=== PATIENT | female | born 1935 | race Caucasian/White ===

== ENCOUNTER 2016-12-23 00:12 | Inpatient (IN) | payer MEDICARE, OTHER ==
[2016-12-23] MEDS ORDERED: SODIUM CHLORIDE 0.9% 1,000 ML IV STA (00:33)
[2016-12-23] MEDS ORDERED: IPRATROPIUM-ALBUTEROL 3 ML NEB INHALATION STA ×2 (00:33→01:59)
[2016-12-23] MEDS ORDERED: methylPREDNISolone SOD SUCCI 125 MG/2 ML VIAL IV STA (00:33)
[2016-12-23] MEDS ORDERED: MAGNESIUM SULFATE-D5W PMX 1 GM in DEXTROSE/WATER 1 100ML.BAG IVPB STA (00:33)
--- NOTE | 2016-12-23 00:37 | ED ---
SOB HPI - General Chief Complaint: Shortness of Breath Stated Complaint: PARRISH Time Seen by Provider: 12/23/16 00:28 Source: patient, family, RN notes reviewed Mode of arrival: ambulatory Limitations: no limitations - History of Present Illness Initial Comments: This is a 81-year-old female history of COPD states she had the onset of shortness of breath tonight with some chest tightness. She states she's not been feeling well for about 2 days and slightly elevated temperature and coughing clear phlegm sometimes in phlegm. No overt chills or sweats however. She is on home oxygen. MD Complaint: shortness of breath - Related Data Home Medications Medication Instructions Recorded Confirmed Diltiazem Cd [Cardizem CD] 120 mg PO DAILY 02/20/15 12/23/16 Furosemide [Lasix] 40 mg PO BID 02/20/15 12/23/16 Lisinopril [Zestril] 2.5 mg PO DAILY 02/20/15 12/23/16 Montelukast [Singulair] 10 mg PO HS 02/20/15 12/23/16 Omeprazole [PriLOSEC] 20 mg PO DAILY 02/20/15 12/23/16 Albuterol Sulfate [Proair Hfa] 2 puff INHALATION RT-QID PRN 10/29/15 12/23/16 Ergocalciferol [Vitamin D2 50,000 unit PO Q14D 10/30/15 12/23/16 (DRISDOL)] Ranitidine HCl [Zantac] 150 mg PO BID 05/02/16 12/23/16 Simvastatin [Zocor] 80 mg PO HS 05/02/16 12/23/16 Albuterol Nebulized [Ventolin 2.5 mg INHALATION RT-Q6H PRN 08/19/16 12/23/16 Nebulized] Cetirizine HCl 10 mg PO DAILY 08/19/16 12/23/16 Fluticasone Nasal Sims [Flonase 1 - 2 spray EA NOSTRIL DAILY PRN 08/19/1612/23 Nasal Sims] Ipratropium Nebulized [Atrovent 0.5 mg INHALATION RT-Q4H PRN 08/19/16 12/23/16 Nebulized] Aspirin EC [Ecotrin Low Dose] 81 mg PO DAILY 10/05/16 12/23/16 Budesonide/Formoterol Fumarate 2 puff INHALATION RT-BID 10/05/16 12/23/16 [Symbicort 160-4.5 Mcg Inhaler] Allergies Allergy/AdvReac Type Severity Reaction Status Date / Time No Known Allergies Allergy Verified 12/23/16 00:25 Review of Systems ROS Statement: Those systems with pertinent positive or pertinent negative responses have been documented in the HPI. ROS Other: All systems not noted in ROS Statement are negative. Past Medical History Past Medical History: Asthma, Heart Failure, COPD, GERD/Reflux, Hypertension, Pneumonia Additional Past Medical History / Comment(s): PT USES O2 2 LITERS N/C AT HS AND NEEDED., DJD History of Any Multi-Drug Resistant Organisms: Acinetobacter (MDRO) Date of last positivie culture/infection: 10/06/16 MDRO Source:: SPUTUM Past Surgical History: Hysterectomy, Orthopedic Surgery, Tubal Ligation Additional Past Surgical History / Comment(s): LEFT HIP REPLACEMENT, LEFT FOOT Past Anesthesia/Blood Transfusion Reactions: No Reported Reaction Past Psychological History: No Psychological Hx Reported Smoking Status: Former smoker Past Alcohol Use History: None Reported Additional Past Alcohol Use History / Comment(s): QUIT 2009 HAD SMOKED 40-45 YEARS Past Drug Use History: None Reported - Past Family History Father History Unknown: Yes Brother(s) Family Medical History: No Reported History Mother Family Medical History: Rheumatoid Arthritis (RA) General Exam - General Exam Comments Initial Comments: This is a well-developed well-nourished awake alert oriented 3 female Limitations: no limitations General appearance: alert, anxious Head exam: Present: atraumatic, normocephalic, normal inspection Eye exam: Present: normal appearance, PERRL, EOMI. Absent: scleral icterus, conjunctival injection, periorbital swelling ENT exam: Present: mucous membranes dry Neck exam: Present: normal inspection. Absent: tenderness, meningismus, lymphadenopathy Respiratory exam: Present: wheezes, accessory muscle use, decreased breath sounds. Absent: respiratory distress, rales, rhonchi, stridor Cardiovascular Exam: Present: regular rate, normal rhythm, normal heart sounds. Absent: systolic murmur, diastolic murmur, rubs, gallop, clicks GI/Abdominal exam: Present: soft, normal bowel sounds. Absent: distended, tenderness, guarding, rebound, rigid Extremities exam: Present: normal inspection, full ROM, normal capillary refill. Absent: tenderness, pedal edema, joint swelling, calf tenderness Back exam: Present: normal inspection Neurological exam: Present: alert, oriented X3, CN II-XII intact Psychiatric exam: Present: normal affect, normal mood Skin exam: Present: warm, dry, intact, normal color. Absent: rash Course Vital Signs 12/23/16 12/23/16 12/23/16 00:21 00:53 01:01 Temperature 97.7 F Pulse Rate 83 87 89 Respiratory 22 Rate Blood Pressure 132/70 O2 Sat by Pulse 92 L Oximetry 12/23/16 12/23/16 02:12 02:18 Temperature Pulse Rate 78 84 Respiratory Rate Blood Pressure O2 Sat by Pulse Oximetry - Reevaluation(s) Reevaluation #1: 12/23/16 03:37 I did discuss findings with the patient and family thus far she is getting minimal relief from the treatment rendered thus far. Medical Decision Making - Medical Decision Making Patient still was not feeling much better after the initial treatment that was rendered. She will be admitted I did discuss this with her and her son. I also discussed this with the admitting physician. - Lab Data Result diagrams: 12/23/16 01:05 12/23/16 01:05 Lab Results 12/23/16 12/23/16 12/23/16 Range/Units 01:05 01:05 01:05 WBC 8.4 (3.8-10.6) k/uL RBC 3.97 (3.80-5.40) m/uL Hgb 11.2 L (11.4-16.0) gm/dL Hct 35.0 (34.0-46.0) % MCV 88.2 (80.0-100.0) fL MCH 28.3 (25.0-35.0) pg MCHC 32.1 (31.0-37.0) g/dL RDW 14.9 (11.5-15.5) % Plt Count 322 (150-450) k/uL Neutrophils % 70 % Lymphocytes % 18 % Monocytes % 6 % Eosinophils % 2 % Basophils % 1 % Neutrophils # 5.9 (1.3-7.7) k/uL Lymphocytes # 1.5 (1.0-4.8) k/uL Monocytes # 0.5 (0-1.0) k/uL Eosinophils # 0.2 (0-0.7) k/uL Basophils # 0.1 (0-0.2) k/uL PT (9.0-12.0) sec INR (<1.1) APTT (22.0-30.0) sec Sodium 140 (137-145) mmol/L Potassium 4.3 (3.5-5.1) mmol/L Chloride 106 (98-107) mmol/L Carbon Dioxide 26 (22-30) mmol/L Anion Gap 8 mmol/L BUN 14 (7-17) mg/dL Creatinine 0.90 (0.52-1.04) mg/dL Est GFR (MDRD) Af Amer >60 (>60 ml/min/1.73 sqM) Est GFR (MDRD) Non-Af >60 (>60 ml/min/1.73 sqM) Glucose 108 H (74-99) mg/dL Calcium 9.6 (8.4-10.2) mg/dL Magnesium 1.8 (1.6-2.3) mg/dL Total Bilirubin 0.3 (0.2-1.3) mg/dL AST 15 (14-36) U/L ALT 28 (9-52) U/L Alkaline Phosphatase 108 (38-126) U/L Total Creatine Kinase 48 (30-135) U/L CK-MB (CK-2) 0.7 (0.0-2.4) ng/mL CK-MB (CK-2) Rel Index 1.5 Troponin I <0.012 (0.000-0.034) ng/mL NT-Pro-B Natriuret Pep pg/mL Total Protein 6.2 L (6.3-8.2) g/dL Albumin 3.8 (3.5-5.0) g/dL 12/23/16 12/23/16 Range/Units 01:05 01:05 WBC (3.8-10.6) k/uL RBC (3.80-5.40) m/uL Hgb (11.4-16.0) gm/dL Hct (34.0-46.0) % MCV (80.0-100.0) fL MCH (25.0-35.0) pg MCHC (31.0-37.0) g/dL RDW (11.5-15.5) % Plt Count (150-450) k/uL Neutrophils % % Lymphocytes % % Monocytes % % Eosinophils % % Basophils % % Neutrophils # (1.3-7.7) k/uL Lymphocytes # (1.0-4.8) k/uL Monocytes # (0-1.0) k/uL Eosinophils # (0-0.7) k/uL Basophils # (0-0.2) k/uL PT 9.6 (9.0-12.0) sec INR 0.9 (<1.1) APTT 22.3 (22.0-30.0) sec Sodium (137-145) mmol/L Potassium (3.5-5.1) mmol/L Chloride (98-107) mmol/L Carbon Dioxide (22-30) mmol/L Anion Gap mmol/L BUN (7-17) mg/dL Creatinine (0.52-1.04) mg/dL Est GFR (MDRD) Af Amer (>60 ml/min/1.73 sqM) Est GFR (MDRD) Non-Af (>60 ml/min/1.73 sqM) Glucose (74-99) mg/dL Calcium (8.4-10.2) mg/dL Magnesium (1.6-2.3) mg/dL Total Bilirubin (0.2-1.3) mg/dL AST (14-36) U/L ALT (9-52) U/L Alkaline Phosphatase (38-126) U/L Total Creatine Kinase (30-135) U/L CK-MB (CK-2) (0.0-2.4) ng/mL CK-MB (CK-2) Rel Index Troponin I (0.000-0.034) ng/mL NT-Pro-B Natriuret Pep 202 pg/mL Total Protein (6.3-8.2) g/dL Albumin (3.5-5.0) g/dL - EKG Data -: EKG Interpreted by Al EKG shows normal: sinus rhythm (Sinus rhythm a rate of 80 MD interval 164 QRS duration 140 QT/QTC of 416/479 or bundle-branch block left anterior fascicular block no acute ST-T wave changes.) - Radiology Data Radiology results: report reviewed, image reviewed Critical Care Time Critical Care Time: Yes Critical Care Time: 31 minutes of critical care time which includes initial presentation with history physical lab and x-rays evaluation of the same. Reevaluation patient several occasions for responsive therapy. Discussion with the admitting physician discussed with the patient and family inpatient orders and documentation of the above. Disposition Clinical Impression: Acute exacerbation of chronic obstructive airways disease, Adult respiratory distress syndrome Disposition: ADMITTED IP TO THIS [facility] Condition: Stable
[2016-12-23 01:20] LABS: Basophils # (A) 0.1 k/uL (0-0.2); Basophils % (A) 1 %; Eosinophils # (A) 0.2 k/uL (0-0.7); Eosinophils % (A) 2 %; HDW 2.35; HGB 11.2 gm/dL (11.4-16.0); Luc # (Auto) 0.28; Luc % (Auto) 3; Lymphocytes # (A) 1.5 k/uL (1.0-4.8); Lymphocytes % (A) 18 %; MCH 28.3 pg (25.0-35.0); MCHC 32.1 g/dL (31.0-37.0); MCV 88.2 fL (80.0-100.0); Monocytes # (A) 0.5 k/uL (0-1.0); Monocytes % (A) 6 %; Neutrophils # (A) 5.9 k/uL (1.3-7.7); Neutrophils % (A) 70 %; RBC 3.97 m/uL (3.80-5.40); RDW 14.9 % (11.5-15.5); WBC 8.4 k/uL (3.8-10.6); WBC (Perox) 8.88
--- NOTE | 2016-12-23 01:26 | XR ---
EXAM: XR CXR 2 VIEWS INDICATION: 81-year-old female with difficulty breathing. COMPARISON: 10/05/2016. FINDINGS: PA and lateral views of chest show lungs and pleural margins are clear without pleural effusion, pneumothorax, or focal consolidation. Cardiac and mediastinal silhouette is stable. Aorta is tortuous and partially calcified. Osseous structures appear intact as visualized. Upper abdomen is unremarkable. IMPRESSION: No acute chest process.
[2016-12-23 01:29] LABS: ALT 28 U/L (9-52); AST 15 U/L (14-36); Alkaline Phosphatase 108 U/L (38-126); Anion Gap 8 mmol/L; Blood Urea Nitrogen 14 mg/dL (7-17); Calcium 9.6 mg/dL (8.4-10.2); Carbon Dioxide 26 mmol/L (22-30); Chloride 106 mmol/L (98-107); Glucose 108 mg/dL (74-99); Magnesium 1.8 mg/dL (1.6-2.3); Non-African American GFR(MDRD) >60 (>60 ml/min/1.73 sqM); Potassium 4.3 mmol/L (3.5-5.1); Sodium 140 mmol/L (137-145); Total Bilirubin 0.3 mg/dL (0.2-1.3); Total Protein 6.2 g/dL (6.3-8.2)
[2016-12-23 01:46] LABS: INR 0.9 (<1.1); Partial Thromboplastin Time 22.3 sec (22.0-30.0); Prothrombin Time 9.6 sec (9.0-12.0)
[2016-12-23 01:53] LABS: Creatine Kinase MB 0.7 ng/mL (0.0-2.4); Troponin I <0.012 ng/mL (0.000-0.034)
[2016-12-23 01:57] LABS: Creatine Kinase 48 U/L (30-135)
[2016-12-23] MEDS ORDERED: IPRATROPIUM-ALBUTEROL 3 ML NEB INHALATION PRN (04:47)
[2016-12-23] MEDS: methylPREDNISolone SOD SUCCI 125 MG/2 ML VIAL IV SCH ×4 (05:57→23:27)
[2016-12-23] MEDS: SODIUM CHLORIDE 0.9% 1,000 ML IV SCH ×2 (05:59→13:10)
[2016-12-23] MEDS ORDERED: IPRATROPIUM-ALBUTEROL 3 ML NEB INHALATION SCH (08:00)
[2016-12-23] MEDS: DILTIAZEM CD 120 MG CAP.ER.24H PO SCH (08:03)
[2016-12-23] MEDS: FAMOTIDINE 20 MG TAB PO SCH ×2 (08:03→20:29)
[2016-12-23] MEDS: ASPIRIN 81 MG CHEW PO SCH (08:03)
[2016-12-23] MEDS: PANTOPRAZOLE 40 MG TABLET PO SCH (08:03)
[2016-12-23] MEDS: LISINOPRIL 2.5 MG TAB PO SCH (08:03)
[2016-12-23] MEDS: IPRATROPIUM-ALBUTEROL 3 ML NEB INHALATION SCH ×4 (08:24→20:20)
[2016-12-23] MEDS ORDERED: FUROSEMIDE 40 MG TAB PO SCH (09:00)
[2016-12-23 12:13] LABS: Glucose,Whole Blood 153 mg/dL (75-99)
[2016-12-23 17:05] LABS: Glucose,Whole Blood 135 mg/dL (75-99)
[2016-12-23] MEDS: FUROSEMIDE 40 MG TAB PO SCH (17:26)
[2016-12-23] MEDS ORDERED: ACETAMINOPHEN TAB 325 MG TAB PO PRN (18:16)
--- NOTE | 2016-12-23 19:25 | HP ---
DATE OF ADMISSION: Sandrine Abreu is a 81-year-old female with a history of asthma, who came in to the ED with increasing shortness of breath of about 2 days. She had a slightly elevated temperature and was bringing up clear phlegm. She subsequently was seen in the ED and admitted for further evaluation. Her past medical history is positive for asthma, COPD, chronic respiratory failure, hypertension, anxiety disorder, seasonal allergies, history of heart failure, history of previous Acinetobacter infection in the sputum, history of left hip replacement, left foot surgery, tubal ligation, hysterectomy. Family history is positive for rheumatoid arthritis in her mother. SOCIAL HISTORY: Patient is an ex-smoker. She quit smoking 40 to 45 years ago. She does not drink alcohol excessively. She used to work for [employer]. Her medications prior to admission were: 1. Zocor. 2. Prilosec. 3. Singulair. 4. Zestril. 5. Atrovent. 6. Lasix. 7. Drisdol. 8. Cardizem CD. 9. Cetirizine. 10. Symbicort. 11. Ecotrin. 12. ProAir. 13. Ventolin. Review of systems is noncontributory other than for what is described in history of present illness and past medical history. On physical examination, blood pressure 141/82, respiratory rate of 22, pulse rate of 84, temperature 96.6 degrees Fahrenheit, O2 sat on 2 L by nasal cannula is 97%. HEENT reveals pupils that are equal. No jugular venous distention. Chest reveals expiratory wheeze. Cardiovascular system reveals an S1 and S2. Abdomen is soft. There is no pedal edema. Sodium is 140, potassium 4.3, chloride 106, bicarb 26, BUN 14, creatinine of 0.9. White count is 8.4, hemoglobin of 11.2, eosinophil count is 0.2000. Chest x-ray shows no acute process. IMPRESSION: 1. Asthma with acute exacerbation. 2. Chronic obstructive pulmonary disease. 3. Mild anemia. 4. Elevated blood sugars, in part due to steroids. At this point in time, we will keep the patient on bronchodilators, aerosolized steroids, leukotriene receptor antagonist, watch her sugars, put her on an insulin sliding scale if need be. Continue her on her other current medications, which were reviewed. Keep her on GI and DVT prophylaxis.
[2016-12-23] MEDS: BUDESONIDE 0.5 MG/2 ML NEBU INHALATION SCH (20:20)
[2016-12-23] MEDS: HEPARIN SODIUM,PORCINE 5,000 UNIT/ML 1 ML VIAL SQ SCH (20:29)
[2016-12-23] MEDS: MONTELUKAST 10 MG TAB PO SCH (20:29)
[2016-12-23] MEDS: ATORVASTATIN 40 MG TAB PO SCH (20:29)
[2016-12-23 22:00] LABS: Glucose,Whole Blood 156 mg/dL (75-99)
[2016-12-24] MEDS: SODIUM CHLORIDE 0.9% 1,000 ML IV SCH ×3 (00:51→20:20)
[2016-12-24] MEDS: methylPREDNISolone SOD SUCCI 125 MG/2 ML VIAL IV SCH (05:09)
[2016-12-24 07:36] LABS: Glucose,Whole Blood 136 mg/dL (75-99)
[2016-12-24] MEDS: IPRATROPIUM-ALBUTEROL 3 ML NEB INHALATION SCH ×4 (08:20→20:53)
[2016-12-24] MEDS: BUDESONIDE 0.5 MG/2 ML NEBU INHALATION SCH (08:20)
[2016-12-24] MEDS: ASPIRIN 81 MG CHEW PO SCH (09:09)
[2016-12-24] MEDS: FAMOTIDINE 20 MG TAB PO SCH ×2 (09:10→20:17)
[2016-12-24] MEDS: DILTIAZEM CD 120 MG CAP.ER.24H PO SCH (09:10)
[2016-12-24] MEDS: FUROSEMIDE 40 MG TAB PO SCH ×2 (09:11→16:27)
[2016-12-24] MEDS: PANTOPRAZOLE 40 MG TABLET PO SCH (09:11)
[2016-12-24] MEDS: HEPARIN SODIUM,PORCINE 5,000 UNIT/ML 1 ML VIAL SQ SCH ×2 (09:11→20:17)
[2016-12-24] MEDS: LISINOPRIL 2.5 MG TAB PO SCH (09:11)
[2016-12-24] MEDS ORDERED: IPRATROPIUM 0.5 MG/2.5 ML NEBU INHALATION PRN (10:46)
[2016-12-24] MEDS ORDERED: ALBUTEROL NEBULIZED 2.5 MG/3 ML INHALATION PRN (10:46)
[2016-12-24] MEDS ORDERED: ALBUTEROL INHALER 60 PUFF/8 GM INHALER INHALATION PRN (10:46)
--- NOTE | 2016-12-24 10:46 | P.PN ---
Subjective 81-year-old female being seen on rounds. Patient states that she came into the emergency room the day before because she felt short of breath with any exertion needed to stop activity. Patient stated that he been ongoing for the past several days. Patient stated she felt like she had a temp and was coughing up clear secretions. Patient states that she does wear oxygen at home and did give herself an updraft treatment did not improve came into the emergency room to be evaluated. In the emergency room the temp is 97.7. Patient states that she has been doing relatively well her last admission was at that time the patient was treated for COPD Patients being treated for asthma exacerbation in a patient with known COPD chest x-ray obtained on admission showed no acute process. Objective - Vital Signs Vital signs: Vital Signs Temp 97.0 F L 12/24/16 07:00 Pulse 96 12/24/16 08:36 Resp 20 12/24/16 07:00 BP 132/68 12/24/16 07:00 Pulse Ox 97 12/24/16 07:00 Intake & Output 12/23/16 12/24/16 12/24/16 18:59 06:59 18:59 Intake Total 600 Output Total 1 Balance 600 -1 Intake: Oral 600 Output: Urine 1 Other: # Voids 3 4 # Bowel Movements 1 1 - Exam Physical exam 81-year-old female sitting up on the edge of the bed continues to report having shortness of breath with any exertion a dry nonproductive cough noted Lungs posterior bilateral prolonged expiratory wheezing noted slightly short of breath with conversation a dry nonproductive cough noted Heart S1-S2 audible regular Abdomen soft nontender reports no nausea vomiting no difficulty in urinating no frequent stooling Extremities no edema noted - Labs CBC & Chem 7: 12/23/16 01:05 12/23/16 01:05 Labs: Abnormal Lab Results - Last 24 Hours (Table) 12/23/16 12/23/16 12/23/16 Range/Units 12:05 16:56 21:31 POC Glucose (mg/dL) 153 H 135 H 156 H (75-99) mg/dL 12/24/16 Range/Units 07:33 POC Glucose (mg/dL) 136 H (75-99) mg/dL Assessment and Plan Plan: Impression Present on admission shortness of breath likely due to an acute exacerbation of asthma Chronic severe COPD Hypoglycemic episodes suspect steroid-induced Chronic persistent asthma A remote history of tobacco abuse quit 40 years ago Hypertension with hypertensive cardiovascular disease Anxiety disorder nonspecified Chronic hypoxic respiratory failure on supplement home O2 3 L [id number] Chronic debility due to severe COPD Plan Decrease Solu-Medrol to 40 every 8 Resume home meds as appropriate Respiratory treatments as ordered Pulmonary's recommendations DVT and GI prophylaxis Monitor blood sugars while on IV Solu-Medrol address as indicated Further recommendations pending The above dictated assessment and findings were discussed with dr condon. Impression and the plan of care have been dictated as directed. Gabriela Avina nurse practitioner acting as a scribe for dr condon
--- NOTE | 2016-12-24 11:03 | P.CNPUL ---
History of Present Illness Consult date: 12/24/16 Requesting physician: Og Green Reason for consult: COPD Chief complaint: Shortness of breath History of present illness: This is a 81-year-old female being examined and evaluated today on the fourth floor. This patient is well known to our office. Patient came into the ER yesterday due to shortness of breath and dyspnea with activity. Patient states it has been going on for a few days prior to coming in. She reports some subjective fevers before arrival, however was 97.7 in the emergency room. This patient does have a history of chronic severe COPD, and chronic severe persistent asthma. Upon examination the patient is resting up in bed, she does complain of a significant cough and some clear white sputum production. Review of Systems 14 point review of system was completed and is negative other than what is noted in HPI Past Medical History Past Medical History: Asthma, Heart Failure, COPD, GERD/Reflux, Hypertension, Pneumonia Additional Past Medical History / Comment(s): PT USES O2 2 LITERS N/C AT HS AND NEEDED., DJD History of Any Multi-Drug Resistant Organisms: Acinetobacter (MDRO) Date of last positivie culture/infection: 10/06/16 MDRO Source:: SPUTUM Past Surgical History: Hysterectomy, Orthopedic Surgery, Tubal Ligation Additional Past Surgical History / Comment(s): LEFT HIP REPLACEMENT, LEFT FOOT surgery Past Anesthesia/Blood Transfusion Reactions: No Reported Reaction Past Psychological History: No Psychological Hx Reported Smoking Status: Former smoker Past Alcohol Use History: None Reported Additional Past Alcohol Use History / Comment(s): QUIT 2009 HAD SMOKED 40-45 YEARS Past Drug Use History: None Reported - Past Family History Father History Unknown: Yes Brother(s) Family Medical History: No Reported History Mother Family Medical History: Rheumatoid Arthritis (RA) Medications and Allergies Home Medications Medication Instructions Recorded Confirmed Type Diltiazem Cd [Cardizem CD] 120 mg PO DAILY 02/20/15 12/23/16 History Furosemide [Lasix] 40 mg PO BID 02/20/15 12/23/16 History Lisinopril [Zestril] 2.5 mg PO DAILY 02/20/15 12/23/16 History Montelukast [Singulair] 10 mg PO HS 02/20/15 12/23/16 History Omeprazole [PriLOSEC] 20 mg PO DAILY 02/20/15 12/23/16 History Albuterol Sulfate [Proair Hfa] 2 puff INHALATION RT-QID PRN 10/29/15 12/23/16 History Ergocalciferol [Vitamin D2 50,000 unit PO Q14D 10/30/15 12/23/16 History (DRISDOL)] Simvastatin [Zocor] 80 mg PO HS 05/02/16 12/23/16 History Albuterol Nebulized [Ventolin 2.5 mg INHALATION RT-QID PRN 08/19/16 12/23/16 History Nebulized] Cetirizine HCl 10 mg PO DAILY 08/19/16 12/23/16 History Ipratropium Nebulized [Atrovent 0.5 mg INHALATION RT-QID PRN 08/19/16 12/23/16 History Nebulized] Aspirin EC [Ecotrin Low Dose] 81 mg PO DAILY 10/05/16 12/23/16 History Budesonide/Formoterol Fumarate 2 puff INHALATION RT-BID 10/05/16 12/23/16 History [Symbicort 160-4.5 Mcg Inhaler] Allergies Allergy/AdvReac Type Severity Reaction Status Date / Time No Known Allergies Allergy Verified 12/23/16 00:25 Physical Exam Vitals: Vital Signs Temp Pulse Pulse Resp BP Pulse Ox 12/24/16 08:36 96 12/24/16 08:22 92 12/24/16 07:00 97.0 F L 86 20 132/68 97 12/24/16 02:52 100 12/24/16 02:42 100 12/23/16 23:00 98.3 F 105 H 20 136/68 94 L 12/23/16 20:39 84 12/23/16 20:20 82 12/23/16 17:18 84 12/23/16 17:04 82 12/23/16 15:09 16 12/23/16 15:00 96.6 F L 84 22 141/82 97 12/23/16 11:38 84 12/23/16 11:28 80 Intake and Output 12/23/16 12/24/16 12/24/16 22:59 06:59 14:59 Intake Total 600 Output Total 1 Balance 600 -1 Intake: Oral 600 Output: Urine 1 Other: # Voids 4 # Bowel Movements 1 GENERAL EXAM: Alert, active, comfortable in no apparent distress. HEAD: Normocephalic. EYES: Normal reaction of pupils, equal size. NOSE: Clear with pink turbinates. THROAT: No erythema or exudates. NECK: No masses, no JVD. CHEST: No chest wall deformity. LUNGS: Bilaterally increased expiratory wheezing. CVS: S1 and S2 normal with no audible mumurs, regular rhythm. ABDOMEN: No hepatosplenomegaly, normal bowel sounds, no guarding or rigidity. EXTREMITIES: No edema noted, pedal pulses palpable. SKIN: No rashes CENTRAL NERVOUS SYSTEM: No focal deficits, tone is normal in all 4 extremities. Results - Laboratory Findings CBC and BMP: 12/23/16 01:05 12/23/16 01:05 PT/INR, D-dimer PT 9.6 sec (9.0-12.0) 12/23/16 01:05 INR 0.9 (<1.1) 12/23/16 01:05 Abnormal lab findings: Abnormal Labs 12/23/16 12/23/16 12/23/16 12:05 16:56 21:31 POC Glucose (mg/dL) 153 H 135 H 156 H 12/24/16 07:33 POC Glucose (mg/dL) 136 H - Diagnostic Findings Chest x-ray: report reviewed, image reviewed Assessment and Plan Plan: Assessment Acute exacerbation of severe persistent asthma Chronic severe COPD Chronic severe persistent asthma Hypertension with hypertensive cardiovascular disease Chronic hypoxic respiratory failure, patient is oxygen dependent at home Medical debility due to COPD Anxiety Plan Continue the patient on IV steroids, nebulizers and medications as ordered. Continue supportive care. We will continue to monitor labs and adjust treatment as necessary.
[2016-12-24 12:18] LABS: Glucose,Whole Blood 159 mg/dL (75-99)
[2016-12-24] MEDS: methylPREDNISolone SOD SUCCI 40 MG/ML 1 ML VIAL IV SCH ×2 (16:26→23:14)
[2016-12-24 16:52] LABS: Glucose,Whole Blood 141 mg/dL (75-99)
--- NOTE | 2016-12-24 17:54 | HP ---
DATE OF ADMISSION: 12/23/2016 CHIEF COMPLAINT: Difficulty breathing. HISTORY OF PRESENT ILLNESS: This is another admission for this 81-year-old white female with severe COPD who stopped smoking several years ago. She thinks she got a slight URI and then went into respiratory distress. She came to the emergency room, where she could not be reversed, and she was admitted. REVIEW OF SYSTEMS: She denies any hemoptysis, chest pain, syncope, etc. Past medical history, family history, and personal and social histories are all otherwise unremarkable and unchanged from her recent admitting and discharge summaries. Patient is NOT ALLERGIC TO ANY MEDICATION. She takes: 1. Advair. 2. Omeprazole. 3. Aspirin. 4. Lasix. 5. Cardizem. 6. Symbicort. 7. Albuterol. 8. Ipratropium. 9. Zocor. 10. Lisinopril. 11. Vitamin B. 12. Simvastatin. 13. Prilosec. 14. Oxygen. The remainder of her history is unremarkable PHYSICAL EXAMINATION: Blood pressure is 120/70 with a pulse of 102, respirations of 46, temperature 97.8. In general she appeared to be in quite a bit respiratory distress. She was pale. Skin was dry. Head, ears, eyes, nose, mouth and throat were normal. She was using pursed-lip breathing. Chest demonstrated increased AP diameter with poor breath sounds. There is wheezing on inspiration and expiration. She has scattered rales throughout. Cardiac exam demonstrated tachycardia. Abdomen is soft, nontender. Extremities are normal. IMPRESSION: Exacerbation of chronic obstructive pulmonary disease. PLAN: 1. Bed rest. 2. IV and inhaled steroids. 3. Updrafts. 4. Antibiotics.
--- NOTE | 2016-12-24 17:56 | PN ---
DATE OF SERVICE: 12/24/2016 CHIEF COMPLAINT: Exacerbation of COPD. HISTORY OF PRESENT ILLNESS: This lady is doing a little better but she is still dyspneic. Chest had definitely improved. PHYSICAL EXAMINATION: Breath sounds are better. There are rales and rhonchi heard throughout. Cardiac exam is normal. IMPRESSION: 1. Exacerbation of chronic obstructive pulmonary disease. 2. Bronchopneumonia. PLAN: Continue on current program. Probably home tomorrow.
[2016-12-24] MEDS: MONTELUKAST 10 MG TAB PO SCH (20:17)
[2016-12-24] MEDS: ATORVASTATIN 40 MG TAB PO SCH (20:17)
[2016-12-24 20:36] LABS: Glucose,Whole Blood 189 mg/dL (75-99)
[2016-12-24] MEDS: SYMBICORT 160-4.5 MCG INHALER INHALATION SCH (20:53)
[2016-12-25] MEDS: SODIUM CHLORIDE 0.9% 1,000 ML IV SCH (05:14)
[2016-12-25 06:52] LABS: Glucose,Whole Blood 129 mg/dL (75-99)
[2016-12-25 07:43] VITALS: BP 147/84; RESP 16; TEMP 97.7
[2016-12-25] MEDS: SYMBICORT 160-4.5 MCG INHALER INHALATION SCH (07:47)
[2016-12-25] MEDS: IPRATROPIUM-ALBUTEROL 3 ML NEB INHALATION SCH ×2 (07:47→11:17)
[2016-12-25] MEDS: FAMOTIDINE 20 MG TAB PO SCH (08:47)
[2016-12-25] MEDS: methylPREDNISolone SOD SUCCI 40 MG/ML 1 ML VIAL IV SCH (08:47)
[2016-12-25] MEDS: FUROSEMIDE 40 MG TAB PO SCH (08:48)
[2016-12-25] MEDS: DILTIAZEM CD 120 MG CAP.ER.24H PO SCH (08:48)
[2016-12-25] MEDS: PANTOPRAZOLE 40 MG TABLET PO SCH (08:48)
[2016-12-25] MEDS: ASPIRIN 81 MG CHEW PO SCH (08:48)
[2016-12-25] MEDS: HEPARIN SODIUM,PORCINE 5,000 UNIT/ML 1 ML VIAL SQ SCH (08:48)
[2016-12-25] MEDS: LISINOPRIL 2.5 MG TAB PO SCH (08:49)
[2016-12-25] MEDS ORDERED: LORATADINE 10 MG TAB PO SCH (09:00)
--- NOTE | 2016-12-25 10:36 | P.PN ---
Subjective This is a 81-year-old female being examined needed and evaluated today on the fourth floor. The patient is well known to our office. The patient came into the ER due to shortness of breath and dyspnea with activity, it has been going on for a few days prior to coming in. She reports to have some subjective fevers before arrival however she was 97.7 in the emergency room and has been afebrile liver stents. The patient does have a history of chronic severe COPD and chronic severe persistent asthma. Upon examination the patient's resting up in bed she states that her cough is significantly improved and she has some small amounts of clear to white sputum production, which has decreased since admission. Objective - Vital Signs Vital signs: Vital Signs Temp 97.7 F 12/25/16 07:00 Pulse 96 12/25/16 08:03 Resp 16 12/25/16 07:00 BP 147/84 12/25/16 07:00 Pulse Ox 95 12/25/16 07:00 Intake & Output 12/24/16 12/25/16 12/25/16 18:59 06:59 18:59 Intake Total 240 Output Total 1 Balance -1 240 Weight 86.5 kg Intake: Oral 240 Output: Urine 1 Other: # Voids 2 2 # Bowel Movements 1 1 - Exam GENERAL EXAM: Alert, active, comfortable in no apparent distress. HEAD: Normocephalic. EYES: Normal reaction of pupils, equal size. NOSE: Clear with pink turbinates. THROAT: No erythema or exudates. NECK: No masses, no JVD. CHEST: No chest wall deformity. LUNGS: Equal air entry with some expiratory wheezes noted CVS: S1 and S2 normal with no audible mumurs, regular rhythm. ABDOMEN: No hepatosplenomegaly, normal bowel sounds, no guarding or rigidity. EXTREMITIES: No edema noted, pedal pulses palpable. SKIN: No rashes CENTRAL NERVOUS SYSTEM: No focal deficits, tone is normal in all 4 extremities. - Labs CBC & Chem 7: 12/23/16 01:05 12/23/16 01:05 Labs: Abnormal Lab Results - Last 24 Hours (Table) 12/24/16 12/24/16 12/24/16 Range/Units 12:16 16:50 20:35 POC Glucose (mg/dL) 159 H 141 H 189 H (75-99) mg/dL 12/25/16 Range/Units 06:46 POC Glucose (mg/dL) 129 H (75-99) mg/dL Assessment and Plan Plan: Assessment Acute exacerbation of severe persistent asthma Chronic severe COPD Chronic severe persistent asthma Hypertension with hypertensive cardiovascular disease Chronic hypoxic respiratory failure, patient is oxygen dependent at home Medical debility due to COPD Anxiety Plan Patient is cleared for discharge from pulmonary standpoint. Continue the patient on nebulizers and medications as ordered. Continue supportive care. We will continue to monitor labs and adjust treatment as necessary. We will follow -up with patient in the office within 1 week of discharge.
[2016-12-25 11:30] VITALS: PULSE 92
--- NOTE | 2016-12-25 11:32 | P.DS ---
Providers Date of admission: 12/23/16 03:42 Expected date of discharge: 12/25/16 Attending physician: Og Condon Consults: 12/24/16 08:21 Consult Physician Urgent Consulting Provider: Preston Diaz Consult Reason/Comments: copd Do you want consulting provider notified?: Yes Primary care physician: Og Condon [facility] Course: 11-year-old female has a history of COPD presented on the day of admission to the emergency room with a chief complaint of developing shortness of breath with chest tightness. Patient states she had not been feeling well for the past several days. Subjectively felt like she had a temp at home but did not actually take her temperature. The temp is 97.7 in the emergency room with a heart rate in the 80s. Given the above clinical presentation patient was admitted to the services of the attending with a pulmonology consultation requested patient was started on IV Solu-Medrol and updrafts. In the course of the hospitalization the symptoms improved patient was felt to be stable and appropriate to proceed with a discharge to home patients being treated for an asthma exacerbation in a patient with known COPD the chest x-ray obtained on admission showed no acute pulmonary process. Patient's last admission was 10/08 at that time the patient was treated for an exacerbation of COPD. Patient states she's been doing relatively well in regards to her pulmonary's status Impression discharge diagnosis Present on admission shortness of breath likely due to an acute exacerbation of asthma Chronic severe COPD Hypoglycemic episodes suspect steroid-induced Chronic persistent asthma A remote history of tobacco abuse quit 40 years ago Hypertension with hypertensive cardiovascular disease Anxiety disorder nonspecified Chronic hypoxic respiratory failure on supplement home O2 3 L [id number] Chronic debility due to severe COPD The above dictated assessment and findings were discussed with dr condon . Impression and the plan of care have been dictated as directed. Gabriela Avina nurse practitioner acting as a scribe for dr condon Patient Condition at Discharge: Stable Plan - Discharge Summary New Discharge Prescriptions: Doxycycline Hyclate [Vibramycin] 100 mg PO BID #20 cap methylPREDNISolone Dose Pack [Medrol Dose Pack] 4 mg PO DIRECTED #21 package Discharge Medication List Diltiazem Cd [Cardizem CD] 120 mg PO DAILY 02/20/15 [History] Furosemide [Lasix] 40 mg PO BID 02/20/15 [History] Lisinopril [Zestril] 2.5 mg PO DAILY 02/20/15 [History] Montelukast [Singulair] 10 mg PO HS 02/20/15 [History] Omeprazole [PriLOSEC] 20 mg PO DAILY 02/20/15 [History] Albuterol Sulfate [Proair Hfa] 2 puff INHALATION RT-QID PRN 10/29/15 [History] Ergocalciferol [Vitamin D2 (DRISDOL)] 50,000 unit PO Q14D 10/30/15 [History] Simvastatin [Zocor] 80 mg PO HS 05/02/16 [History] Albuterol Nebulized [Ventolin Nebulized] 2.5 mg INHALATION RT-QID PRN 08/19/16 [ History] Cetirizine HCl 10 mg PO DAILY 08/19/16 [History] Ipratropium Nebulized [Atrovent Nebulized] 0.5 mg INHALATION RT-QID PRN [History] Aspirin EC [Ecotrin Low Dose] 81 mg PO DAILY 10/05/16 [History] Budesonide/Formoterol Fumarate [Symbicort 160-4.5 Mcg Inhaler] 2 puff INHALATION RT-BID 10/05/16 [History] Doxycycline Hyclate [Vibramycin] 100 mg PO BID #20 cap 12/25/16 [Rx] methylPREDNISolone Dose Pack [Medrol Dose Pack] 4 mg PO DIRECTED #21 package 12/25/16 [Rx] Follow up Appointment(s)/Referral(s): Og Condon MD [Primary Care Provider] - 1-2 days Preston Diaz MD [STAFF PHYSICIAN] - 1 Week Patient Instructions/Handouts: Heart Failure (DC) Discharge Disposition: HOME SELF-CARE
[2016-12-25 12:26] LABS: Glucose,Whole Blood 133 mg/dL (75-99)
--- NOTE | 2016-12-25 21:34 | PN ---
DATE OF SERVICE: 12/25/2016 CHIEF COMPLAINT: Exacerbation of COPD. HISTORY OF PRESENT ILLNESS: This lady is doing well and feels like she can go home today. PHYSICAL EXAM: Breath sounds are poor, but there are no rales or rhonchi and there is no wheezing. Cardiac is normal. IMPRESSION: Exacerbation of chronic obstructive pulmonary disease. PLAN: Probably home today and this will be arranged by the nurse practitioner.
[2017-01-02] MEDS ORDERED: ERGOCALCIFEROL 50,000 UNIT CAP PO SCH (12:00)
== END 2016-12-25 14:22 | disposition home or self-care (01) | DRG 202 ==
LOC: EC 00:12 → 4MS4W 03:42
PROVIDERS: ADMIT Family Medicine; ATTEND Family Medicine
DX: J45.51 Severe persistent asthma with (acute) exacerbation (principal); J44.1 Chronic obstructive pulmonary disease with (acute) exacerbation; J96.11 Chronic respiratory failure with hypoxia; I11.0 Hypertensive heart disease with heart failure; I50.9 Heart failure, unspecified; Z99.81 Dependence on supplemental oxygen; T38.0X5A Adverse effect of glucocorticoids and synthetic analogues, initial encounter; R73.9 Hyperglycemia, unspecified; F41.9 Anxiety disorder, unspecified; D64.9 Anemia, unspecified; I45.4 Nonspecific intraventricular block; I44.4 Left anterior fascicular block; R00.0 Tachycardia, unspecified; K21.9 Gastro-esophageal reflux disease without esophagitis; J30.2 Other seasonal allergic rhinitis; M19.90 Unspecified osteoarthritis, unspecified site; R53.81 Other malaise; Z98.51 Tubal ligation status; Z90.710 Acquired absence of both cervix and uterus; Z87.891 Personal history of nicotine dependence; Z79.899 Other long term (current) drug therapy; Z16.24 Resistance to multiple antibiotics; Z87.01 Personal history of pneumonia (recurrent); Z96.642 Presence of left artificial hip joint; Z86.19 Personal history of other infectious and parasitic diseases; Z79.82 Long term (current) use of aspirin; Z79.51 Long term (current) use of inhaled steroids
CPT/HCPCS: 36415; 71020; 80053; 82550; 82553; 83735; 83880; 84484; 85025; 85610; 85730; 87040; 93005; 94640; 94760; 96361; 96365; 96375; 99291

== ENCOUNTER 2016-12-27 11:32 | Inpatient (IN) | payer MEDICARE, OTHER ==
[2016-12-27] MEDS ORDERED: IPRATROPIUM 0.5 MG/2.5 ML NEBU INHALATION PRN (14:42)
[2016-12-27] MEDS ORDERED: ALBUTEROL NEBULIZED 2.5 MG/3 ML INHALATION PRN ×2 (14:42)
[2016-12-27] MEDS ORDERED: ERGOCALCIFEROL 50,000 UNIT CAP PO SCH (15:00)
[2016-12-27] MEDS: IPRATROPIUM-ALBUTEROL 3 ML NEB INHALATION SCH ×3 (16:40→23:29)
[2016-12-27] MEDS: SYMBICORT 160-4.5 MCG INHALER INHALATION SCH (19:20)
[2016-12-27] MEDS: FUROSEMIDE 40 MG TAB PO SCH (21:15)
[2016-12-27] MEDS: ATORVASTATIN 40 MG TAB PO SCH (21:15)
[2016-12-27] MEDS: MONTELUKAST 10 MG TAB PO SCH (21:15)
[2016-12-27] MEDS: DOXYCYCLINE 50 MG CAP PO SCH (21:15)
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
[2016-12-28] MEDS: IPRATROPIUM-ALBUTEROL 3 ML NEB INHALATION SCH ×6 (03:15→23:40)
[2016-12-28] MEDS: ASPIRIN 81 MG CHEW PO SCH (07:25)
[2016-12-28] MEDS: PANTOPRAZOLE 40 MG TABLET PO SCH (07:25)
[2016-12-28] MEDS: LORATADINE 10 MG TAB PO SCH (07:26)
[2016-12-28] MEDS: FUROSEMIDE 40 MG TAB PO SCH ×2 (07:26→19:52)
[2016-12-28] MEDS: LISINOPRIL 2.5 MG TAB PO SCH (07:26)
[2016-12-28] MEDS: DILTIAZEM CD 120 MG CAP.ER.24H PO SCH (07:26)
[2016-12-28] MEDS: DOXYCYCLINE 50 MG CAP PO SCH ×2 (07:26→19:53)
[2016-12-28] MEDS: SYMBICORT 160-4.5 MCG INHALER INHALATION SCH ×2 (08:11→18:59)
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
--- NOTE | 2016-12-28 13:44 | CDI ---
In responding to this query, please exercise your independent professional judgment. The [facility] Coding Staff and Clinical Documentation Specialists appreciate your assistance in clarifying documentation, maintaining compliance with coding guidelines, accurately documenting patients condition and capturing severity of illness. The fact that a question is asked does not imply that any particular answer is desired or expected. Communication forms are a method of clarifying documentation and are not made part of the Legal Health Record. Thank you in advance for your clarification. Last Revision, December 2015 Linda Irwin [address] [facility] [place] [address] Documentation Clarification Form Date: 12/28/2016 1:20:00 PM From: Chinyere Espinoza Admit Date: 12/27/2016 11:46:00 AM Patient Name: Sandrine Abreu Visit Number: [id number] Dr. Og Green History/Risk Factors: COPD Home O2 use Exsmoker Clinical Indicators: Per H&P 'on oxygen 24 hrs a day' Treatment: O2 nasal cannula In your professional opinion, can you please clarify if these findings signify one of the following conditions? o Chronic Respiratory failure with hypercapnia o Chronic Respiratory failure with hypoxia o Other Diagnosis, please specify o Unable to determine Please document in your progress notes and discharge summary in order to capture severity of illness and risk of mortality. Include clinical findings that support your diagnosis. FYI: Press F11 to launch patient chart. Place X here if this finding has no clinical significance, is not applicable or if you are not able to provide any additional documentation. MIGUE
[2016-12-28] MEDS: ATORVASTATIN 40 MG TAB PO SCH (19:53)
[2016-12-28] MEDS: MONTELUKAST 10 MG TAB PO SCH (19:53)
[2016-12-29] MEDS: IPRATROPIUM-ALBUTEROL 3 ML NEB INHALATION SCH ×6 (04:09→23:08)
[2016-12-29] MEDS: SYMBICORT 160-4.5 MCG INHALER INHALATION SCH ×2 (07:38→19:51)
[2016-12-29] MEDS: ASPIRIN 81 MG CHEW PO SCH (08:22)
[2016-12-29] MEDS: FUROSEMIDE 40 MG TAB PO SCH ×2 (08:22→19:56)
[2016-12-29] MEDS: DOXYCYCLINE 50 MG CAP PO SCH ×2 (08:22→19:56)
[2016-12-29] MEDS: LISINOPRIL 2.5 MG TAB PO SCH (08:22)
[2016-12-29] MEDS: DILTIAZEM CD 120 MG CAP.ER.24H PO SCH (08:22)
[2016-12-29] MEDS: PANTOPRAZOLE 40 MG TABLET PO SCH (08:23)
[2016-12-29] MEDS: LORATADINE 10 MG TAB PO SCH (08:23)
--- NOTE | 2016-12-29 15:15 | PN ---
DATE OF SERVICE: 12/29/2016 HISTORY OF PRESENT ILLNESS: The patient is a 81-year-old female who is seen. She is sitting up in a chair at bedside. Does have air conditioning on in the room. She was admitted with acute exacerbation of COPD. She is oxygen dependent. She had recently been in the hospital and discharged on 12/25/2016 for similar problems with COPD and CHF. She is doing relatively well at this time. She has occasional nonproductive cough. She is diminished throughout. She does have a history of atrial flutter, oxygen dependent and problems with hypertension and GERD. She voices no problems at this time. On physical examination, vital signs show temperature of 98.1, heart rate 92, respiratory rate 18, blood pressure is 139/73, oxygen saturation 98% on 2 L. She has no recent labs. No recent x-rays at this time. GENERAL: She is a 81-year-old female who appears comfortable, in no acute distress. HEENT: Pupils are reactive. Mucous membranes are moist. NECK: Supple. No JVD. LUNGS: Sounds diminished. No significant rhonchi or wheezes heard at this time. CARDIOVASCULAR: S1 and S2 heard. Regular. ABDOMEN: Soft. Bowel sounds are heard. EXTREMITIES: Trace edema. NEUROLOGIC: She is awake, alert. IMPRESSION: 1. Acute exacerbation of chronic obstructive pulmonary disease. 2. Recent hospitalization for pneumonia. 3. Tracheobronchitis. 4. Hypertension. 5. Acute on chronic moderate persistent asthma. 6. Acute on chronic hypoxic respiratory failure. 7. History of atrial fibrillation. PLAN: We will do labs in the morning. Medications have been reviewed and we will continue with nebulizer treatments as ordered. Continue her Symbicort and her montelukast. Continue with GI and DVT prophylaxis. Will continue to follow patient. Continue with supportive care.
--- NOTE | 2016-12-29 18:10 | PN ---
DATE OF SERVICE: 12/29/2016 CHIEF COMPLAINT: Exacerbation of chronic obstructive pulmonary disease. HISTORY OF PRESENT ILLNESS: This lady is not any better and she feels ( ). She is not running a fever. PHYSICAL EXAMINATION: Breath sounds are poor throughout. There are occasional rhonchi and scattered rales. There is expiratory wheeze. Cardiac exam is normal. IMPRESSION: Exacerbation of chronic obstructive pulmonary disease. PLAN: Continue on current program.
[2016-12-29] MEDS: ATORVASTATIN 40 MG TAB PO SCH (19:56)
[2016-12-29] MEDS: MONTELUKAST 10 MG TAB PO SCH (19:56)
[2016-12-30] MEDS: IPRATROPIUM-ALBUTEROL 3 ML NEB INHALATION SCH ×5 (03:47→20:24)
[2016-12-30 07:31] LABS: Basophils % (A) 0 %; CH 28.7; CHCM 32.5; Eosinophils # (A) 0.2 k/uL (0-0.7); Eosinophils % (A) 2 %; HCT 37.5 % (34.0-46.0); HGB 11.9 gm/dL (11.4-16.0); Luc # (Auto) 0.39; Luc % (Auto) 3; Lymphocytes # (A) 1.9 k/uL (1.0-4.8); Lymphocytes % (A) 16 %; MCHC 31.6 g/dL (31.0-37.0); MCV 88.5 fL (80.0-100.0); Mean Platelet Volume 7.2; Monocytes # (A) 0.7 k/uL (0-1.0); Monocytes % (A) 6 %; Neutrophils # (A) 8.6 k/uL (1.3-7.7); Neutrophils % (A) 72 %; RBC 4.24 m/uL (3.80-5.40); RDW 14.7 % (11.5-15.5); WBC 11.9 k/uL (3.8-10.6); WBC (Perox) 12.47
[2016-12-30] MEDS: SYMBICORT 160-4.5 MCG INHALER INHALATION SCH ×2 (07:39→20:25)
[2016-12-30] MEDS: LORATADINE 10 MG TAB PO SCH (07:41)
[2016-12-30] MEDS: DOXYCYCLINE 50 MG CAP PO SCH ×2 (07:41→19:40)
[2016-12-30] MEDS: DILTIAZEM CD 120 MG CAP.ER.24H PO SCH (07:41)
[2016-12-30] MEDS: ASPIRIN 81 MG CHEW PO SCH (07:42)
[2016-12-30] MEDS: LISINOPRIL 2.5 MG TAB PO SCH (07:42)
[2016-12-30] MEDS: PANTOPRAZOLE 40 MG TABLET PO SCH (07:42)
[2016-12-30] MEDS: FUROSEMIDE 40 MG TAB PO SCH ×2 (07:42→19:41)
[2016-12-30 07:49] LABS: Magnesium 1.8 mg/dL (1.6-2.3); Potassium 4.9 mmol/L (3.5-5.1); Total Bilirubin 0.6 mg/dL (0.2-1.3)
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
[2016-12-30] MEDS: ATORVASTATIN 40 MG TAB PO SCH (19:41)
[2016-12-30] MEDS: MONTELUKAST 10 MG TAB PO SCH (19:41)
--- NOTE | 2016-12-30 22:14 | PN ---
CHIEF COMPLAINT: Chronic obstructive pulmonary disease. HISTORY OF PRESENT ILLNESS: This lady is doing a little bit better each day. PHYSICAL EXAMINATION: She still has poor breath sounds with wheezing, rhonchi, rales and rhonchi. CARDIAC: Normal. The abdomen is soft, nontender. IMPRESSION: Exacerbation of chronic obstructive pulmonary disease. PLAN: Continue current program until she is able to go home.
[2016-12-31] MEDS: IPRATROPIUM-ALBUTEROL 3 ML NEB INHALATION SCH ×4 (00:15→10:57)
[2016-12-31] MEDS: SYMBICORT 160-4.5 MCG INHALER INHALATION SCH (07:12)
[2016-12-31 07:54] VITALS: BP 106/56; RESP 18; TEMP 98.2
[2016-12-31] MEDS: DOXYCYCLINE 50 MG CAP PO SCH (08:14)
[2016-12-31] MEDS: ASPIRIN 81 MG CHEW PO SCH (08:14)
[2016-12-31] MEDS: PANTOPRAZOLE 40 MG TABLET PO SCH (08:14)
[2016-12-31] MEDS: LISINOPRIL 2.5 MG TAB PO SCH (08:14)
[2016-12-31] MEDS: DILTIAZEM CD 120 MG CAP.ER.24H PO SCH (08:15)
[2016-12-31] MEDS: LORATADINE 10 MG TAB PO SCH (08:15)
[2016-12-31] MEDS: FUROSEMIDE 40 MG TAB PO SCH (08:15)
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
[2016-12-31 11:07] VITALS: PULSE 90
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
[2017-01-02] MEDS ORDERED: ERGOCALCIFEROL 50,000 UNIT CAP PO SCH (12:00)
== END 2016-12-31 12:45 | disposition home or self-care (01) | DRG 190 ==
LOC: 5MS5E 11:46
PROVIDERS: ADMIT Family Medicine; ATTEND Family Medicine
DX: J44.0 Chronic obstructive pulmonary disease with (acute) lower respiratory infection (principal); J96.21 Acute and chronic respiratory failure with hypoxia; I11.0 Hypertensive heart disease with heart failure; Z99.81 Dependence on supplemental oxygen; J18.0 Bronchopneumonia, unspecified organism; I50.9 Heart failure, unspecified; J44.1 Chronic obstructive pulmonary disease with (acute) exacerbation; I48.91 Unspecified atrial fibrillation; J45.40 Moderate persistent asthma, uncomplicated; R00.0 Tachycardia, unspecified; T38.0X5A Adverse effect of glucocorticoids and synthetic analogues, initial encounter; R73.9 Hyperglycemia, unspecified; E78.5 Hyperlipidemia, unspecified; R53.81 Other malaise; R68.83 Chills (without fever); F41.9 Anxiety disorder, unspecified; M19.90 Unspecified osteoarthritis, unspecified site; K21.9 Gastro-esophageal reflux disease without esophagitis; Z79.899 Other long term (current) drug therapy; Z16.24 Resistance to multiple antibiotics; Z79.82 Long term (current) use of aspirin; Z79.51 Long term (current) use of inhaled steroids; Z87.891 Personal history of nicotine dependence; Z79.52 Long term (current) use of systemic steroids; Z86.79 Personal history of other diseases of the circulatory system; Z87.01 Personal history of pneumonia (recurrent); Z87.81 Personal history of (healed) traumatic fracture; Z86.19 Personal history of other infectious and parasitic diseases; Z87.09 Personal history of other diseases of the respiratory system; Z98.51 Tubal ligation status; Z96.642 Presence of left artificial hip joint; Z90.710 Acquired absence of both cervix and uterus
CPT/HCPCS: 80053; 83735; 85025; 94640; 94760

== ENCOUNTER 2017-03-12 14:18 | Inpatient (IN) | payer MEDICARE, OTHER ==
[2017-03-12] MEDS ORDERED: methylPREDNISolone SOD SUCCI 125 MG/2 ML VIAL IV STA (14:50)
[2017-03-12] MEDS ORDERED: IPRATROPIUM-ALBUTEROL 3 ML NEB INHALATION STA (14:50)
--- NOTE | 2017-03-12 14:52 | ED ---
General Adult HPI - General Chief complaint: Shortness of Breath Stated complaint: Diff Breathing Time Seen by Provider: 03/12/17 14:37 Source: patient, family, RN notes reviewed Mode of arrival: wheelchair Limitations: no limitations - History of Present Illness Initial comments: Patient is a pleasant 81-year-old female presenting to the emergency department complaining of difficulty in breathing. Onset of symptoms was around 2 AM. Symptoms awoke her from sleep. Patient does have cough with clear sputum. No fever. No chest pain. Symptoms are similar to previous COPD. No leg pain or leg swelling. - Related Data Home Medications Medication Instructions Recorded Confirmed Furosemide [Lasix] 40 mg PO BID 02/20/15 03/12/17 Lisinopril [Zestril] 2.5 mg PO DAILY 02/20/15 03/12/17 Montelukast [Singulair] 10 mg PO HS 02/20/15 03/12/17 Omeprazole [PriLOSEC] 20 mg PO DAILY 02/20/15 03/12/17 Albuterol Sulfate [Proair Hfa] 2 puff INHALATION RT-QID PRN 10/29/15 03/12/17 Ergocalciferol [Vitamin D2 50,000 unit PO Q14D 10/30/15 03/12/17 (DRISDOL)] Simvastatin [Zocor] 80 mg PO HS 05/02/16 03/12/17 Albuterol Nebulized [Ventolin 2.5 mg INHALATION RT-QID PRN 08/19/16 03/12/17 Nebulized] Ipratropium Nebulized [Atrovent 0.5 mg INHALATION RT-QID PRN 08/19/16 03/12/17 Nebulized] Aspirin EC [Ecotrin Low Dose] 81 mg PO DAILY 10/05/16 03/12/17 Budesonide/Formoterol Fumarate 2 puff INHALATION RT-BID 10/05/16 03/12/17 [Symbicort 160-4.5 Mcg Inhaler] Allergies Allergy/AdvReac Type Severity Reaction Status Date / Time No Known Allergies Allergy Verified 03/12/17 15:57 Review of Systems ROS Statement: Those systems with pertinent positive or pertinent negative responses have been documented in the HPI. ROS Other: All systems not noted in ROS Statement are negative. Constitutional: Denies: fever Eyes: Denies: eye pain ENT: Denies: ear pain Respiratory: Reports: cough, dyspnea Cardiovascular: Denies: chest pain Endocrine: Denies: fatigue Gastrointestinal: Denies: abdominal pain Genitourinary: Denies: dysuria Musculoskeletal: Denies: back pain Skin: Denies: rash Neurological: Denies: weakness Past Medical History Past Medical History: Atrial Flutter, Asthma, Chest Pain / Angina, Heart Failure , COPD, GERD/Reflux, Hyperlipidemia, Hypertension, Pneumonia, Respiratory Disorder Additional Past Medical History / Comment(s): Chronic respiratory failure with O2 at 2L/NC ATC, chronic persistent asthma, bronchitis, DJD, past L hip fx with surgery, sinus problems, rheumatic fever as a child. History of Any Multi-Drug Resistant Organisms: Acinetobacter (MDRO) Date of last positivie culture/infection: 10/06/16 MDRO Source:: SPUTUM Past Surgical History: Hysterectomy, Joint Replacement, Orthopedic Surgery, Tubal Ligation Additional Past Surgical History / Comment(s): LEFT HIP hemiarthroplasty, LEFT FOOT surgery, colonoscopy, D&C. Past Anesthesia/Blood Transfusion Reactions: No Reported Reaction Past Psychological History: No Psychological Hx Reported Additional Psychological History / Comment(s): Pt resides with her son. She uses no assistive device. She no longer drives, her daughter drives her to appts. Her son cooks and cleans the house. The home is one level without steps. Smoking Status: Former smoker Past Alcohol Use History: None Reported Additional Past Alcohol Use History / Comment(s): QUIT 2009 HAD SMOKED 40-45 YEARS Past Drug Use History: None Reported - Past Family History Father History Unknown: Yes Brother(s) Family Medical History: No Reported History Mother Family Medical History: Rheumatoid Arthritis (RA) General Exam Limitations: no limitations General appearance: alert, in no apparent distress Head exam: Present: atraumatic Eye exam: Present: normal appearance, PERRL ENT exam: Present: normal oropharynx Neck exam: Present: normal inspection Respiratory exam: Present: wheezes, decreased breath sounds Cardiovascular Exam: Present: regular rate, normal rhythm GI/Abdominal exam: Present: soft. Absent: tenderness Extremities exam: Present: normal inspection. Absent: pedal edema, calf tenderness Neurological exam: Present: alert Psychiatric exam: Present: normal affect, normal mood Skin exam: Present: normal color Course Vital Signs 03/12/17 03/12/17 03/12/17 14:31 15:00 15:35 Temperature 98.3 F 97.4 F L Pulse Rate 98 85 Respiratory 24 24 16 Rate Blood Pressure 139/63 169/93 O2 Sat by Pulse 92 L 95 Oximetry 03/12/17 03/12/17 15:36 16:14 Temperature Pulse Rate 76 99 Respiratory Rate Blood Pressure O2 Sat by Pulse Oximetry EKG Findings - EKG Comments: EKG Findings:: Sinus rhythm at 92. IA 156. QRS 136. QT 390. QTC 482. Left axis. Right bundle branch block. Left anterior fascicular block. No acute ST change. Medical Decision Making - Medical Decision Making Patient reevaluated and resting comfortably in bed. Patient and family updated on results. Lung sounds diminished however no wheezing. Patient does not feel comfortable for discharge. Dr. Green has been paged for admission. Patient and daughter were updated regarding lung nodule. Patient states she also sees Dr. Diaz. - Lab Data Result diagrams: 03/12/17 15:10 03/12/17 15:10 Lab Results 03/12/17 03/12/17 Range/Units 15:10 15:10 WBC 7.4 (3.8-10.6) k/uL RBC 3.95 (3.80-5.40) m/uL Hgb 11.4 (11.4-16.0) gm/dL Hct 34.2 (34.0-46.0) % MCV 86.5 (80.0-100.0) fL MCH 28.9 (25.0-35.0) pg MCHC 33.4 (31.0-37.0) g/dL RDW 15.0 (11.5-15.5) % Plt Count 334 (150-450) k/uL Neutrophils % 69 % Lymphocytes % 17 % Monocytes % 8 % Eosinophils % 2 % Basophils % 1 % Neutrophils # 5.1 (1.3-7.7) k/uL Lymphocytes # 1.3 (1.0-4.8) k/uL Monocytes # 0.6 (0-1.0) k/uL Eosinophils # 0.1 (0-0.7) k/uL Basophils # 0.1 (0-0.2) k/uL Sodium 141 (137-145) mmol/L Potassium 4.0 (3.5-5.1) mmol/L Chloride 107 (98-107) mmol/L Carbon Dioxide 24 (22-30) mmol/L Anion Gap 10 mmol/L BUN 9 (7-17) mg/dL Creatinine 0.80 (0.52-1.04) mg/dL Est GFR (MDRD) Af Amer >60 (>60 ml/min/1.73 sqM) Est GFR (MDRD) Non-Af >60 (>60 ml/min/1.73 sqM) Glucose 99 (74-99) mg/dL Calcium 9.6 (8.4-10.2) mg/dL Total Bilirubin 0.5 (0.2-1.3) mg/dL AST 18 (14-36) U/L ALT 22 (9-52) U/L Alkaline Phosphatase 116 (38-126) U/L Total Protein 6.2 L (6.3-8.2) g/dL Albumin 3.8 (3.5-5.0) g/dL - Radiology Data Radiology results: image reviewed (Chest x-ray concerning for left upper lobe nodule) Disposition Clinical Impression: Acute exacerbation of chronic obstructive airways disease Disposition: ADMITTED IP TO THIS [facility] Referrals: Og Green MD [Primary Care Provider] - 1-2 days Decision Time: 16:44
--- NOTE | 2017-03-12 15:38 | XR ---
EXAMINATION TYPE: XR chest 2V DATE OF EXAM: 03/12/2017 3:26 PM COMPARISON: Prior chest x-ray 23 December 2016 HISTORY: Difficulty breathing, shortness of breath TECHNIQUE: Frontal and lateral views of the chest are obtained. FINDINGS: There is a focus of increased density in the left upper lobe which is new compared to prio r exam. There is no pleural effusion, or pneumothorax seen. Patchy density at the lung bases may refl ect scarring, nodular density on the left is thought to be stable. Prominent lung volume compatible w ith COPD. Aorta is dense. The cardiac silhouette size is within normal limits. The osseous structur es are intact. IMPRESSION: New left upper lobe lung nodule, recommend chest CT.
[2017-03-12 16:38] LABS: ALT 22 U/L (9-52); AST 18 U/L (14-36); Alkaline Phosphatase 116 U/L (38-126); Anion Gap 10 mmol/L; Blood Urea Nitrogen 9 mg/dL (7-17); Calcium 9.6 mg/dL (8.4-10.2); Carbon Dioxide 24 mmol/L (22-30); Chloride 107 mmol/L (98-107); Glucose 99 mg/dL (74-99); Non-African American GFR(MDRD) >60 (>60 ml/min/1.73 sqM); Sodium 141 mmol/L (137-145); Total Bilirubin 0.5 mg/dL (0.2-1.3); Total Protein 6.2 g/dL (6.3-8.2)
[2017-03-12 16:40] LABS: Basophils # (A) 0.1 k/uL (0-0.2); Basophils % (A) 1 %; CH 28.4; Eosinophils # (A) 0.1 k/uL (0-0.7); Eosinophils % (A) 2 %; HCT 34.2 % (34.0-46.0); HDW 2.61; HGB 11.4 gm/dL (11.4-16.0); Luc # (Auto) 0.27; Luc % (Auto) 4; Lymphocytes # (A) 1.3 k/uL (1.0-4.8); Lymphocytes % (A) 17 %; MCH 28.9 pg (25.0-35.0); MCHC 33.4 g/dL (31.0-37.0); MCV 86.5 fL (80.0-100.0); Mean Platelet Volume 7.3; Monocytes # (A) 0.6 k/uL (0-1.0); Monocytes % (A) 8 %; Neutrophils # (A) 5.1 k/uL (1.3-7.7); Neutrophils % (A) 69 %; RBC 3.95 m/uL (3.80-5.40); WBC 7.4 k/uL (3.8-10.6); WBC (Perox) 7.66
[2017-03-12] MEDS ORDERED: IPRATROPIUM-ALBUTEROL 3 ML NEB INHALATION PRN (16:44)
[2017-03-12 19:31] VITALS: BMI 29.2
[2017-03-12] MEDS ORDERED: IPRATROPIUM 0.5 MG/2.5 ML NEBU INHALATION PRN (20:04)
[2017-03-12] MEDS ORDERED: ALBUTEROL INHALER 60 PUFF/8 GM INHALER INHALATION PRN (20:04)
[2017-03-12] MEDS ORDERED: ALBUTEROL NEBULIZED 2.5 MG/3 ML INHALATION PRN (20:04)
[2017-03-12] MEDS: IPRATROPIUM-ALBUTEROL 3 ML NEB INHALATION SCH (20:08)
[2017-03-12] MEDS: methylPREDNISolone SOD SUCCI 125 MG/2 ML VIAL IV SCH (20:18)
[2017-03-12] MEDS: MONTELUKAST 10 MG TAB PO SCH (20:39)
[2017-03-13] MEDS: methylPREDNISolone SOD SUCCI 125 MG/2 ML VIAL IV SCH ×4 (00:27→17:09)
[2017-03-13] MEDS: IPRATROPIUM-ALBUTEROL 3 ML NEB INHALATION SCH ×4 (07:24→21:07)
[2017-03-13] MEDS: SYMBICORT 160-4.5 MCG INHALER INHALATION SCH ×2 (07:24→21:06)
[2017-03-13] MEDS: ASPIRIN 81 MG CHEW PO SCH (09:06)
[2017-03-13] MEDS: FUROSEMIDE 40 MG TAB PO SCH ×2 (09:06→12:20)
[2017-03-13] MEDS: LISINOPRIL 2.5 MG TAB PO SCH (09:06)
[2017-03-13] MEDS: PANTOPRAZOLE 40 MG TABLET PO SCH (09:06)
[2017-03-13] MEDS ORDERED: RX INFO: IV CONTRAST WAS GIVEN 1 EACH MISC MISCELLANE PRN (10:28)
--- NOTE | 2017-03-13 10:53 | P.CNPUL ---
History of Present Illness Consult date: 03/13/17 Requesting physician: Og Green Reason for consult: COPD Chief complaint: Shortness of breath History of present illness: This is a 81-year-old female patient being evaluated and examined today on the fifth floor. This patient is well-known to our services. This patient did come into the emergency room with recent onset of shortness of breath. She states she woke up from her sleep and could not breathe she also stated she has a productive cough with clear sputum she denies any fever or chest pain nausea, vomiting diarrhea or constipation. Denies any leg pain or swelling. Patient was worked up in the emergency room and was found to have acute exacerbation of COPD. Patient did have a chest x-ray which revealed a new left upper lobe nodule. This patient does have a history of chronic hypoxic respiratory failure and is on 2 L of home O2. This patient does have a past medical history significant for severe COPD, chronic persistent moderate asthma, atrial flutter, chronic hypoxic respiratory failure with home O2, hx of multiple pneumonias. Upon examination the patient is resting up in bed she is currently using 2-3 L of supplemental oxygen. Patient continues to have a productive cough with clear sputum. Patient states she just cannot catch her breath with any exertion or extensive conversation. Review of Systems 14 point review of systems was completed and is negative other than what's noted in the HPI Past Medical History Past Medical History: Atrial Flutter, Asthma, Chest Pain / Angina, Heart Failure , COPD, GERD/Reflux, Hyperlipidemia, Hypertension, Pneumonia, Respiratory Disorder Additional Past Medical History / Comment(s): Chronic respiratory failure with O2 at 2L/NC ATC, chronic persistent asthma, bronchitis, DJD, past L hip fx with surgery, sinus problems, rheumatic fever as a child. History of Any Multi-Drug Resistant Organisms: Acinetobacter (MDRO) Date of last positivie culture/infection: 10/06/16 MDRO Source:: SPUTUM Past Surgical History: Hysterectomy, Joint Replacement, Orthopedic Surgery, Tubal Ligation Additional Past Surgical History / Comment(s): LEFT HIP hemiarthroplasty, LEFT FOOT surgery, colonoscopy, D&C. Past Anesthesia/Blood Transfusion Reactions: No Reported Reaction Past Psychological History: No Psychological Hx Reported Additional Psychological History / Comment(s): Pt resides with her son. She uses no assistive device. She no longer drives, her daughter drives her to [place]. Her son cooks and cleans the house. The home is one level without steps. Smoking Status: Former smoker Past Alcohol Use History: None Reported Additional Past Alcohol Use History / Comment(s): QUIT 2009 HAD SMOKED 40-45 YEARS Past Drug Use History: None Reported - Past Family History Father History Unknown: Yes Brother(s) Family Medical History: No Reported History Mother Family Medical History: Rheumatoid Arthritis (RA) Medications and Allergies Home Medications Medication Instructions Recorded Confirmed Type Furosemide [Lasix] 40 mg PO BID 02/20/15 03/12/17 History Lisinopril [Zestril] 2.5 mg PO DAILY 02/20/15 03/12/17 History Montelukast [Singulair] 10 mg PO HS 02/20/15 03/12/17 History Omeprazole [PriLOSEC] 20 mg PO DAILY 02/20/15 03/12/17 History Albuterol Sulfate [Proair Hfa] 2 puff INHALATION RT-QID PRN 10/29/15 03/12/17 History Ergocalciferol [Vitamin D2 50,000 unit PO Q14D 10/30/15 03/12/17 History (DRISDOL)] Simvastatin [Zocor] 80 mg PO HS 05/02/16 03/12/17 History Albuterol Nebulized [Ventolin 2.5 mg INHALATION RT-QID PRN 08/19/16 03/12/17 History Nebulized] Ipratropium Nebulized [Atrovent 0.5 mg INHALATION RT-QID PRN 08/19/16 03/12/17 History Nebulized] Aspirin EC [Ecotrin Low Dose] 81 mg PO DAILY 10/05/16 03/12/17 History Budesonide/Formoterol Fumarate 2 puff INHALATION RT-BID 10/05/16 03/12/17 History [Symbicort 160-4.5 Mcg Inhaler] Allergies Allergy/AdvReac Type Severity Reaction Status Date / Time No Known Allergies Allergy Verified 03/12/17 15:57 Physical Exam Vitals: Vital Signs Temp Pulse Pulse Pulse Resp BP BP 03/13/17 07:35 72 03/13/17 07:25 72 03/13/17 07:00 97.4 F L 81 16 126/77 03/13/17 00:00 83 16 03/12/17 21:03 97.5 F L 83 16 136/73 03/12/17 20:25 90 03/12/17 20:09 88 03/12/17 18:43 97.9 F 86 20 160/70 03/12/17 17:56 80 18 162/79 03/12/17 16:14 99 03/12/17 15:36 76 03/12/17 15:35 97.4 F L 85 16 169/93 03/12/17 15:00 24 03/12/17 14:31 98.3 F 98 24 139/63 Pulse Ox 03/13/17 07:35 03/13/17 07:25 03/13/17 07:00 90 L 03/13/17 00:00 03/12/17 21:03 93 L 03/12/17 20:25 03/12/17 20:09 03/12/17 18:43 94 L 03/12/17 17:56 94 L 03/12/17 16:14 03/12/17 15:36 03/12/17 15:35 95 03/12/17 15:00 03/12/17 14:31 92 L Intake and Output 03/12/17 03/13/17 03/13/17 22:59 06:59 14:59 Intake Total 240 Balance 240 Intake: Oral 240 Other: Voiding Method Bedside Commode # Voids 1 Weight 84.822 kg GENERAL EXAM: Alert, active, comfortable in no apparent distress. HEAD: Normocephalic. EYES: Normal reaction of pupils, equal size. NOSE: Clear with pink turbinates. THROAT: No erythema or exudates. NECK: No masses, no JVD. CHEST: No chest wall deformity. LUNGS: Equal air entry with no crackles, wheeze, rhonchi or dullness. Diminished bases CVS: S1 and S2 normal with no audible mumurs, regular rhythm. ABDOMEN: No hepatosplenomegaly, normal bowel sounds, no guarding or rigidity. EXTREMITIES: No edema noted, pedal pulses palpable. SKIN: No rashes CENTRAL NERVOUS SYSTEM: No focal deficits, tone is normal in all 4 extremities. Results - Laboratory Findings CBC and BMP: 03/12/17 15:10 03/12/17 15:10 Abnormal lab findings: Abnormal Labs 03/12/17 15:10 Total Protein 6.2 L - Diagnostic Findings Chest x-ray: report reviewed, image reviewed Assessment and Plan Plan: Assessment Acute exacerbation of chronic obstructive pulmonary disease Tracheobronchitis Acute exacerbation of chronic persistent asthma Acute on chronic respiratory failure, uses home O2 2 L via nasal cannula at all times History of hypertension History of GERD History of Hyperlipidemia Plan Medications have been reviewed and will be continued as ordered. Continue with pulmonary hygiene, coughing and deep breathing exercises, and supportive care. Supplemental oxygen to maintain oxygen saturations of 92% or better. Continue with IV steroids. Continue nebulizer treatments. GI and DVT prophylaxis. We will obtain a CT of the chest with contrast to further investigate the new left upper lobe nodule. Incentive spirometer initiated and encouraged. Patient should have an outpatient sleep study done if not already completed. We will continue to monitor labs/results and adjust treatment as necessary. Further recommendations pending.
--- NOTE | 2017-03-13 11:30 | CT ---
EXAMINATION TYPE: CT chest w con DATE OF EXAM: 03/13/2017 11:18 AM COMPARISON: Previous study dated 11/02/2015. HISTORY: ALTHEA nodule CT DLP: 624 mGycm Automated exposure control for dose reduction was used. CONTRAST: CT scan of the chest is performed with IV Contrast, patient injected with 100 mL of Omnipaque 300. FINDINGS: There is spiculated scarring in the right upper lobe, unchanged from previous. There is dif fuse emphysematous change with diffuse bulla formation. There is a new 1.3 x 1.7 cm pulmonary nodule in the left upper lobe, best seen on image 18. There is a stable granuloma at the left lung base. There are small, calcified perihilar lymph nodes. There is no significant axillary, internal mammary, mediastinal or hilar adenopathy. There is no pleural or pericardial fluid. The heart is not enlarged . There is a small sliding hiatal hernia. There is a new 8.7 x 13.9 mm right adrenal mass. This was not seen clearly on the previous examinatio n. Visualized portions of the upper abdomen are otherwise unremarkable. There is mild hypertrophic spondylosis within the spine. No bony destructive lesion is seen. IMPRESSION: 1. DIFFUSE EMPHYSEMATOUS AND BULLOUS CHANGE. 2. NEW 1.3 X 1.7 CM LEFT UPPER LOBE PULMONARY MASS. 3. NEW 8.7 X 13.9 MM RIGHT ADRENAL MASS. 4. EVIDENCE OF OLD GRANULOMATOUS DISEASE. 5. DEGENERATIVE CHANGES WITHIN THE SPINE. 6. SMALL HIATAL HERNIA.
--- NOTE | 2017-03-13 15:46 | P.HPIM ---
History of Present Illness H&P Date: 03/13/17 81-year-old female presented on the day of admission to the emergency room to be evaluated for chief complaint of developing shortness of breath patient stated the symptoms occurred around 2:00 in the morning woke her up from sleep. Patient stated she had not been having any cough fever or chills. Patient stated that the symptoms continue to persist with any exertion felt short of breath.. In the emergency room patient did undergo CAT scan of the chest. It showed tight diffuse emphysematous bullous changes. There was a new 1 x 3 1 x 7 cm left upper lobe pulmonary mass. A new right adrenal mass. Patient subsequently was admitted to the services of the attending with the pulmonary consultation obtained. Patient stated that she felt like she just could not catch a breath with any exertion. Patient stated she also felt short of breath with conversation. It's noted that on room air the patient's pulse ox sat was in the low 80s at rest. Patient does have a history of chronic hypoxic respiratory failure. Patient states she does use supplemental oxygen at home. Review of Systems Essentially unremarkable except as mentioned in the present illness. Past Medical History Past Medical History: Atrial Flutter, Asthma, Chest Pain / Angina, Heart Failure , COPD, GERD/Reflux, Hyperlipidemia, Hypertension, Pneumonia, Respiratory Disorder Additional Past Medical History / Comment(s): Chronic respiratory failure with O2 at 2L/NC ATC, chronic persistent asthma, bronchitis, DJD, past L hip fx with surgery, sinus problems, rheumatic fever as a child. History of Any Multi-Drug Resistant Organisms: Acinetobacter (MDRO) Date of last positivie culture/infection: 10/06/16 MDRO Source:: SPUTUM Past Surgical History: Hysterectomy, Joint Replacement, Orthopedic Surgery, Tubal Ligation Additional Past Surgical History / Comment(s): LEFT HIP hemiarthroplasty, LEFT FOOT surgery, colonoscopy, D&C. Past Anesthesia/Blood Transfusion Reactions: No Reported Reaction Past Psychological History: No Psychological Hx Reported Additional Psychological History / Comment(s): Pt resides with her son. She uses no assistive device. She no longer drives, her daughter drives her to appts. Her son cooks and cleans the house. The home is one level without steps. Smoking Status: Former smoker Past Alcohol Use History: None Reported Additional Past Alcohol Use History / Comment(s): QUIT 2009 HAD SMOKED 40-45 YEARS Past Drug Use History: None Reported - Past Family History Father History Unknown: Yes Brother(s) Family Medical History: No Reported History Mother Family Medical History: Rheumatoid Arthritis (RA) Medications and Allergies Home Medications Medication Instructions Recorded Confirmed Type Furosemide [Lasix] 40 mg PO BID 02/20/15 03/12/17 History Lisinopril [Zestril] 2.5 mg PO DAILY 02/20/15 03/12/17 History Montelukast [Singulair] 10 mg PO HS 02/20/15 03/12/17 History Omeprazole [PriLOSEC] 20 mg PO DAILY 02/20/15 03/12/17 History Albuterol Sulfate [Proair Hfa] 2 puff INHALATION RT-QID PRN 10/29/15 03/12/17 History Ergocalciferol [Vitamin D2 50,000 unit PO Q14D 10/30/15 03/12/17 History (DRISDOL)] Simvastatin [Zocor] 80 mg PO HS 05/02/16 03/12/17 History Albuterol Nebulized [Ventolin 2.5 mg INHALATION RT-QID PRN 08/19/16 03/12/17 History Nebulized] Ipratropium Nebulized [Atrovent 0.5 mg INHALATION RT-QID PRN 08/19/16 03/12/17 History Nebulized] Aspirin EC [Ecotrin Low Dose] 81 mg PO DAILY 10/05/16 03/12/17 History Budesonide/Formoterol Fumarate 2 puff INHALATION RT-BID 10/05/16 03/12/17 History [Symbicort 160-4.5 Mcg Inhaler] Allergies Allergy/AdvReac Type Severity Reaction Status Date / Time No Known Allergies Allergy Verified 03/12/17 15:57 Physical Exam Vitals: Vital Signs Temp Pulse Pulse Pulse Resp BP BP 03/13/17 15:00 97.2 F L 103 H 16 139/65 03/13/17 11:27 78 03/13/17 11:17 76 03/13/17 10:43 03/13/17 08:00 76 76 16 03/13/17 07:35 72 03/13/17 07:25 72 03/13/17 07:00 97.4 F L 81 16 126/77 03/13/17 00:00 83 16 03/12/17 21:03 97.5 F L 83 16 136/73 03/12/17 20:25 90 03/12/17 20:09 88 03/12/17 18:43 97.9 F 86 20 160/70 03/12/17 17:56 80 18 162/79 03/12/17 16:14 99 Pulse Ox 03/13/17 15:00 90 L 03/13/17 11:27 03/13/17 11:17 03/13/17 10:43 80 L 03/13/17 08:00 03/13/17 07:35 03/13/17 07:25 03/13/17 07:00 90 L 03/13/17 00:00 03/12/17 21:03 93 L 03/12/17 20:25 03/12/17 20:09 03/12/17 18:43 94 L 03/12/17 17:56 94 L 03/12/17 16:14 Intake and Output 03/13/17 03/13/17 03/13/17 06:59 14:59 22:59 Other: Voiding Method Bedside Commode Bedside Commode GENERAL APPEARANCE: 81-year-old female patient is alert, oriented, . Sitting up on the edge the bed reports feeling short of breath with conversation or any exertion VITAL SIGNS: Reviewed HEENT: Head is normocephalic and atraumatic. Pupils are equal and reactive. The nares are patent. Oropharynx is clear without lesions. NECK: Supple without lymphadenopathy. Traches midline. HEART: S1, S2. Regular rate and rhythm. Denying chest pain LUNGS: Posterior diminished at the bases poor air entry use of accessory muscles to breathe on room air sats are 84% on 2 L 90% a dry nonproductive cough noted ABDOMEN: Soft, nontender, nondistended with good bowel sounds. No peritoneal signs. No palpable organomegaly or masses. EXTREMITIES: Normal skin color and turgor. No cyanosis, rash, ulceration, clubbing or edema. Radial pedal pulses are 2/4 bilaterally. NEUROLOGICAL: No focal deficits. Strength and sensation are grossly intact. Results CBC & Chem 7: 03/12/17 15:10 03/12/17 15:10 Labs: Abnormal Lab Results - Last 24 Hours (Table) 03/12/17 Range/Units 15:10 Total Protein 6.2 L (6.3-8.2) g/dL Thrombosis Risk Factor Assmnt - Choose All That Apply Any of the Below Risk Factors Present?: No Each Risk Factor Represents 3 Points: Age 75 years or older Thrombosis Risk Factor Assessment Total Risk Factor Score: 3 Thrombosis Risk Factor Assessment Level: Moderate Risk Assessment and Plan Plan: Impression Present on admission shortness of breath conversational dyspnea due to an acute exacerbation of COPD Present on admission tracheobronchitis Acute exacerbation of chronic persistent asthma Acute on chronic respiratory failure hypoxic uses O2 2 L supplemental home oxygen around the clock Hypertension essential benign Esophageal reflux disease Hyperlipidemia A CAT scan of the chest done on March 13 shows diffuse emphysematous and bullous change CAT scan of the chest shows a new 1 x 3 x 1.7 left upper lobe pulmonary mass A remote history of nicotine dependency smoked greater than 40-45 years ago quit in 2009 Plan Continue recommendations by pulmonology service DVT and GI prophylaxis Solu-Medrol 60 IV every 6 Resume home meds as appropriate Pulmonary to evaluate the CAT scan of the chest showing the new left upper lobe pulmonary mass await recommendations symbicort as ordered Further recommendations pending The above dictated assessment and findings were discussed with dr condon . Impression and the plan of care have been dictated as directed. Gabriela Avina nurse practitioner acting as a scribe for dr condon
[2017-03-13] MEDS: MONTELUKAST 10 MG TAB PO SCH (20:58)
--- NOTE | 2017-03-13 21:42 | HP ---
DATE OF ADMISSION: CHIEF COMPLAINT: Difficulty breathing. HISTORY OF PRESENT ILLNESS: This is another admission for this 81-year-old white female with severe COPD. She started having trouble a few days ago and it grew steadily worse, to the point that she could not breathe. She came into the emergency room. She used to smoke but does not any longer. REVIEW OF SYSTEMS: She has had no syncope, hemoptysis, sputum production, etc. There apparently is a nodule that has been present in her chest before which was reported in the ER as being slightly larger. She had a good appetite. Remainder of the review of systems unremarkable. She has had no headaches, heart disease, abdominal pain, vomiting, diarrhea, melena, anorexia, hematuria, frequency, urgency, arthralgias, etc. Past medical history, family history and personal and social histories are unremarkable and noncontributory otherwise. She is on: 1. Symbicort 160/4.5 two puffs b.i.d. 2. Ipratropium and albuterol updrafts q.i.d. and p.r.n. 3. Omeprazole 20 mg once a day. 4. Aspirin 81 mg. 5. Lasix 40 mg twice a day. 6. Cardizem 120 mg once a day. 7. Zantac 150 twice a day. 8. Zocor 80 mg at bedtime. 9. Lisinopril 2.5 once a day. 10. Vitamin D 50,000 units a month. She does not smoke. PHYSICAL EXAMINATION: Blood pressure 124/74 with a pulse of 84, respirations of 38, and she is afebrile. In general she appeared to be short of breath and otherwise normal. Skin color is normal. Skin is warm and dry. Lymph nodes are not enlarged. Head, ears, eyes, mouth and throat are normal. Chest demonstrates poor breath sounds with occasional rales and expiratory wheezing. Cardiac exam demonstrates sinus tachycardia. The abdomen is soft and nontender. Extremities are normal. Neurologically she is intact. IMPRESSION: 1. Exacerbation of chronic obstructive pulmonary disease. 2. Possible enlarging lung nodule. PLAN: 1. Bed rest. 2. IV fluids. 3. Inhaled and IV steroids. 4. Consult Pulmonology and Oncology.
--- NOTE | 2017-03-13 21:51 | PN ---
DATE OF SERVICE: 03/13/2017 CHIEF COMPLAINT: Exacerbation of COPD. HISTORY OF PRESENT ILLNESS: This lady is still very tight and wheezy. She actually feels a little bit worse. REVIEW OF SYSTEMS: She has had no hemoptysis, chills, fever, etc. PHYSICAL EXAMINATION: Breath sounds are extremely poor. She has tight expiratory wheezing. There are rales scattered throughout. IMPRESSION: Exacerbation of chronic obstructive pulmonary disease, slightly worse. PLAN: No change in program at this time.
[2017-03-14] MEDS: methylPREDNISolone SOD SUCCI 125 MG/2 ML VIAL IV SCH ×5 (05:38→23:43)
[2017-03-14] MEDS: SYMBICORT 160-4.5 MCG INHALER INHALATION SCH ×2 (08:02→20:18)
[2017-03-14] MEDS: IPRATROPIUM-ALBUTEROL 3 ML NEB INHALATION SCH ×4 (08:02→20:18)
[2017-03-14] MEDS: FUROSEMIDE 40 MG TAB PO SCH ×2 (08:45→12:41)
[2017-03-14] MEDS: PANTOPRAZOLE 40 MG TABLET PO SCH (08:45)
[2017-03-14] MEDS: ASPIRIN 81 MG CHEW PO SCH (08:45)
[2017-03-14] MEDS: LISINOPRIL 2.5 MG TAB PO SCH (08:45)
[2017-03-14] MEDS ORDERED: RX INFO: IV CONTRAST WAS GIVEN 1 EACH MISC MISCELLANE PRN (09:32)
[2017-03-14 10:49] LABS: ALT 15 U/L (9-52); AST 17 U/L (14-36); Alkaline Phosphatase 89 U/L (38-126); Anion Gap 14 mmol/L; Blood Urea Nitrogen 24 mg/dL (7-17); Calcium 9.8 mg/dL (8.4-10.2); Carbon Dioxide 23 mmol/L (22-30); Chloride 101 mmol/L (98-107); Glucose 135 mg/dL (74-99); Non-African American GFR(MDRD) 57 (>60 ml/min/1.73 sqM); Potassium 3.9 mmol/L (3.5-5.1); Sodium 138 mmol/L (137-145); Total Bilirubin 0.5 mg/dL (0.2-1.3); Total Protein 6.4 g/dL (6.3-8.2)
--- NOTE | 2017-03-14 12:02 | CT ---
EXAMINATION TYPE: CT brain w con DATE OF EXAM: 03/14/2017 11:54 AM COMPARISON: NONE HISTORY: lung mass, mets CT DLP: 1118 mGycm Automated exposure control for dose reduction was used. CONTRAST: CT scan of the head is performed with IV Contrast, patient injected with 80 mL of Visipaque 320. FINDINGS: There is no abnormal enhancing mass or midline shift identified. The ventricles and sulci are within normal limits in size. The globes are intact and the visualized sinuses are clear. IMPRESSION: Negative contrast enhanced head CT exam.
--- NOTE | 2017-03-14 15:42 | P.PN ---
Subjective 81-year-old female being seen. Patient currently is stating breathing feels slightly improved but continues to feel short of breath with any exertion. The attending did discuss with the patient the CAT scan findings new left upper lobe pulmonary mass. Hematology oncology consultation has been requested. Patient states she is not interested in any chemo or radiation treatment if it' s cancer. Patient did agree to be seen by hematology oncology to discuss options pulmonary participating in the plan of care as well labs were reviewed CAT scan of the brain obtained was negative. Patient's initial presentation to the emergency room shortness of breath conversational dyspnea due to an acute exacerbation of COPD with tracheal bronchitis Objective - Vital Signs Vital signs: Vital Signs Temp 98.4 F 03/14/17 07:00 Pulse 78 03/14/17 15:32 Resp 16 03/14/17 07:00 BP 149/71 03/14/17 07:00 Pulse Ox 93 L 03/14/17 07:00 Intake & Output 03/13/17 03/14/17 03/14/17 18:59 06:59 18:59 Intake Total 480 830 Balance 480 830 Weight 80 kg Intake: Oral 480 830 Other: Voiding Method Bedside Commode Bedside Commode Bedside Commode # Voids 2 2 6 # Bowel Movements 1 - Exam Physical exam 81-year-old female sitting up in bed talkative states breathing feels slightly improved but continues to feel short of breath with any exertion Lungs posterior diminished at the bases poor air entry Heart S1-S2 audible and regular denying chest pain Abdomen soft nontender reports of nausea vomiting Extremities no edema noted - Labs CBC & Chem 7: 03/12/17 15:10 03/14/17 10:17 Labs: Abnormal Lab Results - Last 24 Hours (Table) 03/14/17 Range/Units 10:17 BUN 24 H (7-17) mg/dL Glucose 135 H (74-99) mg/dL Assessment and Plan Plan: Impression Present on admission shortness of breath conversational dyspnea due to an acute exacerbation of COPD Present on admission tracheobronchitis Acute exacerbation of chronic persistent asthma Acute on chronic respiratory failure hypoxic uses O2 2 L supplemental home oxygen around the clock Hypertension essential benign Esophageal reflux disease Hyperlipidemia A CAT scan of the chest done on March 13 shows diffuse emphysematous and bullous change CAT scan of the chest shows a new 1 x 3 x 1.7 left upper lobe pulmonary mass A remote history of nicotine dependency smoked greater than 40-45 years ago quit in 2009 Plan Continue recommendations by pulmonology service DVT and GI prophylaxis Solu-Medrol 60 IV every 6 Resume home meds as appropriate Pulmonary to evaluate the CAT scan of the chest showing the new left upper lobe pulmonary mass await recommendations symbicort as ordered Away hematology oncology eval Dr. Saldivar pending The above dictated assessment and findings were discussed with dr condon . Impression and the plan of care have been dictated as directed. Gabriela Avina nurse practitioner acting as a scribe for dr condon
--- NOTE | 2017-03-14 16:23 | P.PN ---
Subjective This is a 81-year-old female patient being evaluated and examined today on the fifth floor. This patient is well-known to our services. This patient did come into the emergency room with recent onset of shortness of breath. She states she woke up from her sleep and could not breathe she also stated she has a productive cough with clear sputum she denies any fever or chest pain nausea, vomiting diarrhea or constipation. Denies any leg pain or swelling. Patient was worked up in the emergency room and was found to have acute exacerbation of COPD. Patient did have a chest x-ray which revealed a new left upper lobe nodule. This patient does have a history of chronic hypoxic respiratory failure and is on 2 L of home O2. This patient does have a past medical history significant for severe COPD, chronic persistent moderate asthma, atrial flutter, chronic hypoxic respiratory failure with home O2, hx of multiple pneumonias. Upon examination the patient is resting up in bed she is currently using 2-3 L of supplemental oxygen. Patient continues to have a productive cough with clear sputum. Patient states she just cannot catch her breath with any exertion or extensive conversation. Patient did have a CT of the chest yesterday which did reveal a new 1.3 by 1.7 lung mass as well as an adrenal mass that was 8.[address] Saldivar was put on consult. Objective - Vital Signs Vital signs: Vital Signs Temp 98.4 F 03/14/17 07:00 Pulse 82 03/14/17 11:22 Resp 16 03/14/17 07:00 BP 149/71 03/14/17 07:00 Pulse Ox 93 L 03/14/17 07:00 Intake & Output 03/13/17 03/14/17 03/14/17 18:59 06:59 18:59 Intake Total 480 830 Balance 480 830 Weight 80 kg Intake: Oral 480 830 Other: Voiding Method Bedside Commode Bedside Commode Bedside Commode # Voids 2 2 1 # Bowel Movements 1 - Exam GENERAL EXAM: Alert, active, comfortable in no apparent distress. HEAD: Normocephalic. EYES: Normal reaction of pupils, equal size. NOSE: Clear with pink turbinates. THROAT: No erythema or exudates. NECK: No masses, no JVD. CHEST: No chest wall deformity. LUNGS: Equal air entry with no crackles, wheeze, rhonchi or dullness. Diminished bases CVS: S1 and S2 normal with no audible mumurs, regular rhythm. ABDOMEN: No hepatosplenomegaly, normal bowel sounds, no guarding or rigidity. EXTREMITIES: No edema noted, pedal pulses palpable. SKIN: No rashes CENTRAL NERVOUS SYSTEM: No focal deficits, tone is normal in all 4 extremities. - Labs CBC & Chem 7: 03/12/17 15:10 03/14/17 10:17 Labs: Abnormal Lab Results - Last 24 Hours (Table) 03/14/17 Range/Units 10:17 BUN 24 H (7-17) mg/dL Glucose 135 H (74-99) mg/dL Assessment and Plan Plan: Assessment Acute exacerbation of chronic obstructive pulmonary disease Tracheobronchitis Acute exacerbation of chronic persistent asthma Acute on chronic respiratory failure, uses home O2 2 L via nasal cannula at all times History of hypertension History of GERD History of Hyperlipidemia Left Upper lobe pulmonary mass Plan Medications have been reviewed and will be continued as ordered. Continue with pulmonary hygiene, coughing and deep breathing exercises, and supportive care. Supplemental oxygen to maintain oxygen saturations of 92% or better. Continue with IV steroids. Continue nebulizer treatments. GI and DVT prophylaxis. After extensive conversation with patient and physician, the patient decided she would like to follow up in the outpatient setting in regards to her left upper lobe pulmonary mass. We agree with this decision, all questions answered. Incentive spirometer initiated and encouraged. We will continue to monitor labs/results and adjust treatment as necessary. Further recommendations pending.
--- NOTE | 2017-03-14 16:43 | P.CONS ---
History of Present Illness - Reason for Consult Consult date: 03/14/17 lung mass Requesting physician: Og Green - Chief Complaint COPD exacerbation - History of Present Illness Ms. Kaminski is a very pleasant female with O2 dependent COPD, currently having exacerbation. She is SOB, small amts of copious sputum occasionally, no hemoptysis, pleuritic chest pain, mild orthopnea and mild to moderate activity intolerance. She denies personal history of cancer, no sweats , wt. loss, early satiety, difficulty swallowing, no changes in bowel or bladder habits. Review of Systems All systems: negative Constitutional: Reports as per HPI Past Medical History Past Medical History: Atrial Flutter, Asthma, Chest Pain / Angina, Heart Failure , COPD, GERD/Reflux, Hyperlipidemia, Hypertension, Pneumonia, Respiratory Disorder Additional Past Medical History / Comment(s): Chronic respiratory failure with O2 at 2L/NC ATC, chronic persistent asthma, bronchitis, DJD, past L hip fx with surgery, sinus problems, rheumatic fever as a child. History of Any Multi-Drug Resistant Organisms: Acinetobacter (MDRO) Year Discovered:: 10/06/16 MDRO Source:: SPUTUM Past Surgical History: Hysterectomy, Joint Replacement, Orthopedic Surgery, Tubal Ligation Additional Past Surgical History / Comment(s): LEFT HIP hemiarthroplasty, LEFT FOOT surgery, colonoscopy, D&C. Past Anesthesia/Blood Transfusion Reactions: No Reported Reaction Past Psychological History: No Psychological Hx Reported Additional Psychological History / Comment(s): Pt resides with her son. She uses no assistive device. She no longer drives, her daughter drives her to appts. Her son cooks and cleans the house. The home is one level without steps. Smoking Status: Former smoker Past Alcohol Use History: None Reported Additional Past Alcohol Use History / Comment(s): QUIT 2009 HAD SMOKED 40-45 YEARS Past Drug Use History: None Reported - Past Family History Father History Unknown: Yes Brother(s) Family Medical History: No Reported History Mother Family Medical History: Rheumatoid Arthritis (RA) Medications and Allergies Home Medications Medication Instructions Recorded Confirmed Type RX: Furosemide [Lasix] 40 mg PO BID 02/20/15 03/12/17 History RX: Lisinopril [Zestril] 2.5 mg PO DAILY 02/20/15 03/12/17 History RX: Montelukast [Singulair] 10 mg PO HS 02/20/15 03/12/17 History RX: Omeprazole [PriLOSEC] 20 mg PO DAILY 02/20/15 03/12/17 History RX: Albuterol Sulfate [Proair Hfa] 2 puff INHALATION RT-QID PRN 10/29/15 History RX: Ergocalciferol [Vitamin D2 50,000 unit PO Q14D 10/30/15 03/12/17 History (DRISDOL)] RX: Simvastatin [Zocor] 80 mg PO HS 05/02/16 03/12/17 History RX: Albuterol Nebulized [Ventolin 2.5 mg INHALATION RT-QID PRN 08/19/16 History Nebulized] RX: Ipratropium Nebulized 0.5 mg INHALATION RT-QID PRN 08/19/16 03/12/17 History [Atrovent Nebulized] RX: Aspirin EC [Ecotrin Low Dose] 81 mg PO DAILY 10/05/16 03/12/17 History RX: Budesonide/Formoterol Fumarate 2 puff INHALATION RT-BID 10/05/16 03/12/17 History [Symbicort 160-4.5 Mcg Inhaler] Allergies Allergy/AdvReac Type Severity Reaction Status Date / Time No Known Allergies Allergy Verified 03/12/17 15:57 Physical Exam Vitals: Vital Signs Temp Pulse Pulse Resp BP Pulse Ox 03/14/17 15:32 78 03/14/17 15:23 77 03/14/17 15:00 98.2 F 106 H 16 116/57 94 L 03/14/17 11:22 82 03/14/17 11:13 80 03/14/17 08:12 78 03/14/17 08:02 76 03/14/17 07:00 98.4 F 83 16 149/71 93 L 03/14/17 00:00 98 16 03/13/17 23:00 97.1 F L 98 16 116/57 95 03/13/17 21:16 72 03/13/17 21:06 74 Intake and Output 03/14/17 03/14/17 03/14/17 06:59 14:59 22:59 Intake Total 240 Balance 240 Intake: Oral 240 Other: Voiding Method Bedside Commode Bedside Commode # Voids 6 # Bowel Movements 1 Weight 80 kg - Constitutional General appearance: cooperative, mild distress, obese Results CBC & Chem 7: 03/12/17 15:10 03/14/17 10:17 Labs: Abnormal Lab Results - Last 24 Hours (Table) 03/14/17 Range/Units 10:17 BUN 24 H (7-17) mg/dL Glucose 135 H (74-99) mg/dL Assessment and Plan (1) Lung mass Narrative/Plan: Pt states that she would like to wait until she is feeling better before having a biopsy. I did speak with [facility]monary [facility] and she confirmed the plan is the same. Pt is very aware of how severe her COPD is and risks associated with procedures. She also is not sure she would do any treatment anyway. We encouraged her to f/u with Dr. Diaz and she can make further decisions when she is feeling better, she agreed. CT of the head ordered to evaluate for metastatic disease. Status: Acute
--- NOTE | 2017-03-14 19:37 | PN ---
DATE OF SERVICE: 03/14/2017 CHIEF COMPLAINT: Exacerbation of COPD. HISTORY OF PRESENT ILLNESS: This lady is a little bit better but still very tight and wheezy. There are also lung masses that are being evaluated, and she will be seen by Oncology. PHYSICAL EXAMINATION: Breath sounds are poor and she has increased AP diameter. There is wheezing on inspiration and expiration with occasional rhonchi as well. Cardiac exam demonstrated sinus tachycardia. IMPRESSION: 1. Exacerbation of chronic obstructive pulmonary disease. 2. Pulmonary nodules and possible carcinoma of the lung. PLAN: Await referral to Oncology. She also indicates that she would absolutely refuse surgery, radiation or chemotherapies.
[2017-03-14] MEDS: MONTELUKAST 10 MG TAB PO SCH (20:28)
[2017-03-15] MEDS: methylPREDNISolone SOD SUCCI 125 MG/2 ML VIAL IV SCH ×2 (05:51→13:13)
[2017-03-15] MEDS: IPRATROPIUM-ALBUTEROL 3 ML NEB INHALATION SCH ×2 (07:17→11:23)
[2017-03-15] MEDS: SYMBICORT 160-4.5 MCG INHALER INHALATION SCH (07:17)
[2017-03-15 07:58] VITALS: BP 131/77; PULSE 87; RESP 18; TEMP 97.9
[2017-03-15] MEDS: ASPIRIN 81 MG CHEW PO SCH (09:58)
[2017-03-15] MEDS: FUROSEMIDE 40 MG TAB PO SCH ×2 (09:58→13:13)
[2017-03-15] MEDS: LISINOPRIL 2.5 MG TAB PO SCH (09:58)
[2017-03-15] MEDS: PANTOPRAZOLE 40 MG TABLET PO SCH (09:58)
--- NOTE | 2017-03-15 10:00 | P.DS ---
Providers Date of admission: 03/12/17 17:06 Expected date of discharge: 03/15/17 Attending physician: Og Green Consults: 03/12/17 16:44 Consult Physician Routine Consulting Provider: Preston Diaz Consult Reason/Comments: copd Do you want consulting provider notified?: Yes 03/13/17 10:41 Consult Physician Routine Consulting Provider: Devon Saldivar Consult Reason/Comments: Lung mass Do you want consulting provider notified?: Yes Primary care physician: Og Green Hospital Course: 81-year-old female patient admitted on the service on the day of admission with a chief complaint of developing exertional dyspnea. Patient stated if she ambulated short distance could not catch her breath. Patient stated she been coughing up clear secretions. Patient was seen in the emergency room and admitted to the services of the attending with the pulmonary consultation requested. Pulse ox sat at rest on room air 84% titrated the O2 up to 2 L sats were 93%. Patient does have a history of chronic hypoxic respiratory failure wears 2 L at home. Patient does have a history of severe COPD with chronic persistent moderate asthma. Patient had a CAT scan of the chest done it showed a new 1 x 3 x 1 x 7 lung mass as well as an adrenal mass. Patient was seen this admission by Dr. Saldivar oncology service. Patient has agreed to follow-up with hematology oncology as well as Dr. Diaz in regards to the left lung mass. Patient did discuss with the attending that she is hesitant to undergo chemoradiation treatment for cancer involving the left lung. Patient states that she will discuss this with Dr. Diaz in a follow-up visit in the office next week. on the day of discharge patient was felt to be hemodynamically stable and appropriate to proceed with a discharge to home. Impression Present on admission shortness of breath conversational dyspnea due to an acute exacerbation of severe COPD Present on admission tracheobronchitis Acute exacerbation of chronic persistent asthma Acute on chronic respiratory failure hypoxic uses O2 2 L supplemental home oxygen around the clock Hypertension essential benign Esophageal reflux disease Hyperlipidemia A CAT scan of the chest done on March 13 shows diffuse emphysematous and bullous change CAT scan of the chest shows a new 1 x 3 x 1.7 left upper lobe pulmonary mass A remote history of nicotine dependency smoked greater than 40-45 years quit in 2009 The above dictated assessment and findings were discussed with dr green . Impression and the plan of care have been dictated as directed. Gabriela Avina nurse practitioner acting as a scribe for dr green Plan - Discharge Summary New Discharge Prescriptions: Doxycycline Hyclate [Vibramycin] 100 mg PO BID #14 cap predniSONE 20 mg PO DAILY #12 tab Discharge Medication List Furosemide [Lasix] 40 mg PO BID 02/20/15 [History] Lisinopril [Zestril] 2.5 mg PO DAILY 02/20/15 [History] Montelukast [Singulair] 10 mg PO HS 02/20/15 [History] Omeprazole [PriLOSEC] 20 mg PO DAILY 02/20/15 [History] Albuterol Sulfate [Proair Hfa] 2 puff INHALATION RT-QID PRN 10/29/15 [History] Ergocalciferol [Vitamin D2 (DRISDOL)] 50,000 unit PO Q14D 10/30/15 [History] Simvastatin [Zocor] 80 mg PO HS 05/02/16 [History] Albuterol Nebulized [Ventolin Nebulized] 2.5 mg INHALATION RT-QID PRN 08/19/16 [ History] Ipratropium Nebulized [Atrovent Nebulized] 0.5 mg INHALATION RT-QID PRN [History] Aspirin EC [Ecotrin Low Dose] 81 mg PO DAILY 10/05/16 [History] Budesonide/Formoterol Fumarate [Symbicort 160-4.5 Mcg Inhaler] 2 puff INHALATION RT-BID 10/05/16 [History] Doxycycline Hyclate [Vibramycin] 100 mg PO BID #14 cap 03/15/17 [Rx] predniSONE 20 mg PO DAILY #12 tab 03/15/17 [Rx] Follow up Appointment(s)/Referral(s): Og Green MD [Primary Care Provider] - 1-2 days Preston Diaz MD [STAFF PHYSICIAN] - 1 Week
--- NOTE | 2017-03-15 11:41 | P.PN ---
Subjective This is a 81-year-old female patient being evaluated and examined today on the fifth floor. This patient is well-known to our services. This patient did come into the emergency room with recent onset of shortness of breath. She states she woke up from her sleep and could not breathe she also stated she has a productive cough with clear sputum she denies any fever or chest pain nausea, vomiting diarrhea or constipation. Denies any leg pain or swelling. Patient was worked up in the emergency room and was found to have acute exacerbation of COPD. Patient did have a chest x-ray which revealed a new left upper lobe nodule. This patient does have a history of chronic hypoxic respiratory failure and is on 2 L of home O2. This patient does have a past medical history significant for severe COPD, chronic persistent moderate asthma, atrial flutter, chronic hypoxic respiratory failure with home O2, hx of multiple pneumonias. Upon examination the patient is resting up in bed she is currently using 2 L of supplemental oxygen. Patient continues to have a productive cough with clear sputum. Patient states she feels less short of breath today than previously. Patient did have a CT of the chest which did reveal a new 1.3 by 1.7 lung mass as well as an adrenal mass that was 8.[address] Saldivar was put on consult. Patient does not want to go forth with any biopsies at this time she is requesting this be followed up with in the outpatient setting. Patient is feeling much better today. Objective - Vital Signs Vital signs: Vital Signs Temp 97.9 F 03/15/17 07:00 Pulse 86 03/15/17 07:31 Resp 18 03/15/17 07:00 BP 131/77 03/15/17 07:00 Pulse Ox 93 L 03/15/17 07:19 Intake & Output 03/14/17 03/15/17 03/15/17 18:59 06:59 18:59 Intake Total 780 Balance 780 Weight 80.3 kg Intake: Oral 780 Other: Voiding Method Bedside Commode Bedside Commode Bedside Commode # Voids 2 1 1 # Bowel Movements 1 1 1 - Exam GENERAL EXAM: Alert, active, comfortable in no apparent distress. HEAD: Normocephalic. EYES: Normal reaction of pupils, equal size. NOSE: Clear with pink turbinates. THROAT: No erythema or exudates. NECK: No masses, no JVD. CHEST: No chest wall deformity. LUNGS: Equal air entry with no crackles, wheeze, rhonchi or dullness. Diminished bases CVS: S1 and S2 normal with no audible mumurs, regular rhythm. ABDOMEN: No hepatosplenomegaly, normal bowel sounds, no guarding or rigidity. EXTREMITIES: No edema noted, pedal pulses palpable. SKIN: No rashes CENTRAL NERVOUS SYSTEM: No focal deficits, tone is normal in all 4 extremities. - Labs CBC & Chem 7: 03/12/17 15:10 03/14/17 10:17 Assessment and Plan Plan: Assessment Acute exacerbation of chronic obstructive pulmonary disease Tracheobronchitis Acute exacerbation of chronic persistent asthma Acute on chronic respiratory failure, uses home O2 2 L via nasal cannula at all times History of hypertension History of GERD History of Hyperlipidemia Left Upper lobe pulmonary mass Plan Patient can be cleared from a pulmonary standpoint for discharge. Medications have been reviewed and will be continued as ordered. Continue with pulmonary hygiene, coughing and deep breathing exercises, and supportive care. Supplemental oxygen to maintain oxygen saturations of 92% or better. Continue with IV steroids. Continue nebulizer treatments. GI and DVT prophylaxis. After extensive conversation with patient and physician, the patient decided she would like to follow up in the outpatient setting in regards to her left upper lobe pulmonary mass. We agree with this decision, all questions answered. We will continue to monitor labs/results and adjust treatment as necessary. Further recommendations pending. I performed an examination of the patient and discussed their management with the nurse practitioner. I have reviewed the nurse practitioner's note and agree with the documented findings and plan of care.
--- NOTE | 2017-03-15 13:31 | PN ---
CHIEF COMPLAINT: Exacerbation of COPD. HISTORY OF PRESENT ILLNESS: This lady is doing well and feeling much better. PHYSICAL EXAM: Breath sounds are better. She has less wheezing and fewer rales. Cardiac exam is normal. ABDOMEN: Soft, nontender. IMPRESSION: Exacerbation of chronic obstructive pulmonary disease. PLAN: Probably home today and this will be arranged by the nurse practitioner and we will see her in the office in the next few days.
== END 2017-03-15 13:45 | disposition home or self-care (01) | DRG 190 ==
LOC: EC 14:18 → 5MS5E 17:06
PROVIDERS: ADMIT Family Medicine; ATTEND Family Medicine
DX: J44.0 Chronic obstructive pulmonary disease with (acute) lower respiratory infection (principal); J96.21 Acute and chronic respiratory failure with hypoxia; I11.0 Hypertensive heart disease with heart failure; I50.9 Heart failure, unspecified; J45.41 Moderate persistent asthma with (acute) exacerbation; Z99.81 Dependence on supplemental oxygen; K21.9 Gastro-esophageal reflux disease without esophagitis; E27.9 Disorder of adrenal gland, unspecified; J44.1 Chronic obstructive pulmonary disease with (acute) exacerbation; R91.1 Solitary pulmonary nodule; E78.5 Hyperlipidemia, unspecified; Z79.899 Other long term (current) drug therapy; Z87.891 Personal history of nicotine dependence
CPT/HCPCS: 36415; 70460; 71020; 71260; 80053; 84484; 85025; 93005; 94640; 94760; 96374; 99285

== ENCOUNTER 2017-03-21 10:34 | Day surgery (SDC) | payer MEDICARE, OTHER ==
[2017-03-19 14:44] VITALS: BMI 27.3
[~2017-03-21 10:34] MED LIST: DEXAMETHASONE SOD PHOSPHATE 10 MG/ML 1 ML VIAL IV ONE; LACTATED RINGERS 1,000 ML IV SCH; LIDOCAINE 1% 20 ML VIAL (10MG/ML) FOR IV START INTRADERMA PRN; ONDANSETRON 4 MG/2 ML VIAL IVP ONE; Pre Op ABX Message 1 EACH MISC MISCELLANE ONE
--- NOTE | 2017-03-21 12:33 | CT ---
EXAMINATION TYPE: CT Chest brenda Franco Protocol DATE OF EXAM: 03/21/2017 COMPARISON: NONE HISTORY: Navigational procedure CT DLP: 625 mGycm Automated exposure control for dose reduction was used. FINDINGS: CT scan has been performed for bronchoscopic navigation. There is extensive emphysematous and bullous changes throughout the lungs. There is a 12 x 17 mm nodu le in the left upper lobe in the apical posterior segment best seen on image 21. There is a 1.4 cm ar ea spiculation in the right upper lobe. This may represent scarring. Underlying neoplasm is not exclu ded. No other parenchymal mass is seen. There is mild aorta pulmonary window adenopathy. The largest lymph node measures 9.3 mm. There is no pleural or pericardial fluid. The heart is not enlarged. Visualized upper abdominal structures are unremarkable. There is hypertrophic spondylosis within the spine. No bony destructive lesion is seen. IMPRESSION: 1. LEFT UPPER LOBE PULMONARY MASS. 2. EMPHYSEMATOUS CHANGE. 3. PROBABLE SCARRING IN THE RIGHT APEX.
[2017-03-21] MEDS ORDERED: NEOSTIGMINE 1 MG/ML 10 ML VIAL ONE (13:15)
[2017-03-21] MEDS ORDERED: PHENYLEPHRINE-0.9% NACL SYG 1 MG/10 ML SYRINGE ONE (13:15)
[2017-03-21] MEDS ORDERED: GLYCOPYRROLATE 0.2 MG/ML 2 ML VIAL ONE (13:15)
[2017-03-21] MEDS ORDERED: MIDAZOLAM 2 MG/2 ML VIAL ONE (13:15)
[2017-03-21] MEDS ORDERED: fentaNYL (PF) 50 MCG/ML 2 ML AMP ONE (13:15)
[2017-03-21] MEDS ORDERED: ROCURONIUM BROMIDE 10 MG/ML 10 ML VIAL IV ONE (13:15)
[2017-03-21] MEDS ORDERED: SUCCINYLCHOLINE CHLORIDE 100 MG/5 ML SYR IV ONE (13:15)
[2017-03-21] MEDS ORDERED: PROPOFOL 10 MG/ML 20 ML VIAL IV ONE (13:15)
[2017-03-21] MEDS ORDERED: IV FLUID CONTINUATION 500 ML IV ONE (14:30)
--- NOTE | 2017-03-21 15:01 | XR ---
EXAMINATION TYPE: XR chest 1V portable DATE OF EXAM: 03/21/2017 HISTORY: Status post bronchoscopy COMPARISON: 03/12/2017 TECHNIQUE: Single view of the chest is submitted. FINDINGS: There is no evidence for pneumothorax. Demonstrated are scattered senescent parenchymal change. There is no evidence for focal infiltrate. Suspect left basilar atelectasis and small effusion. The heart is stable. Hilar and mediastinal structures are within normal limits. Degenerative changes are seen of the dorsal spine. IMPRESSION: 1. No evidence for pneumothorax.
[2017-03-21 15:03] VITALS: TEMP 96.8
[2017-03-21 15:38] VITALS: BP 142/70; PULSE 78; RESP 16
[2017-03-25 08:01] LABS: Mis test requested (Non-blood) PNEJ-BRONCH
--- NOTE | 2017-03-26 05:21 | PCN ---
DATE OF PROCEDURE: 03/21/2017 PROCEDURE DONE: 1. Bronchoscopy. 2. Bronchioalveolar lavage. 3. Transbronchial lung biopsy under navigation. OPERATIVE DETAIL: Patient was prepared and draped in the usual fashion. Navigational leads were placed as per protocol. Inspiratory, expiratory CT scan of the chest were obtained. Mapping was performed. Assistance was obtained from the insurance follow up representative as well. Procedure done in OR after endotracheal tube insertion. Fiber-optic scope was passed through the bronchoscope. After adequate anesthesia obtained, airways were inspected. Right upper lobe, right middle lobe, right lower lobe along with subsegments were inspected. The tip of the scope was passed on the left side, left upper lobe, left lower lobe and left lower lobe were inspected as well. BAL was performed from the left upper lobe, which patient tolerated very well. After obtaining the washing bronchioalveolar lavage, the guidance biopsy forceps were placed through the scope and the scope was guided as per navigational protocol into the area of interest into the left upper lobe. Of note, that the angle of the right upper lobe subsegmental bronchus in the apical segment was very acute where the tip of the scope and the forceps were going into the posterior segment. After significant amount of adjustment and adjusting by airway able to get into the area of concern or interest in the left upper lobe. On the monitor it did turn green where biopsy was obtained. Given the complexity of the case, only one biopsy was obtained which patient tolerated it very well. No complication was noted. Postprocedure chest x-ray was reviewed. No evidence of pneumothorax was seen. Patient tolerated the procedure well. No complication noted. The patient was successfully extubated and sent to the recovery area.
[2017-04-01 14:41] LABS: Mis test requested (Non-blood) Legionella Culture
== END 2017-03-21 16:08 | disposition home or self-care (01) ==
LOC: ORWHC2ENDO 10:34
PROVIDERS: ATTEND Internal Medicine Sleep Medicine
DX: R91.8 Other nonspecific abnormal finding of lung field (principal); E78.5 Hyperlipidemia, unspecified; I25.10 Atherosclerotic heart disease of native coronary artery without angina pectoris; I11.0 Hypertensive heart disease with heart failure; I50.9 Heart failure, unspecified; I48.92 Unspecified atrial flutter; J44.9 Chronic obstructive pulmonary disease, unspecified; K21.9 Gastro-esophageal reflux disease without esophagitis; Z99.81 Dependence on supplemental oxygen; Z79.2 Long term (current) use of antibiotics; Z79.82 Long term (current) use of aspirin; Z79.51 Long term (current) use of inhaled steroids; Z79.899 Other long term (current) drug therapy; Z87.891 Personal history of nicotine dependence
CPT/HCPCS: 87798 ×4; 87496; 87498; 87529 ×2; 87081; 88108; 88305; 87252; 87502 ×2; 87070; 87205; 87116; 87102; 87077; 87186; 87206; 87299; 71010; 71250; 31628; 31624; 31627; J2250; J1100; J2710; J2405; J3010; J2370; J0330; J2704; 31625

== ENCOUNTER 2017-04-15 11:57 | Inpatient (IN) | payer MEDICARE, OTHER ==
[2017-04-15] MEDS ORDERED: IPRATROPIUM 0.5 MG/2.5 ML NEBU INHALATION STA (12:12)
[2017-04-15] MEDS ORDERED: ALBUTEROL NEBULIZED 2.5 MG/3 ML INHALATION STA (12:12)
[2017-04-15] MEDS ORDERED: methylPREDNISolone SOD SUCCI 125 MG/2 ML VIAL IV STA (12:12)
--- NOTE | 2017-04-15 12:12 | ED ---
General Adult HPI - General Chief complaint: Shortness of Breath Stated complaint: Diff breathing Time Seen by Provider: 04/15/17 12:08 Source: patient, RN notes reviewed, old records reviewed Mode of arrival: wheelchair Limitations: no limitations - History of Present Illness Initial comments: This is a 81-year-old female the ER for evaluation. This patient presents today for evaluation of shortness of breath, significant shortness of breath with weakness. Strong history of lung disease and heart disease. Patient coming in with 2-3 days of worsening breathing, shortness of breath and chest pain. Her back which she states she always gets with her COPD exacerbations. 2 weeks ago patient did have a lung biopsy, from her understanding everything came back negative. No fevers. - Related Data Home Medications Medication Instructions Recorded Confirmed Furosemide [Lasix] 40 mg PO BID 02/20/15 04/15/17 Lisinopril [Zestril] 2.5 mg PO DAILY 02/20/15 04/15/17 Montelukast [Singulair] 10 mg PO HS 02/20/15 04/15/17 Omeprazole [PriLOSEC] 20 mg PO DAILY 02/20/15 04/15/17 Albuterol Sulfate [Proair Hfa] 2 puff INHALATION RT-QID PRN 10/29/15 04/15/17 Ergocalciferol [Vitamin D2 50,000 unit PO Q14D 10/30/15 04/15/17 (DRISDOL)] Albuterol Nebulized [Ventolin 2.5 mg INHALATION RT-QID PRN 08/19/16 04/15/17 Nebulized] Ipratropium Nebulized [Atrovent 0.5 mg INHALATION RT-QID PRN 08/19/16 04/15/17 Nebulized] Aspirin EC [Ecotrin Low Dose] 81 mg PO DAILY 10/05/16 04/15/17 Budesonide/Formoterol Fumarate 2 puff INHALATION RT-BID 10/05/16 04/15/17 [Symbicort 160-4.5 Mcg Inhaler] Atorvastatin Calcium [Lipitor] 80 mg PO HS 04/15/17 04/15/17 Diltiazem Cd [Cardizem Cd] 120 mg PO DAILY 04/15/17 04/15/17 Allergies Allergy/AdvReac Type Severity Reaction Status Date / Time No Known Allergies Allergy Verified 04/15/17 12:53 Review of Systems ROS Statement: Those systems with pertinent positive or pertinent negative responses have been documented in the HPI. ROS Other: All systems not noted in ROS Statement are negative. Past Medical History Past Medical History: Atrial Flutter, Asthma, Chest Pain / Angina, Heart Failure , COPD, GERD/Reflux, Hyperlipidemia, Hypertension, Pneumonia, Respiratory Disorder Additional Past Medical History / Comment(s): Chronic respiratory failure with O2 at 2L/NC ATC, chronic persistent asthma, bronchitis, DJD, past L hip fx with surgery, sinus problems, rheumatic fever as a child. Hospitalized 12-16-16 for SOB @[facility]. History of Any Multi-Drug Resistant Organisms: Acinetobacter (MDRO) Date of last positivie culture/infection: 10/06/16 MDRO Source:: SPUTUM Past Surgical History: Hysterectomy, Joint Replacement, Orthopedic Surgery, Tubal Ligation Additional Past Surgical History / Comment(s): LEFT HIP hemiarthroplasty, LEFT FOOT surgery, colonoscopy, D&C. Past Anesthesia/Blood Transfusion Reactions: No Reported Reaction Past Psychological History: No Psychological Hx Reported Smoking Status: Former smoker Past Alcohol Use History: None Reported Past Drug Use History: None Reported - Past Family History Father History Unknown: Yes Brother(s) Family Medical History: No Reported History Mother Family Medical History: Rheumatoid Arthritis (RA) General Exam Limitations: no limitations General appearance: alert, in no apparent distress Head exam: Present: atraumatic, normocephalic, normal inspection Eye exam: Present: normal appearance, PERRL, EOMI. Absent: scleral icterus, conjunctival injection, periorbital swelling ENT exam: Present: normal exam, mucous membranes moist Neck exam: Present: normal inspection. Absent: tenderness, meningismus, lymphadenopathy Respiratory exam: Present: normal lung sounds bilaterally, wheezes, accessory muscle use, decreased breath sounds, prolonged expiratory. Absent: respiratory distress, rales, rhonchi, stridor Cardiovascular Exam: Present: normal rhythm, tachycardia, normal heart sounds. Absent: systolic murmur, diastolic murmur, rubs, gallop, clicks GI/Abdominal exam: Present: soft, normal bowel sounds. Absent: distended, tenderness, guarding, rebound, rigid Extremities exam: Present: normal inspection, full ROM, normal capillary refill. Absent: tenderness, pedal edema, joint swelling, calf tenderness Back exam: Present: normal inspection Neurological exam: Present: alert, oriented X3, CN II-XII intact Psychiatric exam: Present: normal affect, normal mood Skin exam: Present: warm, dry, intact, normal color. Absent: rash Course Vital Signs 04/15/17 04/15/17 04/15/17 12:04 12:28 12:37 Temperature 99.0 F 97.4 F L Pulse Rate 104 H 102 H 98 Respiratory 30 H 15 Rate Blood Pressure 129/55 117/59 O2 Sat by Pulse 94 L 96 Oximetry 04/15/17 04/15/17 04/15/17 13:09 13:10 13:21 Temperature Pulse Rate 101 H 104 H Respiratory 18 24 Rate Blood Pressure 119/72 O2 Sat by Pulse 98 Oximetry - Reevaluation(s) Reevaluation #1: 04/15/17 13:36 Minimal improvement and breathing treatment Medical Decision Making - Medical Decision Making 41 female here for evaluation of shortness of breath, COPD exacerbation, underlying pneumonia. Patient be admitted for serial breathing treatments, cardiopulmonary evaluation, pulse ox monitoring - Lab Data Result diagrams: 04/15/17 12:20 04/15/17 12:20 Lab Results 04/15/17 04/15/17 04/15/17 Range/Units 12:20 12:20 12:20 WBC 14.8 H (3.8-10.6) k/uL RBC 4.23 (3.80-5.40) m/uL Hgb 12.1 (11.4-16.0) gm/dL Hct 37.2 (34.0-46.0) % MCV 87.9 (80.0-100.0) fL MCH 28.7 (25.0-35.0) pg MCHC 32.6 (31.0-37.0) g/dL RDW 15.1 (11.5-15.5) % Plt Count 433 (150-450) k/uL Neutrophils % 79 % Lymphocytes % 10 % Monocytes % 9 % Eosinophils % 1 % Basophils % 1 % Neutrophils # 11.6 H (1.3-7.7) k/uL Lymphocytes # 1.4 (1.0-4.8) k/uL Monocytes # 1.3 H (0-1.0) k/uL Eosinophils # 0.1 (0-0.7) k/uL Basophils # 0.1 (0-0.2) k/uL PT (9.0-12.0) sec INR (<1.1) APTT (22.0-30.0) sec Sodium 136 L (137-145) mmol/L Potassium 4.3 (3.5-5.1) mmol/L Chloride 102 (98-107) mmol/L Carbon Dioxide 23 (22-30) mmol/L Anion Gap 11 mmol/L BUN 16 (7-17) mg/dL Creatinine 0.80 (0.52-1.04) mg/dL Est GFR (MDRD) Af Amer >60 (>60 ml/min/1.73 sqM) Est GFR (MDRD) Non-Af >60 (>60 ml/min/1.73 sqM) Glucose 93 (74-99) mg/dL Calcium 9.6 (8.4-10.2) mg/dL Magnesium 1.7 (1.6-2.3) mg/dL Total Bilirubin 0.6 (0.2-1.3) mg/dL AST 12 L (14-36) U/L ALT 27 (9-52) U/L Alkaline Phosphatase 101 (38-126) U/L Total Creatine Kinase <20 L (30-135) U/L CK-MB (CK-2) 0.4 (0.0-2.4) ng/mL CK-MB (CK-2) Rel Index 0.0 Troponin I <0.012 (0.000-0.034) ng/mL NT-Pro-B Natriuret Pep pg/mL Total Protein 6.1 L (6.3-8.2) g/dL Albumin 3.8 (3.5-5.0) g/dL 04/15/17 04/15/17 Range/Units 12:20 12:20 WBC (3.8-10.6) k/uL RBC (3.80-5.40) m/uL Hgb (11.4-16.0) gm/dL Hct (34.0-46.0) % MCV (80.0-100.0) fL MCH (25.0-35.0) pg MCHC (31.0-37.0) g/dL RDW (11.5-15.5) % Plt Count (150-450) k/uL Neutrophils % % Lymphocytes % % Monocytes % % Eosinophils % % Basophils % % Neutrophils # (1.3-7.7) k/uL Lymphocytes # (1.0-4.8) k/uL Monocytes # (0-1.0) k/uL Eosinophils # (0-0.7) k/uL Basophils # (0-0.2) k/uL PT 9.5 (9.0-12.0) sec INR 0.9 (<1.1) APTT 22.1 (22.0-30.0) sec Sodium (137-145) mmol/L Potassium (3.5-5.1) mmol/L Chloride (98-107) mmol/L Carbon Dioxide (22-30) mmol/L Anion Gap mmol/L BUN (7-17) mg/dL Creatinine (0.52-1.04) mg/dL Est GFR (MDRD) Af Amer (>60 ml/min/1.73 sqM) Est GFR (MDRD) Non-Af (>60 ml/min/1.73 sqM) Glucose (74-99) mg/dL Calcium (8.4-10.2) mg/dL Magnesium (1.6-2.3) mg/dL Total Bilirubin (0.2-1.3) mg/dL AST (14-36) U/L ALT (9-52) U/L Alkaline Phosphatase (38-126) U/L Total Creatine Kinase (30-135) U/L CK-MB (CK-2) (0.0-2.4) ng/mL CK-MB (CK-2) Rel Index Troponin I (0.000-0.034) ng/mL NT-Pro-B Natriuret Pep 187 pg/mL Total Protein (6.3-8.2) g/dL Albumin (3.5-5.0) g/dL - Radiology Data Radiology results: report reviewed (Chest x-ray shows probable pneumonia), image reviewed Disposition Clinical Impression: Acute exacerbation of chronic obstructive airways disease, COPD with acute exacerbation, Adult respiratory distress syndrome, Lung mass, Nosocomial pneumonia Disposition: ADMITTED IP TO THIS [facility] Condition: Fair Referrals: Og Green MD [Primary Care Provider] - 1-2 days
[2017-04-15 12:42] LABS: Basophils # (A) 0.1 k/uL (0-0.2); Basophils % (A) 1 %; CH 28.5; CHCM 32.6; Eosinophils # (A) 0.1 k/uL (0-0.7); Eosinophils % (A) 1 %; HCT 37.2 % (34.0-46.0); HDW 2.42; HGB 12.1 gm/dL (11.4-16.0); Luc # (Auto) 0.28; Luc % (Auto) 2; Lymphocytes # (A) 1.4 k/uL (1.0-4.8); Lymphocytes % (A) 10 %; MCH 28.7 pg (25.0-35.0); MCHC 32.6 g/dL (31.0-37.0); MCV 87.9 fL (80.0-100.0); Mean Platelet Volume 7.3; Monocytes # (A) 1.3 k/uL (0-1.0); Monocytes % (A) 9 %; Neutrophils # (A) 11.6 k/uL (1.3-7.7); Neutrophils % (A) 79 %; RBC 4.23 m/uL (3.80-5.40); RDW 15.1 % (11.5-15.5); WBC 14.8 k/uL (3.8-10.6); WBC (Perox) 15.05
--- NOTE | 2017-04-15 12:42 | XR ---
EXAMINATION TYPE: XR chest 2V DATE OF EXAM: 04/15/2017 COMPARISON: 03/21/2017 CT and chest x-ray HISTORY: Shortness of breath TECHNIQUE: Frontal and lateral views of the chest are obtained. FINDINGS: Scattered senescent parenchymal changes noted. Hyperinflation compatible with COPD. 1.9 cm left upper lobe pulmonary nodule identified. Patchy area of opacity right suprahilar region. T his may reflect underlying infiltrate. Additional nodule or mass is difficult to exclude. Additional nodule right lung apex. Heart size is stable. Mediastinal structures are stable and grossly unremarkable. No evidence for hilar prominence. Degenerative changes dorsal spine. IMPRESSION: 1. 1.9 cm left upper lobe pulmonary nodule identified. Patchy area of opacity right suprahilar region . This may reflect underlying infiltrate. Additional nodule or mass is difficult to exclude. Addition al nodule right lung apex.
[2017-04-15 12:58] LABS: Creatine Kinase <20 U/L (30-135)
[2017-04-15 12:59] LABS: INR 0.9 (<1.1); Prothrombin Time 9.5 sec (9.0-12.0)
[2017-04-15 13:00] LABS: ALT 27 U/L (9-52); AST 12 U/L (14-36); Alkaline Phosphatase 101 U/L (38-126); Anion Gap 11 mmol/L; Blood Urea Nitrogen 16 mg/dL (7-17); Calcium 9.6 mg/dL (8.4-10.2); Carbon Dioxide 23 mmol/L (22-30); Chloride 102 mmol/L (98-107); Glucose 93 mg/dL (74-99); Magnesium 1.7 mg/dL (1.6-2.3); Non-African American GFR(MDRD) >60 (>60 ml/min/1.73 sqM); Potassium 4.3 mmol/L (3.5-5.1); Sodium 136 mmol/L (137-145); Total Bilirubin 0.6 mg/dL (0.2-1.3); Total Protein 6.1 g/dL (6.3-8.2)
[2017-04-15 13:05] LABS: Partial Thromboplastin Time 22.1 sec (22.0-30.0)
[2017-04-15 13:10] LABS: Creatine Kinase MB 0.4 ng/mL (0.0-2.4); Troponin I <0.012 ng/mL (0.000-0.034)
[2017-04-15] MEDS ORDERED: PNEUMONIA PROTOCOL UTILIZED 1 EACH MISC PO PRN (13:33)
[2017-04-15] MEDS ORDERED: LEVOFLOXACIN 750MG-D5W PMX 750 MG in DEXTROSE/WATER 1 150ML.BAG IVPB STA (13:33)
[2017-04-15] MEDS: PIPERACILLIN-TAZOBACTAM 3.375 GM in DEXTROSE/WATER 1 50ML.BAG IVPB STA ×2 (13:48→15:19)
[2017-04-15] MEDS: SODIUM CHLORIDE 0.9% 1,000 ML IV SCH (13:49)
[2017-04-15] MEDS ORDERED: ALBUTEROL NEBULIZED 2.5 MG/3 ML INHALATION PRN (15:35)
[2017-04-15] MEDS ORDERED: IPRATROPIUM-ALBUTEROL 3 ML NEB INHALATION PRN (15:35)
[2017-04-15] MEDS ORDERED: ALBUTEROL INHALER 60 PUFF/8 GM INHALER INHALATION PRN (15:35)
[2017-04-15] MEDS ORDERED: ERGOCALCIFEROL 50,000 UNIT CAP PO SCH (16:00)
[2017-04-15] MEDS: IPRATROPIUM-ALBUTEROL 3 ML NEB INHALATION SCH ×2 (16:25→20:20)
[2017-04-15] MEDS: FUROSEMIDE 40 MG TAB PO SCH (17:08)
[2017-04-15 18:17] VITALS: BMI 29.0
[2017-04-15] MEDS: ATORVASTATIN 80 MG TAB PO SCH (20:08)
[2017-04-15] MEDS: MONTELUKAST 10 MG TAB PO SCH (20:08)
[2017-04-15] MEDS: SYMBICORT 160-4.5 MCG INHALER INHALATION SCH (20:20)
[2017-04-15] MEDS ORDERED: FUROSEMIDE 40 MG TAB PO SCH (21:00)
[2017-04-16] MEDS: methylPREDNISolone SOD SUCCI 125 MG/2 ML VIAL IV SCH ×4 (00:37→16:36)
[2017-04-16] MEDS: PIPERACILLIN-TAZOBACTAM 3.375 GM in DEXTROSE/WATER 1 50ML.BAG IVPB SCH ×3 (00:37→16:35)
[2017-04-16] MEDS: IPRATROPIUM-ALBUTEROL 3 ML NEB INHALATION SCH ×4 (07:29→19:59)
[2017-04-16] MEDS: SYMBICORT 160-4.5 MCG INHALER INHALATION SCH ×2 (07:29→19:59)
--- NOTE | 2017-04-16 07:32 | XR ---
EXAMINATION TYPE: XR chest 2V DATE OF EXAM: 04/16/2017 COMPARISON: 04/15/2017 HISTORY: 81-year-old female with cough, evaluate for pneumonia. TECHNIQUE: Frontal and lateral views FINDINGS: The heart is normal size. Similar mild elongation of the thoracic aorta. Right perihilar opacity show s improvement from prior exam with some residual density. Relative lucency suggests underlying emphys maame. Large 1.8 cm left upper lobe pulmonary nodule again noted. Persistent strandy scarring or atelec tasis at the lower lungs. IMPRESSION: 1. COPD with improving infiltrate right suprahilar region. Residual airspace disease remains. 2. Known 1.8 cm left upper lobe pulmonary nodule. 3. Strandy bibasilar atelectasis/scarring.
[2017-04-16 07:38] LABS: Glucose,Whole Blood 163 mg/dL (75-99)
[2017-04-16] MEDS: ENOXAPARIN 40 MG/0.4 ML SYRINGE SQ SCH (07:43)
[2017-04-16] MEDS: ASPIRIN 81 MG CHEW PO SCH (07:44)
[2017-04-16] MEDS: INSULIN LISPRO (humaLOG) 300 UNIT/3 ML VIAL SQ SCH ×4 (07:44→21:32)
[2017-04-16] MEDS: LISINOPRIL 2.5 MG TAB PO SCH (07:44)
[2017-04-16] MEDS: DILTIAZEM CD 120 MG CAP.ER.24H PO SCH (07:44)
[2017-04-16] MEDS: PANTOPRAZOLE 40 MG TABLET PO SCH (07:44)
[2017-04-16] MEDS: FUROSEMIDE 40 MG TAB PO SCH ×2 (07:44→15:11)
[2017-04-16 08:36] LABS: ALT 19 U/L (9-52); AST 14 U/L (14-36); Alkaline Phosphatase 87 U/L (38-126); Anion Gap 14 mmol/L; Blood Urea Nitrogen 19 mg/dL (7-17); Calcium 9.8 mg/dL (8.4-10.2); Carbon Dioxide 20 mmol/L (22-30); Chloride 104 mmol/L (98-107); Glucose 140 mg/dL (74-99); Non-African American GFR(MDRD) 56 (>60 ml/min/1.73 sqM); Potassium 4.1 mmol/L (3.5-5.1); Sodium 138 mmol/L (137-145); Total Bilirubin 0.6 mg/dL (0.2-1.3); Total Protein 6.1 g/dL (6.3-8.2)
--- NOTE | 2017-04-16 11:08 | P.CNPUL ---
History of Present Illness Consult date: 04/16/17 Requesting physician: Og Green Reason for consult: COPD Chief complaint: Shortness of breath History of present illness: This is a 81-year-old female patient being seen, examined and evaluated today on the fourth floor. Patient is well-known to our services. This patient came into the emergency room yesterday with shortness of breath with significant wheezes that had progressively got worse over the last 2-3 days. Patient states she was also having some chest pain. After evaluation the patient was ultimately admitted to the hospital with community-acquired pneumonia, acute exacerbation of chronic obstructive pulmonary disease, and respiratory distress. The patient does have a history of a 1.8 cm left upper lobe lung nodule which has been previously biopsied and results came back negative for malignancy at that time. The patient does have a history of chronic hypoxic respiratory failure and is on 2 L of home oxygen. Patient also has a past medical history significant for severe COPD, chronic persistent monitor asthma, atrial flutter, chronic hypoxic respiratory failure as well as multiple recurrent pneumonias. Upon examination patient's resting up in bed on 2 L of supplemental oxygen. Patient states she has a productive cough with clear sputum. Patient does become short of breath with any exertion or extensive conversation. Review of Systems 14 point review of systems was completed and is negative other than what's noted in the HPI. Past Medical History Past Medical History: Atrial Flutter, Asthma, Chest Pain / Angina, Heart Failure , COPD, GERD/Reflux, Hyperlipidemia, Hypertension, Pneumonia, Respiratory Disorder Additional Past Medical History / Comment(s): Chronic respiratory failure with O2 at 2L/NC ATC, chronic persistent asthma, bronchitis, DJD, past L hip fx with surgery, sinus problems, rheumatic fever as a child. History of Any Multi-Drug Resistant Organisms: Acinetobacter (MDRO) Date of last positivie culture/infection: 10/06/16 MDRO Source:: SPUTUM Past Surgical History: Hysterectomy, Joint Replacement, Orthopedic Surgery, Tubal Ligation Additional Past Surgical History / Comment(s): 03/21/17 bronchoscopy with BAL/BX- bening per pt, LEFT HIP hemiarthroplasty, LEFT FOOT surgery, colonoscopy, D&C. Past Anesthesia/Blood Transfusion Reactions: No Reported Reaction Past Psychological History: No Psychological Hx Reported Additional Psychological History / Comment(s): Pt resides with her son. She uses no assistive device. She no longer drives, her daughter/family drives her to [employer]. Her son cooks and cleans the house. The home is one level without steps. She has home O2 and a nebulizer. Smoking Status: Former smoker - Past Family History Father History Unknown: Yes Brother(s) Family Medical History: No Reported History Mother Family Medical History: Rheumatoid Arthritis (RA) Medications and Allergies Home Medications Medication Instructions Recorded Confirmed Type Furosemide [Lasix] 40 mg PO BID 02/20/15 04/15/17 History Lisinopril [Zestril] 2.5 mg PO DAILY 02/20/15 04/15/17 History Montelukast [Singulair] 10 mg PO HS 02/20/15 04/15/17 History Omeprazole [PriLOSEC] 20 mg PO DAILY 02/20/15 04/15/17 History Albuterol Sulfate [Proair Hfa] 2 puff INHALATION RT-QID PRN 10/29/15 04/15/17 History Ergocalciferol [Vitamin D2 50,000 unit PO Q14D 10/30/15 04/15/17 History (DRISDOL)] Albuterol Nebulized [Ventolin 2.5 mg INHALATION RT-QID PRN 08/19/16 04/15/17 History Nebulized] Ipratropium Nebulized [Atrovent 0.5 mg INHALATION RT-QID PRN 08/19/16 04/15/17 History Nebulized] Aspirin EC [Ecotrin Low Dose] 81 mg PO DAILY 10/05/16 04/15/17 History Budesonide/Formoterol Fumarate 2 puff INHALATION RT-BID 10/05/16 04/15/17 History [Symbicort 160-4.5 Mcg Inhaler] Atorvastatin Calcium [Lipitor] 80 mg PO HS 04/15/17 04/15/17 History Diltiazem Cd [Cardizem Cd] 120 mg PO DAILY 04/15/17 04/15/17 History Allergies Allergy/AdvReac Type Severity Reaction Status Date / Time No Known Allergies Allergy Verified 04/15/17 12:53 Physical Exam Vitals: Vital Signs Temp Pulse Pulse Resp BP BP Pulse Ox 04/16/17 07:45 94 04/16/17 07:32 100 04/16/17 07:00 97.5 F L 85 18 121/69 95 04/15/17 23:00 97.4 F L 87 20 109/62 95 04/15/17 20:34 96 04/15/17 20:23 96 04/15/17 16:36 96 04/15/17 16:29 96 96 04/15/17 15:00 97.1 F L 62 16 105/73 91 L 04/15/17 13:54 100 20 137/62 93 L 04/15/17 13:21 104 H 04/15/17 13:10 24 04/15/17 13:09 101 H 18 119/72 98 04/15/17 12:37 98 04/15/17 12:28 97.4 F L 102 H 15 117/59 96 04/15/17 12:04 99.0 F 104 H 30 H 129/55 94 L Intake and Output 04/15/17 04/16/17 04/16/17 22:59 06:59 14:59 Intake Total 840 600 Output Total 200 Balance 640 600 Intake: Intake, IV Titration 200 Amount Levofloxacin 750Mg-D5w 150 Pmx 750 mg In Dextrose/ Water 1 150ml.bag @ 100 mls/hr IVPB ONCE STA Rx#: [id number] Piperacillin-Tazobactam 3 50 .375 gm In Dextrose/Water 1 50ml.bag @ 12.5 mls/hr IVPB ONCE STA Rx#: [id number] Oral 640 600 Output: Urine 200 Other: # Voids 2 2 # Bowel Movements 1 Weight 83.915 kg 84.368 kg GENERAL EXAM: Alert, active, comfortable in no apparent distress. HEAD: Normocephalic. EYES: Normal reaction of pupils, equal size. NOSE: Clear with pink turbinates. THROAT: No erythema or exudates. NECK: No masses, no JVD. CHEST: No chest wall deformity. LUNGS: Poor air entry bilaterally with no crackles, wheeze, rhonchi or dullness. Bases diminished CVS: S1 and S2 normal with no audible mumurs, regular rhythm. ABDOMEN: No hepatosplenomegaly, normal bowel sounds, no guarding or rigidity. EXTREMITIES: No edema noted, pedal pulses palpable. SKIN: No rashes CENTRAL NERVOUS SYSTEM: No focal deficits, tone is normal in all 4 extremities. Results - Laboratory Findings CBC and BMP: 04/15/17 12:20 04/16/17 07:47 PT/INR, D-dimer PT 9.5 sec (9.0-12.0) 04/15/17 12:20 INR 0.9 (<1.1) 04/15/17 12:20 Abnormal lab findings: Abnormal Labs 04/15/17 04/15/17 04/15/17 12:20 12:20 12:20 WBC 14.8 H Neutrophils # 11.6 H Monocytes # 1.3 H Sodium 136 L Carbon Dioxide BUN Glucose POC Glucose (mg/dL) AST 12 L Total Creatine Kinase <20 L Total Protein 6.1 L 04/16/17 04/16/17 07:31 07:47 WBC Neutrophils # Monocytes # Sodium Carbon Dioxide 20 L BUN 19 H Glucose 140 H POC Glucose (mg/dL) 163 H AST Total Creatine Kinase Total Protein 6.1 L - Diagnostic Findings Chest x-ray: report reviewed, image reviewed Assessment and Plan Plan: Assessment Acute exacerbation of chronic obstructive pulmonary disease Acute exacerbation of chronic persistent asthma Acute on chronic respiratory failure, uses home O2, 2 L via nasal cannula hypertension, hypertensive cardiovascular disease GERD Plan Medications have been reviewed and will be continued as ordered. Continue with antibiotics and steroids as ordered. Continue with pulmonary hygiene, coughing and deep breathing exercises, and supportive care. Continue with nebulizer treatments. Supplemental oxygen to maintain oxygen saturations of 92% or better. Continue nebulizer treatments. Initiate and encourage incentive spirometer. GI and DVT prophylaxis. Patient is scheduled for repeat CT of the chest in a few weeks, we will keep that appointment. Obtain sputum culture. Patient denies wanting any further workup or biopsy of her lung nodule. We will continue to monitor labs/results and adjust treatment as necessary. Further recommendations pending. I performed an examination of the patient and discussed their management with the nurse practitioner. I have reviewed the nurse practitioner's note and agree with the documented findings and plan of care.
[2017-04-16 12:01] LABS: Glucose,Whole Blood 134 mg/dL (75-99)
[2017-04-16] MEDS: SODIUM CHLORIDE 0.9% 1,000 ML IV SCH (12:05)
--- NOTE | 2017-04-16 13:43 | P.HPIM ---
History of Present Illness H&P Date: 04/15/17 Chief Complaint: Shortness of breath 81-year-old female presented to the emergency room with a chief complaint of developing shortness of breath with any exertion and feeling decreased endurance increased weakness. Patient stated couple weeks ago did have a lung biopsy and from her understanding everything came back negative. Patient stated that she has been treated in the past for COPD exacerbations and felt that that was what she was experiencing this admission. Patient denied any fever chills when questioned. Review of Systems Essentially unremarkable except as mentioned in the present illness Past Medical History Past Medical History: Atrial Flutter, Asthma, Chest Pain / Angina, Heart Failure , COPD, GERD/Reflux, Hyperlipidemia, Hypertension, Pneumonia, Respiratory Disorder Additional Past Medical History / Comment(s): Chronic respiratory failure with O2 at 2L/NC ATC, chronic persistent asthma, bronchitis, DJD, past L hip fx with surgery, sinus problems, rheumatic fever as a child. History of Any Multi-Drug Resistant Organisms: Acinetobacter (MDRO) Date of last positivie culture/infection: 10/06/16 MDRO Source:: SPUTUM Past Surgical History: Hysterectomy, Joint Replacement, Orthopedic Surgery, Tubal Ligation Additional Past Surgical History / Comment(s): 03/21/17 bronchoscopy with BAL/BX- bening per pt, LEFT HIP hemiarthroplasty, LEFT FOOT surgery, colonoscopy, D&C. Past Anesthesia/Blood Transfusion Reactions: No Reported Reaction Past Psychological History: No Psychological Hx Reported Additional Psychological History / Comment(s): Pt resides with her son. She uses no assistive device. She no longer drives, her daughter/family drives [facility]. Her son cooks and cleans the house. The home is one level without steps. She has home O2 and a nebulizer. Smoking Status: Former smoker - Past Family History Father History Unknown: Yes Brother(s) Family Medical History: No Reported History Mother Family Medical History: Rheumatoid Arthritis (RA) Medications and Allergies Home Medications Medication Instructions Recorded Confirmed Type Furosemide [Lasix] 40 mg PO BID 02/20/15 04/15/17 History Lisinopril [Zestril] 2.5 mg PO DAILY 02/20/15 04/15/17 History Montelukast [Singulair] 10 mg PO HS 02/20/15 04/15/17 History Omeprazole [PriLOSEC] 20 mg PO DAILY 02/20/15 04/15/17 History Albuterol Sulfate [Proair Hfa] 2 puff INHALATION RT-QID PRN 10/29/15 04/15/17 History Ergocalciferol [Vitamin D2 50,000 unit PO Q14D 10/30/15 04/15/17 History (DRISDOL)] Albuterol Nebulized [Ventolin 2.5 mg INHALATION RT-QID PRN 08/19/16 04/15/17 History Nebulized] Ipratropium Nebulized [Atrovent 0.5 mg INHALATION RT-QID PRN 08/19/16 04/15/17 History Nebulized] Aspirin EC [Ecotrin Low Dose] 81 mg PO DAILY 10/05/16 04/15/17 History Budesonide/Formoterol Fumarate 2 puff INHALATION RT-BID 10/05/16 04/15/17 History [Symbicort 160-4.5 Mcg Inhaler] Atorvastatin Calcium [Lipitor] 80 mg PO HS 04/15/17 04/15/17 History Diltiazem Cd [Cardizem Cd] 120 mg PO DAILY 04/15/17 04/15/17 History Allergies Allergy/AdvReac Type Severity Reaction Status Date / Time No Known Allergies Allergy Verified 04/15/17 12:53 Physical Exam Vitals: Vital Signs Temp Pulse Pulse Resp BP BP Pulse Ox 04/16/17 11:53 100 04/16/17 11:37 104 H 04/16/17 07:45 94 04/16/17 07:32 100 04/16/17 07:00 97.5 F L 85 18 121/69 95 04/15/17 23:00 97.4 F L 87 20 109/62 95 04/15/17 20:34 96 04/15/17 20:23 96 04/15/17 16:36 96 04/15/17 16:29 96 96 04/15/17 15:00 97.1 F L 62 16 105/73 91 L 04/15/17 13:54 100 20 137/62 93 L Intake and Output 04/15/17 04/16/17 04/16/17 22:59 06:59 14:59 Intake Total 840 600 Output Total 200 Balance 640 600 Intake: Intake, IV Titration 200 Amount Levofloxacin 750Mg-D5w 150 Pmx 750 mg In Dextrose/ Water 1 150ml.bag @ 100 mls/hr IVPB ONCE STA Rx#: [id number] Piperacillin-Tazobactam 3 50 .375 gm In Dextrose/Water 1 50ml.bag @ 12.5 mls/hr IVPB ONCE STA Rx#: [id number] Oral 640 600 Output: Urine 200 Other: # Voids 2 2 # Bowel Movements 1 Weight 83.915 kg 84.368 kg GENERAL APPEARANCE: 81-year-old female patient is alert, oriented, in no acute distress. Talkative stating with any exertion feels short of breath VITAL SIGNS: Reviewed HEENT: Head is normocephalic and atraumatic. Pupils are equal and reactive. The nares are patent. Oropharynx is clear without lesions. NECK: Supple without lymphadenopathy. Traches midline. HEART: S1, S2. Regular rate and rhythm. Denying chest pain LUNGS: Diminished at the bases bilateral audible wheezing noted ABDOMEN: Soft, nontender, nondistended with good bowel sounds. No peritoneal signs. No palpable organomegaly or masses. EXTREMITIES: Normal skin color and turgor. No cyanosis, rash, ulceration, clubbing or edema. Radial pedal pulses are 2/4 bilaterally. NEUROLOGICAL: No focal deficits. Strength and sensation are grossly intact. Results CBC & Chem 7: 04/15/17 12:20 04/16/17 07:47 Labs: Abnormal Lab Results - Last 24 Hours (Table) 04/16/17 04/16/17 04/16/17 Range/Units 07:31 07:47 11:50 Carbon Dioxide 20 L (22-30) mmol/L BUN 19 H (7-17) mg/dL Glucose 140 H (74-99) mg/dL POC Glucose (mg/dL) 163 H 134 H (75-99) mg/dL Total Protein 6.1 L (6.3-8.2) g/dL Thrombosis Risk Factor Assmnt - Choose All That Apply Any of the Below Risk Factors Present?: Yes Each Factor Represents 1 point: Abnormal pulmonary function (COPD), Obesity ( BMI >25), Serious lung disease incl. pneumonia (< 1month) Other Risk Factors: Yes Each Risk Factor Represents 3 Points: Age 75 years or older Other congenital or acquired thrombophilia - If yes, enter type in comment: No Thrombosis Risk Factor Assessment Total Risk Factor Score: 6 Thrombosis Risk Factor Assessment Level: High Risk Assessment and Plan Plan: Impression Present on admission shortness of breath exertional dyspnea due to an acute exacerbation of COPD Chest x-ray shows probable pneumonia nosocomial Present on admission shortness of breath due to acute respiratory distress syndrome Hypertension benign Esophageal reflux disease Acute exacerbation of chronic persistent asthma Acute on chronic respiratory failure hypoxic uses 2 L supplemental home O2 [id number] Remote history of nicotine dependency smoked greater than 40-50 years quit in 2009 A recent biopsy 2 weeks ago for a left upper lobe pulmonary mass Plan Continue with recommendations by pulmonary defer to Resume home meds as appropriate IV antibiotics as ordered Zosyn and Levaquin Pulmonary indicates the patient is scheduled for a repeat CAT scan of the chest in a few weeks encourage patient to keep the appointment Obtain sputum culture DVT and GI prophylaxis Continue the nebulized treatments as ordered Titrate the O2 keep sats greater than 90 The above impression and plan of care have been discussed and directed by signing physician. Gabriela Avina nurse practitioner acting as scribe for signing physician.
--- NOTE | 2017-04-16 13:44 | P.PN ---
Subjective 81-year-old female being seen and examined sitting up in bed. Patient continues to report having shortness of breath with exertion chief complaint tired out this morning no cough noted Patients being followed by pulmonary service will defer to Objective - Vital Signs Vital signs: Vital Signs Temp 97.5 F L 04/16/17 07:00 Pulse 100 04/16/17 11:53 Resp 18 04/16/17 07:00 BP 121/69 04/16/17 07:00 Pulse Ox 95 04/16/17 07:00 Intake & Output 04/15/17 04/16/17 04/16/17 18:59 06:59 18:59 Intake Total 200 1240 Output Total 200 Balance 0 1240 Weight 83.915 kg 84.368 kg Intake: Intake, IV Titration 200 Amount Levofloxacin 750Mg-D5w 150 Pmx 750 mg In Dextrose/ Water 1 150ml.bag @ 100 mls/hr IVPB ONCE STA Rx#: [id number] Piperacillin-Tazobactam 3 50 .375 gm In Dextrose/Water 1 50ml.bag @ 12.5 mls/hr IVPB ONCE STA Rx#: [id number] Oral 1240 Output: Urine 200 Other: # Voids 2 # Bowel Movements 1 - Exam Physical exam 81-year-old female sitting up in bed talkative pleasant cooperative oriented 3 Lungs coarse rhonchi throughout with bilateral wheezing noted slightly short of breath with conversation use of accessory muscles to breathe Heart S1-S2 audible regular Abdomen soft nontender reports no nausea vomiting Extremities no edema noted - Labs CBC & Chem 7: 04/15/17 12:20 04/16/17 07:47 Labs: Abnormal Lab Results - Last 24 Hours (Table) 04/16/17 04/16/17 04/16/17 Range/Units 07:31 07:47 11:50 Carbon Dioxide 20 L (22-30) mmol/L BUN 19 H (7-17) mg/dL Glucose 140 H (74-99) mg/dL POC Glucose (mg/dL) 163 H 134 H (75-99) mg/dL Total Protein 6.1 L (6.3-8.2) g/dL Assessment and Plan Plan: Impression Present on admission shortness of breath exertional dyspnea due to an acute exacerbation of COPD Chest x-ray shows probable pneumonia nosocomial Present on admission shortness of breath due to acute respiratory distress syndrome Hypertension benign Esophageal reflux disease Acute exacerbation of chronic persistent asthma Acute on chronic respiratory failure hypoxic uses 2 L supplemental home O2 [id number] Remote history of nicotine dependency smoked greater than 40-50 years quit in 2010 A recent biopsy 2 weeks ago for a left upper lobe pulmonary mass Plan Continue with recommendations by pulmonary defer to Resume home meds as appropriate IV antibiotics as ordered Zosyn and Levaquin Pulmonary indicates the patient is scheduled for a repeat CAT scan of the chest in a few weeks encourage patient to keep the appointment Obtain sputum culture DVT and GI prophylaxis Continue the nebulized treatments as ordered Titrate the O2 keep sats greater than 90 The above impression and plan of care have been discussed and directed by signing physician. Gabriela Avina nurse practitioner acting as scribe for signing physician.
[2017-04-16] MEDS ORDERED: LEVOFLOXACIN 750MG-D5W PMX 750 MG in DEXTROSE/WATER 1 150ML.BAG IVPB SCH (14:00)
[2017-04-16 17:21] LABS: Glucose,Whole Blood 161 mg/dL (75-99)
[2017-04-16 20:58] LABS: Glucose,Whole Blood 172 mg/dL (75-99)
[2017-04-16] MEDS: ATORVASTATIN 80 MG TAB PO SCH (21:32)
[2017-04-16] MEDS: MONTELUKAST 10 MG TAB PO SCH (21:32)
[2017-04-17] MEDS: methylPREDNISolone SOD SUCCI 125 MG/2 ML VIAL IV SCH ×3 (00:26→12:09)
[2017-04-17] MEDS: PIPERACILLIN-TAZOBACTAM 3.375 GM in DEXTROSE/WATER 1 50ML.BAG IVPB SCH ×2 (00:26→08:05)
[2017-04-17] MEDS: SYMBICORT 160-4.5 MCG INHALER INHALATION SCH (07:27)
[2017-04-17] MEDS: IPRATROPIUM-ALBUTEROL 3 ML NEB INHALATION SCH ×2 (07:27→11:14)
[2017-04-17 07:30] LABS: Glucose,Whole Blood 142 mg/dL (75-99)
[2017-04-17] MEDS: PANTOPRAZOLE 40 MG TABLET PO SCH (08:05)
[2017-04-17] MEDS: INSULIN LISPRO (humaLOG) 300 UNIT/3 ML VIAL SQ SCH ×2 (08:06→12:02)
[2017-04-17] MEDS: DILTIAZEM CD 120 MG CAP.ER.24H PO SCH (08:52)
[2017-04-17] MEDS: LISINOPRIL 2.5 MG TAB PO SCH (08:52)
[2017-04-17] MEDS: FUROSEMIDE 40 MG TAB PO SCH (08:52)
[2017-04-17] MEDS: ASPIRIN 81 MG CHEW PO SCH (08:52)
[2017-04-17] MEDS: ENOXAPARIN 40 MG/0.4 ML SYRINGE SQ SCH (08:52)
--- NOTE | 2017-04-17 10:11 | P.PN ---
Subjective 04/16/17-This is a 81-year-old female patient being seen, examined and evaluated today on the fourth floor. Patient is well-known to our services. This patient came into the emergency room yesterday with shortness of breath with significant wheezes that had progressively got worse over the last 2-3 days. Patient states she was also having some chest pain. After evaluation the patient was ultimately admitted to the hospital with community-acquired pneumonia, acute exacerbation of chronic obstructive pulmonary disease, and respiratory distress. The patient does have a history of a 1.8 cm left upper lobe lung nodule which has been previously biopsied and results came back negative for malignancy at that time. The patient does have a history of chronic hypoxic respiratory failure and is on 2 L of home oxygen. Patient also has a past medical history significant for severe COPD, chronic persistent monitor asthma, atrial flutter, chronic hypoxic respiratory failure as well as multiple recurrent pneumonias. Upon examination patient's resting up in bed on 2 L of supplemental oxygen. Patient states she has a productive cough with clear sputum. Patient does become short of breath with any exertion or extensive conversation. 04/17/17- upon examination patient's resting up on the side of the bed on 2 L of supplemental oxygen. Patient states she is feeling significantly better today and less short of breath. Has not been able to bring up sputum sample for culture. Continues to have a cough however nonproductive today. Afebrile. No overnight events. Objective - Vital Signs Vital signs: Vital Signs Temp 97.6 F 04/17/17 08:20 Pulse 91 04/17/17 08:20 Resp 20 04/17/17 08:20 BP 127/78 04/17/17 08:20 Pulse Ox 94 L 04/17/17 08:20 Intake & Output 04/16/17 04/17/17 04/17/17 18:59 06:59 18:59 Intake Total 500 Balance 500 Weight 84.368 kg Intake: Oral 500 Other: # Voids 1 1 # Bowel Movements 1 - Exam GENERAL EXAM: Alert, active, comfortable in no apparent distress. HEAD: Normocephalic. EYES: Normal reaction of pupils, equal size. NOSE: Clear with pink turbinates. THROAT: No erythema or exudates. NECK: No masses, no JVD. CHEST: No chest wall deformity. LUNGS: Poor air entry bilaterally with no crackles, wheeze, rhonchi or dullness. CVS: S1 and S2 normal with no audible mumurs, regular rhythm. ABDOMEN: No hepatosplenomegaly, normal bowel sounds, no guarding or rigidity. EXTREMITIES: No edema noted, pedal pulses palpable. SKIN: No rashes CENTRAL NERVOUS SYSTEM: No focal deficits, tone is normal in all 4 extremities. - Labs CBC & Chem 7: 04/15/17 12:20 04/16/17 07:47 Labs: Abnormal Lab Results - Last 24 Hours (Table) 04/16/17 04/16/17 04/16/17 Range/Units 11:50 17:14 20:51 POC Glucose (mg/dL) 134 H 161 H 172 H (75-99) mg/dL 04/17/17 Range/Units 07:26 POC Glucose (mg/dL) 142 H (75-99) mg/dL Assessment and Plan Plan: Assessment Acute exacerbation of chronic obstructive pulmonary disease Acute exacerbation of chronic persistent asthma Acute on chronic respiratory failure, uses home O2, 2 L via nasal cannula Known 1.8 cm left upper lobe pulmonary nodule, patient had biopsy few weeks ago and wants no further workup for this. Probable pneumonia nosocomial suspect mixed bacterial hypertension, hypertensive cardiovascular disease GERD Plan Medications have been reviewed and will be continued as ordered. Continue with antibiotics and steroids as ordered. Continue with pulmonary hygiene, coughing and deep breathing exercises, and supportive care. Continue with nebulizer treatments. Supplemental oxygen to maintain oxygen saturations of 92% or better. Continue nebulizer treatments. Initiate and encourage incentive spirometer. GI and DVT prophylaxis. Patient is scheduled for repeat CT of the chest in a few weeks, we will keep that appointment. Obtain sputum culture. Patient denies wanting any further workup or biopsy of her lung nodule. We will continue to monitor labs/results and adjust treatment as necessary. Further recommendations pending. I performed an examination of the patient and discussed their management with the nurse practitioner. I have reviewed the nurse practitioner's note and agree with the documented findings and plan of care.
[2017-04-17 12:01] LABS: Glucose,Whole Blood 120 mg/dL (75-99)
[2017-04-17] MEDS: SODIUM CHLORIDE 0.9% 1,000 ML IV SCH (12:08)
--- NOTE | 2017-04-17 15:00 | P.DS ---
Providers Date of admission: 04/15/17 13:33 Expected date of discharge: 04/17/17 Attending physician: Og Green Consults: 04/15/17 14:54 Consult Physician Urgent Consulting Provider: Preston Diaz Consult Reason/Comments: copd/pneumonia Do you want consulting provider notified?: Yes Primary care physician: Og Green [facility] Course: 11-year-old female presented to the emergency room with a chief complaint of developing shortness of breath with any exertion and feeling decreased endurance increased weakness. Patient stated couple weeks ago did have a lung biopsy and from her understanding everything came back negative. Patient stated that she has been treated in the past for COPD exacerbations and felt that that was what she was experiencing this admission. Patient denied any fever chills when questioned. Patient does have a past medical history significant for severe COPD, chronic persistent asthma. The patient has a history of a left upper lobe lung nodule which has been previously biopsied and has came back negative for malignancy at this time. Patient was followed by pulmonology service. Patient was adamant about being discharged on the 17 of April. She states that she felt significantly better and did not want to be kept in the hospital any longer" subscap and the patient was discharged home Impression discharge diagnosis Acute exacerbation of chronic obstructive pulmonary disease Acute exacerbation of chronic persistent asthma Acute on chronic respiratory failure, uses home O2, 2 L via nasal cannula Known 1.8 cm left upper lobe pulmonary nodule, patient had biopsy few weeks ago and wants no further workup for this. Probable pneumonia nosocomial suspect mixed bacterial hypertension, hypertensive cardiovascular disease GERD Present on admission shortness of breath exertional dyspnea due to an acute exacerbation of COPD Chest x-ray shows probable pneumonia nosocomial Present on admission shortness of breath due to acute respiratory distress syndrome Hypertension benign Esophageal reflux disease Acute exacerbation of chronic persistent asthma Acute on chronic respiratory failure hypoxic uses 2 L supplemental home O2 [id number] Remote history of nicotine dependency smoked greater than 40-50 years quit in 2009 The above impression and plan of care have been discussed and directed by signing physician. Gabriela Avina nurse practitioner acting as scribe for signing physician. Patient Condition at Discharge: Fair Plan - Discharge Summary New Discharge Prescriptions: New Levofloxacin [Levaquin] 750 mg PO Q48H #7 tab No Action Omeprazole [PriLOSEC] 20 mg PO DAILY Montelukast [Singulair] 10 mg PO HS Lisinopril [Zestril] 2.5 mg PO DAILY Furosemide [Lasix] 40 mg PO BID Albuterol Sulfate [Proair Hfa] 2 puff INHALATION RT-QID PRN PRN Reason: Shortness Of Breath Ergocalciferol [Vitamin D2 (DRISDOL)] 50,000 unit PO Q14D Ipratropium Nebulized [Atrovent Nebulized] 0.5 mg INHALATION RT-QID PRN PRN Reason: Shortness Of Breath Albuterol Nebulized [Ventolin Nebulized] 2.5 mg INHALATION RT-QID PRN PRN Reason: Shortness Of Breath Aspirin EC [Ecotrin Low Dose] 81 mg PO DAILY Budesonide/Formoterol Fumarate [Symbicort 160-4.5 Mcg Inhaler] 2 puff INHALATION RT-BID Atorvastatin Calcium [Lipitor] 80 mg PO HS Diltiazem Cd [Cardizem Cd] 120 mg PO DAILY Discharge Medication List Furosemide [Lasix] 40 mg PO BID 02/20/15 [History] Lisinopril [Zestril] 2.5 mg PO DAILY 02/20/15 [History] Montelukast [Singulair] 10 mg PO HS 02/20/15 [History] Omeprazole [PriLOSEC] 20 mg PO DAILY 02/20/15 [History] Albuterol Sulfate [Proair Hfa] 2 puff INHALATION RT-QID PRN 10/29/15 [History] Ergocalciferol [Vitamin D2 (DRISDOL)] 50,000 unit PO Q14D 10/30/15 [History] Albuterol Nebulized [Ventolin Nebulized] 2.5 mg INHALATION RT-QID PRN 08/19/16 [ History] Ipratropium Nebulized [Atrovent Nebulized] 0.5 mg INHALATION RT-QID PRN [History] Aspirin EC [Ecotrin Low Dose] 81 mg PO DAILY 10/05/16 [History] Budesonide/Formoterol Fumarate [Symbicort 160-4.5 Mcg Inhaler] 2 puff INHALATION RT-BID 10/05/16 [History] Atorvastatin Calcium [Lipitor] 80 mg PO HS 04/15/17 [History] Diltiazem Cd [Cardizem Cd] 120 mg PO DAILY 04/15/17 [History] Levofloxacin [Levaquin] 750 mg PO Q48H #7 tab 04/17/17 [Rx] Follow up Appointment(s)/Referral(s): Og Green MD [Primary Care Provider] - 1-2 days Preston Diaz MD [STAFF PHYSICIAN] - 1 Week Discharge Disposition: HOME SELF-CARE
[2017-04-17 15:17] VITALS: BP 113/79; PULSE 101; RESP 22; TEMP 96.3
--- NOTE | 2017-04-17 16:53 | HP ---
DATE OF ADMISSION: 04/15/2017 CHIEF COMPLAINT: Difficulty breathing. HISTORY OF PRESENT ILLNESS: This is another recent admission for this 81-year- old white female with severe and chronic COPD. She was just in the hospital recently. She started to have trouble breathing in the last 24 to 48 hours, which grew steadily worse. She came to the emergency room in respiratory failure. REVIEW OF SYSTEMS: She has had no fever, chills, syncope, confusion, chest pain , hemoptysis, etc. Past medical history, family history, and personal and social histories are all unchanged from her recent admitting and discharge summaries. She does not smoke. PHYSICAL EXAM: Blood pressure is 116/74 with a pulse of 84, respirations of 50, and she is afebrile. In general she appeared to be in respiratory distress. She was very tachypneic and was using pursed-lip breathing. She was slightly cyanotic. Head, ears, eyes, nose, mouth and throat were otherwise normal. Neck veins were not distended. Chest demonstrated increased A/P diameter with very poor breath sounds. There was tight wheezing in inspiration and expiration with a prolonged expiratory phase. There were rales throughout. Cardiac exam was normal except for sinus tachycardia. The abdomen was soft and non-tender. Extremities are normal. Neurologically she is intact. She is admitted to the hospital with the diagnoses: 1. Acute respiratory failure. 2. Exacerbation of chronic obstructive pulmonary disease. PLAN: 1. Bedrest. 2. IV fluids. 3. IV and inhaled steroids. 4. Pulmonology consult. MIGUE
--- NOTE | 2017-04-17 16:56 | PN ---
DATE OF SERVICE: 04/16/2017 CHIEF COMPLAINT: Difficulty breathing. HISTORY OF PRESENT ILLNESS: This lady is not doing much better. She is still very tight and wheezy. She is not nauseated. She is not running a fever. PHYSICAL EXAM: Breath sounds are poor. There is wheezing on the inspiration and expiration with a prolonged expiratory phase. There are scattered rales. The cardiac exam demonstrates tachycardia. IMPRESSION: 1. Acute respiratory failure. 2. Exacerbation of chronic obstructive pulmonary disease. PLAN: No change in program. MTDD
[2017-04-18] MEDS ORDERED: LEVOFLOXACIN 750 MG TAB PO SCH (15:00)
--- NOTE | 2017-04-20 07:37 | PN ---
CHIEF COMPLAINT: ( ) COPD. HISTORY OF PRESENT ILLNESS: This lady's breathing is a little bit better. She has been approached by Pulmonology that they want to do another biopsy on the nodule on her lung and she is refusing. PHYSICAL EXAM: Breath sounds are poor. Wheezing and rales are slightly improved. Cardiac exam is normal. IMPRESSION: 1. Exacerbation of chronic obstructive pulmonary disease. 2. 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 PLAN: The patient would like to be discharged and she has been cleared by Pulmonology and will see her in several days. This will be arranged by the nurse practitioner. MIGUE
== END 2017-04-17 15:31 | disposition home or self-care (01) | DRG 190 ==
LOC: EC 11:57 → 4MS4W 13:33
PROVIDERS: ADMIT Family Medicine; ATTEND Family Medicine
DX: J44.0 Chronic obstructive pulmonary disease with (acute) lower respiratory infection (principal); J96.21 Acute and chronic respiratory failure with hypoxia; J15.9 Unspecified bacterial pneumonia; I48.92 Unspecified atrial flutter; J45.31 Mild persistent asthma with (acute) exacerbation; I50.9 Heart failure, unspecified; I11.0 Hypertensive heart disease with heart failure; Z99.81 Dependence on supplemental oxygen; J44.1 Chronic obstructive pulmonary disease with (acute) exacerbation; E78.5 Hyperlipidemia, unspecified; K21.9 Gastro-esophageal reflux disease without esophagitis; M19.90 Unspecified osteoarthritis, unspecified site; R91.1 Solitary pulmonary nodule; Z79.82 Long term (current) use of aspirin; Z79.899 Other long term (current) drug therapy; Z87.01 Personal history of pneumonia (recurrent); Z87.891 Personal history of nicotine dependence; Z96.642 Presence of left artificial hip joint; Y95 Nosocomial condition
CPT/HCPCS: 36415; 71020; 80053; 82550; 82553; 83735; 83880; 84484; 85025; 85610; 85730; 93005; 94640; 94644; 96365; 96375; 99285

== ENCOUNTER 2017-04-19 12:28 | Inpatient (IN) | payer MEDICARE, OTHER ==
[2017-04-19] MEDS ORDERED: ALBUTEROL NEBULIZED 2.5 MG/3 ML INHALATION STA (12:43)
[2017-04-19] MEDS ORDERED: IPRATROPIUM 0.5 MG/2.5 ML NEBU INHALATION STA (12:43)
--- NOTE | 2017-04-19 12:48 | ED ---
General Adult HPI - General Chief complaint: Shortness of Breath Stated complaint: Difficulty Breathing Time Seen by Provider: 04/19/17 12:30 Source: patient, RN notes reviewed Mode of arrival: wheelchair Limitations: no limitations - History of Present Illness Initial comments: This is a 81-year-old female presents to the emergency department complaining of difficulty breathing. Patient states she was just discharged from the hospital on Saturday. Patient states she was in the hospital for pneumonia and COPD. Patient states her difficulty breathing since Saturday is gotten worse and she continues to cough up sputum. Patient denies any recent fever or chills. Patient denies any chest pain or palpitations. Patient states she difficulty breathing is worse with exertion. Patient denies any calf pain or leg swelling. Patient denies abdominal pain patient denies nausea vomiting diarrhea. Patient denies headache patient denies numbness weakness. Patient denies any lightheadedness. - Related Data Home Medications Medication Instructions Recorded Confirmed Furosemide [Lasix] 40 mg PO BID 02/20/15 04/19/17 Lisinopril [Zestril] 2.5 mg PO DAILY 02/20/15 04/19/17 Montelukast [Singulair] 10 mg PO HS 02/20/15 04/19/17 Omeprazole [PriLOSEC] 20 mg PO DAILY 02/20/15 04/19/17 Albuterol Sulfate [Proair Hfa] 2 puff INHALATION RT-QID PRN 10/29/15 04/19/17 Ergocalciferol [Vitamin D2 50,000 unit PO Q14D 10/30/15 04/19/17 (DRISDOL)] Albuterol Nebulized [Ventolin 2.5 mg INHALATION RT-QID PRN 08/19/16 04/19/17 Nebulized] Aspirin EC [Ecotrin Low Dose] 81 mg PO DAILY 10/05/16 04/19/17 Budesonide/Formoterol Fumarate 2 puff INHALATION RT-BID 10/05/16 04/19/17 [Symbicort 160-4.5 Mcg Inhaler] Atorvastatin Calcium [Lipitor] 80 mg PO HS 04/15/17 04/19/17 Diltiazem Cd [Cardizem Cd] 120 mg PO DAILY 04/15/17 04/19/17 Ranitidine HCl [Zantac] 150 mg PO BID 04/19/17 04/19/17 Previous Rx's Medication Instructions Recorded Levofloxacin [Levaquin] 750 mg PO Q48H #7 tab 04/17/17 Allergies Allergy/AdvReac Type Severity Reaction Status Date / Time No Known Allergies Allergy Verified 04/19/17 13:53 Review of Systems ROS Statement: Those systems with pertinent positive or pertinent negative responses have been documented in the HPI. ROS Other: All systems not noted in ROS Statement are negative. Past Medical History Past Medical History: Atrial Flutter, Asthma, Chest Pain / Angina, Heart Failure , COPD, GERD/Reflux, Hyperlipidemia, Hypertension, Pneumonia, Respiratory Disorder Additional Past Medical History / Comment(s): Chronic respiratory failure with O2 at 2L/NC ATC, chronic persistent asthma, bronchitis, DJD, past L hip fx with surgery, sinus problems, rheumatic fever as a child. History of Any Multi-Drug Resistant Organisms: Acinetobacter (MDRO) Date of last positivie culture/infection: 10/06/16 MDRO Source:: SPUTUM Past Surgical History: Hysterectomy, Joint Replacement, Orthopedic Surgery, Tubal Ligation Additional Past Surgical History / Comment(s): 03/21/17 bronchoscopy with BAL/BX- bening per pt, LEFT HIP hemiarthroplasty, LEFT FOOT surgery, colonoscopy, D&C. Past Anesthesia/Blood Transfusion Reactions: No Reported Reaction Past Psychological History: No Psychological Hx Reported Smoking Status: Former smoker - Past Family History Father History Unknown: Yes Brother(s) Family Medical History: No Reported History Mother Family Medical History: Rheumatoid Arthritis (RA) General Exam - General Exam Comments Initial Comments: GENERAL: Patient is well-developed and well-nourished. Patient is nontoxic and well- hydrated and is in mild distress. ENT: Neck is soft and supple. No significant lymphadenopathy is noted. Oropharynx is clear. Moist mucous membranes. Neck has full range of motion without eliciting any pain. EYES: The sclera were anicteric and conjunctiva were pink and moist. Extraocular movements were intact and pupils were equal round and reactive to light. Eyelids were unremarkable. PULMONARY: Patient has diminished breath sounds throughout and expiratory wheezing. CARDIOVASCULAR: There is a regular rate and rhythm without any murmurs gallops or rubs. Femoral pulses are equal bilaterally ABDOMEN: Soft and nontender with normal bowel sounds. No palpable organomegaly was noted. There is no palpable pulsatile mass. SKIN: Skin is clear with no lesions or rashes and otherwise unremarkable. NEUROLOGIC: Patient is alert and oriented x3. Cranial nerves II through XII are grossly intact. Motor and sensory are also intact. Normal speech, volume and content. Symmetrical smile. MUSCULOSKELETAL: Normal extremities with adequate strength and full range of motion. No lower extremity swelling or edema. No calf tenderness. LYMPHATICS: No significant lymphadenopathy is noted PSYCHIATRIC: Normal psychiatric evaluation. Normal interpersonal interactions appears functionally intact in deals appropriately with others. No signs of depression. No signs of anxiety. Limitations: no limitations Course Vital Signs 04/19/17 04/19/17 04/19/17 12:31 13:12 13:32 Temperature 99 F Pulse Rate 119 H 112 H 102 H Respiratory 24 Rate Blood Pressure 123/64 O2 Sat by Pulse 90 L Oximetry 04/19/17 13:47 Temperature 99.2 F Pulse Rate 94 Respiratory 22 Rate Blood Pressure 143/68 O2 Sat by Pulse 94 L Oximetry Medical Decision Making - Medical Decision Making EKG shows sinus tachycardia with frequent PVCs at 101 bpm VA interval is 134 QRS is 126 QT interval 366 QTC is 474. Patient's EKG shows no ST segment elevation or depression. Patient has a right bundle branch block. Chest x-ray seems stable there is some scarring in the right upper lobe as well as a mass in the left lobe which was seen on previous x-rays. Patient states she does not feel well enough to go home she still believes she is short of breath. - Lab Data Result diagrams: 04/19/17 12:40 04/19/17 12:40 Lab Results 04/19/17 04/19/17 04/19/17 Range/Units 12:40 12:40 12:40 WBC 14.1 H (3.8-10.6) k/uL RBC 4.10 (3.80-5.40) m/uL Hgb 11.9 (11.4-16.0) gm/dL Hct 34.3 (34.0-46.0) % MCV 83.7 (80.0-100.0) fL MCH 29.0 (25.0-35.0) pg MCHC 34.7 (31.0-37.0) g/dL RDW 14.8 (11.5-15.5) % Plt Count 459 H (150-450) k/uL Neutrophils % 85 % Lymphocytes % 8 % Monocytes % 6 % Eosinophils % 0 % Basophils % 0 % Neutrophils # 11.9 H (1.3-7.7) k/uL Lymphocytes # 1.1 (1.0-4.8) k/uL Monocytes # 0.8 (0-1.0) k/uL Eosinophils # 0.1 (0-0.7) k/uL Basophils # 0.0 (0-0.2) k/uL PT (9.0-12.0) sec INR (<1.1) APTT (22.0-30.0) sec Sodium (137-145) mmol/L Potassium (3.5-5.1) mmol/L Chloride (98-107) mmol/L Carbon Dioxide (22-30) mmol/L Anion Gap mmol/L BUN (7-17) mg/dL Creatinine (0.52-1.04) mg/dL Est GFR (MDRD) Af Amer (>60 ml/min/1.73 sqM) Est GFR (MDRD) Non-Af (>60 ml/min/1.73 sqM) Glucose (74-99) mg/dL Plasma Lactic Acid Sedrick 1.6 (0.7-2.0) mmol/L Calcium (8.4-10.2) mg/dL Magnesium (1.6-2.3) mg/dL Total Bilirubin (0.2-1.3) mg/dL AST (14-36) U/L ALT (9-52) U/L Alkaline Phosphatase (38-126) U/L Total Creatine Kinase 42 (30-135) U/L CK-MB (CK-2) 0.9 (0.0-2.4) ng/mL CK-MB (CK-2) Rel Index 2.1 Troponin I <0.012 (0.000-0.034) ng/mL Total Protein (6.3-8.2) g/dL Albumin (3.5-5.0) g/dL 04/19/17 04/19/17 Range/Units 12:40 12:40 WBC (3.8-10.6) k/uL RBC (3.80-5.40) m/uL Hgb (11.4-16.0) gm/dL Hct (34.0-46.0) % MCV (80.0-100.0) fL MCH (25.0-35.0) pg MCHC (31.0-37.0) g/dL RDW (11.5-15.5) % Plt Count (150-450) k/uL Neutrophils % % Lymphocytes % % Monocytes % % Eosinophils % % Basophils % % Neutrophils # (1.3-7.7) k/uL Lymphocytes # (1.0-4.8) k/uL Monocytes # (0-1.0) k/uL Eosinophils # (0-0.7) k/uL Basophils # (0-0.2) k/uL PT 9.7 (9.0-12.0) sec INR 0.9 (<1.1) APTT 21.5 L (22.0-30.0) sec Sodium 136 L (137-145) mmol/L Potassium 3.8 (3.5-5.1) mmol/L Chloride 103 (98-107) mmol/L Carbon Dioxide 24 (22-30) mmol/L Anion Gap 9 mmol/L BUN 24 H (7-17) mg/dL Creatinine 0.90 (0.52-1.04) mg/dL Est GFR (MDRD) Af Amer >60 (>60 ml/min/1.73 sqM) Est GFR (MDRD) Non-Af >60 (>60 ml/min/1.73 sqM) Glucose 97 (74-99) mg/dL Plasma Lactic Acid Sedrick (0.7-2.0) mmol/L Calcium 9.1 (8.4-10.2) mg/dL Magnesium 1.8 (1.6-2.3) mg/dL Total Bilirubin 0.6 (0.2-1.3) mg/dL AST 19 (14-36) U/L ALT 26 (9-52) U/L Alkaline Phosphatase 91 (38-126) U/L Total Creatine Kinase (30-135) U/L CK-MB (CK-2) (0.0-2.4) ng/mL CK-MB (CK-2) Rel Index Troponin I (0.000-0.034) ng/mL Total Protein 5.9 L (6.3-8.2) g/dL Albumin 3.5 (3.5-5.0) g/dL Disposition Clinical Impression: Dyspnea, Lung mass Disposition: ADMITTED IP TO THIS HOSP Referrals: Og Green MD [Primary Care Provider] - 1-2 days Time of Disposition: 14:40
[2017-04-19 13:13] LABS: Basophils % (A) 0 %; CH 27.8; CHCM 33.4; Eosinophils # (A) 0.1 k/uL (0-0.7); Eosinophils % (A) 0 %; HCT 34.3 % (34.0-46.0); HDW 2.61; HGB 11.9 gm/dL (11.4-16.0); Luc % (Auto) 1; Lymphocytes # (A) 1.1 k/uL (1.0-4.8); Lymphocytes % (A) 8 %; MCHC 34.7 g/dL (31.0-37.0); MCV 83.7 fL (80.0-100.0); Mean Platelet Volume 6.7; Monocytes # (A) 0.8 k/uL (0-1.0); Monocytes % (A) 6 %; Neutrophils # (A) 11.9 k/uL (1.3-7.7); Neutrophils % (A) 85 %; RDW 14.8 % (11.5-15.5); WBC 14.1 k/uL (3.8-10.6)
[2017-04-19 13:17] LABS: INR 0.9 (<1.1); Prothrombin Time 9.7 sec (9.0-12.0)
[2017-04-19 13:22] LABS: ALT 26 U/L (9-52); AST 19 U/L (14-36); Alkaline Phosphatase 91 U/L (38-126); Anion Gap 9 mmol/L; Blood Urea Nitrogen 24 mg/dL (7-17); Calcium 9.1 mg/dL (8.4-10.2); Carbon Dioxide 24 mmol/L (22-30); Chloride 103 mmol/L (98-107); Glucose 97 mg/dL (74-99); Magnesium 1.8 mg/dL (1.6-2.3); Non-African American GFR(MDRD) >60 (>60 ml/min/1.73 sqM); Potassium 3.8 mmol/L (3.5-5.1); Sodium 136 mmol/L (137-145); Total Bilirubin 0.6 mg/dL (0.2-1.3); Total Protein 5.9 g/dL (6.3-8.2)
[2017-04-19 13:28] LABS: Creatine Kinase 42 U/L (30-135)
[2017-04-19 13:38] LABS: Partial Thromboplastin Time 21.5 sec (22.0-30.0)
[2017-04-19 13:40] LABS: Creatine Kinase MB 0.9 ng/mL (0.0-2.4); Troponin I <0.012 ng/mL (0.000-0.034)
--- NOTE | 2017-04-19 14:16 | XR ---
EXAMINATION TYPE: XR chest 2V DATE OF EXAM: 04/19/2017 COMPARISON: 04/16/2017 HISTORY: Shortness of breath TECHNIQUE: Frontal and lateral views of the chest are obtained. FINDINGS: Scattered senescent parenchymal changes noted. Hyperinflation compatible with COPD. Right perihilar infiltrate persists. Stable left upper lobe pulmonary nodule. Heart size is stable. Mediastinal structures are stable and grossly unremarkable. No evidence for hilar prominence. Degenerative changes dorsal spine. IMPRESSION: 1. Stable chest.
[2017-04-19] MEDS ORDERED: SODIUM CHLORIDE 0.9% 1,000 ML IV ONE (14:40)
[2017-04-19] MEDS ORDERED: ALBUTEROL INHALER 60 PUFF/8 GM INHALER INHALATION PRN (16:37)
[2017-04-19] MEDS ORDERED: ALBUTEROL NEBULIZED 2.5 MG/3 ML INHALATION PRN (16:37)
[2017-04-19] MEDS: IPRATROPIUM-ALBUTEROL 3 ML NEB INHALATION SCH ×2 (18:03→21:38)
[2017-04-19] MEDS: SYMBICORT 160-4.5 MCG INHALER INHALATION SCH (21:38)
[2017-04-19] MEDS: FUROSEMIDE 40 MG TAB PO SCH (21:43)
[2017-04-19] MEDS: MONTELUKAST 10 MG TAB PO SCH (21:43)
[2017-04-19] MEDS: ATORVASTATIN 80 MG TAB PO SCH (21:43)
[2017-04-19] MEDS: FAMOTIDINE 20 MG TAB PO SCH (21:43)
[2017-04-19] MEDS ORDERED: ACETAMINOPHEN TAB 325 MG TAB PO PRN (21:45)
[2017-04-20] MEDS: IPRATROPIUM-ALBUTEROL 3 ML NEB INHALATION SCH ×5 (05:02→19:56)
[2017-04-20] MEDS: SYMBICORT 160-4.5 MCG INHALER INHALATION SCH (07:51)
[2017-04-20] MEDS: LEVOFLOXACIN 750 MG TAB PO SCH (08:00)
[2017-04-20] MEDS: ASPIRIN 81 MG CHEW PO SCH (08:00)
[2017-04-20] MEDS: FAMOTIDINE 20 MG TAB PO SCH ×2 (08:00→21:20)
[2017-04-20] MEDS: DILTIAZEM CD 120 MG CAP.ER.24H PO SCH (08:00)
[2017-04-20] MEDS: PANTOPRAZOLE 40 MG TABLET PO SCH (08:00)
[2017-04-20] MEDS: LISINOPRIL 2.5 MG TAB PO SCH (08:00)
[2017-04-20] MEDS: FUROSEMIDE 40 MG TAB PO SCH ×2 (08:00→21:20)
--- NOTE | 2017-04-20 17:43 | P.CON ---
Consult Note - . Assessment/Plan:: asthma with exacerbation copd Add iv steroids and budesonide by nebuliser Add dvt and gi prophylaxis Pt with increaseed dyspnea and no fever or chills O/E vss afebrile chest prolonged expiration and wheeze cvs wnl trace edema
[2017-04-20] MEDS: methylPREDNISolone SOD SUCCI 125 MG/2 ML VIAL IV SCH (18:34)
[2017-04-20] MEDS: BUDESONIDE 0.5 MG/2 ML NEBU INHALATION SCH (19:56)
[2017-04-20] MEDS: MONTELUKAST 10 MG TAB PO SCH (21:20)
[2017-04-20] MEDS: ATORVASTATIN 80 MG TAB PO SCH (21:20)
[2017-04-20] MEDS: HEPARIN SODIUM,PORCINE 5,000 UNIT/ML 1 ML VIAL SQ SCH (21:20)
[2017-04-21] MEDS: methylPREDNISolone SOD SUCCI 125 MG/2 ML VIAL IV SCH ×5 (00:16→23:57)
[2017-04-21] MEDS: IPRATROPIUM-ALBUTEROL 3 ML NEB INHALATION SCH ×7 (04:35→22:25)
[2017-04-21] MEDS: BUDESONIDE 0.5 MG/2 ML NEBU INHALATION SCH ×2 (08:01→19:30)
[2017-04-21] MEDS: DILTIAZEM CD 120 MG CAP.ER.24H PO SCH (08:18)
[2017-04-21] MEDS: LISINOPRIL 2.5 MG TAB PO SCH (08:18)
[2017-04-21] MEDS: HEPARIN SODIUM,PORCINE 5,000 UNIT/ML 1 ML VIAL SQ SCH ×2 (08:18→21:30)
[2017-04-21] MEDS: PANTOPRAZOLE 40 MG TABLET PO SCH (08:18)
[2017-04-21] MEDS: FUROSEMIDE 40 MG TAB PO SCH ×2 (08:18→21:30)
[2017-04-21] MEDS: FAMOTIDINE 20 MG TAB PO SCH ×2 (08:18→21:30)
[2017-04-21] MEDS: ASPIRIN 81 MG CHEW PO SCH (08:19)
[2017-04-21 12:38] LABS: Glucose,Whole Blood 183 mg/dL (75-99)
[2017-04-21 17:04] LABS: Glucose,Whole Blood 135 mg/dL (75-99)
[2017-04-21] MEDS: INSULIN LISPRO (humaLOG) 300 UNIT/3 ML VIAL SQ SCH ×2 (17:26→21:30)
--- NOTE | 2017-04-21 18:49 | P.PN ---
Subjective Principal diagnosis: asthma and copd with exacerbation less dyspnea Objective - Vital Signs Vital signs: Vital Signs Temp 97.8 F 04/21/17 14:53 Pulse 94 04/21/17 15:13 Resp 20 04/21/17 15:44 BP 106/64 04/21/17 14:53 Pulse Ox 94 L 04/21/17 14:53 Intake & Output 04/20/17 04/21/17 04/21/17 18:59 06:59 18:59 Intake Total 950 Balance 950 Intake: Oral 950 Other: Voiding Method Bedside Commode Bedside Commode # Voids 1 2 2 # Bowel Movements 1 1 2 - Constitutional General appearance: Present: average body habitus, cooperative, disheveled, mild distress, morbidly obese, no acute distress, obese, severe distress, thin - EENT Eyes: Present: abnormal pupil, anicteric sclerae, disc margins sharp, edentulous , EOMI, PERRLA, fundus normal, photophobia, dentition normal, poor dentition, ptosis, scleral icterus, normal appearance ENT: Present: hard of hearing, hearing grossly normal, NA/AT, normal oropharynx , other, pharyngeal erythema, thrush, tonsillar exudates, tonsillar swelling - Respiratory Respiratory: bilateral: wheezing (on forced expiration), prolonged expiration - Cardiovascular Rhythm: regular Heart sounds: normal: S1, S2 - Gastrointestinal General gastrointestinal: Present: absent bowel sounds, decreased bowel sounds, distended, hepatomegaly, hyperactive bowel sounds, normal bowel sounds, organomegaly, rigid, scaphoid, soft, splenomegaly, tenderness, umbilical hernia , ventral hernia - Labs CBC & Chem 7: 04/19/17 12:40 04/19/17 12:40 Labs: Abnormal Lab Results - Last 24 Hours (Table) 04/21/17 04/21/17 Range/Units 12:36 17:00 POC Glucose (mg/dL) 183 H 135 H (75-99) mg/dL Microbiology - Last 24 Hours (Table) 04/19/17 12:40 Blood Culture - Preliminary Blood No Growth after 48 hours - Imaging and Cardiology Chest x-ray: image reviewed Assessment and Plan Plan: continue current meds which were reviewed
[2017-04-21 20:41] LABS: Glucose,Whole Blood 197 mg/dL (75-99)
[2017-04-21] MEDS: ATORVASTATIN 80 MG TAB PO SCH (21:30)
[2017-04-21] MEDS: MONTELUKAST 10 MG TAB PO SCH (21:31)
[2017-04-22] MEDS: methylPREDNISolone SOD SUCCI 125 MG/2 ML VIAL IV SCH (06:08)
[2017-04-22 07:12] LABS: Glucose,Whole Blood 157 mg/dL (75-99)
[2017-04-22] MEDS: INSULIN LISPRO (humaLOG) 300 UNIT/3 ML VIAL SQ SCH (07:43)
[2017-04-22] MEDS: DILTIAZEM CD 120 MG CAP.ER.24H PO SCH (07:43)
[2017-04-22] MEDS: FUROSEMIDE 40 MG TAB PO SCH (07:43)
[2017-04-22] MEDS: LISINOPRIL 2.5 MG TAB PO SCH (07:43)
[2017-04-22] MEDS: PANTOPRAZOLE 40 MG TABLET PO SCH (07:44)
[2017-04-22] MEDS: FAMOTIDINE 20 MG TAB PO SCH (07:44)
[2017-04-22] MEDS: LEVOFLOXACIN 750 MG TAB PO SCH (07:44)
[2017-04-22] MEDS: HEPARIN SODIUM,PORCINE 5,000 UNIT/ML 1 ML VIAL SQ SCH (07:44)
[2017-04-22] MEDS: ASPIRIN 81 MG CHEW PO SCH (07:45)
[2017-04-22] MEDS ORDERED: IPRATROPIUM-ALBUTEROL 3 ML NEB INHALATION SCH (08:00)
[2017-04-22] MEDS: BUDESONIDE 0.5 MG/2 ML NEBU INHALATION SCH (08:10)
[2017-04-22 09:15] VITALS: BP 120/62; PULSE 87; RESP 16; TEMP 96.6
--- NOTE | 2017-04-22 11:39 | P.DS ---
Providers Date of admission: 04/19/17 14:41 Attending physician: Og Green Consults: 04/19/17 14:40 Consult Physician Urgent Consulting Provider: Preston Diaz Consult Reason/Comments: Dyspnea Do you want consulting provider notified?: Yes Primary care physician: Og Green Hospital Course: pt treated with antibiotics and steroids O/E vss afebrils Chest clear cvs wnl abd soft no edema impt copd with exacerbation asthma Plan - Discharge Summary New Discharge Prescriptions: New Levofloxacin [Levaquin] 500 mg PO DAILY #6 tab No Action Omeprazole [PriLOSEC] 20 mg PO DAILY Montelukast [Singulair] 10 mg PO HS Lisinopril [Zestril] 2.5 mg PO DAILY Furosemide [Lasix] 40 mg PO BID Albuterol Sulfate [Proair Hfa] 2 puff INHALATION RT-QID PRN PRN Reason: Shortness Of Breath Ergocalciferol [Vitamin D2 (DRISDOL)] 50,000 unit PO Q14D Albuterol Nebulized [Ventolin Nebulized] 2.5 mg INHALATION RT-QID PRN PRN Reason: Shortness Of Breath Aspirin EC [Ecotrin Low Dose] 81 mg PO DAILY Budesonide/Formoterol Fumarate [Symbicort 160-4.5 Mcg Inhaler] 2 puff INHALATION RT-BID Atorvastatin Calcium [Lipitor] 80 mg PO HS Diltiazem Cd [Cardizem Cd] 120 mg PO DAILY Levofloxacin [Levaquin] 750 mg PO Q48H #7 tab Ranitidine HCl [Zantac] 150 mg PO BID Discharge Medication List Furosemide [Lasix] 40 mg PO BID 02/20/15 [History] Lisinopril [Zestril] 2.5 mg PO DAILY 02/20/15 [History] Montelukast [Singulair] 10 mg PO HS 02/20/15 [History] Omeprazole [PriLOSEC] 20 mg PO DAILY 02/20/15 [History] Albuterol Sulfate [Proair Hfa] 2 puff INHALATION RT-QID PRN 10/29/15 [History] Ergocalciferol [Vitamin D2 (DRISDOL)] 50,000 unit PO Q14D 10/30/15 [History] Albuterol Nebulized [Ventolin Nebulized] 2.5 mg INHALATION RT-QID PRN 08/19/16 [ History] Aspirin EC [Ecotrin Low Dose] 81 mg PO DAILY 10/05/16 [History] Budesonide/Formoterol Fumarate [Symbicort 160-4.5 Mcg Inhaler] 2 puff INHALATION RT-BID 10/05/16 [History] Atorvastatin Calcium [Lipitor] 80 mg PO HS 04/15/17 [History] Diltiazem Cd [Cardizem Cd] 120 mg PO DAILY 04/15/17 [History] Levofloxacin [Levaquin] 750 mg PO Q48H #7 tab 04/17/17 [Rx] Ranitidine HCl [Zantac] 150 mg PO BID 04/19/17 [History] Levofloxacin [Levaquin] 500 mg PO DAILY #6 tab 04/22/17 [Rx] Follow up Appointment(s)/Referral(s): Og Green MD [Primary Care Provider] - 1-2 days (Office closed for holiday. Call Saturday for appointment.) Preston Diaz MD [STAFF PHYSICIAN] - 05/02/17 12:15 pm Patient Instructions/Handouts: COPD (Chronic Obstructive Pulmonary Disease) (DC ) Discharge Disposition: HOME SELF-CARE
[2017-04-30] MEDS ORDERED: ERGOCALCIFEROL 50,000 UNIT CAP PO SCH (12:00)
== END 2017-04-22 11:29 | disposition home or self-care (01) | DRG 191 ==
LOC: EC 12:28 → 4MS4W 14:41
PROVIDERS: ADMIT Family Medicine; ATTEND Family Medicine
DX: J44.1 Chronic obstructive pulmonary disease with (acute) exacerbation (principal); J45.901 Unspecified asthma with (acute) exacerbation; J96.10 Chronic respiratory failure, unspecified whether with hypoxia or hypercapnia; I48.92 Unspecified atrial flutter; I11.0 Hypertensive heart disease with heart failure; I50.9 Heart failure, unspecified; Z99.81 Dependence on supplemental oxygen; K21.9 Gastro-esophageal reflux disease without esophagitis; I45.10 Unspecified right bundle-branch block; M19.91 Primary osteoarthritis, unspecified site; R91.1 Solitary pulmonary nodule; E78.5 Hyperlipidemia, unspecified; Z79.82 Long term (current) use of aspirin; Z87.891 Personal history of nicotine dependence; Z79.899 Other long term (current) drug therapy; Z79.51 Long term (current) use of inhaled steroids
CPT/HCPCS: 36415; 71020; 80053; 82550; 82553; 83036; 83605; 83735; 84484; 85025; 85610; 85730; 87040; 94640; 99285

== ENCOUNTER 2017-10-24 04:02 | Inpatient (IN) | payer MEDICARE, OTHER ==
[2017-10-24] MEDS ORDERED: SODIUM CHLORIDE 0.9% 1,000 ML IV STA ×2 (04:12)
[2017-10-24] MEDS ORDERED: AZITHROMYCIN 500 MG in SODIUM CHLORIDE 0.9% 250 ML IVPB STA (04:12)
[2017-10-24] MEDS ORDERED: IPRATROPIUM 0.5 MG/2.5 ML NEBU INHALATION STA (04:12)
[2017-10-24] MEDS ORDERED: LORazepam 2 MG/ML INJ IV STA (04:12)
[2017-10-24] MEDS ORDERED: ALBUTEROL NEBULIZED 2.5 MG/3 ML INHALATION STA (04:12)
[2017-10-24 04:47] LABS: Anisocytosis Slight; Basophils # (A) 0.1 k/uL (0-0.2); Basophils % (A) 1 %; Eosinophils # (A) 0.2 k/uL (0-0.7); Eosinophils % (A) 2 %; HCT 35.1 % (34.0-46.0); HGB 11.1 gm/dL (11.4-16.0); Lymphocytes # (A) 1.4 k/uL (1.0-4.8); Lymphocytes % (A) 11 %; MCH 26.6 pg (25.0-35.0); MCHC 31.7 g/dL (31.0-37.0); MCV 83.9 fL (80.0-100.0); Mean Platelet Volume 7.5; Monocytes # (A) 0.7 k/uL (0-1.0); Monocytes % (A) 6 %; Neutrophils # (A) 10.1 k/uL (1.3-7.7); Neutrophils % (A) 79 %; Platelet Count 282 k/uL (150-450); RBC 4.18 m/uL (3.80-5.40); RDW 16.7 % (11.5-15.5); WBC 12.8 k/uL (3.8-10.6)
[2017-10-24] MEDS ORDERED: DILTIAZEM 5 MG/ML 5 ML VIAL IVP STA (04:57)
[2017-10-24] MEDS ORDERED: methylPREDNISolone SOD SUCCI 125 MG/2 ML VIAL IV STA (04:57)
--- NOTE | 2017-10-24 04:58 | ED ---
General Adult HPI - General Chief complaint: Shortness of Breath Stated complaint: SOB,COUGHING BLOOD Time Seen by Provider: 10/24/17 04:12 Source: patient, family, RN notes reviewed, old records reviewed Mode of arrival: wheelchair Limitations: no limitations - History of Present Illness Initial comments: This is an 82-year-old female ER for evaluation. Patient has history of known COPD. Patient coming in for evaluation of shortness of breath cough congestion and chest pain. Patient is worse in gentlest emergency contacts or recent hospitalizations. Patient denies here. She states she does. She was at home with no help - Related Data Home Medications Medication Instructions Recorded Confirmed Furosemide [Lasix] 40 mg PO BID 02/20/15 10/24/17 Lisinopril [Zestril] 2.5 mg PO DAILY 02/20/15 10/24/17 Montelukast [Singulair] 10 mg PO HS 02/20/15 10/24/17 Omeprazole [PriLOSEC] 20 mg PO DAILY 02/20/15 10/24/17 Albuterol Sulfate [Proair Hfa] 2 puff INHALATION RT-QID PRN 10/29/15 10/24/17 Ergocalciferol [Vitamin D2 50,000 unit PO Q14D 10/30/15 10/24/17 (DRISDOL)] Albuterol Nebulized [Ventolin 2.5 mg INHALATION RT-QID PRN 08/19/16 10/24/17 Nebulized] Aspirin EC [Ecotrin Low Dose] 81 mg PO DAILY 10/05/16 10/24/17 Budesonide/Formoterol Fumarate 2 puff INHALATION RT-BID 10/05/16 10/24/17 [Symbicort 160-4.5 Mcg Inhaler] Atorvastatin Calcium [Lipitor] 80 mg PO HS 04/15/17 10/24/17 Diltiazem Cd [Cardizem Cd] 120 mg PO DAILY 04/15/17 10/24/17 Ranitidine HCl [Zantac] 150 mg PO BID 04/19/17 10/24/17 Previous Rx's Medication Instructions Recorded Levofloxacin [Levaquin] 750 mg PO Q48H #7 tab 04/17/17 Levofloxacin [Levaquin] 500 mg PO DAILY #6 tab 04/22/17 Allergies Allergy/AdvReac Type Severity Reaction Status Date / Time No Known Allergies Allergy Verified 10/24/17 04:07 Review of Systems ROS Statement: Those systems with pertinent positive or pertinent negative responses have been documented in the HPI. ROS Other: All systems not noted in ROS Statement are negative. Past Medical History Past Medical History: Atrial Flutter, Asthma, Chest Pain / Angina, Heart Failure , COPD, GERD/Reflux, Hyperlipidemia, Hypertension, Pneumonia, Respiratory Disorder Additional Past Medical History / Comment(s): Pt recently admitted to [facility] on with acute on chronic COPD, acute on chronic persistent asthma, acute on chronic respiratory failure, probable pneumonia. Other HX: Chronic respiratory failure with O2 at 2L/NC ATC, chronic persistent asthma, bronchitis , known 1.8.cm L upper lung nodule-pt states bx negative, DJD, past L hip fx with surgery, sinus problems, rheumatic fever as a child. History of Any Multi-Drug Resistant Organisms: Acinetobacter (MDRO) Date of last positivie culture/infection: 10/06/16 MDRO Source:: SPUTUM Past Surgical History: Hysterectomy, Joint Replacement, Orthopedic Surgery, Tubal Ligation Additional Past Surgical History / Comment(s): 03/21/17 bronchoscopy with BAL/BX- bening per pt, LEFT HIP hemiarthroplasty, LEFT FOOT surgery, colonoscopy, D&C. Past Anesthesia/Blood Transfusion Reactions: No Reported Reaction Past Psychological History: No Psychological Hx Reported Smoking Status: Former smoker - Past Family History Father History Unknown: Yes Brother(s) Family Medical History: No Reported History Mother Family Medical History: Rheumatoid Arthritis (RA) General Exam Limitations: no limitations General appearance: alert, in no apparent distress, anxious Head exam: Present: atraumatic, normocephalic, normal inspection Eye exam: Present: normal appearance, PERRL, EOMI. Absent: scleral icterus, conjunctival injection, periorbital swelling ENT exam: Present: normal exam, mucous membranes moist Neck exam: Present: normal inspection. Absent: tenderness, meningismus, lymphadenopathy Respiratory exam: Present: respiratory distress, wheezes, accessory muscle use, decreased breath sounds, prolonged expiratory. Absent: rales, rhonchi, stridor Cardiovascular Exam: Present: normal rhythm, tachycardia, normal heart sounds. Absent: systolic murmur, diastolic murmur, rubs, gallop, clicks GI/Abdominal exam: Present: soft, normal bowel sounds. Absent: distended, tenderness, guarding, rebound, rigid Extremities exam: Present: normal inspection, full ROM, normal capillary refill. Absent: tenderness, pedal edema, joint swelling, calf tenderness Back exam: Present: normal inspection Neurological exam: Present: alert, oriented X3, CN II-XII intact Psychiatric exam: Present: normal affect, normal mood Skin exam: Present: warm, dry, intact, normal color. Absent: rash Course Vital Signs 10/24/17 10/24/17 10/24/17 04:04 04:25 04:36 Temperature 98 F Pulse Rate 111 H 112 H 110 H Respiratory 24 Rate Blood Pressure 113/59 O2 Sat by Pulse 90 L Oximetry - Reevaluation(s) Reevaluation #1: 10/24/17 04:56 Patient doesn't improvement with breathing treatment EKG Findings - EKG Comments: EKG Findings:: EKG shows A. fib with RVR rate 126, QRS 106, QTC 512 Medical Decision Making - Medical Decision Making 82 female here for evaluation of shortness of breath cough congestion COPD exacerbation, A. fib outpatient be admitted for breathing treatments, pulmonary evaluation, monitoring of cardiopulmonary status - Lab Data Result diagrams: 10/24/17 04:40 Lab Results 10/24/17 Range/Units 04:40 WBC 12.8 H (3.8-10.6) k/uL RBC 4.18 (3.80-5.40) m/uL Hgb 11.1 L (11.4-16.0) gm/dL Hct 35.1 (34.0-46.0) % MCV 83.9 (80.0-100.0) fL MCH 26.6 (25.0-35.0) pg MCHC 31.7 (31.0-37.0) g/dL RDW 16.7 H (11.5-15.5) % Plt Count 282 (150-450) k/uL Neutrophils % 79 % Lymphocytes % 11 % Monocytes % 6 % Eosinophils % 2 % Basophils % 1 % Neutrophils # 10.1 H (1.3-7.7) k/uL Lymphocytes # 1.4 (1.0-4.8) k/uL Monocytes # 0.7 (0-1.0) k/uL Eosinophils # 0.2 (0-0.7) k/uL Basophils # 0.1 (0-0.2) k/uL Anisocytosis Slight Disposition Clinical Impression: COPD with acute exacerbation, Acute exacerbation of chronic obstructive airways disease Disposition: ADMITTED IP TO THIS HOSP Condition: Fair Referrals: Og Green MD [Primary Care Provider] - 1-2 days
[2017-10-24 05:21] LABS: ALT 30 U/L (9-52); AST 16 U/L (14-36); Albumin 3.7 g/dL (3.5-5.0); Alkaline Phosphatase 122 U/L (38-126); Anion Gap 9 mmol/L; Blood Urea Nitrogen 11 mg/dL (7-17); Carbon Dioxide 27 mmol/L (22-30); Chloride 102 mmol/L (98-107); Glucose 109 mg/dL (74-99); Magnesium 1.4 mg/dL (1.6-2.3); Potassium 4.2 mmol/L (3.5-5.1); Sodium 138 mmol/L (137-145); Total Bilirubin 0.8 mg/dL (0.2-1.3); Total Protein 5.9 g/dL (6.3-8.2)
[2017-10-24 05:26] LABS: Creatine Kinase 38 U/L (30-135)
[2017-10-24 05:35] LABS: Prothrombin Time 9.6 sec (9.0-12.0)
[2017-10-24 05:40] LABS: Creatine Kinase MB 0.4 ng/mL (0.0-2.4); Troponin I <0.012 ng/mL (0.000-0.034)
[2017-10-24 05:52] LABS: Partial Thromboplastin Time 21.9 sec (22.0-30.0)
--- NOTE | 2017-10-24 06:15 | XR ---
EXAM: XR Chest, 2 Views CLINICAL HISTORY: Reason: difficulty breathing TECHNIQUE: Frontal and lateral views of the chest. COMPARISON: 04/19/17 FINDINGS: Lungs: Left upper lobe nodule seen previously has enlarged in size, now 3.5 cm length. Stable small left lower lobe nodule adjacent to the hemidiaphragm. Increased AP diameter of the lungs with flattening of the diaphragm consistent with chronic obstructive pulmonary disease. Chronic interstitial thickening. Pleural space: Unremarkable. No pneumothorax. Heart: Borderline cardiomegaly. Mediastinum: Unremarkable. Bones/joints: Unremarkable. IMPRESSION: 1. Prominent increase in size of the left upper lobe pulmonary nodule since the exam 6 months prior. Malignancy is not excluded. CT scan is recommended. 2. COPD and stable chronic changes otherwise as noted.
[2017-10-24] MEDS: methylPREDNISolone SOD SUCCI 125 MG/2 ML VIAL IV SCH ×2 (06:18→11:44)
[2017-10-24] MEDS: IPRATROPIUM-ALBUTEROL 3 ML NEB INHALATION SCH ×4 (07:53→19:20)
[2017-10-24] MEDS ORDERED: Magnesium Replacement Protocol 1 EACH MISC MISCELLANE PRN (11:10)
[2017-10-24] MEDS: MAGNESIUM SULFATE-D5W PMX 1 GM in DEXTROSE/WATER 1 100ML.BAG IVPB SCH ×3 (11:43→17:06)
[2017-10-24] MEDS ORDERED: IPRATROPIUM-ALBUTEROL 3 ML NEB INHALATION PRN (15:10)
[2017-10-24] MEDS ORDERED: ALBUTEROL INHALER 60 PUFF/8 GM INHALER INHALATION PRN (15:10)
--- NOTE | 2017-10-24 16:27 | P.CNPUL ---
History of Present Illness Consult date: 10/24/17 Reason for consult: dyspnea, cough, COPD, lung mass, abnormal CXR/CT Chief complaint: Shortness of breath cough progressive in nature started about 3 -4 days ago History of present illness: Ms. 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 He underwent bronchoscopy and navigational biopsy with nondiagnostic result she was offered a repeat biopsy but has declined. Patient does not want any therapeutic intervention during radiation therapy and/or chemotherapy. In the last week to 10 days she's been getting more short of breath than baseline until 3 days ago and symptoms were getting worse decided to come into emergency department for further evaluation, she denies any hemoptysis her cough is mostly dry and nonproductive sometimes does produces yellowish phlegm production, her quality of sleep has been poor due to ongoing respiratory symptoms and cough Review of Systems All systems: negative (As dictated above in HPI) Constitutional: Reports as per HPI Eyes: bilateral as per HPI Ears, nose, mouth and throat: Reports as per HPI Breasts: bilateral: as per HPI Cardiovascular: Reports as per HPI Respiratory: Reports as per HPI Gastrointestinal: Reports as per HPI Genitourinary: Reports as per HPI Menstruation: Reports as per HPI Musculoskeletal: Reports as per HPI Integumentary: Reports as per HPI Neurological: Reports as per HPI Psychiatric: Reports as per HPI Endocrine: Reports as per HPI Hematologic/Lymphatic: Reports as per HPI Past Medical History Past Medical History: Atrial Flutter, Asthma, Chest Pain / Angina, Heart Failure , COPD, GERD/Reflux, Hyperlipidemia, Hypertension, Pneumonia, Respiratory Disorder Additional Past Medical History / Comment(s): Pt recently admitted to [facility] on with acute on chronic COPD, acute on chronic persistent asthma, acute on chronic respiratory failure, probable pneumonia. Other HX: Chronic respiratory failure with O2 at 2L/[place] ATC, chronic persistent asthma, bronchitis , known 1.8.cm L upper lung nodule-pt states bx negative, DJD, past L hip fx with surgery, sinus problems, rheumatic fever as a child. History of Any Multi-Drug Resistant Organisms: Acinetobacter (MDRO) Date of last positivie culture/infection: 10/06/16 MDRO Source:: SPUTUM Past Surgical History: Hysterectomy, Joint Replacement, Orthopedic Surgery, Tubal Ligation Additional Past Surgical History / Comment(s): 03/21/17 bronchoscopy with BAL/BX- bening per pt, LEFT HIP hemiarthroplasty, LEFT FOOT surgery, colonoscopy, D&C. Past Anesthesia/Blood Transfusion Reactions: No Reported Reaction Past Psychological History: No Psychological Hx Reported Additional Psychological History / Comment(s): Pt resides with her son. She uses no assistive device. She no longer drives, her daughter/family drives her to [employer]. Her son cooks and cleans the house. The home is one level without steps. She has home O2 and a nebulizer. Smoking Status: Former smoker Past Alcohol Use History: None Reported Additional Past Alcohol Use History / Comment(s): Pt started smoking in 1964 and quit in 2009 Past Drug Use History: None Reported - Past Family History Father History Unknown: Yes Brother(s) Family Medical History: No Reported History Mother Family Medical History: Rheumatoid Arthritis (RA) Medications and Allergies Home Medications Medication Instructions Recorded Confirmed Type Furosemide [Lasix] 40 mg PO BID 02/20/15 10/24/17 History Lisinopril [Zestril] 2.5 mg PO DAILY 02/20/15 10/24/17 History Montelukast [Singulair] 10 mg PO HS 02/20/15 10/24/17 History Omeprazole [PriLOSEC] 20 mg PO DAILY 02/20/15 10/24/17 History Albuterol Sulfate [Proair Hfa] 2 puff INHALATION RT-QID PRN 10/29/15 10/24/17 History Ergocalciferol [Vitamin D2 50,000 unit PO Q14D 10/30/15 10/24/17 History (DRISDOL)] Aspirin EC [Ecotrin Low Dose] 81 mg PO DAILY 10/05/16 10/24/17 History Budesonide/Formoterol Fumarate 2 puff INHALATION RT-BID 10/05/16 10/24/17 History [Symbicort 160-4.5 Mcg Inhaler] Atorvastatin Calcium [Lipitor] 80 mg PO HS 04/15/17 10/24/17 History Ipratropium-Albuterol Nebulize 3 ml INHALATION RT-QID PRN 10/24/17 10/24/17 History [Duoneb 0.5 mg-3 mg/3 ml Soln] Allergies Allergy/AdvReac Type Severity Reaction Status Date / Time No Known Allergies Allergy Verified 10/24/17 07:26 Physical Exam Vitals: Vital Signs Temp Pulse Pulse Resp BP BP Pulse Ox 10/24/17 15:36 96 10/24/17 15:24 96 10/24/17 15:00 96.8 F L 97 16 145/67 94 L 10/24/17 11:52 100 10/24/17 11:40 104 H 10/24/17 08:05 104 H 10/24/17 08:01 96.0 F L 103 H 20 116/65 90 L 10/24/17 07:53 104 H 10/24/17 07:32 97.8 F 90 18 131/67 96 10/24/17 06:39 91 18 126/62 97 10/24/17 05:49 91 20 118/59 97 10/24/17 05:20 91 22 127/60 97 10/24/17 04:36 110 H 10/24/17 04:25 112 H 10/24/17 04:04 98 F 111 H 24 113/59 90 L Intake and Output 10/24/17 10/24/17 10/24/17 06:59 14:59 22:59 Intake Total 300 Balance 300 Intake: Intake, IV Titration 300 Amount Magnesium Sulfate-D5w Pmx 300 1 gm In Dextrose/Water 1 100ml.bag @ 100 mls/hr IVPB Q1H [facility] Rx#: [id number] Other: Weight 82.554 kg 82.554 kg Patient Weight 10/25/17 06:59 Weight 82.554 kg - Constitutional General appearance: average body habitus, cooperative, mild distress - EENT Eyes: EOMI, PERRLA, normal appearance ENT: hearing grossly normal, normal oropharynx Ears: bilateral: normal - Neck Neck: normal ROM Carotids: bilateral: upstroke normal, bruit absent Thyroid: bilateral: normal size - Respiratory Respiratory: bilateral: CTA (Poor air entry), diminished, prolonged expiration, negative: dullness, rales, rhonchi, wheezing, prolonged inspiration - Cardiovascular Rhythm: regular Heart sounds: normal: S1, S2 - Gastrointestinal General gastrointestinal: normal bowel sounds, soft - Integumentary Integumentary: normal turgor - Neurologic Neurologic: CNII-XII intact - Musculoskeletal Musculoskeletal: gait normal, generalized weakness, strength equal bilaterally - Psychiatric Psychiatric: A&O x's 3, appropriate affect, intact judgment & insight Results - Laboratory Findings CBC and BMP: 10/24/17 04:40 10/24/17 04:48 PT/INR, D-dimer PT 9.6 sec (9.0-12.0) 10/24/17 04:48 INR 1.0 (<1.2) 10/24/17 04:48 Abnormal lab findings: Abnormal Labs 10/24/17 10/24/17 10/24/17 04:40 04:48 04:48 WBC 12.8 H Hgb 11.1 L RDW 16.7 H Neutrophils # 10.1 H APTT 21.9 L Glucose 109 H Magnesium 1.4 L Total Protein 5.9 L - Diagnostic Findings Chest x-ray: report reviewed, image reviewed (Left upper lobe nodule noted progressed in size pending computed tomography scan of the chest) Assessment and Plan Assessment: Acute COPD exacerbation related to purulent tracheobronchitis Acute on chronic hypoxic respirator failure Left upper lobe nodule progressing in size likely neoplastic process Hypertension hypertensive cardiovascular disease GERD Plan: Agree with antibiotics, breathing treatment and steroids maintain patient on DVT and peptic ulcer disease prophylaxis, 1 computed tomography scan of the chest was performed and review it further recommendations pending, however patient has made it clear on multiple occasions that she does not want repeat biopsy and or or chemo or radiation therapy and we will monitor observe and review findings of the CAT scan with patient with further recommendations pending Time with Patient: Greater than 30
[2017-10-24 16:32] VITALS: BMI 26.9
--- NOTE | 2017-10-24 16:36 | CT ---
EXAMINATION TYPE: CT chest wo con DATE OF EXAM: 10/24/2017 COMPARISON: 03/21/2017 HISTORY: Hemoptysis. CT DLP: 584.00 mGycm. Automated Exposure Control for Dose Reduction was Utilized. TECHNIQUE: CT scan of the thorax is performed without IV contrast. FINDINGS: LUNGS: There is severe centrilobular and paraseptal emphysematous change. There is interval growth of the patient's left upper lobe pulmonary mass now measuring approximately 3.5 x 2.6 cm with areas of central necrosis. This previously measured 1.2 x 1.7 cm on the exam of 03/21/2017 Probable pleural pare nchymal scarring is seen along the right lung apex and right midlung as they are linear in configurat ion although the right midlung area is new on series 4 image 22. Calcified granulomas are seen within the hilum and along the left pericardial surface. MEDIASTINUM: Lack of IV contrast is noted to limit evaluation for mediastinal and especially hilar ad enopathy. Scattered nonenlarged supraclavicular lymph nodes are seen bilaterally, left greater than r ight. Moderate three-vessel coronary artery calcifications are noted. There are no definitive greater than 1 cm hilar or mediastinal lymph nodes. No cardiomegaly or pericardial effusion is seen. OTHER: Small hiatal hernia is present. Large cystic area anterior to the left clavicle measures 3.2 c m and may represent a large sebaceous cyst. Multilevel moderate degenerative change of the thoracic s pine is noted. IMPRESSION: 1. Interval enlargement of the previously seen left pulmonary nodule now fitting size criteria for a pulmonary mass (previously measured 1.2 x 1.7 cm and now measures 3.5 x 2.6 cm). 2. Right apical pleural-parenchymal scarring remains in and new elongated area within the right midlu ng is seen that also likely represents an area of scarring although surveillance is recommended as th is has developed in the interim. 3. No evidence of mediastinal adenopathy given the limitation of lack of intravenous contrast. 4. Large cystic area measuring 3.2 cm anterior to the left clavicle that may represent a sebaceous cy st.
[2017-10-24] MEDS: methylPREDNISolone SOD SUCCI 40 MG/ML 1 ML VIAL IV SCH ×2 (17:06→23:16)
[2017-10-24] MEDS: FUROSEMIDE 40 MG TAB PO SCH (17:06)
[2017-10-24] MEDS: SYMBICORT 160-4.5 MCG INHALER INHALATION SCH (19:20)
--- NOTE | 2017-10-24 20:15 | HP ---
HISTORY AND PHYSICAL CHIEF COMPLAINT: Shortness of breath. HISTORY OF PRESENT ILLNESS: This is another admission for this 82-year-old white female who has advanced COPD. She does not smoke any longer. She has been having difficulty breathing over the last 24- 48 hours and came to the emergency room. She thinks it might have started with a URI. She has had no fever, chills, cough, sputum production, etc. She has coughed up some blood. She has had no vomiting, diarrhea, etc. REVIEW OF SYSTEMS: Otherwise unremarkable. She has had no other complaints. Past medical history, family history, personal and social histories are otherwise unremarkable. MEDICATIONS: 1. Symbicort 80/4.5 two puffs twice a day. 2. Diltiazem extended-release 120 mg once a day. 3. Atorvastatin 80 mg at bedtime. 4. Ranitidine 150 twice a day. 5. Furosemide 40 once a day. 6. Vitamin D 50,000 units per month. 7. Aspirin 81 mg. 8. Omeprazole 20 mg once a day. 9. Updrafts of albuterol and ipratropium bromide, ProAir p.r.n. 10.Lisinopril 2.5 once a day. 11.Nasal oxygen p.r.n. Remainder of her history is unremarkable. PHYSICAL EXAMINATION: Blood pressure is 120/70 with a pulse of 98, respirations of 40, and she is afebrile. In general she appeared to be chronically ill. She was pale. Lymph nodes were not enlarged. Head, ears, eyes, nose, mouth and throat were normal. Neck veins were not distended. Thyroid was not enlarged. Chest demonstrated increased A/P diameter with very poor breath sounds throughout. There are rales scattered throughout both lung christina and wheezing on expiration. Cardiac exam demonstrated sinus tachycardia with no murmurs or extra sounds. The abdomen was soft, nontender. Extremities were normal. Neurologically she was intact. IMPRESSION: 1. Exacerbation of chronic obstructive pulmonary disease. 2. Hypertension. 3. Hemoptysis. PLAN: 1. Bed rest. 2. IV fluids. 3. Updrafts. 4. IV and inhaled steroids. 5. CT of the chest to rule out neoplasm. MMODL / IJN: [id number] /
[2017-10-24] MEDS: MONTELUKAST 10 MG TAB PO SCH (20:25)
[2017-10-25] MEDS ORDERED: ACETAMINOPHEN TAB 325 MG TAB PO PRN (00:28)
[2017-10-25] MEDS: SYMBICORT 160-4.5 MCG INHALER INHALATION SCH ×2 (07:37→19:32)
[2017-10-25] MEDS: IPRATROPIUM-ALBUTEROL 3 ML NEB INHALATION SCH ×4 (07:37→19:32)
[2017-10-25] MEDS: FUROSEMIDE 40 MG TAB PO SCH ×2 (07:56→16:01)
[2017-10-25] MEDS: LISINOPRIL 2.5 MG TAB PO SCH (07:56)
[2017-10-25] MEDS: PANTOPRAZOLE 40 MG TABLET PO SCH (07:56)
[2017-10-25] MEDS: methylPREDNISolone SOD SUCCI 40 MG/ML 1 ML VIAL IV SCH ×3 (07:56→23:16)
[2017-10-25] MEDS: AZITHROMYCIN 500 MG TAB PO SCH (07:56)
[2017-10-25] MEDS: ASPIRIN 81 MG PO SCH (07:56)
--- NOTE | 2017-10-25 13:29 | P.PN ---
Subjective Progress Note Date: 10/25/17 10/25/16- Patient seen examined and evaluated. Continues on 3L of supplemental oxygen via [place]. Uses 2L of oxygen at home 13/05. She continues to decline a repeat biopsy or further pulmonary work up. SOB continues with exertion. Cough with yellow sputum. Denies any further complaints. All labs and reports reviewed. 10/24/16- Ms. 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 He underwent bronchoscopy and navigational biopsy with nondiagnostic result she was offered a repeat biopsy but has declined. Patient does not want any therapeutic intervention during radiation therapy and/or chemotherapy. In the last week to 10 days she's been getting more short of breath than baseline until 3 days ago and symptoms were getting worse decided to come into emergency department for further evaluation, she denies any hemoptysis her cough is mostly dry and nonproductive sometimes does produces yellowish phlegm production, her quality of sleep has been poor due to ongoing respiratory symptoms and cough Objective - Vital Signs Vital signs: Vital Signs Temp 98.2 F 10/25/17 07:00 Pulse 85 10/25/17 11:35 Resp 18 10/25/17 07:00 BP 150/81 10/25/17 07:00 Pulse Ox 94 L 10/25/17 07:38 Intake & Output 10/24/17 10/25/17 10/25/17 18:59 06:59 18:59 Intake Total 300 Balance 300 Weight 82.554 kg 82.554 kg Intake: Intake, IV Titration 300 Amount Magnesium Sulfate-D5w Pmx 300 1 gm In Dextrose/Water 1 100ml.bag @ 100 mls/hr IVPB Q1H [facility] Rx#: [id number] Other: # Voids 2 # Bowel Movements 1 - Exam - Constitutional General appearance: average body habitus, cooperative, mild distress - EENT Eyes: EOMI, PERRLA, normal appearance ENT: hearing grossly normal, normal oropharynx Ears: bilateral: normal - Neck Neck: normal ROM Carotids: bilateral: upstroke normal, bruit absent Thyroid: bilateral: normal size - Respiratory Respiratory: bilateral: CTA (Poor air entry), diminished, prolonged expiration, negative: dullness, rales, rhonchi, wheezing, prolonged inspiration - Cardiovascular Rhythm: regular Heart sounds: normal: S1, S2 - Gastrointestinal General gastrointestinal: normal bowel sounds, soft - Integumentary Integumentary: normal turgor - Neurologic Neurologic: CNII-XII intact - Musculoskeletal Musculoskeletal: gait normal, generalized weakness, strength equal bilaterally - Psychiatric Psychiatric: A&O x's 3, appropriate affect, intact judgment & insight - Labs CBC & Chem 7: 10/24/17 04:40 10/24/17 04:48 Labs: Microbiology - Last 24 Hours (Table) 10/24/17 04:40 Blood Culture - Preliminary Blood No Growth after 24 hours Assessment and Plan Plan: Assessment: Acute COPD exacerbation related to purulent tracheobronchitis Acute on chronic hypoxic respirator failure Left upper lobe nodule progressing in size likely neoplastic process Hypertension hypertensive cardiovascular disease GERD Plan: Medications have been reviewed and will be continued as ordered. Continue with pulmonary hygiene, coughing and deep breathing exercises, and supportive care. Supplemental oxygen to maintain oxygen saturations of 92% or better. Continue nebulizer treatments. Initiate and encourage incentive spirometer. GI and DVT prophylaxis. We will continue to monitor labs/results and adjust treatment as necessary. Further recommendations pending. computed tomography scan of the chest was performed and review it further recommendations pending, however patient has made it clear on multiple occasions that she does not want repeat biopsy and or or chemo or radiation therapy and we will monitor observe and review findings of the CAT scan with patient with further recommendations pending I performed an examination of the patient and discussed their management with the nurse practitioner. I have reviewed the nurse practitioner's note and agree with the documented findings and plan of care.
--- NOTE | 2017-10-25 14:46 | P.GSCN ---
Addendum entered and electronically signed by Pattie Becerra NP-C 10/25/17 15:05 : Upon presenting patient with need for work-up before surgical consideration, patient stated that she changed her mind and that she doesn't want surgery. States she has lived a long, full life and doesn't want any invasive treatment to prolong her life. Patient informed that if she changes her mind to please contact us and we can discuss her options further. Original Note: <Pattie Becerra - Last Filed: 10/25/17 14:32> History of Present Illness Consult date: 10/25/17 Reason for Consult: Left upper lobe lung mass, surgical recommendations. Requesting physician: Og Green History of present illness: This 82-year-old female patient of Dr. Green's who has a previous medical history of atrial flutter, heart failure, COPD, GERD, hypertension, hyperlipidemia, pneumonia, home O2 dependence, rheumatic fever, and previous smoking dependence presented to the emergency room at [facility] with complaints of increased shortness of breath and a productive cough with white/ clear sputum which was initially bloody but slowly cleared up. She had a known history of a left upper lung nodule since March 2017. At that time it measured 1.2 x 1.7 cm, and was biopsied, however the biopsy was nondiagnostic. She refused any further biopsy for diagnosis and stated that she would not want chemo or radiation even if it was cancer. Upon her presentation to the emergency room this admission a CAT scan of the chest demonstrated that this lung nodule has increased and is now 3.5 x 2.6 cm with central necrosis. Thoracic surgery was consulted for treatment recommendations. Review of Systems 14 point review of systems was completed and was negative except as noted. - Cardiovascular Reports as per HPI, Reports chest pain, Reports shortness of breath - Respiratory Reports as per HPI, Reports congestion, Reports cough, Reports cough with sputum , Reports dyspnea, Reports hemoptysis, Reports home oxygen Past Medical History Past Medical History: Atrial Flutter, Asthma, Chest Pain / Angina, Heart Failure , COPD, GERD/Reflux, Hyperlipidemia, Hypertension, Pneumonia, Respiratory Disorder Additional Past Medical History / Comment(s): Pt recently admitted to [facility] on with acute on chronic COPD, acute on chronic persistent asthma, acute on chronic respiratory failure, probable pneumonia. Other HX: Chronic respiratory failure with O2 at 2L/NC ATC, chronic persistent asthma, bronchitis , known 1.8.cm L upper lung nodule-pt states bx negative, DJD, past L hip fx with surgery, sinus problems, rheumatic fever as a child. History of Any Multi-Drug Resistant Organisms: Acinetobacter (MDRO) Year Discovered:: 10/06/16 MDRO Source:: SPUTUM Past Surgical History: Hysterectomy, Joint Replacement, Orthopedic Surgery, Tubal Ligation Additional Past Surgical History / Comment(s): 03/21/17 bronchoscopy with BAL/BX- bening per pt, LEFT HIP hemiarthroplasty, LEFT FOOT surgery, colonoscopy, D&C. Past Anesthesia/Blood Transfusion Reactions: No Reported Reaction Past Psychological History: No Psychological Hx Reported Additional Psychological History / Comment(s): Pt resides with her son. She uses no assistive device. She no longer drives, her daughter/family drives her to [employer]. Her son cooks and cleans the house. The home is one level without steps. She has home O2 and a nebulizer. Smoking Status: Former smoker Past Alcohol Use History: None Reported Additional Past Alcohol Use History / Comment(s): Pt started smoking in 1964 and quit in 2009 Past Drug Use History: None Reported - Past Family History Father History Unknown: Yes Brother(s) Family Medical History: No Reported History Mother Family Medical History: Rheumatoid Arthritis (RA) Medications and Allergies Home Medications Medication Instructions Recorded Confirmed Type Furosemide [Lasix] 40 mg PO BID 02/20/15 10/24/17 History Lisinopril [Zestril] 2.5 mg PO DAILY 02/20/15 10/24/17 History Montelukast [Singulair] 10 mg PO HS 02/20/15 10/24/17 History Omeprazole [PriLOSEC] 20 mg PO DAILY 02/20/15 10/24/17 History Albuterol Sulfate [Proair Hfa] 2 puff INHALATION RT-QID PRN 10/29/15 10/24/17 History Ergocalciferol [Vitamin D2 50,000 unit PO Q14D 10/30/15 10/24/17 History (DRISDOL)] Aspirin EC [Ecotrin Low Dose] 81 mg PO DAILY 10/05/16 10/24/17 History Budesonide/Formoterol Fumarate 2 puff INHALATION RT-BID 10/05/16 10/24/17 History [Symbicort 160-4.5 Mcg Inhaler] Atorvastatin Calcium [Lipitor] 80 mg PO HS 04/15/17 10/24/17 History Ipratropium-Albuterol Nebulize 3 ml INHALATION RT-QID PRN 10/24/17 10/24/17 History [Duoneb 0.5 mg-3 mg/3 ml Soln] Allergies Allergy/AdvReac Type Severity Reaction Status Date / Time No Known Allergies Allergy Verified 10/24/17 07:26 Surgical - Exam Vital Signs Temp Pulse Resp BP Pulse Ox 98 F 111 H 24 113/59 90 L 10/24/17 04:04 10/24/17 04:04 10/24/17 04:04 10/24/17 04:04 10/24/17 04:04 - General well developed, well nourished, no distress, no pain - Eyes PERRL, normal ocular movement - ENT no hearing loss - Neck trachea midline - Respiratory Lungs sounds diminished bilaterally with faint expiratory wheezes heard in the bases. Respirations even, nonlabored. Currently on 3 L nasal cannula with oxygen saturation 94%. - Cardiovascular S1, S2 present. Regular rate and rhythm. Palpable peripheral pulses bilaterally. Trace bilateral lower extremity edema present. - Abdomen Abdomen: soft, non tender, bowel sounds - Genitourinary Deferred - Rectum Deferred - Integumentary Patient does have a small cyst like mass superior to her sternum no rash - Neurologic normal coordination, normal sensation - Musculoskeletal normal gait, normal posture - Psychiatric oriented to time, oriented to person, oriented to place, speech is normal, memory intact Results - Labs 10/24/17 04:40 10/24/17 04:48 Microbiology - Last 24 Hours (Table) 10/24/17 04:40 Blood Culture - Preliminary Blood No Growth after 24 hours - Imaging Chest x-ray: report reviewed, image reviewed CT scan - chest: report reviewed, image reviewed Assessment and Plan (1) Hypertension Current Visit: Yes Status: Chronic Code(s): I10 - ESSENTIAL (PRIMARY) HYPERTENSION SNOMED Code(s): 02123347 (2) Hyperlipidemia Current Visit: Yes Status: Chronic Code(s): E78.5 - HYPERLIPIDEMIA, UNSPECIFIED SNOMED Code(s): 88389531 (3) On home oxygen therapy Current Visit: Yes Status: Chronic Code(s): Z99.81 - DEPENDENCE ON SUPPLEMENTAL OXYGEN SNOMED Code(s): 911965701851 (4) Acute exacerbation of chronic obstructive airways disease Current Visit: Yes Status: Acute Code(s): J44.1 - CHRONIC OBSTRUCTIVE PULMONARY DISEASE W (ACUTE) EXACERBATION SNOMED Code(s): 116885235 (5) COPD with acute exacerbation Current Visit: Yes Status: Acute Code(s): J44.1 - CHRONIC OBSTRUCTIVE PULMONARY DISEASE W (ACUTE) EXACERBATION SNOMED Code(s): 090755723 (6) Lung mass Current Visit: Yes Status: Chronic Priority: High Code(s): R91.8 - OTHER NONSPECIFIC ABNORMAL FINDING OF LUNG FIELD SNOMED Code(s): 736099502 Plan: She was seen and examined at the bedside. Chart/diagnostics were reviewed. Case was discussed with Dr. Allen. The patient continues to state that she does not want any biopsies, chemo, radiation but is willing to consider surgical resection. Before any surgery would be offered, patient would need to have a PET scan, pulmonary function test, and cardiac workup. Continue medical management per primary care services/pulmonology. We will follow with you. Thank you Dr. Green for this consult. We look forward to working with you in the care of your patient. Time with Patient: Greater than 30 <Axel Allen - Last Filed: 10/27/17 06:34> Surgical - Exam Vital Signs Temp Pulse Resp BP Pulse Ox 98 F 111 H 24 113/59 90 L 10/24/17 04:04 10/24/17 04:04 10/24/17 04:04 10/24/17 04:04 10/24/17 04:04 Results - Labs 10/24/17 04:40 10/24/17 04:48 Microbiology - Last 24 Hours (Table) 10/24/17 04:40 Blood Culture - Preliminary Blood No Growth after 48 hours Assessment and Plan Plan: The patient was noted to have a left upper lobe mass which appears to have grown in size when compared to her previous studies. A CT guided biopsy was non -diagnostic. Upon further questioning, the patient is adamant that she is not interested in pursuing any additional treatment including any types of surgical intervention. She will therefore continue with care as directed by her primary service. Please feel free to contact us should she change her mind.
[2017-10-25] MEDS: MONTELUKAST 10 MG TAB PO SCH (21:58)
[2017-10-26] MEDS: SYMBICORT 160-4.5 MCG INHALER INHALATION SCH ×2 (08:12→20:33)
[2017-10-26] MEDS: IPRATROPIUM-ALBUTEROL 3 ML NEB INHALATION SCH ×4 (08:12→20:33)
[2017-10-26] MEDS: LISINOPRIL 2.5 MG TAB PO SCH (08:26)
[2017-10-26] MEDS: FUROSEMIDE 40 MG TAB PO SCH ×2 (08:26→16:27)
[2017-10-26] MEDS: methylPREDNISolone SOD SUCCI 40 MG/ML 1 ML VIAL IV SCH ×3 (08:26→23:05)
[2017-10-26] MEDS: AZITHROMYCIN 500 MG TAB PO SCH (08:26)
[2017-10-26] MEDS: ASPIRIN 81 MG PO SCH (08:26)
[2017-10-26] MEDS: PANTOPRAZOLE 40 MG TABLET PO SCH (08:26)
--- NOTE | 2017-10-26 13:29 | P.PN ---
Subjective Progress Note Date: 10/26/17 Principal diagnosis: Acute COPD exacerbation, acute on chronic hypoxic and hypercapnic respiratory failure, large left upper lobe nodule likely neoplastic process 10/26/2017, patient seen and evaluated examined during the rounds her respiratory status slightly better she is breathing more comfortably she does have cough which is dry and nonproductive she is responding well 4 breathing treatments as well as antibiotics, she has been evaluated by cardiothoracic surgery she has expressed to them that she does not want surgical intervention needed that she wants chemotherapy and or radiation therapy she expressed a similar feelings to me as well, her multiple family members were present at the time of conversation 10/25/16- Patient seen examined and evaluated. Continues on 3L of supplemental oxygen via [place]. Uses 2L of oxygen at home 13/05. She continues to decline a repeat biopsy or further pulmonary work up. SOB continues with exertion. Cough with yellow sputum. Denies any further complaints. All labs and reports reviewed. 10/24/16- Ms. 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 He underwent bronchoscopy and navigational biopsy with nondiagnostic result she was offered a repeat biopsy but has declined. Patient does not want any therapeutic intervention during radiation therapy and/or chemotherapy. In the last week to 10 days she's been getting more short of breath than baseline until 3 days ago and symptoms were getting worse decided to come into emergency department for further evaluation, she denies any hemoptysis her cough is mostly dry and nonproductive sometimes does produces yellowish phlegm production, her quality of sleep has been poor due to ongoing respiratory symptoms and cough Objective - Vital Signs Vital signs: Vital Signs Temp 96.7 F L 10/26/17 07:00 Pulse 96 10/26/17 11:52 Resp 18 10/26/17 07:00 BP 136/68 10/26/17 07:00 Pulse Ox 93 L 10/26/17 08:14 Intake & Output 10/25/17 10/26/17 10/26/17 18:59 06:59 18:59 Other: # Voids 4 2 1 # Bowel Movements 1 - Exam - Constitutional General appearance: average body habitus, cooperative, mild distress - EENT Eyes: EOMI, PERRLA, normal appearance ENT: hearing grossly normal, normal oropharynx Ears: bilateral: normal - Neck Neck: normal ROM Carotids: bilateral: upstroke normal, bruit absent Thyroid: bilateral: normal size - Respiratory Respiratory: bilateral: CTA (Poor air entry), diminished, prolonged expiration, negative: dullness, rales, rhonchi, wheezing, prolonged inspiration - Cardiovascular Rhythm: regular Heart sounds: normal: S1, S2 - Gastrointestinal General gastrointestinal: normal bowel sounds, soft - Integumentary Integumentary: normal turgor - Neurologic Neurologic: CNII-XII intact - Musculoskeletal Musculoskeletal: gait normal, generalized weakness, strength equal bilaterally - Psychiatric Psychiatric: A&O x's 3, appropriate affect, intact judgment & insight - Labs CBC & Chem 7: 10/24/17 04:40 10/24/17 04:48 Labs: Microbiology - Last 24 Hours (Table) 10/24/17 04:40 Blood Culture - Preliminary Blood No Growth after 48 hours Assessment and Plan Assessment: Acute COPD exacerbation related to purulent tracheobronchitis Acute on chronic hypoxic respirator failure Left upper lobe nodule progressing in size likely neoplastic process Hypertension hypertensive cardiovascular disease GERD Plan: Agree with antibiotics, breathing treatment and steroids maintain patient on DVT and peptic ulcer disease prophylaxis, computed tomography scan of the chest was performed and reviewed it further recommendations to monitor and observe as per patient wishes, however patient has made it clear on multiple occasions that she does not want repeat biopsy and or or chemo or radiation therapy as well as surgical resection and we will monitor observe and review findings of the CAT scan with patient Time with Patient: Greater than 30
--- NOTE | 2017-10-26 15:11 | PN ---
PROGRESS NOTE DATE OF SERVICE: 10/25/2017 CHIEF COMPLAINT: Exacerbation COPD, hemoptysis and left upper lobe nodule. HISTORY OF PRESENT ILLNESS: This lady is a doing fairly well. Breathing is improving, but she still has episodes where she becomes very dyspneic. PHYSICAL EXAM: She is afebrile. Vital signs are normal. Breath sounds are diminished throughout. There are occasional crackles and some wheezing. Cardiac exam is normal. IMPRESSION: 1. Exacerbation of chronic obstructive pulmonary disease. 2. Hemoptysis. 3. Left upper lobe nodule. PLAN: Continue with treatments and await recommendations from Oncology and Thoracic Surgery. MMODL / IJN: [id number] /
--- NOTE | 2017-10-26 15:35 | PN ---
PROGRESS NOTE DATE OF SERVICE: 10/26/2017. CHIEF COMPLAINT: Exacerbation COPD, hemoptysis, nodule in the left upper lobe. HISTORY OF PRESENT ILLNESS: This lady has been seen by Surgery and she is not a candidate for lobectomy. She is not interested in an oncologic evaluation for chemo or radiation therapy. She understands the nature of the disease and its natural outcome. PHYSICAL EXAM: Breath sounds are very poor throughout. Cardiac exam is normal. Abdomen is soft, nontender. IMPRESSION: 1. Chronic obstructive pulmonary disease. 2. 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 PLAN: Continue on respiratory treatments until she is stable to go home. MMODL / IJN: [id number] /
[2017-10-26] MEDS: MONTELUKAST 10 MG TAB PO SCH (20:53)
[2017-10-27] MEDS: SYMBICORT 160-4.5 MCG INHALER INHALATION SCH ×2 (08:42→19:56)
[2017-10-27] MEDS: IPRATROPIUM-ALBUTEROL 3 ML NEB INHALATION SCH ×4 (08:42→19:56)
[2017-10-27] MEDS: methylPREDNISolone SOD SUCCI 40 MG/ML 1 ML VIAL IV SCH (09:04)
[2017-10-27] MEDS: FUROSEMIDE 40 MG TAB PO SCH ×2 (09:05→16:27)
[2017-10-27] MEDS: PANTOPRAZOLE 40 MG TABLET PO SCH (09:05)
[2017-10-27] MEDS: LISINOPRIL 2.5 MG TAB PO SCH (09:05)
[2017-10-27] MEDS: AZITHROMYCIN 500 MG TAB PO SCH (09:05)
[2017-10-27] MEDS: ASPIRIN 81 MG PO SCH (09:05)
--- NOTE | 2017-10-27 13:23 | P.PN ---
Subjective Progress Note Date: 10/27/17 Principal diagnosis: Acute exacerbation of COPD Patient seen and examined covering for Dr. Diaz. The patient states that she is still wheezing and short of breath. She states she is a little bit better overall though. She denies fevers and chills. She has no needs or complaints at this time. Objective - Vital Signs Vital signs: Vital Signs Temp 98.5 F 10/27/17 07:00 Pulse 92 10/27/17 12:02 Resp 18 10/27/17 07:00 BP 141/79 10/27/17 07:00 Pulse Ox 94 L 10/27/17 08:43 Intake & Output 10/26/17 10/27/17 10/27/17 18:59 06:59 18:59 Weight 82.554 kg Other: # Voids 3 2 # Bowel Movements 1 - Exam Gen.: Patient is alert and oriented 3, no acute distress Cardiovascular: Regular rate and rhythm, S1/S2 Lungs: Diminished with bilateral expiratory wheezing Abdomen: Soft nontender nondistended positive bowel sounds Extremities: No edema - Labs CBC & Chem 7: 10/24/17 04:40 10/24/17 04:48 Labs: Microbiology - Last 24 Hours (Table) 10/24/17 04:40 Blood Culture - Preliminary Blood No Growth after 72 hours Assessment and Plan Assessment: Acute exacerbation of COPD/emphysema Tracheobronchitis Acute on chronic hypoxic respiratory failure Left upper lobe lung mass, likely neoplastic Hypertension Hypertensive cardiovascular disease GERD O2 to maintain saturation greater than equal to 90% Antibiotics: Azithromycin Bronchodilators Singulair Steroids - DC solumedrol, start Prednisone taper Symbicort GI and DVT prophylaxis: Protonix, add heparin Patient does not wish to have biopsy of lung mass or treatment Patient seen covering for Dr. Diaz
[2017-10-27] MEDS: HEPARIN SODIUM,PORCINE 5,000 UNIT/ML 1 ML VIAL SQ SCH (16:27)
[2017-10-27] MEDS: MONTELUKAST 10 MG TAB PO SCH (20:35)
[2017-10-28] MEDS: HEPARIN SODIUM,PORCINE 5,000 UNIT/ML 1 ML VIAL SQ SCH ×2 (00:32→08:04)
[2017-10-28 02:01] VITALS: RESP 20; TEMP 98.1
[2017-10-28 07:50] VITALS: BP 117/74
[2017-10-28] MEDS: PANTOPRAZOLE 40 MG TABLET PO SCH (08:05)
[2017-10-28] MEDS: AZITHROMYCIN 500 MG TAB PO SCH (08:05)
[2017-10-28] MEDS: LISINOPRIL 2.5 MG TAB PO SCH (08:05)
[2017-10-28] MEDS: FUROSEMIDE 40 MG TAB PO SCH (08:05)
[2017-10-28] MEDS: ASPIRIN 81 MG PO SCH (08:05)
[2017-10-28] MEDS: IPRATROPIUM-ALBUTEROL 3 ML NEB INHALATION SCH ×2 (08:19→11:57)
[2017-10-28] MEDS: SYMBICORT 160-4.5 MCG INHALER INHALATION SCH (08:19)
[2017-10-28] MEDS ORDERED: predniSONE 20 MG TAB PO SCH (09:00)
[2017-10-28 12:09] VITALS: PULSE 92
--- NOTE | 2017-10-28 16:22 | P.PN ---
Subjective Progress Note Date: 10/28/17 Principal diagnosis: Acute COPD exacerbation, acute on chronic hypoxic and hypercapnic respiratory failure, large left upper lobe nodule likely neoplastic process 10/28/2017, patient seen and evaluated examined during the rounds she is the short of breath to a mild extent still of intermittent wheezing but severity has improved she has declined the idea of surgical intervention for her left- sided enlarging lung mass and she wishes to go home 10/26/2017, patient seen and evaluated examined during the rounds her respiratory status slightly better she is breathing more comfortably she does have cough which is dry and nonproductive she is responding well 4 breathing treatments as well as antibiotics, she has been evaluated by cardiothoracic surgery she has expressed to them that she does not want surgical intervention needed that she wants chemotherapy and or radiation therapy she expressed a similar feelings to me as well, her multiple family members were present at the time of conversation 10/25/16- Patient seen examined and evaluated. Continues on 3L of supplemental oxygen via [place]. Uses 2L of oxygen at home 13/05. She continues to decline a repeat biopsy or further pulmonary work up. SOB continues with exertion. Cough with yellow sputum. Denies any further complaints. All labs and reports reviewed. 10/24/16- Ms. 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 He underwent bronchoscopy and navigational biopsy with nondiagnostic result she was offered a repeat biopsy but has declined. Patient does not want any therapeutic intervention during radiation therapy and/or chemotherapy. In the last week to 10 days she's been getting more short of breath than baseline until 3 days ago and symptoms were getting worse decided to come into emergency department for further evaluation, she denies any hemoptysis her cough is mostly dry and nonproductive sometimes does produces yellowish phlegm production, her quality of sleep has been poor due to ongoing respiratory symptoms and cough Objective - Vital Signs Vital signs: Vital Signs Temp 98.1 F 10/28/17 07:00 Pulse 92 10/28/17 12:08 Resp 20 10/28/17 08:00 BP 117/74 10/28/17 07:00 Pulse Ox 96 10/28/17 07:00 Intake & Output 10/27/17 10/28/17 10/28/17 18:59 06:59 18:59 Intake Total 480 Balance 480 Weight 82.554 kg Intake: Oral 480 Other: # Voids 4 4 2 # Bowel Movements 1 4 - Exam - Constitutional General appearance: average body habitus, cooperative, mild distress - EENT Eyes: EOMI, PERRLA, normal appearance ENT: hearing grossly normal, normal oropharynx Ears: bilateral: normal - Neck Neck: normal ROM Carotids: bilateral: upstroke normal, bruit absent Thyroid: bilateral: normal size - Respiratory Respiratory: bilateral: CTA (Poor air entry), diminished, prolonged expiration, negative: dullness, rales, rhonchi, wheezing, prolonged inspiration - Cardiovascular Rhythm: regular Heart sounds: normal: S1, S2 - Gastrointestinal General gastrointestinal: normal bowel sounds, soft - Integumentary Integumentary: normal turgor - Neurologic Neurologic: CNII-XII intact - Musculoskeletal Musculoskeletal: gait normal, generalized weakness, strength equal bilaterally - Psychiatric Psychiatric: A&O x's 3, appropriate affect, intact judgment & insight - Labs CBC & Chem 7: 10/24/17 04:40 10/24/17 04:48 Labs: Microbiology - Last 24 Hours (Table) 10/24/17 04:40 Blood Culture - Preliminary Blood No Growth after 96 hours Assessment and Plan Assessment: Acute COPD exacerbation related to purulent tracheobronchitis Acute on chronic hypoxic respirator failure Left upper lobe nodule progressing in size likely neoplastic process Hypertension hypertensive cardiovascular disease GERD Plan: Agree with antibiotics, breathing treatment and steroids maintain patient on DVT and peptic ulcer disease prophylaxis, computed tomography scan of the chest was performed and reviewed it further recommendations to monitor and observe as per patient wishes, however patient has made it clear on multiple occasions that she does not want repeat biopsy and or or chemo or radiation therapy as well as surgical resection and we will monitor observe and review findings of the CAT scan with patient Agri with discharge planning patient can finish antibiotics at home follow up on outpatient setting Time with Patient: Greater than 30
--- NOTE | 2017-10-28 20:13 | PN ---
PROGRESS NOTE DATE OF SERVICE: 10/27/2017 CHIEF COMPLAINT: Aspiration, COPD and carcinoma of the lung. HISTORY OF PRESENT ILLNESS: This lady is doing well. Breathing is improving. She is up and about. PHYSICAL EXAMINATION: Chest is more clear. Breath sounds are diminished, but rales and wheezing have diminished. Cardiac exam is normal. Abdomen is soft, nontender. IMPRESSION: 1. Exacerbation of chronic obstructive pulmonary disease. 2. Carcinoma of the lung. PLAN: Probably home in the next day or two. MMODL / IJN: [id number] /
--- NOTE | 2017-10-29 11:20 | DS ---
DISCHARGE SUMMARY CHIEF COMPLAINT: Difficulty breathing. HISTORY OF PRESENT ILLNESS AND PHYSICAL EXAM: Details of this lady's history and physical can be found in the initial workup. LABORATORY STUDIES: While she was in the hospital, she had laboratory studies, details of which can be found in the laboratory section of her chart. COURSE IN HOSPITAL: After admission, she was placed on bedrest, started on intravenous fluids with IV inhaled steroids and updrafts. She did well. Her hemoptysis was traced to the fact that she probably has a left upper lobe neoplastic lesion. This was referred to surgery and she steadfastly refused to have the surgery done. She would be very high risk given her extremely poor pulmonary residual. She also refused consults with chemo and radiation therapy. She is doing well. It was felt that she could go home on the eighth. She will go home on usual activity, diet, and medication. She will be given a Medrol Dosepak and she will be seen in the office in 2 or 3 days. FINAL DIAGNOSES: 1. Exacerbation of chronic obstructive pulmonary disease. 2. Carcinoma of the lung. OPERATIONS: None. CONSULTATIONS: Thoracic surgery. MMODL / IJN: [id number] /
== END 2017-10-28 14:14 | disposition home or self-care (01) | DRG 190 ==
LOC: EC 04:02 → 4MS4W 04:57
PROVIDERS: ADMIT Family Medicine; ATTEND Family Medicine
DX: J44.1 Chronic obstructive pulmonary disease with (acute) exacerbation (principal); J96.21 Acute and chronic respiratory failure with hypoxia; I48.92 Unspecified atrial flutter; C34.12 Malignant neoplasm of upper lobe, left bronchus or lung; R04.2 Hemoptysis; I11.0 Hypertensive heart disease with heart failure; I50.9 Heart failure, unspecified; J96.22 Acute and chronic respiratory failure with hypercapnia; E78.5 Hyperlipidemia, unspecified; K21.9 Gastro-esophageal reflux disease without esophagitis; M19.90 Unspecified osteoarthritis, unspecified site; J45.30 Mild persistent asthma, uncomplicated; Z79.51 Long term (current) use of inhaled steroids; Z79.899 Other long term (current) drug therapy; Z79.82 Long term (current) use of aspirin; Z99.81 Dependence on supplemental oxygen; Z87.891 Personal history of nicotine dependence; Z90.710 Acquired absence of both cervix and uterus; Z96.642 Presence of left artificial hip joint
CPT/HCPCS: 36415; 71046; 71250; 80053; 82550; 82553; 83735; 83880; 84484; 85025; 85610; 85730; 87040; 93005; 94640; 94760; 96365; 96366; 96375; 99285

== ENCOUNTER 2018-01-14 15:27 | Emergency (ER) | payer MEDICARE, OTHER ==
[2018-01-14 15:45] VITALS: TEMP 98.6
[2018-01-14 16:29] LABS: Basophils # (A) 0.1 k/uL (0-0.2); Basophils % (A) 1 %; Eosinophils # (A) 0.2 k/uL (0-0.7); Eosinophils % (A) 3 %; HCT 32.1 % (34.0-46.0); HGB 10.4 gm/dL (11.4-16.0); Lymphocytes # (A) 1.6 k/uL (1.0-4.8); Lymphocytes % (A) 21 %; MCH 26.4 pg (25.0-35.0); MCHC 32.4 g/dL (31.0-37.0); MCV 81.5 fL (80.0-100.0); Mean Platelet Volume 7.1; Monocytes # (A) 0.6 k/uL (0-1.0); Monocytes % (A) 7 %; Neutrophils # (A) 5.1 k/uL (1.3-7.7); Neutrophils % (A) 66 %; Platelet Count 391 k/uL (150-450); RBC 3.94 m/uL (3.80-5.40); RDW 14.5 % (11.5-15.5); WBC 7.7 k/uL (3.8-10.6)
[2018-01-14 16:37] LABS: Albumin 3.7 g/dL (3.5-5.0); Calcium 9.5 mg/dL (8.4-10.2); Potassium 4.3 mmol/L (3.5-5.1); Total Bilirubin 0.2 mg/dL (0.2-1.3); Total Protein 6.1 g/dL (6.3-8.2)
[2018-01-14 16:42] LABS: INR 0.9 (<1.2); Prothrombin Time 9.3 sec (9.0-12.0)
[2018-01-14 16:46] LABS: Creatine Kinase 33 U/L (30-135)
[2018-01-14 16:57] LABS: Creatine Kinase MB 0.3 ng/mL (0.0-2.4); Troponin I <0.012 ng/mL (0.000-0.034)
[2018-01-14] MEDS ORDERED: predniSONE 20 MG TAB PO STA (17:33)
[2018-01-14] MEDS ORDERED: IPRATROPIUM-ALBUTEROL 3 ML NEB INHALATION STA (17:33)
--- NOTE | 2018-01-14 17:38 | ED ---
SOB HPI - General Chief Complaint: Shortness of Breath Stated Complaint: SOB Time Seen by Provider: 01/14/18 17:14 Source: patient Mode of arrival: wheelchair Limitations: no limitations - History of Present Illness Initial Comments: 82-year-old female past medical history of COPD and 2 L of O2 at home presenting with worsening shortness of breath and cough that began 2 days prior. Patient states she is requiring 1 more liter of oxygen. States has not improved with her home nebulized treatments. She denies any fevers or chills. States she has chest and back pain which is chronic for her secondary to her COPD. She has a history of DVT/PE. Denies current tobacco use. - Related Data Home Medications Medication Instructions Recorded Confirmed Furosemide [Lasix] 40 mg PO BID 02/20/15 01/14/18 Lisinopril [Zestril] 2.5 mg PO DAILY 02/20/15 01/14/18 Montelukast [Singulair] 10 mg PO HS 02/20/15 01/14/18 Omeprazole [PriLOSEC] 20 mg PO DAILY 02/20/15 01/14/18 Ergocalciferol [Vitamin D2 50,000 unit PO Q14D 10/30/15 01/14/18 (DRISDOL)] Aspirin EC [Ecotrin Low Dose] 81 mg PO DAILY 10/05/16 01/14/18 Budesonide/Formoterol Fumarate 2 puff INHALATION RT-BID 10/05/16 01/14/18 [Symbicort 160-4.5 Mcg Inhaler] Atorvastatin Calcium [Lipitor] 80 mg PO HS 04/15/17 01/14/18 Ipratropium-Albuterol Nebulize 3 ml INHALATION RT-QID PRN 10/24/17 01/14/18 [Duoneb 0.5 mg-3 mg/3 ml Soln] Previous Rx's Medication Instructions Recorded Doxycycline Monohydrate [Monodox] 100 mg PO Q12HR #14 cap 01/14/18 predniSONE 40 mg PO DAILY 5 Days #10 tab 01/14/18 Allergies Allergy/AdvReac Type Severity Reaction Status Date / Time No Known Allergies Allergy Verified 01/14/18 17:59 Review of Systems ROS Statement: Those systems with pertinent positive or pertinent negative responses have been documented in the HPI. Review of Systems Constitutional: Denies fever, chills Eyes: Denies change in vision, Denies pain Ears, nose, mouth, throat: Denies headaches, Denies sore throat Cardiovascular: Denies chest pain. Denies palpitations Respiratory: Positive shortness of breath. Positive cough. Gastrointestinal: Denies abdominal pain. Denies nausea, vomiting, diarrhea. Genitourinary: Denies hematuria, Denies infections Musculoskeletal: Denies pain, Denies swelling Integumentary: Denies rash Neurological: Denies headache, focal weakness, focal numbness Psychiatric: Denies anxiety, Denies depression Hematologic/Lymphatic: Denies easy bleeding or bruising ROS Other: All systems not noted in ROS Statement are negative. Past Medical History Past Medical History: Atrial Flutter, Asthma, Chest Pain / Angina, Heart Failure , COPD, GERD/Reflux, Hyperlipidemia, Hypertension, Pneumonia, Respiratory Disorder Additional Past Medical History / Comment(s): Pt recently admitted to [facility] on with acute on chronic COPD, acute on chronic persistent asthma, acute on chronic respiratory failure, probable pneumonia. Other HX: Chronic respiratory failure with O2 at 2L/NC ATC, chronic persistent asthma, bronchitis , known 1.8.cm L upper lung nodule-pt states bx negative, DJD, past L hip fx with surgery, sinus problems, rheumatic fever as a child. History of Any Multi-Drug Resistant Organisms: Acinetobacter (MDRO) Date of last positivie culture/infection: 10/06/16 MDRO Source:: SPUTUM Past Surgical History: Hysterectomy, Joint Replacement, Orthopedic Surgery, Tubal Ligation Additional Past Surgical History / Comment(s): 03/21/17 bronchoscopy with BAL/BX- bening per pt, LEFT HIP hemiarthroplasty, LEFT FOOT surgery, colonoscopy, D&C. Past Anesthesia/Blood Transfusion Reactions: No Reported Reaction Past Psychological History: No Psychological Hx Reported Smoking Status: Former smoker Past Alcohol Use History: None Reported Past Drug Use History: None Reported - Past Family History Father History Unknown: Yes Brother(s) Family Medical History: No Reported History Mother Family Medical History: Rheumatoid Arthritis (RA) General Exam - General Exam Comments Initial Comments: General: Awake, alert, No acute Distress. NC present. HENT: Normocephalic. Atraumatic. Mouth: Moist mucus membranes. Eyes: PERRL. EOMI. No scleral icterus. No injected conjunctiva Neck: Full ROM Chest/Lungs: Distant lung sounds. No conversational dyspnea. No tachypnea. Cardiac: Regular rate, rhythm. No murmurs or rubs Abdomen/GI: [Soft, nontender, nondistended. No rebound, guarding, or rigidity. Musculoskeletal: Full ROM Skin: Warm, dry, intact Neurologic: A/Ox3, no weakness, no sensory deficit, no abdnormal gait, no coordination deficit Limitations: no limitations Course Vital Signs 01/14/18 01/14/18 01/14/18 15:43 18:08 18:18 Temperature 98.6 F Pulse Rate 90 88 90 Respiratory 20 Rate Blood Pressure 99/59 O2 Sat by Pulse 95 Oximetry 01/14/18 01/14/18 18:45 22:33 Temperature Pulse Rate 81 78 Respiratory 22 22 Rate Blood Pressure 131/56 120/57 O2 Sat by Pulse 96 94 L Oximetry Medical Decision Making - Medical Decision Making 82 [place] female presenting with shortness of breath. Initial exam the patient is awake, alert, in no acute distress. VSS. Patient has no conversational dyspnea. EKG shows bifascicular block similar to previous EKG from 10/24/2017. She denies chest pain. Wells score 4. Dimer elevated. Labratory workup unremarkable. CXR showed known mass. CTPE negative for PE but showed increase in size of mass. Patient states her doctor is aware of increase in size. Patient has had no respiratory distress while in the department. At this time she is stable for outpatient treatment of her bronchitis and COPD exacerbation. No further emergent workup indicated. The patient was given return to ED instructions. They were instructed to follow up with their primary care provider. Stable for discharge at this time. - Lab Data Result diagrams: 01/14/18 16:11 01/14/18 16:11 Lab Results 01/14/18 01/14/18 01/14/18 Range/Units 16:11 16:11 16:11 WBC 7.7 (3.8-10.6) k/uL RBC 3.94 (3.80-5.40) m/uL Hgb 10.4 L (11.4-16.0) gm/dL Hct 32.1 L (34.0-46.0) % MCV 81.5 (80.0-100.0) fL MCH 26.4 (25.0-35.0) pg MCHC 32.4 (31.0-37.0) g/dL RDW 14.5 (11.5-15.5) % Plt Count 391 (150-450) k/uL Neutrophils % 66 % Lymphocytes % 21 % Monocytes % 7 % Eosinophils % 3 % Basophils % 1 % Neutrophils # 5.1 (1.3-7.7) k/uL Lymphocytes # 1.6 (1.0-4.8) k/uL Monocytes # 0.6 (0-1.0) k/uL Eosinophils # 0.2 (0-0.7) k/uL Basophils # 0.1 (0-0.2) k/uL PT (9.0-12.0) sec INR (<1.2) APTT (22.0-30.0) sec D-Dimer (<0.60) mg/L FEU Sodium 135 L (137-145) mmol/L Potassium 4.3 (3.5-5.1) mmol/L Chloride 98 (98-107) mmol/L Carbon Dioxide 26 (22-30) mmol/L Anion Gap 11 mmol/L BUN 17 (7-17) mg/dL Creatinine 0.96 (0.52-1.04) mg/dL Est GFR (CKD-EPI)AfAm 65 (>60 ml/min/1.73 sqM) Est GFR (CKD-EPI)NonAf 56 (>60 ml/min/1.73 sqM) Glucose 90 (74-99) mg/dL Calcium 9.5 (8.4-10.2) mg/dL Total Bilirubin 0.2 (0.2-1.3) mg/dL AST 14 (14-36) U/L ALT 15 (9-52) U/L Alkaline Phosphatase 105 (38-126) U/L Total Creatine Kinase 33 (30-135) U/L CK-MB (CK-2) 0.3 (0.0-2.4) ng/mL CK-MB (CK-2) Rel Index 0.9 Troponin I <0.012 (0.000-0.034) ng/mL Total Protein 6.1 L (6.3-8.2) g/dL Albumin 3.7 (3.5-5.0) g/dL 01/14/18 01/14/18 Range/Units 16:11 16:11 WBC (3.8-10.6) k/uL RBC (3.80-5.40) m/uL Hgb (11.4-16.0) gm/dL Hct (34.0-46.0) % MCV (80.0-100.0) fL MCH (25.0-35.0) pg MCHC (31.0-37.0) g/dL RDW (11.5-15.5) % Plt Count (150-450) k/uL Neutrophils % % Lymphocytes % % Monocytes % % Eosinophils % % Basophils % % Neutrophils # (1.3-7.7) k/uL Lymphocytes # (1.0-4.8) k/uL Monocytes # (0-1.0) k/uL Eosinophils # (0-0.7) k/uL Basophils # (0-0.2) k/uL PT 9.3 (9.0-12.0) sec INR 0.9 (<1.2) APTT 22.0 (22.0-30.0) sec D-Dimer 0.74 H (<0.60) mg/L FEU Sodium (137-145) mmol/L Potassium (3.5-5.1) mmol/L Chloride (98-107) mmol/L Carbon Dioxide (22-30) mmol/L Anion Gap mmol/L BUN (7-17) mg/dL Creatinine (0.52-1.04) mg/dL Est GFR (CKD-EPI)AfAm (>60 ml/min/1.73 sqM) Est GFR (CKD-EPI)NonAf (>60 ml/min/1.73 sqM) Glucose (74-99) mg/dL Calcium (8.4-10.2) mg/dL Total Bilirubin (0.2-1.3) mg/dL AST (14-36) U/L ALT (9-52) U/L Alkaline Phosphatase (38-126) U/L Total Creatine Kinase (30-135) U/L CK-MB (CK-2) (0.0-2.4) ng/mL CK-MB (CK-2) Rel Index Troponin I (0.000-0.034) ng/mL Total Protein (6.3-8.2) g/dL Albumin (3.5-5.0) g/dL Disposition Clinical Impression: Bronchitis, COPD exacerbation, Lung mass Disposition: HOME SELF-CARE Condition: Good Instructions: Acute Bronchitis (ED) Prescriptions: Doxycycline Monohydrate [Monodox] 100 mg PO Q12HR #14 cap predniSONE 40 mg PO DAILY 5 Days #10 tab Referrals: Og Green MD [Primary Care Provider] - 1-2 days
--- NOTE | 2018-01-14 20:17 | XR ---
EXAMINATION TYPE: XR chest 2V DATE OF EXAM: 01/14/2018 COMPARISON: 10/24/2017 HISTORY: Short of breath and cough TECHNIQUE: Frontal and lateral views of the chest are obtained. FINDINGS: There is a 4.5 cm rounded masslike density in the left upper lobe. There is no heart failu re. Heart size is normal. Thoracic aorta is atheromatous. There is mild pleural thickening at the trevor g apices. Bony thorax appears intact. IMPRESSION: Pulmonary fibrotic changes. Large left upper lobe mass appears increased slightly compar ed to last exam and consistent with a tumor. No heart failure.
[2018-01-14] MEDS ORDERED: RX INFO: IV CONTRAST WAS GIVEN 1 EACH MISC MISCELLANE PRN (20:44)
[2018-01-14 22:33] VITALS: RESP 22
[2018-01-14 22:34] VITALS: BP 120/57; PULSE 78
--- NOTE | 2018-01-14 22:44 | CT ---
EXAMINATION TYPE: CT chest angio for PE DATE OF EXAM: 01/14/2018 COMPARISON: NONE HISTORY: SOB. Chest pain CT DLP: 414.4 mGycm Automated exposure control for dose reduction was used. CONTRAST: CT Chest for pulmonary embolism performed with with IV Contrast, patient injected with 80ml mL of Iso ketan 370. FINDINGS: There are 3-D post processed images. There is diffuse pulmonary emphysema. There is a 4.3 x 3 cm masslike area of consolidation in the lef t upper lobe with soft tissue density. There is a 3.5 cm cystic mass within the subcutaneous fat over the sternum. Thoracic aorta is atheromatous. There is coarse interstitial density at the lung apices . The lower lung christina are clear of consolidation. There is mild linear density at the lung bases. The re is no pleural effusion. There is no pericardial effusion. I see no filling defects in the pulmonar y arteries. There is no pericardial effusion. There is some spurring in the thoracic spine. I see no focal bone destruction. IMPRESSION: No evidence of pulmonary embolism. Atherosclerotic vascular disease. Emphysema. Large left upper lobe mass consistent with tumor. Mass is increased in size compared to chest CT scan of 10/24/2017.
== END 2018-01-14 23:15 | disposition home or self-care (01) ==
LOC: EC 15:27
DX: J44.1 Chronic obstructive pulmonary disease with (acute) exacerbation (principal); R91.8 Other nonspecific abnormal finding of lung field; I45.2 Bifascicular block; I48.92 Unspecified atrial flutter; I11.0 Hypertensive heart disease with heart failure; I50.9 Heart failure, unspecified; K21.9 Gastro-esophageal reflux disease without esophagitis; E78.5 Hyperlipidemia, unspecified; J96.90 Respiratory failure, unspecified, unspecified whether with hypoxia or hypercapnia; Z87.891 Personal history of nicotine dependence; Z79.51 Long term (current) use of inhaled steroids; Z79.82 Long term (current) use of aspirin; Z79.899 Other long term (current) drug therapy
CPT/HCPCS: 36415; 94640; 93005; 85379; 80053; 82550; 82553; 84484; 85025; 85610; 85730; 71046; 71275; 99285; J7512; Q9967

== ENCOUNTER 2018-03-17 13:37 | Inpatient (IN) | payer MEDICARE, OTHER ==
[2018-03-17] MEDS ORDERED: IPRATROPIUM-ALBUTEROL 3 ML NEB INHALATION STA (14:26)
[2018-03-17] MEDS ORDERED: methylPREDNISolone SOD SUCCI 125 MG/2 ML VIAL IV STA (14:26)
--- NOTE | 2018-03-17 14:31 | ED ---
General Adult HPI - General Chief complaint: Shortness of Breath Stated complaint: PARRISH Time Seen by Provider: 03/17/18 14:12 Source: patient, RN notes reviewed Mode of arrival: wheelchair Limitations: no limitations - History of Present Illness Initial comments: Patient is a pleasant 82-year-old female presenting to the emergency Department with complaints of difficulty breathing. Onset was just an hour or so ago. Patient also feels some pressure in her chest. Patient has had similar symptoms multiple times previously associated with both COPD as well as CHF. Patient states her leg swelling is mild and is chronic for her. Patient states she only does have associated chest discomfort with her dyspnea similar to this. Mild cough. No fever. - Related Data Home Medications Medication Instructions Recorded Confirmed Furosemide [Lasix] 40 mg PO BID 02/20/15 01/14/18 Lisinopril [Zestril] 2.5 mg PO DAILY 02/20/15 01/14/18 Montelukast [Singulair] 10 mg PO HS 02/20/15 01/14/18 Omeprazole [PriLOSEC] 20 mg PO DAILY 02/20/15 01/14/18 Ergocalciferol [Vitamin D2 50,000 unit PO Q14D 10/30/15 01/14/18 (DRISDOL)] Aspirin EC [Ecotrin Low Dose] 81 mg PO DAILY 10/05/16 01/14/18 Budesonide/Formoterol Fumarate 2 puff INHALATION RT-BID 10/05/16 01/14/18 [Symbicort 160-4.5 Mcg Inhaler] Atorvastatin Calcium [Lipitor] 80 mg PO HS 04/15/17 01/14/18 Ipratropium-Albuterol Nebulize 3 ml INHALATION RT-QID PRN 10/24/17 01/14/18 [Duoneb 0.5 mg-3 mg/3 ml Soln] Previous Rx's Medication Instructions Recorded Doxycycline Monohydrate [Monodox] 100 mg PO Q12HR #14 cap 01/14/18 predniSONE 40 mg PO DAILY 5 Days #10 tab 01/14/18 Allergies Allergy/AdvReac Type Severity Reaction Status Date / Time No Known Allergies Allergy Verified 03/17/18 13:43 Review of Systems ROS Statement: Those systems with pertinent positive or pertinent negative responses have been documented in the HPI. ROS Other: All systems not noted in ROS Statement are negative. Constitutional: Denies: fever Eyes: Denies: eye pain ENT: Denies: ear pain Respiratory: Reports: dyspnea Cardiovascular: Reports: chest pain Endocrine: Denies: fatigue Gastrointestinal: Denies: abdominal pain Genitourinary: Denies: dysuria Musculoskeletal: Denies: back pain Skin: Denies: rash Neurological: Denies: weakness Past Medical History Past Medical History: Atrial Flutter, Asthma, Chest Pain / Angina, Heart Failure , COPD, GERD/Reflux, Hyperlipidemia, Hypertension, Pneumonia, Respiratory Disorder Additional Past Medical History / Comment(s): Pt recently admitted to [facility] on with acute on chronic COPD, acute on chronic persistent asthma, acute on chronic respiratory failure, probable pneumonia. Other HX: Chronic respiratory failure with O2 at 2L/NC ATC, chronic persistent asthma, bronchitis , known 1.8.cm L upper lung nodule-pt states bx negative, DJD, past L hip fx with surgery, sinus problems, rheumatic fever as a child. History of Any Multi-Drug Resistant Organisms: Acinetobacter (MDRO) Date of last positivie culture/infection: 10/06/16 MDRO Source:: SPUTUM Past Surgical History: Hysterectomy, Joint Replacement, Orthopedic Surgery, Tubal Ligation Additional Past Surgical History / Comment(s): 03/21/17 bronchoscopy with BAL/BX- bening per pt, LEFT HIP hemiarthroplasty, LEFT FOOT surgery, colonoscopy, D&C. Past Anesthesia/Blood Transfusion Reactions: No Reported Reaction Past Psychological History: No Psychological Hx Reported Smoking Status: Former smoker Past Alcohol Use History: None Reported Past Drug Use History: None Reported - Past Family History Father History Unknown: Yes Brother(s) Family Medical History: No Reported History Mother Family Medical History: Rheumatoid Arthritis (RA) General Exam Limitations: no limitations General appearance: alert, in no apparent distress Head exam: Present: atraumatic Eye exam: Present: normal appearance, PERRL ENT exam: Present: normal oropharynx Neck exam: Present: normal inspection Respiratory exam: Present: decreased breath sounds Cardiovascular Exam: Present: regular rate, normal rhythm Expanded Peripheral pulses: 2+: Radial (R), Radial (L), Dorsalis Pedis (R), Dorsalis Pedis (L) GI/Abdominal exam: Present: soft. Absent: tenderness Extremities exam: Present: pedal edema (+1 bilaterally). Absent: calf tenderness Back exam: Present: normal inspection Neurological exam: Present: alert Psychiatric exam: Present: normal affect, normal mood Skin exam: Present: normal color Course Vital Signs 03/17/18 03/17/18 03/17/18 13:40 15:13 15:22 Temperature 98.1 F Pulse Rate 85 96 96 Respiratory 18 Rate Blood Pressure 109/85 O2 Sat by Pulse 95 Oximetry 03/17/18 16:08 Temperature Pulse Rate 93 Respiratory 16 Rate Blood Pressure 113/68 O2 Sat by Pulse 95 Oximetry EKG Findings - EKG Comments: EKG Findings:: Sinus rhythm at 99. PVCs present. WI 158. QRS 118. QT 358. QTC 459. Left axis. Incomplete right bundle-branch block. No acute ST change. Medical Decision Making - Medical Decision Making Patient reevaluated and is somewhat improved. Patient still feels short of breath. Patient states she is aware of lung mass. There was bronchoscopy done approximately one year ago that did not show malignancy. Patient does not want further evaluation. Case was discussed in detail with Dr. Green, who is familiar with this patient and will admit. Patient has previously seen Dr. Diaz and he will be placed on consult. - Lab Data Result diagrams: 03/17/18 14:37 03/17/18 14:37 Lab Results 03/17/18 03/17/18 03/17/18 Range/Units 14:37 14:37 14:37 WBC 11.2 H (3.8-10.6) k/uL RBC 4.16 (3.80-5.40) m/uL Hgb 10.6 L (11.4-16.0) gm/dL Hct 33.6 L (34.0-46.0) % MCV 80.8 (80.0-100.0) fL MCH 25.5 (25.0-35.0) pg MCHC 31.5 (31.0-37.0) g/dL RDW 15.4 (11.5-15.5) % Plt Count 636 H (150-450) k/uL Neutrophils % 72 % Lymphocytes % 13 % Monocytes % 9 % Eosinophils % 4 % Basophils % 1 % Neutrophils # 8.0 H (1.3-7.7) k/uL Lymphocytes # 1.5 (1.0-4.8) k/uL Monocytes # 1.0 (0-1.0) k/uL Eosinophils # 0.4 (0-0.7) k/uL Basophils # 0.1 (0-0.2) k/uL PT (9.0-12.0) sec INR (<1.2) APTT (22.0-30.0) sec Sodium 138 (137-145) mmol/L Potassium 4.4 (3.5-5.1) mmol/L Chloride 103 (98-107) mmol/L Carbon Dioxide 23 (22-30) mmol/L Anion Gap 12 mmol/L BUN 24 H (7-17) mg/dL Creatinine 0.90 (0.52-1.04) mg/dL Est GFR (CKD-EPI)AfAm 70 (>60 ml/min/1.73 sqM) Est GFR (CKD-EPI)NonAf 61 (>60 ml/min/1.73 sqM) Glucose 94 (74-99) mg/dL Calcium 9.3 (8.4-10.2) mg/dL Magnesium 1.8 (1.6-2.3) mg/dL Total Bilirubin 0.2 (0.2-1.3) mg/dL AST 13 L (14-36) U/L ALT 25 (9-52) U/L Alkaline Phosphatase 103 (38-126) U/L Total Creatine Kinase 27 L (30-135) U/L CK-MB (CK-2) 0.4 (0.0-2.4) ng/mL CK-MB (CK-2) Rel Index 1.5 Troponin I <0.012 (0.000-0.034) ng/mL NT-Pro-B Natriuret Pep pg/mL Total Protein 5.7 L (6.3-8.2) g/dL Albumin 3.5 (3.5-5.0) g/dL 03/17/18 03/17/18 Range/Units 14:37 14:37 WBC (3.8-10.6) k/uL RBC (3.80-5.40) m/uL Hgb (11.4-16.0) gm/dL Hct (34.0-46.0) % MCV (80.0-100.0) fL MCH (25.0-35.0) pg MCHC (31.0-37.0) g/dL RDW (11.5-15.5) % Plt Count (150-450) k/uL Neutrophils % % Lymphocytes % % Monocytes % % Eosinophils % % Basophils % % Neutrophils # (1.3-7.7) k/uL Lymphocytes # (1.0-4.8) k/uL Monocytes # (0-1.0) k/uL Eosinophils # (0-0.7) k/uL Basophils # (0-0.2) k/uL PT 9.6 (9.0-12.0) sec INR 1.0 (<1.2) APTT 20.5 L (22.0-30.0) sec Sodium (137-145) mmol/L Potassium (3.5-5.1) mmol/L Chloride (98-107) mmol/L Carbon Dioxide (22-30) mmol/L Anion Gap mmol/L BUN (7-17) mg/dL Creatinine (0.52-1.04) mg/dL Est GFR (CKD-EPI)AfAm (>60 ml/min/1.73 sqM) Est GFR (CKD-EPI)NonAf (>60 ml/min/1.73 sqM) Glucose (74-99) mg/dL Calcium (8.4-10.2) mg/dL Magnesium (1.6-2.3) mg/dL Total Bilirubin (0.2-1.3) mg/dL AST (14-36) U/L ALT (9-52) U/L Alkaline Phosphatase (38-126) U/L Total Creatine Kinase (30-135) U/L CK-MB (CK-2) (0.0-2.4) ng/mL CK-MB (CK-2) Rel Index Troponin I (0.000-0.034) ng/mL NT-Pro-B Natriuret Pep 340 pg/mL Total Protein (6.3-8.2) g/dL Albumin (3.5-5.0) g/dL - Radiology Data Radiology results: image reviewed (Chest x-ray shows left lower lobe mass that has been seen on previous CT.) Disposition Clinical Impression: COPD with acute exacerbation Disposition: ADMITTED IP TO THIS HOSP Is patient prescribed a controlled substance at d/c from ED?: No Referrals: Og Green MD [Primary Care Provider] - 1-2 days Decision Time: 16:19
[2018-03-17 14:51] LABS: Basophils # (A) 0.1 k/uL (0-0.2); Basophils % (A) 1 %; Eosinophils # (A) 0.4 k/uL (0-0.7); Eosinophils % (A) 4 %; HCT 33.6 % (34.0-46.0); HGB 10.6 gm/dL (11.4-16.0); Lymphocytes # (A) 1.5 k/uL (1.0-4.8); Lymphocytes % (A) 13 %; MCH 25.5 pg (25.0-35.0); MCHC 31.5 g/dL (31.0-37.0); MCV 80.8 fL (80.0-100.0); Mean Platelet Volume 6.6; Monocytes % (A) 9 %; Neutrophils % (A) 72 %; Platelet Count 636 k/uL (150-450); RBC 4.16 m/uL (3.80-5.40); RDW 15.4 % (11.5-15.5); WBC 11.2 k/uL (3.8-10.6)
--- NOTE | 2018-03-17 14:53 | XR ---
EXAMINATION TYPE: XR chest 2V DATE OF EXAM: 03/17/2018 COMPARISON: 01/14/2018 HISTORY: Shortness of breath. History of COPD and congestive heart failure. TECHNIQUE: Frontal and lateral views of the chest are obtained. FINDINGS: There is continued increase in size of the patient's known left upper lobe pulmonary mass most compatible with neoplasm. Radiographically this measured approximately 4 cm on the exam of 1717 and currently measures at least 4.9 cm in craniocaudal dimension on the lateral image and abuts the left upper lobe pleural surface. Findings are superimposed upon pulmonary emphysema is there is b iapical lucency and flattening of the diaphragms. Calcified granulomas seen within the left lower trevor g. Left basilar subsegmental atelectasis is noted. Possible azygos lobe is noted. Cardiomediastinal s ilhouette is within normal limits. Mild multilevel degenerative changes of the thoracic spine and dif fuse osseous demineralization are seen. IMPRESSION: 1. No new focal consolidation to suggest pneumonia. 2. Continued increase in size of the patient's known left upper pulmonary mass highly suspicious for neoplasm and stated to be compatible with neoplasm on the prior CT dated 01/07/1718. 3. Pulmonary emphysema.
[2018-03-17 14:59] LABS: Albumin 3.5 g/dL (3.5-5.0); Calcium 9.3 mg/dL (8.4-10.2); Magnesium 1.8 mg/dL (1.6-2.3); Potassium 4.4 mmol/L (3.5-5.1); Total Bilirubin 0.2 mg/dL (0.2-1.3); Total Protein 5.7 g/dL (6.3-8.2)
[2018-03-17 15:05] LABS: Prothrombin Time 9.6 sec (9.0-12.0)
[2018-03-17 15:06] LABS: Partial Thromboplastin Time 20.5 sec (22.0-30.0)
[2018-03-17 15:09] LABS: Creatine Kinase 27 U/L (30-135)
[2018-03-17 15:22] LABS: Creatine Kinase MB 0.4 ng/mL (0.0-2.4); Troponin I <0.012 ng/mL (0.000-0.034)
[2018-03-17] MEDS ORDERED: IPRATROPIUM-ALBUTEROL 3 ML NEB INHALATION PRN (16:20)
[2018-03-17 17:30] VITALS: BMI 26.9
[2018-03-17] MEDS ORDERED: methylPREDNISolone SOD SUCCI 125 MG/2 ML VIAL IV SCH (19:00)
[2018-03-17 19:55] LABS: Glucose,Whole Blood 208 mg/dL (75-99)
[2018-03-17] MEDS ORDERED: SYMBICORT 160-4.5 MCG INHALER INHALATION SCH (20:00)
[2018-03-17] MEDS: SYMBICORT 160-4.5 MCG INHALER INHALATION SCH (20:51)
[2018-03-17] MEDS: IPRATROPIUM-ALBUTEROL 3 ML NEB INHALATION SCH (20:52)
[2018-03-17] MEDS: FAMOTIDINE 20 MG TAB PO SCH (21:21)
[2018-03-17] MEDS: INSULIN ASPART 100 UNIT/ML 1 ML 10 ML VIAL SQ SCH (21:21)
[2018-03-17] MEDS: methylPREDNISolone SOD SUCCI 40 MG/ML 1 ML VIAL IV SCH (23:11)
--- NOTE | 2018-03-17 23:21 | HP ---
HISTORY AND PHYSICAL CHIEF COMPLAINT: Status asthmaticus. HISTORY OF PRESENT ILLNESS: This is another admission for this 82-year-old white female who has extensive and long history of COPD. She also has a left upper lobe neoplasm. She started to have more and more difficulty with the hot and humid weather and came to the emergency room. She has been coughing up blood intermittently. On x-ray, it looks as though the upper lobe mass is enlarging. She is aware of this and has requested in the past to receive no treatment. REVIEW OF SYSTEMS: She has had no headaches, neurologic problems, chest pain, cardiac disease, abdominal pain, urinary complaints, vomiting, renal failure, diabetes, etc. Past medical history, family history, personal and social history are all unchanged from recent admitting and discharge summaries. PHYSICAL EXAMINATION: Blood pressure 118/65 with a pulse of 93, respirations of 42, and she is afebrile. In general, she appeared to be short of breath. She had increased AP diameter. Color is good. Head, ears, eyes, nose, mouth, throat were normal and neck veins were not distended. Carotids normal. Chest demonstrated increased AP diameter with poor breath sounds throughout. There are scattered rales, rhonchi and expiratory wheezing. Breath sounds are decreased over the left upper anterior posterior chest. Cardiac exam demonstrates sinus rhythm with no murmurs or extra sounds. The abdomen is soft and nontender. Extremities were normal. Neurologically, she is intact. IMPRESSION: 1. Chronic obstructive pulmonary disease. 2. Primary neoplasm of the left lung. PLAN: 1. Bed rest. 2. IV fluids. 3. IV inhaled steroids. 4. Updrafts. MMODL / IJN: [id number] /
[2018-03-18 07:22] LABS: Glucose,Whole Blood 145 mg/dL (75-99)
[2018-03-18] MEDS: DILTIAZEM CD 120 MG CAP.ER.24H PO SCH (07:52)
[2018-03-18] MEDS: ASPIRIN 81 MG PO SCH (07:52)
[2018-03-18] MEDS: methylPREDNISolone SOD SUCCI 40 MG/ML 1 ML VIAL IV SCH ×3 (07:52→23:40)
[2018-03-18] MEDS: PANTOPRAZOLE 40 MG TABLET PO SCH (07:52)
[2018-03-18] MEDS: INSULIN ASPART 100 UNIT/ML 1 ML 10 ML VIAL SQ SCH ×4 (07:52→20:39)
[2018-03-18] MEDS: FAMOTIDINE 20 MG TAB PO SCH ×2 (07:52→20:39)
[2018-03-18] MEDS: LISINOPRIL 2.5 MG TAB PO SCH (07:52)
[2018-03-18] MEDS: FUROSEMIDE 40 MG TAB PO SCH ×2 (07:53→16:15)
[2018-03-18] MEDS: SYMBICORT 160-4.5 MCG INHALER INHALATION SCH ×2 (09:04→19:53)
[2018-03-18] MEDS: IPRATROPIUM-ALBUTEROL 3 ML NEB INHALATION SCH ×4 (09:04→19:53)
[2018-03-18 11:43] LABS: Glucose,Whole Blood 145 mg/dL (75-99)
--- NOTE | 2018-03-18 14:10 | P.CNPUL ---
History of Present Illness Consult date: 03/18/18 Reason for consult: dyspnea, cough, chest pain, COPD, lung mass Chief complaint: Acute onset of sob along with cough started on the day of admission History of present illness: 82-year-old female well-known to me patient has a history of end-stage lung disease and severe COPD emphysema patient has a long-standing history of smoking and nicotine use she is on supplemental oxygen R chronic hypoxic respirator failure, patient has been found to have a left-sided lung mass she has declined further workup and evaluation and refused to treatment in fact in the past she has declined follow-up computed tomography scan evaluation, patient did have a biopsy of that mass which was nondiagnostic however over the period time and has noted to be slowly enlarging in size suggestive of likely neoplastic process, patient presented emergency department with increasing shortness of breath yesterday afternoon symptoms started sometime later part of the morning because of tightness in chest and breathing difficulty and dry nonproductive cough came into the hospital and has been admitted into the hospital I was asked to evaluate this patient further, on specific questioning patient denies any chest pain or radiation of pain denies any hemoptysis does have chronic shortness of breath denies any bowel or bladder dysfunction, patient has been taking her medication at home along with breathing treatments 3 or 4 times a day and supplemental oxygen Review of Systems All systems: negative Past Medical History Past Medical History: Atrial Flutter, Asthma, Chest Pain / Angina, Heart Failure , COPD, GERD/Reflux, Hyperlipidemia, Hypertension, Pneumonia, Respiratory Disorder Additional Past Medical History / Comment(s): Pt recently admitted to [facility] on with acute on chronic COPD, acute on chronic persistent asthma, acute on chronic respiratory failure, probable pneumonia. Other HX: Chronic respiratory failure with O2 at 2L/NC ATC, chronic persistent asthma, bronchitis , known 1.8.cm L upper lung nodule-pt states bx negative, DJD, past L hip fx with surgery, sinus problems, rheumatic fever as a child. History of Any Multi-Drug Resistant Organisms: Acinetobacter (MDRO) Date of last positivie culture/infection: 10/06/16 MDRO Source:: SPUTUM Past Surgical History: Hysterectomy, Joint Replacement, Orthopedic Surgery, Tubal Ligation Additional Past Surgical History / Comment(s): 03/21/17 bronchoscopy with BAL/BX- bening per pt, LEFT HIP hemiarthroplasty, LEFT FOOT surgery, colonoscopy, D&C. Past Anesthesia/Blood Transfusion Reactions: No Reported Reaction Past Psychological History: No Psychological Hx Reported Additional Psychological History / Comment(s): Pt resides with her son. She uses no assistive device. She no longer drives, her daughter/family drives her to appts. Her son cooks and cleans the house. The home is one level without steps. She has home O2 and a nebulizer. Smoking Status: Former smoker Past Alcohol Use History: None Reported Additional Past Alcohol Use History / Comment(s): Pt started smoking in 1964 and quit in 2009 Past Drug Use History: None Reported - Past Family History Father History Unknown: Yes Brother(s) Family Medical History: No Reported History Mother Family Medical History: Rheumatoid Arthritis (RA) Medications and Allergies Home Medications Medication Instructions Recorded Confirmed Type Furosemide [Lasix] 40 mg PO BID 02/20/15 03/17/18 History Lisinopril [Zestril] 2.5 mg PO DAILY 02/20/15 03/17/18 History Omeprazole [PriLOSEC] 20 mg PO DAILY 02/20/15 03/17/18 History Ergocalciferol [Vitamin D2 50,000 unit PO QMONTH 10/30/15 03/17/18 History (DRISDOL)] Aspirin EC [Ecotrin Low Dose] 81 mg PO DAILY 10/05/16 03/17/18 History Budesonide/Formoterol Fumarate 2 puff INHALATION RT-BID 10/05/16 03/17/18 History [Symbicort 160-4.5 Mcg Inhaler] Atorvastatin Calcium [Lipitor] 80 mg PO HS 04/15/17 03/17/18 History Ipratropium-Albuterol Nebulize 3 ml INHALATION RT-QID PRN 10/24/17 03/17/18 History [Duoneb 0.5 mg-3 mg/3 ml Soln] Diltiazem Cd [Cardizem Cd] 120 mg PO DAILY 03/17/18 03/17/18 History Ranitidine HCl 150 mg PO BID 03/17/18 03/17/18 History Allergies Allergy/AdvReac Type Severity Reaction Status Date / Time No Known Allergies Allergy Verified 03/17/18 16:26 Physical Exam Vitals: Vital Signs Temp Pulse Pulse Resp BP BP Pulse Ox 03/18/18 13:19 92 03/18/18 13:02 92 03/18/18 09:18 96 03/18/18 09:05 96 03/18/18 08:00 18 03/18/18 05:50 98.4 F 98 18 104/58 96 03/18/18 00:00 85 03/17/18 21:13 94 03/17/18 20:55 93 03/17/18 20:00 97.6 F 85 20 102/51 96 03/17/18 17:11 98.2 F 03/17/18 16:08 93 16 113/68 95 03/17/18 15:22 96 03/17/18 15:13 96 03/17/18 15:00 18 Intake and Output 03/17/18 03/18/18 03/18/18 22:59 06:59 14:59 Intake Total 500 Balance 500 Intake: Oral 500 Other: Voiding Method Toilet Toilet # Voids 1 1 Weight 82.554 kg - Constitutional General appearance: average body habitus, cooperative, disheveled, mild distress - EENT Eyes: EOMI, PERRLA, normal appearance Ears: bilateral: normal - Neck Carotids: bilateral: upstroke normal, bruit absent Thyroid: bilateral: normal size - Respiratory Respiratory: bilateral: diminished, rhonchi, prolonged expiration, negative: dullness, rales - Cardiovascular Heart sounds: normal: S1, S2 - Integumentary Integumentary: normal turgor - Neurologic Neurologic: CNII-XII intact - Musculoskeletal Musculoskeletal: gait normal, generalized weakness, strength equal bilaterally - Psychiatric Psychiatric: A&O x's 3, appropriate affect, intact judgment & insight Results - Laboratory Findings CBC and BMP: 03/17/18 14:37 03/17/18 14:37 PT/INR, D-dimer PT 9.6 sec (9.0-12.0) 03/17/18 14:37 INR 1.0 (<1.2) 03/17/18 14:37 Abnormal lab findings: Abnormal Labs 03/17/18 03/17/18 03/17/18 14:37 14:37 14:37 WBC 11.2 H Hgb 10.6 L Hct 33.6 L Plt Count 636 H Neutrophils # 8.0 H APTT BUN 24 H POC Glucose (mg/dL) AST 13 L Total Creatine Kinase 27 L Total Protein 5.7 L 03/17/18 03/17/18 03/18/18 14:37 19:53 07:21 WBC Hgb Hct Plt Count Neutrophils # APTT 20.5 L BUN POC Glucose (mg/dL) 208 H 145 H AST Total Creatine Kinase Total Protein 03/18/18 11:41 WBC Hgb Hct Plt Count Neutrophils # APTT BUN POC Glucose (mg/dL) 145 H AST Total Creatine Kinase Total Protein - Diagnostic Findings Chest x-ray: report reviewed, image reviewed (finding consistent with severe COPD and left upper lobe lung mass noted approximately 4.9 cm in size, continue to grow slowly compared to prior x-rays) Assessment and Plan Assessment: acute COPD exacerbation Acute on chronic hypoxic respirator failure Left upper lobe lung mass likely neoplastic atypical chest pain likely related to advanced COPD and breathing difficulty Plan: bronchodilators Continuation of home medications IV steroids DVT peptic ulcer disease prophylaxis Monitor off of antibiotics for now Further recommendations pending plan of care as per clinical response of the patient Time with Patient: Greater than 30
[2018-03-18 17:05] LABS: Glucose,Whole Blood 182 mg/dL (75-99)
[2018-03-18 20:17] LABS: Glucose,Whole Blood 155 mg/dL (75-99)
--- NOTE | 2018-03-18 21:39 | PN ---
PROGRESS NOTE DATE OF SERVICE: 03/18/18 CHIEF COMPLAINT: Exacerbation of COPD and carcinoma of the left lung. HISTORY OF PRESENT ILLNESS: This lady's breathing is not improved at all. She has not had a fever. PHYSICAL EXAM: Breath sounds are poor. scattered about and inspiratory and expiratory wheezing. Cardiac exam demonstrates tachycardia. IMPRESSION: 1. Exacerbation of chronic obstructive pulmonary disease. 2. Carcinoma of the left lung. PLAN: No change in program. MMODL / IJN: [id number] /
[2018-03-19 07:00] LABS: Glucose,Whole Blood 141 mg/dL (75-99)
[2018-03-19] MEDS: IPRATROPIUM-ALBUTEROL 3 ML NEB INHALATION SCH ×4 (07:31→19:47)
[2018-03-19] MEDS: SYMBICORT 160-4.5 MCG INHALER INHALATION SCH ×2 (07:31→19:47)
[2018-03-19] MEDS: INSULIN ASPART 100 UNIT/ML 1 ML 10 ML VIAL SQ SCH ×4 (07:51→21:18)
[2018-03-19] MEDS: DILTIAZEM CD 120 MG CAP.ER.24H PO SCH (07:52)
[2018-03-19] MEDS: FAMOTIDINE 20 MG TAB PO SCH ×2 (07:52→21:18)
[2018-03-19] MEDS: FUROSEMIDE 40 MG TAB PO SCH ×2 (07:52→16:14)
[2018-03-19] MEDS: methylPREDNISolone SOD SUCCI 40 MG/ML 1 ML VIAL IV SCH (07:52)
[2018-03-19] MEDS: LISINOPRIL 2.5 MG TAB PO SCH (07:52)
[2018-03-19] MEDS: ASPIRIN 81 MG PO SCH (07:52)
[2018-03-19] MEDS: PANTOPRAZOLE 40 MG TABLET PO SCH (07:52)
--- NOTE | 2018-03-19 10:18 | P.PN ---
Subjective Progress Note Date: 03/19/18 Principal diagnosis: Acute COPD exacerbation, tracheobronchitis, left upper lobe lung mass likely primary lung neoplasm, hypertension hypertensive cardiovascular disease, paroxysmal supraventricular tachycardia, chronic diastolic heart failure, hypertension hypertensive cardiovascular disease, dyslipidemia 03/19/2018, patient seen eval reexamined during the rounds still have issues associated significant degree of shortness of breath and wheezing especially on activity and exertion patient had the frequent nocturnal awakening last night with the episodes of coughing and wheezing required extra breathing treatments with some relief this morning, I have discussed with the patient about left- sided lung mass she continued to decline aggressive intervention like biopsy and radiation therapy or chemotherapy, labs and medications reviewed radiographic study on arrival was reviewed as well 82-year-old female well-known to me patient has a history of end-stage lung disease and severe COPD emphysema patient has a long-standing history of smoking and nicotine use she is on supplemental oxygen R chronic hypoxic respirator failure, patient has been found to have a left-sided lung mass she has declined further workup and evaluation and refused to treatment in fact in the past she has declined follow-up computed tomography scan evaluation, patient did have a biopsy of that mass which was nondiagnostic however over the period time and has noted to be slowly enlarging in size suggestive of likely neoplastic process, patient presented emergency department with increasing shortness of breath yesterday afternoon symptoms started sometime later part of the morning because of tightness in chest and breathing difficulty and dry nonproductive cough came into the hospital and has been admitted into the hospital I was asked to evaluate this patient further, on specific questioning patient denies any chest pain or radiation of pain denies any hemoptysis does have chronic shortness of breath denies any bowel or bladder dysfunction, patient has been taking her medication at home along with breathing treatments 3 or 4 times a day and supplemental oxygen Objective - Vital Signs Vital signs: Vital Signs Temp 98.0 F 03/19/18 05:36 Pulse 92 03/19/18 07:41 Resp 16 03/19/18 05:36 BP 102/56 03/19/18 05:36 Pulse Ox 95 03/19/18 05:36 Intake & Output 03/18/18 03/19/18 03/19/18 18:59 06:59 18:59 Intake Total 500 0 Balance 500 0 Weight 77.5 kg Intake: Oral 500 0 Other: Voiding Method Toilet Toilet # Voids 2 - Exam - Constitutional General appearance: average body habitus, cooperative, disheveled, mild distress - EENT Eyes: EOMI, PERRLA, normal appearance Ears: bilateral: normal - Neck Carotids: bilateral: upstroke normal, bruit absent Thyroid: bilateral: normal size - Respiratory Respiratory: bilateral: diminished, coarse bilateral rhonchi, prolonged expiration, negative: dullness, rales - Cardiovascular Heart sounds: normal: S1, S2 - Integumentary Integumentary: normal turgor - Neurologic Neurologic: CNII-XII intact - Musculoskeletal Musculoskeletal: gait normal, generalized weakness, strength equal bilaterally - Psychiatric Psychiatric: A&O x's 3, appropriate affect, intact judgment & insight - Labs CBC & Chem 7: 03/17/18 14:37 03/17/18 14:37 Labs: Abnormal Lab Results - Last 24 Hours (Table) 03/18/18 03/18/18 03/18/18 Range/Units 11:41 17:04 20:16 POC Glucose (mg/dL) 145 H 182 H 155 H (75-99) mg/dL 03/19/18 Range/Units 06:56 POC Glucose (mg/dL) 141 H (75-99) mg/dL Assessment and Plan Assessment: acute COPD exacerbation Acute on chronic hypoxic respirator failure Left upper lobe lung mass likely neoplastic Tracheobronchitis atypical chest pain likely related to advanced COPD and breathing difficulty could also be contributed from left-sided slow progressive enlarging lung mass Plan: bronchodilators Continuation of home medications Oral antibiotics doxycycline 100 mg by mouth 2 times a day IV steroids, we'll go up on dose DVT peptic ulcer disease prophylaxis Monitor off of antibiotics for now Further recommendations pending plan of care as per clinical response of the patient Time with Patient: Greater than 30
[2018-03-19 11:02] LABS: Glucose,Whole Blood 107 mg/dL (75-99)
[2018-03-19] MEDS: methylPREDNISolone SOD SUCCI 125 MG/2 ML VIAL IV SCH ×3 (12:46→23:46)
[2018-03-19 17:12] LABS: Glucose,Whole Blood 144 mg/dL (75-99)
[2018-03-19 20:19] LABS: Glucose,Whole Blood 246 mg/dL (75-99)
--- NOTE | 2018-03-19 20:31 | PN ---
PROGRESS NOTE CHIEF COMPLAINT: Exacerbation of COPD. HISTORY OF PRESENT ILLNESS: This lady is not doing well. She had a difficult night and she is actually a little more short of breath today. REVIEW OF SYSTEMS: She has had no fever, chills, chest pain, etc. PHYSICAL EXAM: Breath sounds are extremely poor and she has fine rales, crackling rales heard throughout and she has tight expiratory wheezing. Cardiac demonstrates tachycardia. IMPRESSION: Exacerbation of chronic obstructive pulmonary disease. PLAN: No change in program and continue with inpatient care. MMODL / IJN: [id number] /
[2018-03-19] MEDS: DOXYCYCLINE 50 MG CAP PO SCH (21:19)
[2018-03-20] MEDS: methylPREDNISolone SOD SUCCI 125 MG/2 ML VIAL IV SCH ×4 (05:59→22:59)
[2018-03-20] MEDS: SYMBICORT 160-4.5 MCG INHALER INHALATION SCH ×2 (07:09→19:50)
[2018-03-20] MEDS: IPRATROPIUM-ALBUTEROL 3 ML NEB INHALATION SCH ×4 (07:09→19:50)
[2018-03-20 07:14] LABS: Glucose,Whole Blood 143 mg/dL (75-99)
[2018-03-20] MEDS: INSULIN ASPART 100 UNIT/ML 1 ML 10 ML VIAL SQ SCH ×4 (08:30→20:52)
[2018-03-20] MEDS: FAMOTIDINE 20 MG TAB PO SCH ×2 (08:32→20:53)
[2018-03-20] MEDS: DILTIAZEM CD 120 MG CAP.ER.24H PO SCH (08:32)
[2018-03-20] MEDS: DOXYCYCLINE 50 MG CAP PO SCH ×2 (08:32→20:53)
[2018-03-20] MEDS: LISINOPRIL 2.5 MG TAB PO SCH (08:32)
[2018-03-20] MEDS: FUROSEMIDE 40 MG TAB PO SCH ×2 (08:32→14:08)
[2018-03-20] MEDS: ASPIRIN 81 MG PO SCH (08:32)
[2018-03-20] MEDS: PANTOPRAZOLE 40 MG TABLET PO SCH (08:32)
[2018-03-20 11:01] LABS: Glucose,Whole Blood 123 mg/dL (75-99)
--- NOTE | 2018-03-20 13:56 | P.PN ---
Subjective Progress Note Date: 03/20/18 Principal diagnosis: Acute COPD exacerbation, tracheobronchitis, left upper lobe lung mass likely primary lung neoplasm, hypertension hypertensive cardiovascular disease, paroxysmal supraventricular tachycardia, chronic diastolic heart failure, hypertension hypertensive cardiovascular disease, dyslipidemia 03/20/2018, patient seen eval examined during the rounds clinically patient has been doing well and higher dose of IV steroids with less shortness of breath and wheezing and cough, respiratory status remains marginal she is short of breath on activity and exertion, care plan discussed with the patient at length , at the time of discharge patient can be switched to oral tapering steroids for now we'll keep her on IV Solu-Medrol 60 mg every 6 as she is tolerating very well with significant improvement in respiratory status 03/19/2018, patient seen evмарина reexamined during the rounds still have issues associated significant degree of shortness of breath and wheezing especially on activity and exertion patient had the frequent nocturnal awakening last night with the episodes of coughing and wheezing required extra breathing treatments with some relief this morning, I have discussed with the patient about left- sided lung mass she continued to decline aggressive intervention like biopsy and radiation therapy or chemotherapy, labs and medications reviewed radiographic study on arrival was reviewed as well 82-year-old female well-known to me patient has a history of end-stage lung disease and severe COPD emphysema patient has a long-standing history of smoking and nicotine use she is on supplemental oxygen R chronic hypoxic respirator failure, patient has been found to have a left-sided lung mass she has declined further workup and evaluation and refused to treatment in fact in the past she has declined follow-up computed tomography scan evaluation, patient did have a biopsy of that mass which was nondiagnostic however over the period time and has noted to be slowly enlarging in size suggestive of likely neoplastic process, patient presented emergency department with increasing shortness of breath yesterday afternoon symptoms started sometime later part of the morning because of tightness in chest and breathing difficulty and dry nonproductive cough came into the hospital and has been admitted into the hospital I was asked to evaluate this patient further, on specific questioning patient denies any chest pain or radiation of pain denies any hemoptysis does have chronic shortness of breath denies any bowel or bladder dysfunction, patient has been taking her medication at home along with breathing treatments 3 or 4 times a day and supplemental oxygen Objective - Vital Signs Vital signs: Vital Signs Temp 98.2 F 03/20/18 06:45 Pulse 93 03/20/18 11:02 Resp 16 03/20/18 11:02 BP 109/61 03/20/18 06:45 Pulse Ox 95 03/20/18 10:55 Intake & Output 03/19/18 03/20/18 03/20/18 18:59 06:59 18:59 Intake Total 1000 Balance 1000 Weight 78.5 kg Intake: Oral 1000 Other: Voiding Method Toilet Toilet # Voids 2 - Exam - Constitutional General appearance: average body habitus, cooperative, disheveled, mild distress - EENT Eyes: EOMI, PERRLA, normal appearance Ears: bilateral: normal - Neck Carotids: bilateral: upstroke normal, bruit absent Thyroid: bilateral: normal size - Respiratory Respiratory: bilateral: diminished, coarse bilateral rhonchi, prolonged expiration, negative: dullness, rales - Cardiovascular Heart sounds: normal: S1, S2 - Integumentary Integumentary: normal turgor - Neurologic Neurologic: CNII-XII intact - Musculoskeletal Musculoskeletal: gait normal, generalized weakness, strength equal bilaterally - Psychiatric Psychiatric: A&O x's 3, appropriate affect, intact judgment & insight - Labs CBC & Chem 7: 03/17/18 14:37 03/17/18 14:37 Labs: Abnormal Lab Results - Last 24 Hours (Table) 03/19/18 03/19/18 03/20/18 Range/Units 16:58 20:18 07:11 POC Glucose (mg/dL) 144 H 246 H 143 H (75-99) mg/dL 03/20/18 Range/Units 10:57 POC Glucose (mg/dL) 123 H (75-99) mg/dL Assessment and Plan Assessment: acute COPD exacerbation Acute on chronic hypoxic respirator failure Left upper lobe lung mass likely neoplastic Tracheobronchitis atypical chest pain likely related to advanced COPD and breathing difficulty could also be contributed from left-sided slow progressive enlarging lung mass Plan: bronchodilators Continuation of home medications Oral antibiotics doxycycline 100 mg by mouth 2 times a day IV steroids, DVT peptic ulcer disease prophylaxis Monitor off of antibiotics for now Further recommendations pending plan of care as per clinical response of the patient Time with Patient: Greater than 30
[2018-03-20 17:00] LABS: Glucose,Whole Blood 147 mg/dL (75-99)
--- NOTE | 2018-03-20 17:53 | PN ---
PROGRESS NOTE CHIEF COMPLAINT: Exacerbation of COPD. HISTORY OF PRESENT ILLNESS: This lady is doing a bit better, not quite well enough to go home. PHYSICAL EXAM: She is afebrile. Breath sounds are diminished and there is still crackles throughout with expiratory wheezing. Cardiac exam is normal. IMPRESSION: 1. Exacerbation of chronic obstructive pulmonary disease. 2. CT of the lung. PLAN: Probably home tomorrow. MMODL / IJN: [id number] /
[2018-03-20 20:25] LABS: Glucose,Whole Blood 193 mg/dL (75-99)
[2018-03-21] MEDS: methylPREDNISolone SOD SUCCI 125 MG/2 ML VIAL IV SCH ×2 (05:04→12:12)
[2018-03-21 05:57] VITALS: TEMP 98.3
[2018-03-21] MEDS: IPRATROPIUM-ALBUTEROL 3 ML NEB INHALATION SCH ×2 (07:10→11:04)
[2018-03-21] MEDS: SYMBICORT 160-4.5 MCG INHALER INHALATION SCH (07:10)
[2018-03-21 07:12] VITALS: RESP 16
[2018-03-21 07:13] LABS: Glucose,Whole Blood 156 mg/dL (75-99)
[2018-03-21 07:56] VITALS: BP 123/67
[2018-03-21] MEDS: LISINOPRIL 2.5 MG TAB PO SCH (07:57)
[2018-03-21] MEDS: FAMOTIDINE 20 MG TAB PO SCH (07:57)
[2018-03-21] MEDS: DILTIAZEM CD 120 MG CAP.ER.24H PO SCH (07:57)
[2018-03-21] MEDS: ASPIRIN 81 MG PO SCH (07:57)
[2018-03-21] MEDS: FUROSEMIDE 40 MG TAB PO SCH (07:57)
[2018-03-21] MEDS: DOXYCYCLINE 50 MG CAP PO SCH (07:57)
[2018-03-21] MEDS: PANTOPRAZOLE 40 MG TABLET PO SCH (07:57)
[2018-03-21] MEDS: INSULIN ASPART 100 UNIT/ML 1 ML 10 ML VIAL SQ SCH ×2 (08:03→14:54)
--- NOTE | 2018-03-21 08:40 | P.PN ---
Subjective Progress Note Date: 03/21/18 Principal diagnosis: Acute COPD exacerbation, tracheobronchitis, left upper lobe lung mass likely primary lung neoplasm, hypertension hypertensive cardiovascular disease, paroxysmal supraventricular tachycardia, chronic diastolic heart failure, hypertension hypertensive cardiovascular disease, dyslipidemia 03/21/2018, patient seen eval examined during the rounds clinically overall remains stable still short of breath on activity and exertion does have intermittent wheezing however significantly improved with high-dose IV steroids , respirations not labored hemodynamically stable labs reviewed radiographic studies reviewed care plan discussed with the patient 03/20/2018, patient seen eval examined during the rounds clinically patient has been doing well and higher dose of IV steroids with less shortness of breath and wheezing and cough, respiratory status remains marginal she is short of breath on activity and exertion, care plan discussed with the patient at length , at the time of discharge patient can be switched to oral tapering steroids for now we'll keep her on IV Solu-Medrol 60 mg every 6 as she is tolerating very well with significant improvement in respiratory status 03/19/2018, patient seen eval reexamined during the rounds still have issues associated significant degree of shortness of breath and wheezing especially on activity and exertion patient had the frequent nocturnal awakening last night with the episodes of coughing and wheezing required extra breathing treatments with some relief this morning, I have discussed with the patient about left- sided lung mass she continued to decline aggressive intervention like biopsy and radiation therapy or chemotherapy, labs and medications reviewed radiographic study on arrival was reviewed as well 82-year-old female well-known to me patient has a history of end-stage lung disease and severe COPD emphysema patient has a long-standing history of smoking and nicotine use she is on supplemental oxygen R chronic hypoxic respirator failure, patient has been found to have a left-sided lung mass she has declined further workup and evaluation and refused to treatment in fact in the past she has declined follow-up computed tomography scan evaluation, patient did have a biopsy of that mass which was nondiagnostic however over the period time and has noted to be slowly enlarging in size suggestive of likely neoplastic process, patient presented emergency department with increasing shortness of breath yesterday afternoon symptoms started sometime later part of the morning because of tightness in chest and breathing difficulty and dry nonproductive cough came into the hospital and has been admitted into the hospital I was asked to evaluate this patient further, on specific questioning patient denies any chest pain or radiation of pain denies any hemoptysis does have chronic shortness of breath denies any bowel or bladder dysfunction, patient has been taking her medication at home along with breathing treatments 3 or 4 times a day and supplemental oxygen Objective - Vital Signs Vital signs: Vital Signs Temp 98.3 F 03/21/18 05:00 Pulse 87 03/21/18 07:19 Resp 16 03/21/18 07:19 BP 123/67 03/21/18 07:56 Pulse Ox 95 03/21/18 07:11 Intake & Output 03/20/18 03/21/18 03/21/18 18:59 06:59 18:59 Intake Total 605 Balance 605 Weight 78.5 kg 78.5 kg Intake: Oral 605 Other: Voiding Method Toilet Toilet # Voids 3 2 - Exam - Constitutional General appearance: average body habitus, cooperative, disheveled, mild distress - EENT Eyes: EOMI, PERRLA, normal appearance Ears: bilateral: normal - Neck Carotids: bilateral: upstroke normal, bruit absent Thyroid: bilateral: normal size - Respiratory Respiratory: bilateral: diminished, coarse bilateral rhonchi, prolonged expiration, negative: dullness, rales - Cardiovascular Heart sounds: normal: S1, S2 - Integumentary Integumentary: normal turgor - Neurologic Neurologic: CNII-XII intact - Musculoskeletal Musculoskeletal: gait normal, generalized weakness, strength equal bilaterally - Psychiatric Psychiatric: A&O x's 3, appropriate affect, intact judgment & insight - Labs CBC & Chem 7: 03/17/18 14:37 03/17/18 14:37 Labs: Abnormal Lab Results - Last 24 Hours (Table) 03/20/18 03/20/18 03/20/18 Range/Units 10:57 16:59 20:16 POC Glucose (mg/dL) 123 H 147 H 193 H (75-99) mg/dL 03/21/18 Range/Units 07:11 POC Glucose (mg/dL) 156 H (75-99) mg/dL Assessment and Plan Assessment: acute COPD exacerbation Acute on chronic hypoxic respirator failure Left upper lobe lung mass likely neoplastic Tracheobronchitis atypical chest pain likely related to advanced COPD and breathing difficulty could also be contributed from left-sided slow progressive enlarging lung mass Plan: bronchodilators Continuation of home medications Oral antibiotics doxycycline 100 mg by mouth 2 times a day for total of 5-7 days IV steroids, and be switched to Medrol Dosepak or tapering prednisone at the time of discharge DVT peptic ulcer disease prophylaxis Further recommendations pending plan of care as per clinical response of the patient From pulmonary standpoint patient can be discharged home to follow up on outpatient basis Time with Patient: Greater than 30
[2018-03-21 11:14] VITALS: PULSE 86
[2018-03-21 11:51] LABS: Glucose,Whole Blood 140 mg/dL (75-99)
--- NOTE | 2018-03-21 17:27 | DS ---
DISCHARGE SUMMARY CHIEF COMPLAINT: Exacerbation of COPD. HISTORY OF PRESENT ILLNESS AND PHYSICAL EXAMINATION: Details of this lady's history and physical can be found in the initial workup. LABORATORY STUDIES: While she was in the hospital she had laboratory studies, details of which can be found in the laboratory section of her chart. COURSE IN THE HOSPITAL: After admission she was placed on bedrest and started on intravenous fluids and inhaled and IV steroids. [employer] were employed. She slowly improved, and on the morning of March 21 she was anxious to be discharged and doing very well. Her chest was quite clear. She will go home on her usual activity, diet and medication and follow up in a day or two. FINAL DIAGNOSES: 1. Acute respiratory failure. 2. Chronic obstructive pulmonary disease. 3. Carcinoma of the lung. OPERATIONS: None. CONSULTATIONS: Pulmonology. She is improved. MMODL / IJN: [id number] /
--- NOTE | 2018-04-02 07:34 | CDI ---
Documentation Clarification Form Date: 04/02/2018 12:00:00 AM From: Diana Kaba Phone: If you have question, contact Rona Mahoney Installation Technician at F 8:30 am to 6pm Admit Date: 03/17/2018 4:20:00 PM Patient Name: Sandrine Abreu Visit Number: [id number] Discharge Date: 03/21/18 ATTENTION: The Clinical Documentation Specialists (CDI) and [facility] Coding Staff appreciate your assistance in clarifying documentation. Please respond to the clarification below the line at the bottom and electronically sign. The CDI & [facility] Coding staff will review the response and follow-up if needed. Please note: Queries are made part of the Legal Health Record. If you have any questions, please contact the author of this message via ITS. Dr. Og Green Patient is noted to have a diagnosis of acute on chronic persistent asthma. Further clarification of the severity of the persistent asthma is needed for proper reporting purposes. Please clarify if the persistent asthma is: Mild Moderate Severe Other (please specify) Unknown MTDD
--- NOTE | 2018-04-03 10:54 | MISC ---
MISCELLANOUS REPORT Her asthma is severe. MMODL / IJN: [id number] /
== END 2018-03-21 14:50 | disposition home or self-care (01) | DRG 190 ==
LOC: EC 13:37 → 5MS5E 16:20
PROVIDERS: ADMIT Family Medicine; ATTEND Family Medicine
DX: J43.9 Emphysema, unspecified (principal); J96.21 Acute and chronic respiratory failure with hypoxia; I47.1 Supraventricular tachycardia; I50.32 Chronic diastolic (congestive) heart failure; I48.92 Unspecified atrial flutter; J45.50 Severe persistent asthma, uncomplicated; M19.90 Unspecified osteoarthritis, unspecified site; E78.5 Hyperlipidemia, unspecified; I11.0 Hypertensive heart disease with heart failure; K21.9 Gastro-esophageal reflux disease without esophagitis; D49.1 Neoplasm of unspecified behavior of respiratory system; Z86.19 Personal history of other infectious and parasitic diseases; Z90.710 Acquired absence of both cervix and uterus; Z98.51 Tubal ligation status; Z99.81 Dependence on supplemental oxygen; Z79.899 Other long term (current) drug therapy; Z79.82 Long term (current) use of aspirin; Z79.51 Long term (current) use of inhaled steroids; Z87.891 Personal history of nicotine dependence
CPT/HCPCS: 36415; 71046; 80053; 82550; 82553; 83735; 83880; 84484; 85025; 85610; 85730; 93005; 94640; 94760; 96374; 99285

== ENCOUNTER 2018-06-28 13:56 | Inpatient (IN) | payer MEDICARE, OTHER ==
[2018-06-28] MEDS ORDERED: SODIUM CHLORIDE 0.9% 500 ML IV STA (14:30)
[2018-06-28] MEDS ORDERED: ALBUTEROL NEBULIZED 2.5 MG/3 ML INHALATION STA (14:30)
[2018-06-28] MEDS ORDERED: methylPREDNISolone SOD SUCCI 125 MG/2 ML VIAL IV STA (14:30)
--- NOTE | 2018-06-28 14:33 | ED ---
General Adult HPI - General Chief complaint: Shortness of Breath Stated complaint: PARRISH Time Seen by Provider: 06/28/18 14:00 Source: patient, RN notes reviewed Mode of arrival: wheelchair Limitations: no limitations - History of Present Illness Initial comments: This is an 82-year-old female presents emergency Department with a past medical history for COPD. Patient states she has had difficulty breathing starting last evening is gotten worse today to the point where any kind of exertion makes her extremely short of breath. Patient denies any palpitations chest pain. Patient denies any recent fever chills. Patient states she does have a cough but no sputum production. Patient denies headache patient denies numbness weakness. Patient denies lightheadedness or dizziness. Patient denies any abdominal pain patient denies nausea vomiting or diarrhea. Patient states she has used a treatment at home but it only helped for very short period time. - Related Data Home Medications Medication Instructions Recorded Confirmed Furosemide [Lasix] 40 mg PO BID 02/20/15 06/28/18 Lisinopril [Zestril] 2.5 mg PO DAILY 02/20/15 06/28/18 Omeprazole [PriLOSEC] 20 mg PO DAILY 02/20/15 06/28/18 Ergocalciferol [Vitamin D2 50,000 unit PO Q28D 10/30/15 06/28/18 (DRISDOL)] Aspirin EC [Ecotrin Low Dose] 81 mg PO DAILY 10/05/16 06/28/18 Budesonide/Formoterol Fumarate 2 puff INHALATION RT-BID 10/05/16 06/28/18 [Symbicort 160-4.5 Mcg Inhaler] Atorvastatin Calcium [Lipitor] 80 mg PO HS 04/15/17 06/28/18 Ipratropium-Albuterol Nebulize 3 ml INHALATION RT-QID PRN 10/24/17 06/28/18 [Duoneb 0.5 mg-3 mg/3 ml Soln] Diltiazem Cd [Cardizem CD] 120 mg PO DAILY 03/17/18 06/28/18 Albuterol Inhaler [Ventolin Hfa 2 puff INHALATION RT-Q6H PRN 06/28/18 06/28/18 Inhaler] Allergies Allergy/AdvReac Type Severity Reaction Status Date / Time No Known Allergies Allergy Verified 06/28/18 14:29 Review of Systems ROS Statement: Those systems with pertinent positive or pertinent negative responses have been documented in the HPI. ROS Other: All systems not noted in ROS Statement are negative. Past Medical History Past Medical History: Atrial Flutter, Asthma, Chest Pain / Angina, Heart Failure , COPD, GERD/Reflux, Hyperlipidemia, Hypertension, Pneumonia, Respiratory Disorder Additional Past Medical History / Comment(s): Pt recently admitted to [facility] on with acute on chronic COPD, acute on chronic persistent asthma, acute on chronic respiratory failure, probable pneumonia. Other HX: Chronic respiratory failure with O2 at 2L/NC ATC, chronic persistent asthma, bronchitis , known 1.8.cm L upper lung nodule-pt states bx negative, DJD, past L hip fx with surgery, sinus problems, rheumatic fever as a child. History of Any Multi-Drug Resistant Organisms: Acinetobacter (MDRO) Date of last positivie culture/infection: 10/06/16 MDRO Source:: SPUTUM Past Surgical History: Hysterectomy, Joint Replacement, Orthopedic Surgery, Tubal Ligation Additional Past Surgical History / Comment(s): 03/21/17 bronchoscopy with BAL/BX- bening per pt, LEFT HIP hemiarthroplasty, LEFT FOOT surgery, colonoscopy, D&C. Past Anesthesia/Blood Transfusion Reactions: No Reported Reaction Past Psychological History: No Psychological Hx Reported Smoking Status: Former smoker Past Alcohol Use History: None Reported Past Drug Use History: None Reported - Past Family History Father History Unknown: Yes Brother(s) Family Medical History: No Reported History Mother Family Medical History: Rheumatoid Arthritis (RA) General Exam - General Exam Comments Initial Comments: GENERAL: Patient is well-developed and well-nourished. Patient is nontoxic and well- hydrated and is in mild distress. ENT: Neck is soft and supple. No significant lymphadenopathy is noted. Oropharynx is clear. Moist mucous membranes. Neck has full range of motion without eliciting any pain. EYES: The sclera were anicteric and conjunctiva were pink and moist. Extraocular movements were intact and pupils were equal round and reactive to light. Eyelids were unremarkable. PULMONARY: Patient has expiratory wheezing diffusely CARDIOVASCULAR: There is a regular rate and rhythm without any murmurs gallops or rubs. ABDOMEN: Soft and nontender with normal bowel sounds. No palpable organomegaly was noted. There is no palpable pulsatile mass. SKIN: Skin is clear with no lesions or rashes and otherwise unremarkable. NEUROLOGIC: Patient is alert and oriented x3. Cranial nerves II through XII are grossly intact. Motor and sensory are also intact. Normal speech, volume and content. Symmetrical smile. MUSCULOSKELETAL: Normal extremities with adequate strength and full range of motion. LYMPHATICS: No significant lymphadenopathy is noted PSYCHIATRIC: Normal psychiatric evaluation. Normal interpersonal interactions appears functionally intact in deals appropriately with others. No signs of depression. No signs of anxiety. Limitations: no limitations Course Vital Signs 06/28/18 06/28/18 06/28/18 14:02 14:45 14:55 Temperature 98 F Pulse Rate 109 H 95 92 Respiratory 25 H 20 Rate Blood Pressure 90/47 107/53 O2 Sat by Pulse 94 L 99 Oximetry 06/28/18 15:26 Temperature Pulse Rate 96 Respiratory Rate Blood Pressure O2 Sat by Pulse Oximetry Medical Decision Making - Medical Decision Making EKG shows normal sinus rhythm at 90 bpm GA interval is on a 56 QRS is under 24 QT interval 360 QTC is 472. Patient's EKG shows no ST segment elevation or depression or T wave abnormalities are noted. Chest x-ray shows a mass in the left upper lobe which is getting larger in size compared to an old x-ray patient is aware. I gave the patient 2 breathing treatments in the emergency department as well as steroids. I spoke with Dr. Zuniga in. Dr. Zuniga and would like to admit the patient I wrote admitting orders. I continued treatments upstairs as well as steroids. - Lab Data Result diagrams: 06/28/18 14:32 06/28/18 14:32 Lab Results 06/28/18 06/28/18 06/28/18 Range/Units 14:32 14:32 14:32 WBC 10.5 (3.8-10.6) k/uL RBC 3.81 (3.80-5.40) m/uL Hgb 9.4 L (11.4-16.0) gm/dL Hct 29.6 L (34.0-46.0) % MCV 77.7 L (80.0-100.0) fL MCH 24.7 L (25.0-35.0) pg MCHC 31.7 (31.0-37.0) g/dL RDW 16.1 H (11.5-15.5) % Plt Count 529 H (150-450) k/uL Neutrophils % 80 % Lymphocytes % 8 % Monocytes % 8 % Eosinophils % 2 % Basophils % 0 % Neutrophils # 8.4 H (1.3-7.7) k/uL Lymphocytes # 0.8 L (1.0-4.8) k/uL Monocytes # 0.9 (0-1.0) k/uL Eosinophils # 0.2 (0-0.7) k/uL Basophils # 0.0 (0-0.2) k/uL Hypochromasia Moderate Anisocytosis Slight Microcytosis Slight PT (9.0-12.0) sec INR (<1.2) APTT (22.0-30.0) sec Sodium 135 L (137-145) mmol/L Potassium 4.3 (3.5-5.1) mmol/L Chloride 103 (98-107) mmol/L Carbon Dioxide 24 (22-30) mmol/L Anion Gap 8 mmol/L BUN 18 H (7-17) mg/dL Creatinine 1.15 H (0.52-1.04) mg/dL Est GFR (CKD-EPI)AfAm 52 (>60 ml/min/1.73 sqM) Est GFR (CKD-EPI)NonAf 45 (>60 ml/min/1.73 sqM) Glucose 103 H (74-99) mg/dL Calcium 9.0 (8.4-10.2) mg/dL Magnesium 1.6 (1.6-2.3) mg/dL Total Bilirubin 0.4 (0.2-1.3) mg/dL AST 12 L (14-36) U/L ALT 21 (9-52) U/L Alkaline Phosphatase 80 (38-126) U/L Total Creatine Kinase 25 L (30-135) U/L CK-MB (CK-2) 0.3 (0.0-2.4) ng/mL CK-MB (CK-2) Rel Index 1.2 Troponin I <0.012 (0.000-0.034) ng/mL Total Protein 5.7 L (6.3-8.2) g/dL Albumin 3.3 L (3.5-5.0) g/dL 06/28/18 Range/Units 14:32 WBC (3.8-10.6) k/uL RBC (3.80-5.40) m/uL Hgb (11.4-16.0) gm/dL Hct (34.0-46.0) % MCV (80.0-100.0) fL MCH (25.0-35.0) pg MCHC (31.0-37.0) g/dL RDW (11.5-15.5) % Plt Count (150-450) k/uL Neutrophils % % Lymphocytes % % Monocytes % % Eosinophils % % Basophils % % Neutrophils # (1.3-7.7) k/uL Lymphocytes # (1.0-4.8) k/uL Monocytes # (0-1.0) k/uL Eosinophils # (0-0.7) k/uL Basophils # (0-0.2) k/uL Hypochromasia Anisocytosis Microcytosis PT 9.5 (9.0-12.0) sec INR 1.0 (<1.2) APTT 22.8 (22.0-30.0) sec Sodium (137-145) mmol/L Potassium (3.5-5.1) mmol/L Chloride (98-107) mmol/L Carbon Dioxide (22-30) mmol/L Anion Gap mmol/L BUN (7-17) mg/dL Creatinine (0.52-1.04) mg/dL Est GFR (CKD-EPI)AfAm (>60 ml/min/1.73 sqM) Est GFR (CKD-EPI)NonAf (>60 ml/min/1.73 sqM) Glucose (74-99) mg/dL Calcium (8.4-10.2) mg/dL Magnesium (1.6-2.3) mg/dL Total Bilirubin (0.2-1.3) mg/dL AST (14-36) U/L ALT (9-52) U/L Alkaline Phosphatase (38-126) U/L Total Creatine Kinase (30-135) U/L CK-MB (CK-2) (0.0-2.4) ng/mL CK-MB (CK-2) Rel Index Troponin I (0.000-0.034) ng/mL Total Protein (6.3-8.2) g/dL Albumin (3.5-5.0) g/dL Disposition Clinical Impression: Lung mass, COPD exacerbation Disposition: ADMITTED IP TO THIS HOSP Referrals: Og Green MD [Primary Care Provider] - 1-2 days Time of Disposition: 16:15
[2018-06-28 14:59] LABS: Albumin 3.3 g/dL (3.5-5.0); Magnesium 1.6 mg/dL (1.6-2.3); Potassium 4.3 mmol/L (3.5-5.1); Total Bilirubin 0.4 mg/dL (0.2-1.3); Total Protein 5.7 g/dL (6.3-8.2)
[2018-06-28 15:07] LABS: Partial Thromboplastin Time 22.8 sec (22.0-30.0); Prothrombin Time 9.5 sec (9.0-12.0)
[2018-06-28 15:11] LABS: Anisocytosis Slight; Basophils % (A) 0 %; Eosinophils # (A) 0.2 k/uL (0-0.7); Eosinophils % (A) 2 %; HCT 29.6 % (34.0-46.0); HGB 9.4 gm/dL (11.4-16.0); Hypochromasia Moderate; Lymphocytes # (A) 0.8 k/uL (1.0-4.8); Lymphocytes % (A) 8 %; MCH 24.7 pg (25.0-35.0); MCHC 31.7 g/dL (31.0-37.0); MCV 77.7 fL (80.0-100.0); Mean Platelet Volume 6.7; Microcytosis Slight; Monocytes # (A) 0.9 k/uL (0-1.0); Monocytes % (A) 8 %; Neutrophils # (A) 8.4 k/uL (1.3-7.7); Neutrophils % (A) 80 %; Platelet Count 529 k/uL (150-450); RBC 3.81 m/uL (3.80-5.40); RDW 16.1 % (11.5-15.5); WBC 10.5 k/uL (3.8-10.6)
[2018-06-28 15:14] LABS: Creatine Kinase 25 U/L (30-135)
[2018-06-28 15:27] LABS: Creatine Kinase MB 0.3 ng/mL (0.0-2.4); Troponin I <0.012 ng/mL (0.000-0.034)
--- NOTE | 2018-06-28 16:44 | XR ---
EXAMINATION TYPE: XR chest 2V DATE OF EXAM: 06/28/2018 COMPARISON: 03/17/2018 INDICATION: Difficulty breathing COPD short of breath TECHNIQUE: Frontal and lateral views of the chest are obtained. FINDINGS: The heart size is normal. The pulmonary vasculature is normal. There is a consolidation in the left upper lobe. This is an enlarged density compared to February 2018. Sm all nodular densities along the left diaphragm present previously and appears stable. Remaining porti ons of the lungs appear clear.. IMPRESSION: 1. Left upper lobe consolidation and/or mass. This should be followed to clearing but has been report ed as possible neoplasm.
[2018-06-28 17:24] VITALS: BMI 25.4
[2018-06-28] MEDS: IPRATROPIUM-ALBUTEROL 3 ML NEB INHALATION PRN (21:04)
[2018-06-28] MEDS: methylPREDNISolone SOD SUCCI 125 MG/2 ML VIAL IV SCH (22:31)
[2018-06-29] MEDS: methylPREDNISolone SOD SUCCI 125 MG/2 ML VIAL IV SCH ×4 (05:49→23:40)
[2018-06-29] MEDS: IPRATROPIUM-ALBUTEROL 3 ML NEB INHALATION PRN ×4 (06:02→20:21)
[2018-06-29] MEDS ORDERED: ALBUTEROL INHALER 60 PUFF/8 GM INHALER INHALATION PRN (09:48)
--- NOTE | 2018-06-29 12:49 | HP ---
HISTORY AND PHYSICAL CHIEF COMPLAINT: Difficulty breathing. HISTORY OF PRESENT ILLNESS: This is another admission for this 82-year-old white female with COPD. She also has a left upper lobe lung neoplasm for which she has refused treatment. She started to have more difficulty breathing and came to the emergency room and was admitted. REVIEW OF SYSTEMS: She has had no fever, chills, hemoptysis, nausea, vomiting, diarrhea, etc. Past medical history, family history, personal and social histories are all otherwise unremarkable and noncontributory and unchanged from her previous hospital visits. She does not smoke. PHYSICAL EXAM: Blood pressure is 123/80 with a pulse of 84, respirations of 36 and she is afebrile. In general, she appeared to be well developed, well nourished, no acute distress. Skin color is normal skin is warm and dry. Lymph nodes not enlarged. Breath sounds are diminished due to her emphysema, but there are no rales or rhonchi. Cardiac exam is normal. Abdomen is soft, nontender. Extremities are normal. IMPRESSION: 1. Exacerbation of chronic obstructive pulmonary disease. 2. Left upper lobe lung neoplasm. PLAN: 1. Bed rest. 2. IV fluids. 3. IV steroids. 4. Updrafts. MMODL / IJN: [id number] /
--- NOTE | 2018-06-29 13:28 | PN ---
PROGRESS NOTE CHIEF COMPLAINT: Exacerbation of chronic obstructive pulmonary disease. HISTORY OF PRESENT ILLNESS: This lady is a doing a bit better. Hemoglobin is low at 9.4. PHYSICAL EXAM: Breath sounds are poor throughout. There are occasional rales and rhonchi. Cardiac exam is normal. IMPRESSION: 1. Exacerbation of chronic obstructive pulmonary disease. 2. Carcinoma of the lung. PLAN: Continue on current program. MMODL / RICARDON: [id number] /
[2018-06-29] MEDS: FUROSEMIDE 40 MG TAB PO SCH (15:02)
[2018-06-29] MEDS: SYMBICORT 160-4.5 MCG INHALER INHALATION SCH (20:21)
[2018-06-29 23:44] VITALS: RESP 16
[2018-06-30] MEDS: methylPREDNISolone SOD SUCCI 125 MG/2 ML VIAL IV SCH ×2 (05:44→13:31)
[2018-06-30 07:08] VITALS: BP 130/71; TEMP 98.5
[2018-06-30] MEDS: IPRATROPIUM-ALBUTEROL 3 ML NEB INHALATION PRN ×2 (07:48→11:47)
[2018-06-30] MEDS: SYMBICORT 160-4.5 MCG INHALER INHALATION SCH (07:49)
[2018-06-30] MEDS ORDERED: PANTOPRAZOLE 40 MG TABLET PO SCH (09:00)
[2018-06-30] MEDS ORDERED: LISINOPRIL 2.5 MG TAB PO SCH (09:00)
[2018-06-30] MEDS ORDERED: DILTIAZEM CD 120 MG CAP.ER.24H PO SCH (09:00)
[2018-06-30] MEDS ORDERED: ASPIRIN 81 MG PO SCH (09:00)
[2018-06-30] MEDS: FUROSEMIDE 40 MG TAB PO SCH (09:47)
[2018-06-30 11:55] VITALS: PULSE 84
--- NOTE | 2018-06-30 20:35 | DS ---
DISCHARGE SUMMARY CHIEF COMPLAINT: Difficulty breathing. HISTORY OF PRESENT ILLNESS AND PHYSICAL EXAM: Details of this lady's history and physical can be found in the initial workup. LABORATORY STUDIES: While she was in the hospital she had laboratory studies, details which can be can be found laboratory section of her chart. COURSE IN HOSPITAL: After admission she was placed on bedrest and started on intravenous fluids and IV and inhaled steroids. She is also on updrafts. She cleared very quickly and it was felt she could go home on the and she will go home on usual diet and activity along with Medrol Dosepak. FINAL DIAGNOSES: 1. Exacerbation of chronic obstructive pulmonary disease. 2. Carcinoma of the lung. OPERATIONS: None. CONSULTATIONS: None She is improved. MMODL / IJN: [id number] /
[2018-07-01] MEDS ORDERED: methylPREDNISolone 4 MG TAB TAPER PO SCH (09:00)
--- NOTE | 2018-07-02 11:25 | CDI ---
Last Revision, September 2017 Documentation Clarification Form Date: 07/02/18 From: Loretta Heriberto Rona Mahoney, Ladle Operator Hours-8:30 am & 5 pm Nichole Admit Date: 06/28/2018 4:15:00 PM Patient Name: Sandrine Abreu Visit Number: [id number] Discharge Date: 06/30/18 ATTENTION: The Clinical Documentation Specialists (CDI) and [facility] Coding Staff appreciate your assistance in clarifying documentation. Please respond to the clarification below the line at the bottom and electronically sign. The CDI & [facility] Coding staff will review the response and follow-up if needed. Please note: Queries are made part of the Legal Health Record. If you have any questions, please contact the author of this message via ITS. Dr. YOO, Og Ornelas MD Chronic persistent asthma is documented in the ED note. Patient history/risk factors: Emphysema/COPD/ALTHEA neoplasm/chronic resp failure on home 02 Radiology: Left upper lobe consolidation and or mass. Vital Signs: T-98, P-109, R-25, BP-90/47, O2-94 Medication: Albuterol Nebulizer, Symbicort, IV Solu-Medrol, In your professional opinion, can you please further specify the following, if known? Severity: Mild intermittent Mild persistent Moderate persistent Severe persistent Other, please specify ____ Unable to determine Please continue to document in your progress notes and discharge summary in order to capture severity of illness and risk of mortality. Include clinical findings that support your diagnosis. MTDD
--- NOTE | 2018-07-02 11:29 | CDI ---
Last Revision, September 2017 Documentation Clarification Form Date: 07/02/18 From: Loretta Heriberto Rona Mahoney, Metallurgical Tester Hours-8:30 am & 5 pm Nichole Admit Date: 06/28/2018 4:15:00 PM Patient Name: Sandrine Abreu Visit Number: [id number] Discharge Date: 06/30/18 ATTENTION: The Clinical Documentation Specialists (CDI) and [facility] Coding Staff appreciate your assistance in clarifying documentation. Please respond to the clarification below the line at the bottom and electronically sign. The CDI & [facility] Coding staff will review the response and follow-up if needed. Please note: Queries are made part of the Legal Health Record. If you have any questions, please contact the author of this message via ITS. Dr. YOO, Og Ornelas MD Atrial Flutter is documented in the ED note. History/Risk factors: emphysema/COPD/ALTHEA neoplasm/asthma EKG/telemetry: normal sinus rhythm Treatment: Cardizem, CD In your professional opinion, in order to capture the severity of condition; can you please clarify the type of atrial flutter if known? Typical/Type I Atypical/Type II Other, please specify Unable to determine Please continue to document in your progress notes and discharge summary in order to capture severity of illness and risk of mortality. Include clinical findings that support your diagnosis. MTDD
--- NOTE | 2018-07-07 21:23 | MISC ---
MISCELLANOUS REPORT QUERY: atrial flutter. I do not understand the question. The type of atrial flutter: I guess I would say: Unable to determine. NICHOLE / IJN: [id number] /
--- NOTE | 2018-07-08 13:31 | CDI ---
Last Revision, September 2017 Documentation Clarification Form Date: 07/08/19 From: Loretta Heriberto Rona Mahoney, Hand Splitter Hours-8:30 am & 5 pm Nichole Admit Date: 06/28/2018 4:15:00 PM Patient Name: Sandrine Abreu Visit Number: [id number] Discharge Date: 06/30/18 ATTENTION: The Clinical Documentation Specialists (CDI) and [facility] Coding Staff appreciate your assistance in clarifying documentation. Please respond to the clarification below the line at the bottom and electronically sign. The CDI & [facility] Coding staff will review the response and follow-up if needed. Please note: Queries are made part of the Legal Health Record. If you have any questions, please contact the author of this message via ITS. Dr. Green, Og Ornelas MD Chronic persistent asthma is documented in the ED note. Patient history/risk factors: Emphysema/COPD/ALTHEA neoplasm/chronic resp failure on home 02 Radiology: Left upper lobe consolidaton and or mass. Vital Signs: T-98, P-109, R-25, BP-90/47, O2-94 Medication: Albuterol Nebilizer, Symbicort, IV Solu-Medrol, In your professional opinion, can you please further specify the severity of chronic persistent asthma: Mild Moderate Severe Other, please specify ____ Unable to determine Please continue to document in your progress notes and discharge summary in order to capture severity of illness and risk of mortality. Include clinical findings that support your diagnosis. MTDD
--- NOTE | 2018-07-10 17:15 | PN ---
PROGRESS NOTE 06/29/2018 CHIEF COMPLAINT: Exacerbation of COPD and CA of the lung. HISTORY OF PRESENT ILLNESS: This lady is breathing quite a bit better. She has had no chest pain. She has had no fever or chills. PHYSICAL EXAM: Breath sounds are poor and she has rales throughout. Cardiac exam is normal. Abdomen is soft, nontender. IMPRESSION: 1. Exacerbation of chronic obstructive pulmonary disease. 2. Neoplasm in the left upper lobe. PLAN: Continue treatment and watch hemoglobin. It is down 9.4. MMODL / IJN: [id number] /
== END 2018-06-30 15:03 | disposition home or self-care (01) | DRG 191 ==
LOC: EC 13:56 → 3SUR 16:15
PROVIDERS: ADMIT Family Medicine; ATTEND Family Medicine
DX: J43.9 Emphysema, unspecified (principal); J96.10 Chronic respiratory failure, unspecified whether with hypoxia or hypercapnia; C34.12 Malignant neoplasm of upper lobe, left bronchus or lung; I48.92 Unspecified atrial flutter; I11.0 Hypertensive heart disease with heart failure; I50.9 Heart failure, unspecified; K21.9 Gastro-esophageal reflux disease without esophagitis; M19.91 Primary osteoarthritis, unspecified site; E78.5 Hyperlipidemia, unspecified; Z79.82 Long term (current) use of aspirin; Z79.51 Long term (current) use of inhaled steroids; Z79.899 Other long term (current) drug therapy; Z90.710 Acquired absence of both cervix and uterus; Z87.81 Personal history of (healed) traumatic fracture; Z98.51 Tubal ligation status; Z87.891 Personal history of nicotine dependence; Z86.19 Personal history of other infectious and parasitic diseases; Z87.01 Personal history of pneumonia (recurrent); Z82.61 Family history of arthritis; J45.909 Unspecified asthma, uncomplicated
CPT/HCPCS: 36415; 71046; 80053; 82550; 82553; 83735; 84484; 85025; 85610; 85730; 93005; 94640; 96374; 99285

== ENCOUNTER 2018-07-09 14:05 | Inpatient (IN) | payer MEDICARE, OTHER ==
[2018-07-09] MEDS ORDERED: ALBUTEROL NEBULIZED 2.5 MG/3 ML INHALATION STA (14:25)
[2018-07-09] MEDS ORDERED: IPRATROPIUM 0.5 MG/2.5 ML NEBU INHALATION STA (14:25)
[2018-07-09] MEDS ORDERED: methylPREDNISolone SOD SUCCI 125 MG/2 ML VIAL IV STA (14:25)
--- NOTE | 2018-07-09 14:29 | ED ---
General Adult HPI - General Chief complaint: Shortness of Breath Stated complaint: coughing up blood Time Seen by Provider: 07/09/18 14:05 Source: patient, RN notes reviewed Mode of arrival: wheelchair Limitations: no limitations - History of Present Illness Initial comments: This is an 82-year-old female who presents emergency Department complaining of difficulty breathing and hemoptysis. Patient states she was in the hospital 2 weeks ago and since then she started having shortness of breath significantly worse than when she left the hospital about one week ago. Patient states she has been coughing up a little bit of blood all along but it is become quite heavily over the last couple of days. Patient denies any chest pain or palpitations. Patient denies any fever or chills. Patient states he she believes this to be just an exacerbation of her COPD. Patient states she quit smoking 10 years ago. Patient states she also has a mass in her lungs which the robot technician is aware of. She states they did a biopsy and told her was not cancer. Patient denies any abdominal pain patient denies nausea vomiting diarrhea. - Related Data Home Medications Medication Instructions Recorded Confirmed Furosemide [Lasix] 40 mg PO BID 02/20/15 07/09/18 Lisinopril [Zestril] 2.5 mg PO DAILY 02/20/15 07/09/18 Omeprazole [PriLOSEC] 20 mg PO DAILY 02/20/15 07/09/18 Ergocalciferol [Vitamin D2 50,000 unit PO Q28D 10/30/15 07/09/18 (DRISDOL)] Aspirin EC [Ecotrin Low Dose] 81 mg PO DAILY 10/05/16 07/09/18 Atorvastatin Calcium [Lipitor] 80 mg PO HS 04/15/17 07/09/18 Ipratropium-Albuterol Nebulize 3 ml INHALATION RT-QID PRN 10/24/17 07/09/18 [Duoneb 0.5 mg-3 mg/3 ml Soln] Diltiazem Cd [Cardizem CD] 120 mg PO DAILY 03/17/18 07/09/18 Albuterol Inhaler [Ventolin Hfa 2 puff INHALATION RT-Q6H PRN 06/28/18 07/09/18 Inhaler] Allergies Allergy/AdvReac Type Severity Reaction Status Date / Time No Known Allergies Allergy Verified 07/09/18 14:24 Review of Systems ROS Statement: Those systems with pertinent positive or pertinent negative responses have been documented in the HPI. ROS Other: All systems not noted in ROS Statement are negative. Past Medical History Past Medical History: Atrial Flutter, Asthma, Chest Pain / Angina, Heart Failure , COPD, Hyperlipidemia, Pneumonia, Respiratory Disorder Additional Past Medical History / Comment(s): Pt recently admitted to [facility] on with acute on chronic COPD, acute on chronic persistent asthma, acute on chronic respiratory failure, probable pneumonia. Other HX: Chronic respiratory failure with O2 at 2L/NC ATC, chronic persistent asthma, bronchitis , known 1.8.cm L upper lung nodule-pt states bx negative, DJD, past L hip fx with surgery, sinus problems, rheumatic fever as a child. History of Any Multi-Drug Resistant Organisms: Acinetobacter (MDRO) Date of last positivie culture/infection: 10/06/16 MDRO Source:: SPUTUM Past Surgical History: Hysterectomy, Joint Replacement, Orthopedic Surgery, Tubal Ligation Additional Past Surgical History / Comment(s): 03/21/17 bronchoscopy with BAL/BX- bening per pt, LEFT HIP hemiarthroplasty, LEFT FOOT surgery, colonoscopy, D&C. Past Anesthesia/Blood Transfusion Reactions: No Reported Reaction Past Psychological History: No Psychological Hx Reported Smoking Status: Former smoker Past Alcohol Use History: None Reported Past Drug Use History: None Reported - Past Family History Father History Unknown: Yes Brother(s) Family Medical History: No Reported History Mother Family Medical History: Rheumatoid Arthritis (RA) General Exam - General Exam Comments Initial Comments: GENERAL: Patient is well-developed and well-nourished. Patient is nontoxic and well- hydrated and is in mild distress. ENT: Neck is soft and supple. No significant lymphadenopathy is noted. Oropharynx is clear. Moist mucous membranes. Neck has full range of motion without eliciting any pain. EYES: The sclera were anicteric and conjunctiva were pink and moist. Extraocular movements were intact and pupils were equal round and reactive to light. Eyelids were unremarkable. PULMONARY: Patient has expiratory wheezing diffusely CARDIOVASCULAR: There is a regular rate and rhythm without any murmurs gallops or rubs. ABDOMEN: Soft and nontender with normal bowel sounds. No palpable organomegaly was noted. There is no palpable pulsatile mass. SKIN: Skin is clear with no lesions or rashes and otherwise unremarkable. NEUROLOGIC: Patient is alert and oriented x3. Cranial nerves II through XII are grossly intact. Motor and sensory are also intact. Normal speech, volume and content. Symmetrical smile. MUSCULOSKELETAL: Normal extremities with adequate strength and full range of motion. No lower extremity swelling or edema. No calf tenderness. LYMPHATICS: No significant lymphadenopathy is noted PSYCHIATRIC: Normal psychiatric evaluation. Normal interpersonal interactions appears functionally intact in deals appropriately with others. No signs of depression. No signs of anxiety. Limitations: no limitations Course Vital Signs 07/09/18 07/09/18 07/09/18 14:10 15:11 15:20 Temperature 98.2 F Pulse Rate 102 H 74 70 Respiratory 24 Rate Blood Pressure 106/64 O2 Sat by Pulse 94 L Oximetry 07/09/18 07/09/18 15:21 15:45 Temperature Pulse Rate 70 78 Respiratory Rate Blood Pressure O2 Sat by Pulse Oximetry Medical Decision Making - Medical Decision Making EKG shows a sinus rhythm at 105 bpm NE interval is 144 QRS is 128 QT interval 382 QTC is 504. Patient's EKG shows a right bundle branch block which is consistent with previous EKGs. There is no ST segment elevation or depression noted X-ray shows a mass in the left upper lobe with what appears to be an infiltrate around it. Patient has a high white count and hemoptysis I started the patient on Zosyn and Levaquin. Spoke with Dr. Zuniga and admitted the patient wrote admitting orders and consult to Dr. Diaz her robot technician. - Lab Data Result diagrams: 07/09/18 14:56 07/09/18 14:56 Lab Results 07/09/18 07/09/18 07/09/18 Range/Units 14:56 14:56 14:56 WBC 17.0 H (3.8-10.6) k/uL RBC 3.31 L (3.80-5.40) m/uL Hgb 8.0 L (11.4-16.0) gm/dL Hct 25.3 L (34.0-46.0) % MCV 76.2 L (80.0-100.0) fL MCH 24.1 L (25.0-35.0) pg MCHC 31.7 (31.0-37.0) g/dL RDW 16.9 H (11.5-15.5) % Plt Count 585 H (150-450) k/uL Neutrophils % 87 % Lymphocytes % 7 % Monocytes % 5 % Eosinophils % 1 % Basophils % 0 % Neutrophils # 14.8 H (1.3-7.7) k/uL Lymphocytes # 1.1 (1.0-4.8) k/uL Monocytes # 0.8 (0-1.0) k/uL Eosinophils # 0.1 (0-0.7) k/uL Basophils # 0.1 (0-0.2) k/uL Hypochromasia Moderate Anisocytosis Slight Microcytosis Slight PT (9.0-12.0) sec INR (<1.2) APTT (22.0-30.0) sec Sodium 135 L (137-145) mmol/L Potassium 4.2 (3.5-5.1) mmol/L Chloride 103 (98-107) mmol/L Carbon Dioxide 26 (22-30) mmol/L Anion Gap 6 mmol/L BUN 19 H (7-17) mg/dL Creatinine 0.87 (0.52-1.04) mg/dL Est GFR (CKD-EPI)AfAm 73 (>60 ml/min/1.73 sqM) Est GFR (CKD-EPI)NonAf 63 (>60 ml/min/1.73 sqM) Glucose 107 H (74-99) mg/dL Plasma Lactic Acid Sedrick (0.7-2.0) mmol/L Calcium 9.0 (8.4-10.2) mg/dL Magnesium 1.6 (1.6-2.3) mg/dL Total Bilirubin 0.5 (0.2-1.3) mg/dL AST 11 L (14-36) U/L ALT 18 (9-52) U/L Alkaline Phosphatase 76 (38-126) U/L Total Creatine Kinase <20 L (30-135) U/L CK-MB (CK-2) 0.5 (0.0-2.4) ng/mL CK-MB (CK-2) Rel Index Troponin I <0.012 (0.000-0.034) ng/mL Total Protein 5.6 L (6.3-8.2) g/dL Albumin 3.2 L (3.5-5.0) g/dL 07/09/18 07/09/18 Range/Units 14:56 15:00 WBC (3.8-10.6) k/uL RBC (3.80-5.40) m/uL Hgb (11.4-16.0) gm/dL Hct (34.0-46.0) % MCV (80.0-100.0) fL MCH (25.0-35.0) pg MCHC (31.0-37.0) g/dL RDW (11.5-15.5) % Plt Count (150-450) k/uL Neutrophils % % Lymphocytes % % Monocytes % % Eosinophils % % Basophils % % Neutrophils # (1.3-7.7) k/uL Lymphocytes # (1.0-4.8) k/uL Monocytes # (0-1.0) k/uL Eosinophils # (0-0.7) k/uL Basophils # (0-0.2) k/uL Hypochromasia Anisocytosis Microcytosis PT 9.4 (9.0-12.0) sec INR 0.9 (<1.2) APTT 21.7 L (22.0-30.0) sec Sodium (137-145) mmol/L Potassium (3.5-5.1) mmol/L Chloride (98-107) mmol/L Carbon Dioxide (22-30) mmol/L Anion Gap mmol/L BUN (7-17) mg/dL Creatinine (0.52-1.04) mg/dL Est GFR (CKD-EPI)AfAm (>60 ml/min/1.73 sqM) Est GFR (CKD-EPI)NonAf (>60 ml/min/1.73 sqM) Glucose (74-99) mg/dL Plasma Lactic Acid Sedrick 1.1 (0.7-2.0) mmol/L Calcium (8.4-10.2) mg/dL Magnesium (1.6-2.3) mg/dL Total Bilirubin (0.2-1.3) mg/dL AST (14-36) U/L ALT (9-52) U/L Alkaline Phosphatase (38-126) U/L Total Creatine Kinase (30-135) U/L CK-MB (CK-2) (0.0-2.4) ng/mL CK-MB (CK-2) Rel Index Troponin I (0.000-0.034) ng/mL Total Protein (6.3-8.2) g/dL Albumin (3.5-5.0) g/dL Disposition Clinical Impression: COPD exacerbation, Pneumonia, Anemia, Hemoptysis Disposition: ADMITTED IP TO THIS HOSP Referrals: Og Green MD [Primary Care Provider] - 1-2 days Time of Disposition: 16:57
[2018-07-09 15:18] LABS: Anisocytosis Slight; Basophils # (A) 0.1 k/uL (0-0.2); Basophils % (A) 0 %; Eosinophils # (A) 0.1 k/uL (0-0.7); Eosinophils % (A) 1 %; HCT 25.3 % (34.0-46.0); Hypochromasia Moderate; Lymphocytes # (A) 1.1 k/uL (1.0-4.8); Lymphocytes % (A) 7 %; MCH 24.1 pg (25.0-35.0); MCHC 31.7 g/dL (31.0-37.0); MCV 76.2 fL (80.0-100.0); Microcytosis Slight; Monocytes # (A) 0.8 k/uL (0-1.0); Monocytes % (A) 5 %; Neutrophils # (A) 14.8 k/uL (1.3-7.7); Neutrophils % (A) 87 %; Platelet Count 585 k/uL (150-450); RBC 3.31 m/uL (3.80-5.40); RDW 16.9 % (11.5-15.5)
[2018-07-09 15:24] LABS: Albumin 3.2 g/dL (3.5-5.0); Magnesium 1.6 mg/dL (1.6-2.3); Potassium 4.2 mmol/L (3.5-5.1); Total Bilirubin 0.5 mg/dL (0.2-1.3); Total Protein 5.6 g/dL (6.3-8.2)
[2018-07-09 15:34] LABS: INR 0.9 (<1.2); Prothrombin Time 9.4 sec (9.0-12.0)
[2018-07-09 15:38] LABS: Creatine Kinase <20 U/L (30-135)
[2018-07-09 15:49] LABS: Partial Thromboplastin Time 21.7 sec (22.0-30.0)
[2018-07-09 15:51] LABS: Creatine Kinase MB 0.5 ng/mL (0.0-2.4); Troponin I <0.012 ng/mL (0.000-0.034)
--- NOTE | 2018-07-09 16:13 | XR ---
EXAMINATION TYPE: XR chest 2V DATE OF EXAM: 07/09/2018 COMPARISON: Chest x-ray June 28, 2018 and older studies. CTA chest January 14, 2018 HISTORY: Increased shortness of breath and hemoptysis. TECHNIQUE: Frontal and lateral views of the chest are obtained. FINDINGS: There is background chronic emphysematous change redemonstrated. There is persistent left upper lobe suspicious mass with surrounding left lung atelectasis and/or infiltrate abutting the rad or fissure on lateral view. Right lung remains clear. The cardiac silhouette size is stable and mildl y enlarged with atherosclerotic change in thoracic aorta. The osseous structures remain demineraliz ed. Sclerosis left humeral head is suspicious for bone infarct unchanged from prior. IMPRESSION: Chronic changes with probable neoplasm left upper lobe redemonstrated. Surrounding infil trate and/or atelectatic changes again seen. No significant change from most recent chest x-ray.
[2018-07-09] MEDS ORDERED: PIPERACILLIN-TAZOBACTAM 3.375 GM in DEXTROSE/WATER 1 50ML.BAG IVPB STA (16:29)
[2018-07-09] MEDS ORDERED: LEVOFLOXACIN 750MG-D5W PMX 750 MG in DEXTROSE/WATER 1 150ML.BAG IVPB STA (16:58)
[2018-07-09] MEDS ORDERED: PNEUMONIA PROTOCOL UTILIZED 1 EACH MISC PO PRN (16:58)
[2018-07-09] MEDS: methylPREDNISolone SOD SUCCI 125 MG/2 ML VIAL IV SCH (18:50)
[2018-07-09] MEDS: IPRATROPIUM-ALBUTEROL 3 ML NEB INHALATION SCH (19:04)
[2018-07-09 23:27] LABS: Anisocytosis Slight; Basophils % (A) 0 %; Eosinophils # (A) 0.1 k/uL (0-0.7); Eosinophils % (A) 0 %; HCT 25.5 % (34.0-46.0); HGB 8.1 gm/dL (11.4-16.0); Hypochromasia Slight; Lymphocytes # (A) 0.3 k/uL (1.0-4.8); Lymphocytes % (A) 2 %; MCH 24.5 pg (25.0-35.0); MCV 76.4 fL (80.0-100.0); Mean Platelet Volume 6.6; Microcytosis Slight; Monocytes # (A) 0.2 k/uL (0-1.0); Monocytes % (A) 2 %; Neutrophils # (A) 12.5 k/uL (1.3-7.7); Neutrophils % (A) 95 %; Platelet Count 580 k/uL (150-450); RBC 3.33 m/uL (3.80-5.40); RDW 17.2 % (11.5-15.5); WBC 13.1 k/uL (3.8-10.6)
[2018-07-10] MEDS: methylPREDNISolone SOD SUCCI 125 MG/2 ML VIAL IV SCH ×5 (00:17→23:34)
[2018-07-10] MEDS: PIPERACILLIN-TAZOBACTAM 3.375 GM in DEXTROSE/WATER 1 50ML.BAG IVPB SCH ×4 (00:21→23:33)
[2018-07-10] MEDS: IPRATROPIUM-ALBUTEROL 3 ML NEB INHALATION SCH ×5 (05:41→21:50)
[2018-07-10] MEDS ORDERED: IPRATROPIUM-ALBUTEROL 3 ML NEB INHALATION PRN (10:43)
[2018-07-10] MEDS ORDERED: ALBUTEROL INHALER 60 PUFF/8 GM INHALER INHALATION PRN (10:43)
--- NOTE | 2018-07-10 11:25 | XR ---
EXAMINATION TYPE: XR chest 2V DATE OF EXAM: 07/10/2018 COMPARISON: NONE HISTORY: Shortness of breath TECHNIQUE: Frontal and lateral views of the chest are obtained. FINDINGS: Scattered senescent parenchymal changes noted. Hyperinflation compatible with COPD. Left upper lobe masslike density persists. Probable neoplasm. The remainder of the lungs are free of consolidative process. Scattered nodularity right upper lobe and left lower lobe noted. Heart size is stable. Mediastinal structures are stable and grossly unremarkable. No evidence for hilar prominence. Degenerative changes dorsal spine. IMPRESSION: 1. Left upper lobe masslike density persists. Probable neoplasm. The remainder of the lungs are free of consolidative process. Scattered nodularity right upper lobe and left lower lobe noted.
[2018-07-10] MEDS: INSULIN ASPART 100 UNIT/ML 1 ML 10 ML VIAL SQ SCH ×3 (13:14→20:49)
[2018-07-10 13:26] LABS: Glucose,Whole Blood 156 mg/dL (75-99)
--- NOTE | 2018-07-10 14:30 | PN ---
PROGRESS NOTE CHIEF COMPLAINT: Exacerbation of COPD, hemoptysis and CA of the lung. HISTORY OF PRESENT ILLNESS: This lady is still coughing up small amounts of blood, but not a great deal. She is not having any significant pain or fever. She is quite dyspneic. PHYSICAL EXAM: She is tachypneic. She is slightly pale. Chest demonstrates very poor breath sounds with occasional wheezes, rales and rhonchi throughout. IMPRESSION: 1. Exacerbation of chronic obstructive pulmonary disease. 2. Carcinoma of the lung. 3. Hemoptysis. PLAN: Pulmonary consult and continue with current plan and workup. She has long refused any treatment for her pulmonary neoplasm. MMODL / IJN: [id number] /
--- NOTE | 2018-07-10 15:04 | P.CNPUL ---
History of Present Illness Consult date: 07/10/18 Reason for consult: dyspnea, cough, COPD, hypoxemia, pneumonia, lung mass Chief complaint: Cough shortness of breath and hemoptysis History of present illness: 82-year-old with chronic hypoxic respirator failure related to severe COPD and emphysema has been on supplemental oxygen 24 7 patient is being monitor observe for left-sided lung mass which is slowly enlarging patient refused invasive workup and repeat biopsy is on multiple occasions she also has refused chemo and radiation therapy, patient started having increased congestion shortness of breath for the last week to 10 days symptoms have been progressive around same time she had few occasional streaks of blood now on the last 24 hours she has intermittent clumps of blood she is short of breath has intermittent chest tightness was severity however remains stable, patient had 2 chest x-ray performed since admission and earlier this morning both of them reviewed and compared, x-ray revealed left upper lobe mass with surrounding inflammatory changes and subsegmental atelectasis, chest x-ray performed today is not much different compared to yesterday's x-ray Review of Systems All systems: negative Past Medical History Past Medical History: Atrial Flutter, Asthma, Chest Pain / Angina, Heart Failure , COPD, Hyperlipidemia, Pneumonia, Respiratory Disorder Additional Past Medical History / Comment(s): Chronic respiratory failure with O2 at 2L/NC ATC, chronic persistent asthma, bronchitis, known 1.8.cm L upper lung nodule-pt states bx negative, DJD, past L hip fx with surgery, sinus problems, rheumatic fever as a child. History of Any Multi-Drug Resistant Organisms: Acinetobacter (MDRO) Date of last positivie culture/infection: 10/06/16 MDRO Source:: SPUTUM Past Surgical History: Hysterectomy, Joint Replacement, Orthopedic Surgery, Tubal Ligation Additional Past Surgical History / Comment(s): 03/21/17 bronchoscopy with BAL/BX- bening per pt, LEFT HIP hemiarthroplasty, LEFT FOOT surgery, colonoscopy, D&C. Past Anesthesia/Blood Transfusion Reactions: No Reported Reaction Smoking Status: Former smoker - Past Family History Father History Unknown: Yes Brother(s) Family Medical History: No Reported History Mother Family Medical History: Rheumatoid Arthritis (RA) Medications and Allergies Home Medications Medication Instructions Recorded Confirmed Type Furosemide [Lasix] 40 mg PO BID 02/20/15 07/09/18 History Lisinopril [Zestril] 2.5 mg PO DAILY 02/20/15 07/09/18 History Omeprazole [PriLOSEC] 20 mg PO DAILY 02/20/15 07/09/18 History Ergocalciferol [Vitamin D2 50,000 unit PO Q28D 10/30/15 07/09/18 History (DRISDOL)] Aspirin EC [Ecotrin Low Dose] 81 mg PO DAILY 10/05/16 07/09/18 History Atorvastatin Calcium [Lipitor] 80 mg PO HS 04/15/17 07/09/18 History Ipratropium-Albuterol Nebulize 3 ml INHALATION RT-QID PRN 10/24/17 07/09/18 History [Duoneb 0.5 mg-3 mg/3 ml Soln] Diltiazem Cd [Cardizem CD] 120 mg PO DAILY 03/17/18 07/09/18 History Albuterol Inhaler [Ventolin Hfa 2 puff INHALATION RT-Q6H PRN 06/28/18 07/09/18 History Inhaler] Allergies Allergy/AdvReac Type Severity Reaction Status Date / Time No Known Allergies Allergy Verified 07/09/18 14:24 Physical Exam Vitals: Vital Signs Temp Pulse Pulse Resp BP BP Pulse Ox 07/10/18 13:05 92 07/10/18 12:56 100 07/10/18 12:25 107 H 20 07/10/18 12:24 97.7 F 107 H 20 126/62 97 07/10/18 09:35 102 H 07/10/18 09:26 109 H 07/10/18 07:33 98 20 07/10/18 07:23 97.8 F 98 20 109/55 95 07/10/18 05:55 78 07/10/18 05:41 82 07/10/18 03:50 94 18 114/56 95 07/09/18 22:04 86 17 112/65 96 07/09/18 19:27 70 17 120/59 93 L 07/09/18 19:15 74 07/09/18 19:04 76 07/09/18 17:14 69 18 112/57 92 L 07/09/18 15:45 78 07/09/18 15:21 70 07/09/18 15:20 70 07/09/18 15:11 74 Intake and Output 07/09/18 07/10/18 07/10/18 22:59 06:59 14:59 Intake Total 100 730 Output Total 900 Balance 100 -170 Intake: Intake, IV Titration 100 50 Amount Levofloxacin 750Mg-D5w 50 Pmx 750 mg In Dextrose/ Water 1 150ml.bag @ 100 mls/hr IVPB Q24H ULISES Rx#: [id number] Piperacillin-Tazobactam 3 50 50 .375 gm In Dextrose/Water 1 50ml.bag @ 12.5 mls/hr IVPB Q8HR ULISES Rx#: [id number] Oral 680 Output: Urine 900 Other: Voiding Method Bedside Commode # Voids 4 1 - Constitutional General appearance: average body habitus, cooperative, disheveled, mild distress , obese - EENT Eyes: anicteric sclerae, EOMI, PERRLA, poor dentition, normal appearance ENT: hearing grossly normal, normal oropharynx Ears: bilateral: normal - Neck Neck: normal ROM Thyroid: bilateral: normal size - Respiratory Respiratory: bilateral: diminished, rhonchi, prolonged expiration, negative: dullness, rales - Cardiovascular Rhythm: regular Heart sounds: normal: S1, S2 - Gastrointestinal General gastrointestinal: distended, soft - Integumentary Integumentary: normal, normal turgor - Neurologic Neurologic: CNII-XII intact - Musculoskeletal Musculoskeletal: gait normal, generalized weakness, strength equal bilaterally - Psychiatric Psychiatric: A&O x's 3, appropriate affect, intact judgment & insight Results - Laboratory Findings CBC and BMP: 07/09/18 23:10 07/09/18 14:56 PT/INR, D-dimer PT 9.4 sec (9.0-12.0) 07/09/18 14:56 INR 0.9 (<1.2) 07/09/18 14:56 Abnormal lab findings: Abnormal Labs 07/09/18 07/09/18 07/09/18 14:56 14:56 14:56 WBC 17.0 H RBC 3.31 L Hgb 8.0 L Hct 25.3 L MCV 76.2 L MCH 24.1 L RDW 16.9 H Plt Count 585 H Neutrophils # 14.8 H Lymphocytes # APTT Sodium 135 L BUN 19 H Glucose 107 H POC Glucose (mg/dL) AST 11 L Total Creatine Kinase <20 L Total Protein 5.6 L Albumin 3.2 L 07/09/18 07/09/18 07/10/18 14:56 23:10 13:05 WBC 13.1 H RBC 3.33 L Hgb 8.1 L Hct 25.5 L MCV 76.4 L MCH 24.5 L RDW 17.2 H Plt Count 580 H Neutrophils # 12.5 H Lymphocytes # 0.3 L APTT 21.7 L Sodium BUN Glucose POC Glucose (mg/dL) 156 H AST Total Creatine Kinase Total Protein Albumin - Diagnostic Findings Chest x-ray: report reviewed, image reviewed (Findings as noted above) Assessment and Plan Assessment: Hemoptysis likely related to COPD exacerbation and tracheobronchitis however involvement of left upper lobe bronchus cannot be excluded Pneumonia likely postobstructive End-stage lung disease in his severe COPD emphysema Hypertension hypertensive cardiovascular disease Left upper lobe mass likely neoplastic with slow progressive enlargement, patient has refused biopsy as well as chemo and radiation therapy Plan: Agree with broad-spectrum antibiotics with IV steroids breathing treatments If hemoptysis doesn't. Stopped then Patient may need to go to a tertiary care center if agreeable for selective bronchoscopy and angiogram with possible bronchial artery embolization Time with Patient: Greater than 30
[2018-07-10 17:09] LABS: Glucose,Whole Blood 200 mg/dL (75-99)
[2018-07-10] MEDS ORDERED: LEVOFLOXACIN 750MG-D5W PMX 750 MG in DEXTROSE/WATER 1 150ML.BAG IVPB SCH (20:00)
[2018-07-10 20:44] LABS: Glucose,Whole Blood 129 mg/dL (75-99)
[2018-07-10] MEDS: FUROSEMIDE 40 MG TAB PO SCH (20:53)
[2018-07-10 22:53] LABS: Hemoglobin A1C 5.8 % (4.0-6.0)
[2018-07-11 06:15] LABS: Glucose,Whole Blood 154 mg/dL (75-99)
[2018-07-11] MEDS: PANTOPRAZOLE 40 MG TABLET PO SCH (06:20)
[2018-07-11] MEDS: methylPREDNISolone SOD SUCCI 125 MG/2 ML VIAL IV SCH ×2 (06:20→13:54)
[2018-07-11] MEDS: INSULIN ASPART 100 UNIT/ML 1 ML 10 ML VIAL SQ SCH ×4 (06:21→21:34)
[2018-07-11] MEDS: DILTIAZEM CD 120 MG CAP.ER.24H PO SCH (08:22)
[2018-07-11] MEDS: PIPERACILLIN-TAZOBACTAM 3.375 GM in DEXTROSE/WATER 1 50ML.BAG IVPB SCH ×3 (08:22→23:44)
[2018-07-11] MEDS: FUROSEMIDE 40 MG TAB PO SCH ×2 (08:23→21:33)
[2018-07-11] MEDS: LISINOPRIL 2.5 MG TAB PO SCH (08:24)
[2018-07-11] MEDS: IPRATROPIUM-ALBUTEROL 3 ML NEB INHALATION SCH ×4 (08:28→21:39)
[2018-07-11 09:06] LABS: Anisocytosis Slight; HCT 23.5 % (34.0-46.0); HGB 7.2 gm/dL (11.4-16.0); Hypochromasia Moderate; MCH 23.7 pg (25.0-35.0); MCHC 30.8 g/dL (31.0-37.0); MCV 77.1 fL (80.0-100.0); Mean Platelet Volume 6.8; Microcytosis Slight; Platelet Count 558 k/uL (150-450); RBC 3.05 m/uL (3.80-5.40); RDW 17.6 % (11.5-15.5); WBC 16.5 k/uL (3.8-10.6)
[2018-07-11 09:26] LABS: Albumin 3.2 g/dL (3.5-5.0); Calcium 9.3 mg/dL (8.4-10.2); Magnesium 1.8 mg/dL (1.6-2.3); Total Bilirubin 0.4 mg/dL (0.2-1.3); Total Protein 5.4 g/dL (6.3-8.2)
[2018-07-11] MEDS ORDERED: LABETALOL 100 MG TAB PO SCH (10:30)
--- NOTE | 2018-07-11 11:52 | PN ---
PROGRESS NOTE DATE OF SERVICE: 07/11/2018 CHIEF COMPLAINT: COPD and hemoptysis. HISTORY OF PRESENT ILLNESS: This lady is feeling fairly well. She is not coughing up bloody any longer. She stills feels weak. BUN and creatinine are elevated and hemoglobin is also quite low and will be followed. PHYSICAL EXAM: Breath sounds are poor throughout. Cardiac exam is normal. She is slightly pale. IMPRESSION: 1. Carcinoma of the left lung. 2. Hemoptysis. 3. Chronic obstructive pulmonary disease. 4. Anemia. 5. Chronic kidney disease. PLAN: Remove telemetry and moved to Med/Surg floor with hopes of getting her out in a day or 2 depending on her hemoglobin. MMODL / IJN: [id number] /
[2018-07-11 12:11] LABS: Glucose,Whole Blood 254 mg/dL (75-99)
[2018-07-11] MEDS ORDERED: INSULIN ASPART 100 UNIT/ML 1 ML 10 ML VIAL SQ ONE (13:18)
[2018-07-11 16:56] LABS: Glucose,Whole Blood 78 mg/dL (75-99)
--- NOTE | 2018-07-11 17:06 | P.PN ---
Subjective Progress Note Date: 07/11/18 Principal diagnosis: Hemoptysis, pneumonia, acute on chronic hypoxic respirator failure, severe COPD , left-sided lung mass slowly enlarging likely neoplastic process, 07/11/2018, patient seen eval reexamined during the rounds clinically patient is doing slightly better but however still of issues associated with tremulousness as well as cough however mostly cough is nonproductive hemoptysis improved significantly, patient has been tolerating antibiotics well I have reviewed the findings on the x-ray and prior CAT scan with the patient at length she continued to decline a repeat biopsy and was to be treated conservatively she has declined chemo and radiation therapy option in the past and currently as well 82-year-old with chronic hypoxic respirator failure related to severe COPD and emphysema has been on supplemental oxygen 24 7 patient is being monitor observe for left-sided lung mass which is slowly enlarging patient refused invasive workup and repeat biopsy is on multiple occasions she also has refused chemo and radiation therapy, patient started having increased congestion shortness of breath for the last week to 10 days symptoms have been progressive around same time she had few occasional streaks of blood now on the last 24 hours she has intermittent clumps of blood she is short of breath has intermittent chest tightness was severity however remains stable, patient had 2 chest x-ray performed since admission and earlier this morning both of them reviewed and compared, x-ray revealed left upper lobe mass with surrounding inflammatory changes and subsegmental atelectasis, chest x-ray performed today is not much different compared to yesterday's x-ray Objective - Vital Signs Vital signs: Vital Signs Temp 97.8 F 07/11/18 15:30 Pulse 95 07/11/18 16:02 Resp 16 07/11/18 16:02 BP 94/56 07/11/18 15:30 Pulse Ox 99 07/11/18 15:30 Intake & Output 07/10/18 07/11/18 07/11/18 18:59 06:59 18:59 Intake Total 910 594 Output Total 900 1300 1950 Balance Weight 74.9 kg Intake: Intake, IV Titration 50 Amount Piperacillin-Tazobactam 3 50 .375 gm In Dextrose/Water 1 50ml.bag @ 12.5 mls/hr IVPB Q8HR [facility] Rx#: [id number] Oral 860 594 Output: Urine 900 1300 1950 Other: Voiding Method Bedside Commode Bedside Commode Bedside Commode # Voids 1 1 - Exam - Constitutional General appearance: average body habitus, cooperative, disheveled, mild distress , obese - EENT Eyes: anicteric sclerae, EOMI, PERRLA, poor dentition, normal appearance ENT: hearing grossly normal, normal oropharynx Ears: bilateral: normal - Neck Neck: normal ROM Thyroid: bilateral: normal size - Respiratory Respiratory: bilateral: diminished, rhonchi, prolonged expiration, negative: dullness, rales - Cardiovascular Rhythm: regular Heart sounds: normal: S1, S2 - Gastrointestinal General gastrointestinal: distended, soft - Integumentary Integumentary: normal, normal turgor - Neurologic Neurologic: CNII-XII intact - Musculoskeletal Musculoskeletal: gait normal, generalized weakness, strength equal bilaterally - Psychiatric Psychiatric: A&O x's 3, appropriate affect, intact judgment & insight - Labs CBC & Chem 7: 07/11/18 08:40 07/11/18 08:40 Labs: Abnormal Lab Results - Last 24 Hours (Table) 07/10/18 07/10/18 07/11/18 Range/Units 17:07 20:43 06:13 WBC (3.8-10.6) k/uL RBC (3.80-5.40) m/uL Hgb (11.4-16.0) gm/dL Hct (34.0-46.0) % MCV (80.0-100.0) fL MCH (25.0-35.0) pg MCHC (31.0-37.0) g/dL RDW (11.5-15.5) % Plt Count (150-450) k/uL BUN (7-17) mg/dL Creatinine (0.52-1.04) mg/dL Glucose (74-99) mg/dL POC Glucose (mg/dL) 200 H 129 H 154 H (75-99) mg/dL AST (14-36) U/L Total Protein (6.3-8.2) g/dL Albumin (3.5-5.0) g/dL 07/11/18 07/11/18 07/11/18 Range/Units 08:40 08:40 11:47 WBC 16.5 H (3.8-10.6) k/uL RBC 3.05 L (3.80-5.40) m/uL Hgb 7.2 L (11.4-16.0) gm/dL Hct 23.5 L (34.0-46.0) % MCV 77.1 L (80.0-100.0) fL MCH 23.7 L (25.0-35.0) pg MCHC 30.8 L (31.0-37.0) g/dL RDW 17.6 H (11.5-15.5) % Plt Count 558 H (150-450) k/uL BUN 31 H (7-17) mg/dL Creatinine 1.17 H (0.52-1.04) mg/dL Glucose 136 H (74-99) mg/dL POC Glucose (mg/dL) 254 H (75-99) mg/dL AST 13 L (14-36) U/L Total Protein 5.4 L (6.3-8.2) g/dL Albumin 3.2 L (3.5-5.0) g/dL Microbiology - Last 24 Hours (Table) 07/10/18 12:18 Gram Stain - Preliminary Sputum 07/09/18 14:56 Blood Culture - Preliminary Blood No Growth after 24 hours Assessment and Plan Assessment: Hemoptysis likely related to COPD exacerbation and tracheobronchitis however involvement of left upper lobe bronchus cannot be excluded hemoptysis is improved but the cough is still present Pneumonia mixed bacterial and/or or gram-negative related End-stage lung disease in his severe COPD emphysema Hypertension hypertensive cardiovascular disease Left upper lobe 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
[2018-07-11] MEDS: guaiFENesin-Coden 100-10MG/5ML 10 ML CUP PO PRN (18:22)
[2018-07-11 20:03] LABS: Glucose,Whole Blood 213 mg/dL (75-99)
[2018-07-12] MEDS: methylPREDNISolone SOD SUCCI 40 MG/ML 1 ML VIAL IV SCH ×4 (00:23→23:58)
[2018-07-12] MEDS: guaiFENesin-Coden 100-10MG/5ML 10 ML CUP PO PRN ×4 (00:25→22:19)
[2018-07-12 07:00] LABS: Glucose,Whole Blood 138 mg/dL (75-99)
[2018-07-12] MEDS: LISINOPRIL 2.5 MG TAB PO SCH (07:37)
[2018-07-12] MEDS: INSULIN ASPART 100 UNIT/ML 1 ML 10 ML VIAL SQ SCH ×4 (07:43→22:16)
[2018-07-12] MEDS: PANTOPRAZOLE 40 MG TABLET PO SCH (07:44)
[2018-07-12] MEDS: DILTIAZEM CD 120 MG CAP.ER.24H PO SCH (07:44)
[2018-07-12] MEDS: FUROSEMIDE 40 MG TAB PO SCH ×2 (07:44→19:28)
[2018-07-12] MEDS: IPRATROPIUM-ALBUTEROL 3 ML NEB INHALATION SCH ×4 (08:20→19:39)
[2018-07-12] MEDS: PIPERACILLIN-TAZOBACTAM 3.375 GM in DEXTROSE/WATER 1 50ML.BAG IVPB SCH ×3 (08:50→23:58)
[2018-07-12 11:19] LABS: Glucose,Whole Blood 133 mg/dL (75-99)
--- NOTE | 2018-07-12 12:44 | PN ---
PROGRESS NOTE CHIEF COMPLAINT: COPD, CA of the lung and hemoptysis. HISTORY OF PRESENT ILLNESS: This lady is still quite dyspneic. She has not coughed up blood in the last 24 hours. PHYSICAL EXAM: She has bilateral rhonchi and rales with poor breath sounds. Cardiac exam is normal. IMPRESSION: 1. Exacerbation of chronic obstructive pulmonary disease. 2. Carcinoma of the lung. 3. Hemoptysis. PLAN: Continue with updrafts in management of her COPD until she is stable enough to go home. MMODL / IJN: [id number] /
[2018-07-12 17:31] LABS: Glucose,Whole Blood 139 mg/dL (75-99)
[2018-07-12 20:59] LABS: Glucose,Whole Blood 223 mg/dL (75-99)
[2018-07-12] MEDS ORDERED: LEVOFLOXACIN 750 MG TAB PO SCH (21:00)
[2018-07-13 07:16] LABS: Glucose,Whole Blood 129 mg/dL (75-99)
[2018-07-13] MEDS: INSULIN ASPART 100 UNIT/ML 1 ML 10 ML VIAL SQ SCH ×4 (07:31→20:45)
[2018-07-13] MEDS: guaiFENesin-Coden 100-10MG/5ML 10 ML CUP PO PRN ×3 (08:09→23:53)
[2018-07-13] MEDS: PIPERACILLIN-TAZOBACTAM 3.375 GM in DEXTROSE/WATER 1 50ML.BAG IVPB SCH ×3 (08:10→23:50)
[2018-07-13] MEDS: LISINOPRIL 2.5 MG TAB PO SCH (08:10)
[2018-07-13] MEDS: FUROSEMIDE 40 MG TAB PO SCH ×2 (08:10→20:30)
[2018-07-13] MEDS: methylPREDNISolone SOD SUCCI 40 MG/ML 1 ML VIAL IV SCH ×3 (08:10→23:50)
[2018-07-13] MEDS: PANTOPRAZOLE 40 MG TABLET PO SCH (08:10)
[2018-07-13] MEDS: DILTIAZEM CD 120 MG CAP.ER.24H PO SCH (08:11)
[2018-07-13] MEDS: IPRATROPIUM-ALBUTEROL 3 ML NEB INHALATION SCH ×4 (08:44→19:15)
--- NOTE | 2018-07-13 09:47 | P.PN ---
Subjective Progress Note Date: 07/12/18 (Late entry note) Principal diagnosis: Hemoptysis, pneumonia, acute on chronic hypoxic respirator failure, severe COPD , left-sided lung mass slowly enlarging likely neoplastic process, 07/12/2018, patient seen eval examined during the rounds clinically she is doing slightly better still have some cough congestion but severity of cough as well as hemoptysis significantly improved breathing remains an issue continued to be on supplemental oxygen labs reviewed medications reviewed 07/11/2018, patient seen eval reexamined during the rounds clinically patient is doing slightly better but however still of issues associated with tremulousness as well as cough however mostly cough is nonproductive hemoptysis improved significantly, patient has been tolerating antibiotics well I have reviewed the findings on the x-ray and prior CAT scan with the patient at length she continued to decline a repeat biopsy and was to be treated conservatively she has declined chemo and radiation therapy option in the past and currently as well 82-year-old with chronic hypoxic respirator failure related to severe COPD and emphysema has been on supplemental oxygen 24 7 patient is being monitor observe for left-sided lung mass which is slowly enlarging patient refused invasive workup and repeat biopsy is on multiple occasions she also has refused chemo and radiation therapy, patient started having increased congestion shortness of breath for the last week to 10 days symptoms have been progressive around same time she had few occasional streaks of blood now on the last 24 hours she has intermittent clumps of blood she is short of breath has intermittent chest tightness was severity however remains stable, patient had 2 chest x-ray performed since admission and earlier this morning both of them reviewed and compared, x-ray revealed left upper lobe mass with surrounding inflammatory changes and subsegmental atelectasis, chest x-ray performed today is not much different compared to yesterday's x-ray Objective - Vital Signs Vital signs: Vital Signs Temp 97.7 F 07/12/18 06:08 Pulse 90 07/12/18 08:56 Resp 20 07/12/18 06:08 BP 112/58 07/12/18 06:08 Pulse Ox 95 07/12/18 06:08 Intake & Output 07/12/18 18:59 Intake Total Balance Intake: Intake, IV Titration Amount Piperacillin-Tazobactam 3 .375 gm In Dextrose/Water 1 50ml.bag @ 12.5 mls/hr IVPB Q8HR [facility] Rx#: [id number] Oral Other: Voiding Method Bedside Commode # Voids 2 - Exam - Constitutional General appearance: average body habitus, cooperative, disheveled, mild distress , obese - EENT Eyes: anicteric sclerae, EOMI, PERRLA, poor dentition, normal appearance ENT: hearing grossly normal, normal oropharynx Ears: bilateral: normal - Neck Neck: normal ROM Thyroid: bilateral: normal size - Respiratory Respiratory: bilateral: diminished, rhonchi, prolonged expiration, negative: dullness, rales - Cardiovascular Rhythm: regular Heart sounds: normal: S1, S2 - Gastrointestinal General gastrointestinal: distended, soft - Integumentary Integumentary: normal, normal turgor - Neurologic Neurologic: CNII-XII intact - Musculoskeletal Musculoskeletal: gait normal, generalized weakness, strength equal bilaterally - Psychiatric Psychiatric: A&O x's 3, appropriate affect, intact judgment & insight - Labs CBC & Chem 7: 07/11/18 08:40 07/11/18 08:40 Labs: Abnormal Lab Results - Last 24 Hours (Table) 07/12/18 07/12/18 07/12/18 Range/Units 11:18 17:29 20:57 POC Glucose (mg/dL) 133 H 139 H 223 H (75-99) mg/dL 07/13/18 Range/Units 07:15 POC Glucose (mg/dL) 129 H (75-99) mg/dL Microbiology - Last 24 Hours (Table) 07/09/18 14:56 Blood Culture - Preliminary Blood No Growth after 72 hours 07/10/18 12:18 Gram Stain - Final Sputum Sputum Culture - Final Assessment and Plan Assessment: Hemoptysis likely related to COPD exacerbation and tracheobronchitis however involvement of left upper lobe bronchus cannot be excluded hemoptysis is improved but the cough is still present Pneumonia mixed bacterial and/or or gram-negative related End-stage lung disease in his severe COPD emphysema Hypertension hypertensive cardiovascular disease Left upper lobe 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
--- NOTE | 2018-07-13 09:50 | P.PN ---
Subjective Progress Note Date: 07/13/18 Principal diagnosis: Hemoptysis, pneumonia, acute on chronic hypoxic respirator failure, severe COPD , left-sided lung mass slowly enlarging likely neoplastic process, 07/13/2018, patient seen eval examined during the rounds on fifth floor, patient is still short of breath and supplemental oxygen but however cough congestion is significantly improved, no more hemoptysis has been noted, patient has been tolerating antibiotics and steroids fairly well, I have discussed with her about the left-sided lung mass and offered her if she would like to undergo a repeat biopsy as the size of the mass is slowly increasing and suspicion is likely neoplastic process she continued to decline a repeat biopsy, also continued decline further therapeutic interventions like radiation or chemotherapy as well as surgical resection and evaluation 07/12/2018, patient seen eval examined during the rounds clinically she is doing slightly better still have some cough congestion but severity of cough as well as hemoptysis significantly improved breathing remains an issue continued to be on supplemental oxygen labs reviewed medications reviewed 07/11/2018, patient seen eval reexamined during the rounds clinically patient is doing slightly better but however still of issues associated with tremulousness as well as cough however mostly cough is nonproductive hemoptysis improved significantly, patient has been tolerating antibiotics well I have reviewed the findings on the x-ray and prior CAT scan with the patient at length she continued to decline a repeat biopsy and was to be treated conservatively she has declined chemo and radiation therapy option in the past and currently as well 82-year-old with chronic hypoxic respirator failure related to severe COPD and emphysema has been on supplemental oxygen 24 7 patient is being monitor observe for left-sided lung mass which is slowly enlarging patient refused invasive workup and repeat biopsy is on multiple occasions she also has refused chemo and radiation therapy, patient started having increased congestion shortness of breath for the last week to 10 days symptoms have been progressive around same time she had few occasional streaks of blood now on the last 24 hours she has intermittent clumps of blood she is short of breath has intermittent chest tightness was severity however remains stable, patient had 2 chest x-ray performed since admission and earlier this morning both of them reviewed and compared, x-ray revealed left upper lobe mass with surrounding inflammatory changes and subsegmental atelectasis, chest x-ray performed today is not much different compared to yesterday's x-ray Objective - Vital Signs Vital signs: Vital Signs Temp 97.7 F 07/13/18 06:08 Pulse 92 07/13/18 08:56 Resp 20 07/13/18 06:08 BP 112/58 07/13/18 06:08 Pulse Ox 95 07/13/18 06:08 Intake & Output 07/12/18 07/13/18 07/13/18 18:59 06:59 18:59 Intake Total 400 Balance 400 Intake: Intake, IV Titration 50 Amount Piperacillin-Tazobactam 3 50 .375 gm In Dextrose/Water 1 50ml.bag @ 12.5 mls/hr IVPB Q8HR [facility] Rx#: [id number] Oral 350 Other: Voiding Method Bedside Commode Bedside Commode Bedside Commode # Voids 2 1 - Exam - Constitutional General appearance: average body habitus, cooperative, disheveled, mild distress , obese - EENT Eyes: anicteric sclerae, EOMI, PERRLA, poor dentition, normal appearance ENT: hearing grossly normal, normal oropharynx Ears: bilateral: normal - Neck Neck: normal ROM Thyroid: bilateral: normal size - Respiratory Respiratory: bilateral: diminished, rhonchi, prolonged expiration, negative: dullness, rales - Cardiovascular Rhythm: regular Heart sounds: normal: S1, S2 - Gastrointestinal General gastrointestinal: distended, soft - Integumentary Integumentary: normal, normal turgor - Neurologic Neurologic: CNII-XII intact - Musculoskeletal Musculoskeletal: gait normal, generalized weakness, strength equal bilaterally - Psychiatric Psychiatric: A&O x's 3, appropriate affect, intact judgment & insight - Labs CBC & Chem 7: 07/11/18 08:40 07/11/18 08:40 Labs: Abnormal Lab Results - Last 24 Hours (Table) 07/12/18 07/12/18 07/12/18 Range/Units 11:18 17:29 20:57 POC Glucose (mg/dL) 133 H 139 H 223 H (75-99) mg/dL 07/13/18 Range/Units 07:15 POC Glucose (mg/dL) 129 H (75-99) mg/dL Microbiology - Last 24 Hours (Table) 07/09/18 14:56 Blood Culture - Preliminary Blood No Growth after 72 hours 07/10/18 12:18 Gram Stain - Final Sputum Sputum Culture - Final Assessment and Plan Assessment: Hemoptysis likely related to COPD exacerbation and tracheobronchitis however involvement of left upper lobe bronchus cannot be excluded hemoptysis is improved but the cough is still present Pneumonia mixed bacterial and/or or gram-negative related End-stage lung disease in his severe COPD emphysema Hypertension hypertensive cardiovascular disease Left upper lobe mass likely neoplastic with slow progressive enlargement, patient has refused repeat biopsy as well as chemo and radiation therapy on multiple occasions Plan: Agree with broad-spectrum antibiotics with IV steroids breathing treatments Taper down the steroids Codeine for cough suppression Continue other supportive care Time with Patient: Greater than 30
[2018-07-13 11:28] LABS: Glucose,Whole Blood 135 mg/dL (75-99)
[2018-07-13 17:20] LABS: Glucose,Whole Blood 131 mg/dL (75-99)
[2018-07-13 19:51] LABS: Glucose,Whole Blood 212 mg/dL (75-99)
[2018-07-13 23:23] VITALS: RESP 16
[2018-07-14 06:06] VITALS: BP 155/69; TEMP 97
[2018-07-14 07:10] LABS: Glucose,Whole Blood 141 mg/dL (75-99)
[2018-07-14] MEDS: IPRATROPIUM-ALBUTEROL 3 ML NEB INHALATION SCH (07:22)
[2018-07-14 07:36] VITALS: PULSE 89
[2018-07-14] MEDS: methylPREDNISolone SOD SUCCI 40 MG/ML 1 ML VIAL IV SCH (08:00)
[2018-07-14] MEDS: PIPERACILLIN-TAZOBACTAM 3.375 GM in DEXTROSE/WATER 1 50ML.BAG IVPB SCH (08:00)
[2018-07-14] MEDS: LISINOPRIL 2.5 MG TAB PO SCH (08:00)
[2018-07-14] MEDS: PANTOPRAZOLE 40 MG TABLET PO SCH (08:00)
[2018-07-14] MEDS: DILTIAZEM CD 120 MG CAP.ER.24H PO SCH (08:00)
[2018-07-14] MEDS: FUROSEMIDE 40 MG TAB PO SCH (08:00)
[2018-07-14] MEDS: INSULIN ASPART 100 UNIT/ML 1 ML 10 ML VIAL SQ SCH ×2 (08:00→11:37)
[2018-07-14 11:08] LABS: Glucose,Whole Blood 134 mg/dL (75-99)
[2018-07-14] MEDS: guaiFENesin-Coden 100-10MG/5ML 10 ML CUP PO PRN (12:09)
--- NOTE | 2018-07-14 12:48 | P.PN ---
Subjective Progress Note Date: 07/14/18 Principal diagnosis: Hemoptysis, pneumonia, acute on chronic hypoxic respirator failure, severe COPD , left-sided lung mass slowly enlarging likely neoplastic process, 07/14/2018, patient seen eval examined during the rounds clinically patient is doing better awake and alert breathing comfortably no obvious distress present hemodynamic status stable still congested with cough sputum is thick tenacious no active hemoptysis present labs reviewed medications reviewed patient is being considered possible discharge later on today 07/13/2018, patient seen eval examined during the rounds on fifth floor, patient is still short of breath and supplemental oxygen but however cough congestion is significantly improved, no more hemoptysis has been noted, patient has been tolerating antibiotics and steroids fairly well, I have discussed with her about the left-sided lung mass and offered her if she would like to undergo a repeat biopsy as the size of the mass is slowly increasing and suspicion is likely neoplastic process she continued to decline a repeat biopsy, also continued decline further therapeutic interventions like radiation or chemotherapy as well as surgical resection and evaluation 07/12/2018, patient seen eval examined during the rounds clinically she is doing slightly better still have some cough congestion but severity of cough as well as hemoptysis significantly improved breathing remains an issue continued to be on supplemental oxygen labs reviewed medications reviewed 07/11/2018, patient seen eval reexamined during the rounds clinically patient is doing slightly better but however still of issues associated with tremulousness as well as cough however mostly cough is nonproductive hemoptysis improved significantly, patient has been tolerating antibiotics well I have reviewed the findings on the x-ray and prior CAT scan with the patient at length she continued to decline a repeat biopsy and was to be treated conservatively she has declined chemo and radiation therapy option in the past and currently as well 82-year-old with chronic hypoxic respirator failure related to severe COPD and emphysema has been on supplemental oxygen 24 7 patient is being monitor observe for left-sided lung mass which is slowly enlarging patient refused invasive workup and repeat biopsy is on multiple occasions she also has refused chemo and radiation therapy, patient started having increased congestion shortness of breath for the last week to 10 days symptoms have been progressive around same time she had few occasional streaks of blood now on the last 24 hours she has intermittent clumps of blood she is short of breath has intermittent chest tightness was severity however remains stable, patient had 2 chest x-ray performed since admission and earlier this morning both of them reviewed and compared, x-ray revealed left upper lobe mass with surrounding inflammatory changes and subsegmental atelectasis, chest x-ray performed today is not much different compared to yesterday's x-ray Objective - Vital Signs Vital signs: Vital Signs Temp 97.0 F L 07/14/18 05:00 Pulse 89 07/14/18 07:34 Resp 16 07/14/18 05:00 BP 155/69 07/14/18 05:00 Pulse Ox 94 L 07/14/18 05:00 Intake & Output 07/13/18 07/14/18 07/14/18 18:59 06:59 18:59 Intake Total 1350 Balance 1350 Intake: Intake, IV Titration 50 Amount Piperacillin-Tazobactam 3 50 .375 gm In Dextrose/Water 1 50ml.bag @ 12.5 mls/hr IVPB Q8HR [facility] Rx#: [id number] Oral 1300 Other: Voiding Method Bedside Commode Bedside Commode Bedside Commode # Voids 3 2 - Exam - Constitutional General appearance: average body habitus, cooperative, disheveled, mild distress , obese - EENT Eyes: anicteric sclerae, EOMI, PERRLA, poor dentition, normal appearance ENT: hearing grossly normal, normal oropharynx Ears: bilateral: normal - Neck Neck: normal ROM Thyroid: bilateral: normal size - Respiratory Respiratory: bilateral: diminished, rhonchi, prolonged expiration, negative: dullness, rales - Cardiovascular Rhythm: regular Heart sounds: normal: S1, S2 - Gastrointestinal General gastrointestinal: distended, soft - Integumentary Integumentary: normal, normal turgor - Neurologic Neurologic: CNII-XII intact - Musculoskeletal Musculoskeletal: gait normal, generalized weakness, strength equal bilaterally - Psychiatric Psychiatric: A&O x's 3, appropriate affect, intact judgment & insight - Labs CBC & Chem 7: 07/11/18 08:40 07/11/18 08:40 Labs: Abnormal Lab Results - Last 24 Hours (Table) 07/13/18 07/13/18 07/14/18 Range/Units 17:18 19:49 07:08 POC Glucose (mg/dL) 131 H 212 H 141 H (75-99) mg/dL 07/14/18 Range/Units 11:07 POC Glucose (mg/dL) 134 H (75-99) mg/dL Microbiology - Last 24 Hours (Table) 07/09/18 14:56 Blood Culture - Preliminary Blood No Growth after 96 hours Assessment and Plan Assessment: Hemoptysis likely related to COPD exacerbation and tracheobronchitis however involvement of left upper lobe bronchus cannot be excluded hemoptysis is improved but the cough is still present Pneumonia mixed bacterial and/or or gram-negative related End-stage lung disease in his severe COPD emphysema Hypertension hypertensive cardiovascular disease Left upper lobe mass likely neoplastic with slow progressive enlargement, patient has refused repeat biopsy as well as chemo and radiation therapy on multiple occasions Plan: Agree with broad-spectrum antibiotics with IV steroids breathing treatments Taper down the steroids Codeine for cough suppression Continue other supportive care Time with Patient: Greater than 30
--- NOTE | 2018-07-16 11:51 | PN ---
PROGRESS NOTE DATE OF SERVICE: 07/13/2018. CHIEF COMPLAINT: COPD, CA of the lung and hemoptysis. HISTORY OF PRESENT ILLNESS: This lady's breathing is improving and she has had no further bleeding. Plan is for her to go home tomorrow. PHYSICAL EXAM: Breath sounds are diminished and there are occasional rales and rhonchi throughout. Cardiac exam is normal. IMPRESSION: 1. Hemoptysis. 2. Chronic obstructive pulmonary disease. 3. Carcinoma of the lung. PLAN: She will be going home tomorrow and there will be somebody there to take care of her. MMODL / IJN: [id number] /
--- NOTE | 2018-07-16 12:21 | DS ---
DISCHARGE SUMMARY DISCHARGE SUMMARY FOR: 07/14/2018 CHIEF COMPLAINT: Shortness of breath and hemoptysis. HISTORY OF PRESENT ILLNESS AND PHYSICAL EXAM: Details of this lady's history and physical can be found in the initial workup. LABORATORY STUDIES: While she was in the hospital she had laboratory studies, details which can be found in the laboratory section of her chart. COURSE IN HOSPITAL: After admission, she was placed at bedrest and started on intravenous fluids and monitored for the hemoptysis, which stopped. COPD was treated and she was doing as well as thought she could be and she will be sent home on the and we will see her in the office. FINAL DIAGNOSES: 1. Hemoptysis. 2. Carcinoma of the lung. 3. Chronic obstructive pulmonary disease. OPERATIONS: None. CONSULTATION: None. She is improved. MMODL / IJN: [id number] /
--- NOTE | 2018-07-16 15:33 | HP ---
HISTORY AND PHYSICAL DATE OF ADMISSION: 07/09/2019. CHIEF COMPLAINT: Shortness of breath and hemoptysis. HISTORY OF PRESENT ILLNESS: This is another admission for this 82-year-old white female with severe COPD and carcinoma of the lung, which she has refused to treat. She started coughing up blood and came into the hospital. She has no fever, chills, syncope, etc. Past medical history, family history and personal and social histories are all otherwise unremarkable and unchanged from previous admissions. PHYSICAL EXAMINATION: Blood pressure is 123/84 with a pulse of 90, respirations of 38, and she is afebrile. In general, she appeared to be slightly pale and short of breath. Head, ears, eyes, nose, mouth, and throat were normal and the neck was supple. Neck veins not distended. Chest demonstrated increased AP diameter with very poor breath sounds throughout. There are occasional rhonchi. Cardiac exam demonstrated tachycardia and the abdomen is soft, nontender. EXTREMITIES: Normal. Neurologically she is intact. IMPRESSION: 1. Hemoptysis. 2. Carcinoma of the left lung. 3. Chronic obstructive pulmonary disease. PLAN: 1. Bed rest. 2. IV fluids. 3. Updrafts. MMODL / IJN: [id number] /
== END 2018-07-14 13:40 | disposition home health service (06) | DRG 190 ==
LOC: EC 14:05 → 6SEL 16:58 → 5MS5E 07-11 18:46
PROVIDERS: ADMIT Family Medicine; ATTEND Family Medicine
DX: J43.9 Emphysema, unspecified (principal); J96.21 Acute and chronic respiratory failure with hypoxia; J15.9 Unspecified bacterial pneumonia; C34.92 Malignant neoplasm of unspecified part of left bronchus or lung; I13.0 Hypertensive heart and chronic kidney disease with heart failure and stage 1 through stage 4 chronic kidney disease, or unspecified chronic kidney disease; J98.11 Atelectasis; J20.9 Acute bronchitis, unspecified; D64.9 Anemia, unspecified; E78.5 Hyperlipidemia, unspecified; I45.10 Unspecified right bundle-branch block; I50.9 Heart failure, unspecified; N18.9 Chronic kidney disease, unspecified; Z87.891 Personal history of nicotine dependence; Z90.710 Acquired absence of both cervix and uterus; Z79.82 Long term (current) use of aspirin; Z79.899 Other long term (current) drug therapy; Z99.81 Dependence on supplemental oxygen; Z98.51 Tubal ligation status; Z96.642 Presence of left artificial hip joint
CPT/HCPCS: 36415; 71046; 80053; 82550; 82553; 83036; 83605; 83735; 84484; 85025; 85027; 85610; 85730; 86850; 86900; 86901; 87040; 87070; 87205; 93005; 94640; 94760; 96365; 96366; 96368; 96375; 96376; 99285

== ENCOUNTER 2018-07-31 17:57 | Inpatient (IN) | payer MEDICARE, OTHER ==
[2018-07-31] MEDS ORDERED: SODIUM CHLORIDE 0.9% 500 ML 500 ML IV STA (18:11)
[2018-07-31] MEDS ORDERED: IPRATROPIUM-ALBUTEROL 3 ML NEB INHALATION STA (18:11)
[2018-07-31] MEDS ORDERED: SODIUM CHLORIDE 0.9% 1,000 ML IV STA ×2 (18:11)
[2018-07-31] MEDS ORDERED: methylPREDNISolone SOD SUCCI 125 MG/2 ML VIAL IV STA (18:12)
--- NOTE | 2018-07-31 18:22 | ED ---
SOB HPI - General Chief Complaint: Shortness of Breath Stated Complaint: SOB Time Seen by Provider: 07/31/18 18:11 Source: patient, family, RN notes reviewed, old records reviewed Mode of arrival: wheelchair Limitations: no limitations - History of Present Illness Initial Comments: This is an 82-year-old female the ER for evaluation significant shortness with fever weakness and altered mental status. Patient continues to be treated for suspected lung infection, recently switched from Levaquin to penicillin. Patient developed increasing fever altered mental status and shortness of breath today patient's poor strain secondary to altered mental state, family states she has not had problems with altered mental status before MD Complaint: shortness of breath, anxiety -: days(s) Consistency: constant Improves With: oxygen, rest Worsens With: exertion Known History Of: COPD, congestive heart failure Context: recent URI Associated Symptoms: nausea/vomiting, other (Confusion and altered mental status ) - Related Data Home Medications Medication Instructions Recorded Confirmed Furosemide [Lasix] 40 mg PO BID 02/20/15 07/31/18 Lisinopril [Zestril] 2.5 mg PO DAILY 02/20/15 07/31/18 Omeprazole [PriLOSEC] 20 mg PO DAILY 02/20/15 07/31/18 Ipratropium-Albuterol Nebulize 3 ml INHALATION RT-QID PRN 10/24/17 07/31/18 [Duoneb 0.5 mg-3 mg/3 ml Soln] Diltiazem Cd [Cardizem CD] 120 mg PO DAILY 03/17/18 07/31/18 Albuterol Inhaler [Ventolin Hfa 2 puff INHALATION RT-Q6H PRN 06/28/18 07/31/18 Inhaler] Aspirin EC [Ecotrin Low Dose] 81 mg PO DAILY 07/31/18 07/31/18 Atorvastatin [Lipitor] 80 mg PO HS 07/31/18 07/31/18 Diphenox-Atrop 2.5-0.025 mg 1 - 2 tab PO QID PRN 07/31/18 07/31/18 [Lomotil] Penicillin V Potassium [Pen Vee K] 250 mg PO QID 07/31/18 07/31/18 Ranitidine HCl [Zantac] 150 mg PO BID 07/31/18 07/31/18 Allergies Allergy/AdvReac Type Severity Reaction Status Date / Time No Known Allergies Allergy Verified 07/31/18 18:34 Review of Systems ROS Statement: Those systems with pertinent positive or pertinent negative responses have been documented in the HPI. ROS Other: All systems not noted in ROS Statement are negative. Past Medical History Past Medical History: Atrial Flutter, Asthma, Chest Pain / Angina, Heart Failure , COPD, Hyperlipidemia, Pneumonia, Respiratory Disorder Additional Past Medical History / Comment(s): Chronic respiratory failure with O2 at 2L/NC ATC, chronic persistent asthma, bronchitis, known 1.8.cm L upper lung nodule-pt states bx negative, DJD, past L hip fx with surgery, sinus problems, rheumatic fever as a child. History of Any Multi-Drug Resistant Organisms: Acinetobacter (MDRO) Date of last positivie culture/infection: 10/06/16 MDRO Source:: SPUTUM Past Surgical History: Hysterectomy, Joint Replacement, Orthopedic Surgery, Tubal Ligation Additional Past Surgical History / Comment(s): 03/21/17 bronchoscopy with BAL/BX- bening per pt, LEFT HIP hemiarthroplasty, LEFT FOOT surgery, colonoscopy, D&C. Past Anesthesia/Blood Transfusion Reactions: No Reported Reaction Past Psychological History: No Psychological Hx Reported Smoking Status: Former smoker Past Alcohol Use History: None Reported Past Drug Use History: None Reported - Past Family History Father History Unknown: Yes Brother(s) Family Medical History: No Reported History Mother Family Medical History: Rheumatoid Arthritis (RA) General Exam Limitations: altered mental status General appearance: alert, in no apparent distress Head exam: Present: atraumatic, normocephalic, normal inspection Eye exam: Present: normal appearance, PERRL, EOMI. Absent: scleral icterus, conjunctival injection, periorbital swelling ENT exam: Present: normal exam, mucous membranes moist Neck exam: Present: normal inspection. Absent: tenderness, meningismus, lymphadenopathy Respiratory exam: Present: normal lung sounds bilaterally. Absent: respiratory distress, wheezes, rales, rhonchi, stridor Cardiovascular Exam: Present: normal rhythm, tachycardia, normal heart sounds. Absent: systolic murmur, diastolic murmur, rubs, gallop, clicks GI/Abdominal exam: Present: soft, normal bowel sounds. Absent: distended, tenderness, guarding, rebound, rigid Extremities exam: Present: normal inspection, full ROM, normal capillary refill. Absent: tenderness, pedal edema, joint swelling, calf tenderness Back exam: Present: normal inspection Neurological exam: Present: alert, oriented X3, CN II-XII intact Psychiatric exam: Present: normal affect, normal mood Skin exam: Present: warm, dry, intact, normal color. Absent: rash Course Vital Signs 07/31/18 07/31/18 07/31/18 17:59 18:15 18:43 Temperature 98.1 F Pulse Rate 114 H 119 H 117 H Respiratory 28 H 28 H 30 H Rate Blood Pressure 80/50 109/55 105/49 O2 Sat by Pulse 99 99 Oximetry 07/31/18 07/31/18 07/31/18 19:26 19:46 19:47 Temperature 101.0 F H Pulse Rate 100 109 H 100 Respiratory 26 H Rate Blood Pressure 127/87 O2 Sat by Pulse 92 L Oximetry 07/31/18 07/31/18 20:15 20:45 Temperature Pulse Rate 108 H 102 H Respiratory 30 H 28 H Rate Blood Pressure 99/56 90/56 O2 Sat by Pulse 92 L 99 Oximetry - Reevaluation(s) Reevaluation #1: 07/31/18 21:16 Medical records thoroughly reviewed Reevaluation #2: 07/31/18 21:16 Patient still remains confused Medical Decision Making - Medical Decision Making 82 female the ER for evaluation presents today for evaluation regards to fever altered mental status weakness. Patient be admitted for continued evaluation regarding infection, bacteremia. - Lab Data Result diagrams: 07/31/18 18:15 07/31/18 18:15 Lab Results 07/31/18 07/31/18 07/31/18 Range/Units 18:15 18:15 18:15 WBC 14.7 H (3.8-10.6) k/uL RBC 3.33 L (3.80-5.40) m/uL Hgb 7.8 L (11.4-16.0) gm/dL Hct 24.8 L (34.0-46.0) % MCV 74.3 L (80.0-100.0) fL MCH 23.3 L (25.0-35.0) pg MCHC 31.3 (31.0-37.0) g/dL RDW 17.3 H (11.5-15.5) % Plt Count 946 H (150-450) k/uL Neutrophils % 81 % Lymphocytes % 6 % Monocytes % 8 % Eosinophils % 2 % Basophils % 0 % Neutrophils # 11.9 H (1.3-7.7) k/uL Lymphocytes # 0.9 L (1.0-4.8) k/uL Monocytes # 1.2 H (0-1.0) k/uL Eosinophils # 0.3 (0-0.7) k/uL Basophils # 0.0 (0-0.2) k/uL Hypochromasia Moderate Anisocytosis Slight Microcytosis Moderate PT (9.0-12.0) sec INR (<1.2) APTT (22.0-30.0) sec Sodium 137 (137-145) mmol/L Potassium 3.8 (3.5-5.1) mmol/L Chloride 101 (98-107) mmol/L Carbon Dioxide 22 (22-30) mmol/L Anion Gap 14 mmol/L BUN 29 H (7-17) mg/dL Creatinine 1.37 H (0.52-1.04) mg/dL Est GFR (CKD-EPI)AfAm 42 (>60 ml/min/1.73 sqM) Est GFR (CKD-EPI)NonAf 37 (>60 ml/min/1.73 sqM) Glucose 105 H (74-99) mg/dL Plasma Lactic Acid Sedrick (0.7-2.0) mmol/L Calcium 9.1 (8.4-10.2) mg/dL Phosphorus 3.2 (2.5-4.5) mg/dL Magnesium 1.3 L (1.6-2.3) mg/dL Total Bilirubin 0.5 (0.2-1.3) mg/dL AST 17 (14-36) U/L ALT 33 (9-52) U/L Alkaline Phosphatase 85 (38-126) U/L Total Creatine Kinase <20 L (30-135) U/L CK-MB (CK-2) 0.4 (0.0-2.4) ng/mL CK-MB (CK-2) Rel Index Troponin I <0.012 (0.000-0.034) ng/mL Total Protein 5.9 L (6.3-8.2) g/dL Albumin 3.1 L (3.5-5.0) g/dL Urine Color Urine Appearance (Clear) Urine pH (5.0-8.0) Ur Specific Kipling (1.001-1.035) Urine Protein (Negative) Urine Glucose (UA) (Negative) Urine Ketones (Negative) Urine Blood (Negative) Urine Nitrite (Negative) Urine Bilirubin (Negative) Urine Urobilinogen (<2.0) mg/dL Ur Leukocyte Esterase (Negative) Influenza Type A RNA (Not Detectd) Influenza Type B (PCR) (Not Detectd) 07/31/18 07/31/18 07/31/18 Range/Units 18:15 18:15 20:10 WBC (3.8-10.6) k/uL RBC (3.80-5.40) m/uL Hgb (11.4-16.0) gm/dL Hct (34.0-46.0) % MCV (80.0-100.0) fL MCH (25.0-35.0) pg MCHC (31.0-37.0) g/dL RDW (11.5-15.5) % Plt Count (150-450) k/uL Neutrophils % % Lymphocytes % % Monocytes % % Eosinophils % % Basophils % % Neutrophils # (1.3-7.7) k/uL Lymphocytes # (1.0-4.8) k/uL Monocytes # (0-1.0) k/uL Eosinophils # (0-0.7) k/uL Basophils # (0-0.2) k/uL Hypochromasia Anisocytosis Microcytosis PT 9.5 (9.0-12.0) sec INR 1.0 (<1.2) APTT 22.9 (22.0-30.0) sec Sodium (137-145) mmol/L Potassium (3.5-5.1) mmol/L Chloride (98-107) mmol/L Carbon Dioxide (22-30) mmol/L Anion Gap mmol/L BUN (7-17) mg/dL Creatinine (0.52-1.04) mg/dL Est GFR (CKD-EPI)AfAm (>60 ml/min/1.73 sqM) Est GFR (CKD-EPI)NonAf (>60 ml/min/1.73 sqM) Glucose (74-99) mg/dL Plasma Lactic Acid Sedrick 3.5 H* (0.7-2.0) mmol/L Calcium (8.4-10.2) mg/dL Phosphorus (2.5-4.5) mg/dL Magnesium (1.6-2.3) mg/dL Total Bilirubin (0.2-1.3) mg/dL AST (14-36) U/L ALT (9-52) U/L Alkaline Phosphatase (38-126) U/L Total Creatine Kinase (30-135) U/L CK-MB (CK-2) (0.0-2.4) ng/mL CK-MB (CK-2) Rel Index Troponin I (0.000-0.034) ng/mL Total Protein (6.3-8.2) g/dL Albumin (3.5-5.0) g/dL Urine Color Urine Appearance (Clear) Urine pH (5.0-8.0) Ur Specific Kipling (1.001-1.035) Urine Protein (Negative) Urine Glucose (UA) (Negative) Urine Ketones (Negative) Urine Blood (Negative) Urine Nitrite (Negative) Urine Bilirubin (Negative) Urine Urobilinogen (<2.0) mg/dL Ur Leukocyte Esterase (Negative) Influenza Type A RNA Not Detected (Not Detectd) Influenza Type B (PCR) Not Detected (Not Detectd) 07/31/18 Range/Units 20:30 WBC (3.8-10.6) k/uL RBC (3.80-5.40) m/uL Hgb (11.4-16.0) gm/dL Hct (34.0-46.0) % MCV (80.0-100.0) fL MCH (25.0-35.0) pg MCHC (31.0-37.0) g/dL RDW (11.5-15.5) % Plt Count (150-450) k/uL Neutrophils % % Lymphocytes % % Monocytes % % Eosinophils % % Basophils % % Neutrophils # (1.3-7.7) k/uL Lymphocytes # (1.0-4.8) k/uL Monocytes # (0-1.0) k/uL Eosinophils # (0-0.7) k/uL Basophils # (0-0.2) k/uL Hypochromasia Anisocytosis Microcytosis PT (9.0-12.0) sec INR (<1.2) APTT (22.0-30.0) sec Sodium (137-145) mmol/L Potassium (3.5-5.1) mmol/L Chloride (98-107) mmol/L Carbon Dioxide (22-30) mmol/L Anion Gap mmol/L BUN (7-17) mg/dL Creatinine (0.52-1.04) mg/dL Est GFR (CKD-EPI)AfAm (>60 ml/min/1.73 sqM) Est GFR (CKD-EPI)NonAf (>60 ml/min/1.73 sqM) Glucose (74-99) mg/dL Plasma Lactic Acid Sedrick (0.7-2.0) mmol/L Calcium (8.4-10.2) mg/dL Phosphorus (2.5-4.5) mg/dL Magnesium (1.6-2.3) mg/dL Total Bilirubin (0.2-1.3) mg/dL AST (14-36) U/L ALT (9-52) U/L Alkaline Phosphatase (38-126) U/L Total Creatine Kinase (30-135) U/L CK-MB (CK-2) (0.0-2.4) ng/mL CK-MB (CK-2) Rel Index Troponin I (0.000-0.034) ng/mL Total Protein (6.3-8.2) g/dL Albumin (3.5-5.0) g/dL Urine Color Light Yellow Urine Appearance Clear (Clear) Urine pH 5.0 (5.0-8.0) Ur Specific Kipling 1.007 (1.001-1.035) Urine Protein Negative (Negative) Urine Glucose (UA) Negative (Negative) Urine Ketones Negative (Negative) Urine Blood Negative (Negative) Urine Nitrite Negative (Negative) Urine Bilirubin Negative (Negative) Urine Urobilinogen <2.0 (<2.0) mg/dL Ur Leukocyte Esterase Negative (Negative) Influenza Type A RNA (Not Detectd) Influenza Type B (PCR) (Not Detectd) - EKG Data -: EKG Interpreted by Me (EKG shows sinus tachycardia rate of 119, IN 150, QRS 120, QTC 436) EKG shows normal: sinus rhythm Rate: tachycardia - Radiology Data Radiology results: report reviewed (Chest x-ray relatively unchanged from prior , CT brain), image reviewed Critical Care Time Critical Care Time: Yes Critical Care Time: 31 Disposition Clinical Impression: Acute exacerbation of chronic obstructive airways disease, High risk for readmission, On home oxygen therapy, Dyspnea, Fever, Altered mental state Disposition: ADMITTED IP TO THIS HOSP Condition: Serious Is patient prescribed a controlled substance at d/c from ED?: No Referrals: Og Green MD [Primary Care Provider] - 1-2 days
[2018-07-31 18:35] LABS: Anisocytosis Slight; Basophils % (A) 0 %; Eosinophils # (A) 0.3 k/uL (0-0.7); Eosinophils % (A) 2 %; HCT 24.8 % (34.0-46.0); HGB 7.8 gm/dL (11.4-16.0); Hypochromasia Moderate; Lymphocytes # (A) 0.9 k/uL (1.0-4.8); Lymphocytes % (A) 6 %; MCH 23.3 pg (25.0-35.0); MCHC 31.3 g/dL (31.0-37.0); MCV 74.3 fL (80.0-100.0); Microcytosis Moderate; Monocytes # (A) 1.2 k/uL (0-1.0); Monocytes % (A) 8 %; Neutrophils # (A) 11.9 k/uL (1.3-7.7); Neutrophils % (A) 81 %; Platelet Count 946 k/uL (150-450); RBC 3.33 m/uL (3.80-5.40); RDW 17.3 % (11.5-15.5); WBC 14.7 k/uL (3.8-10.6)
[2018-07-31 18:44] LABS: Albumin 3.1 g/dL (3.5-5.0); Calcium 9.1 mg/dL (8.4-10.2); Magnesium 1.3 mg/dL (1.6-2.3); Phosphorus 3.2 mg/dL (2.5-4.5); Potassium 3.8 mmol/L (3.5-5.1); Total Bilirubin 0.5 mg/dL (0.2-1.3); Total Protein 5.9 g/dL (6.3-8.2)
[2018-07-31 18:45] LABS: Partial Thromboplastin Time 22.9 sec (22.0-30.0); Prothrombin Time 9.5 sec (9.0-12.0)
[2018-07-31 18:56] LABS: Creatine Kinase <20 U/L (30-135)
[2018-07-31 19:08] LABS: Creatine Kinase MB 0.4 ng/mL (0.0-2.4); Troponin I <0.012 ng/mL (0.000-0.034)
--- NOTE | 2018-07-31 19:36 | XR ---
EXAMINATION TYPE: XR chest 2V DATE OF EXAM: 07/31/2018 COMPARISON: 07/10/2018 HISTORY: Short of breath and cough TECHNIQUE: Frontal and lateral views of the chest are obtained. FINDINGS: There is a 10 cm masslike area of consolidation in the left upper lobe. The other lung fie lds are fairly clear. Heart size is normal. There is no heart failure. There is no pleural effusion. IMPRESSION: Left upper lobe mass has increased compared to last exam. No heart failure.
[2018-07-31] MEDS ORDERED: ACETAMINOPHEN TAB 500 MG TAB PO STA (19:45)
[2018-07-31] MEDS ORDERED: IBUPROFEN 800 MG TAB PO STA (19:45)
[2018-07-31] MEDS ORDERED: SODIUM CHLORIDE 0.9% 1,000 ML IV ONE (20:30)
[2018-07-31 20:40] LABS: Appearance,Urine Clear (Clear); Bilirubin,Urine Negative (Negative); Blood,Urine Negative (Negative); Color,Urine Light Yellow; Glucose,Urine (UA) Negative (Negative); Ketones,Urine Negative (Negative); Leukocyte Esterase,Urine Negative (Negative); Nitrite,Urine Negative (Negative); Protein,Urine Negative (Negative); Specific Gravity,Urine 1.007 (1.001-1.035); Urobilinogen,Urine <2.0 mg/dL (<2.0)
[2018-07-31] MEDS ORDERED: PIPERACILLIN-TAZOBACTAM 3.375 GM in DEXTROSE/WATER 1 50ML.BAG IVPB STA (21:10)
[2018-07-31] MEDS ORDERED: VANCOMYCIN IV PER PHARMACY 1 EACH MISC MISCELLANE PRN (21:10)
[2018-07-31] MEDS ORDERED: SODIUM CHLORIDE 0.9% 1,000 ML IV SCH (21:15)
[2018-07-31] MEDS ORDERED: VANCOMYCIN 1,000 MG in SODIUM CHLORIDE 0.9% 250 ML IVPB STA (21:36)
[2018-07-31] MEDS: SODIUM CHLORIDE 0.9% 500 ML 500 ML IV SCH ×3 (22:10→23:28)
--- NOTE | 2018-07-31 22:35 | CT ---
EXAMINATION TYPE: CT brain wo con DATE OF EXAM: 07/31/2018 COMPARISON: 03/14/2017 HISTORY: Altered mental status. CT DLP: 1121 mGycm Automated exposure control for dose reduction was used. FINDINGS: There is cerebral cortical atrophy. There is no mass effect nor midline shift. There is no sign of in tracranial hemorrhage. Calvarium is intact. There is a wedge-shaped 3 x 4 cm area of hypodensity in t he left posterior parietal lobe cortex. IMPRESSION: THERE IS EVIDENCE OF ACUTE INFARCT LEFT POSTERIOR PARIETAL LOBE COMPARED TO LAST EXAM.
[2018-08-01] MEDS ORDERED: DIPHENOX-ATROP 2.5-0.025 MG 1 EACH TAB PO PRN (01:37)
[2018-08-01] MEDS: MAGNESIUM SULFATE-D5W PMX 1 GM in DEXTROSE/WATER 1 100ML.BAG IVPB SCH ×2 (03:34→04:12)
[2018-08-01] MEDS: SODIUM CHLORIDE 0.9% 1,000 ML IV SCH (05:32)
[2018-08-01] MEDS: methylPREDNISolone SOD SUCCI 125 MG/2 ML VIAL IV SCH ×3 (06:11→16:38)
[2018-08-01] MEDS: PIPERACILLIN-TAZOBACTAM 3.375 GM in DEXTROSE/WATER 1 50ML.BAG IVPB SCH ×3 (06:11→21:01)
[2018-08-01] MEDS: PANTOPRAZOLE 40 MG TABLET PO SCH (06:14)
[2018-08-01 06:57] LABS: Glucose,Whole Blood 179 mg/dL (75-99)
[2018-08-01] MEDS: INSULIN ASPART 100 UNIT/ML 1 ML 10 ML VIAL SQ SCH ×4 (07:00→21:02)
[2018-08-01] MEDS: ASPIRIN 81 MG PO SCH (08:36)
[2018-08-01] MEDS: FUROSEMIDE 40 MG TAB PO SCH ×2 (08:37→21:07)
[2018-08-01] MEDS: LISINOPRIL 2.5 MG TAB PO SCH (08:37)
[2018-08-01] MEDS: DILTIAZEM CD 120 MG CAP.ER.24H PO SCH (08:37)
[2018-08-01] MEDS: FAMOTIDINE 20 MG TAB PO SCH (08:38)
[2018-08-01] MEDS: ENOXAPARIN 40 MG/0.4 ML SYRINGE SQ SCH (08:41)
[2018-08-01] MEDS ORDERED: FAMOTIDINE 20 MG TAB PO SCH (09:00)
[2018-08-01] MEDS ORDERED: ENOXAPARIN 30 MG/0.3 ML SYRINGE SQ SCH (09:00)
--- NOTE | 2018-08-01 10:06 | HP ---
HISTORY AND PHYSICAL I am covering for Dr. Green. DATE OF SERVICE: 07/31/2018 CHIEF COMPLAINT: Shortness of breath. HISTORY OF PRESENT ILLNESS: This is an 82-year-old woman with a past medical history of multiple medical problems, was recently admitted to [facility] with hemoptysis, possibly CA lung and COPD. The patient was also seen by Dr. Diaz and left upper bronchitis cannot be excluded because of hemoptysis and the patient was and a left upper lobe mass was slightly thought to be neoplastic also and patient was discharged, but currently the patient is complaining of shortness of breath and weakness and change in mental status. The patient is confused and the patient is taken to [facility] and admitted for further evaluation and treatment. There is no history of fever, chills or rigors. No history of trauma. Patient unable to give coherent history. Most of the history taken from my discussion with staff and review of chart. PAST MEDICAL HISTORY: Recent pneumonia, possible lung mass, atrial fibrillation, history of COPD, CHF, history of chronic hypoxic respiratory failure. MEDICATIONS: Prior to admission include home medications are: 1. Ranitidine 150 mg p.o. b.i.d. 2. 250 mg p.o. q.i.d. 3. Prilosec 20 mg p.o. daily. 4. Zestril 22.5 mg daily. 5. DuoNeb q.i.d. 6. Lasix 40 mg b.i.d. 7. Lomotil 1 to 2 tablets q.i.d. p.r.n. 8. Cardizem CD 120 mg. 9. Lipitor 80 mg q.h.s. 10.Ecotrin 81 mg. 11.Ventolin HFA 2 puffs q.6 p.r.n. ALLERGIES: None. FAMILY HISTORY: History of rheumatoid arthritis in the family. SOCIAL HISTORY: History of previous history of smoking. No alcohol intake. REVIEW OF SYSTEMS: Could not be taken because the patient is confused. PHYSICAL EXAM: Pulse is 87, blood pressure 90/48, respiration 20, temperature 97.7, pulse ox 99 % on 2 L. T-max is 99.9. HEENT: Conjunctivae normal, oral mucosa moist Neck is no jugular venous distention. No carotid bruit. No lymph node enlargement. CARDIOVASCULAR SYSTEM: S1, S2, muffled. RESPIRATION: Breath sounds diminished at the bases, a few scattered rhonchi, no crackles. Expiratory wheezing also present. ABDOMEN: Soft, nontender. No mass. LEGS: No edema, no swelling. NERVOUS SYSTEM: Higher functions as mentioned earlier. Moves all 4 limbs. No focal deficits. LYMPHATICS: No lymph node enlargement in the neck, axillae or groin. SKIN: No rash, ulcer, bleeding. LABS: WBC is 14.2, hemoglobin is 7.8, and plasma lactic 3.5. Creatinine is 1.33. ASSESSMENT: 1. Chronic obstructive pulmonary disease exacerbation with the bilateral pneumonia, possibly gram-negative with failure of outpatient treatment and sepsis present on admission. 2. Confusion, possible acute metabolic encephalopathy, multifactorial. 3. Left upper lung mass, possible malignancy. 4. Atrial flutter. 5. History of asthma. 6. History of congestive heart failure. 7. History of chronic obstructive pulmonary disease. 8. History of hypertension. 9. Hyperlipidemia. 10.History of chronic hypoxic respiratory: on 2 L O2 at home. 11.History of Citrobacter MDRO. 12.FULL CODE. RECOMMENDATION: In this 82-year-old woman who presented with multiple complex medical issues, will monitor the patient closely, continue with the current management and symptomatic treatment. Will initiate intensive bronchodilator treatment. IV steroids, broad- spectrum IV antibiotics, Zosyn has been given. Cultures. Resume the home medications. Consult Dr. Diaz. Prognosis guarded because of multiple complex medical issues. A copy of this will be forwarded to Dr. Green who is the primary physician. MMODL / IJN: [id number] / MTDD
--- NOTE | 2018-08-01 12:07 | ECHOF ---
Referral Reason:acute infarct MEASUREMENTS -------- HEIGHT: 175.3 cm WEIGHT: 53.1 kg BP: 93/54 RVIDd: 2.6 cm (< 3.3) IVSd: 1.0 cm (0.6 - 1.1) LVIDd: 4.1 cm (3.9 - 5.3) LVPWd: 1.0 cm (0.6 - 1.1) IVSs: 1.4 cm LVIDs: 3.0 cm LVPWs: 1.5 cm LAESV Index (A-L): 35.52 ml/m Ao Diam: 3.1 cm (2.0 - 3.7) AV Cusp: 1.7 cm (1.5 - 2.6) LA Diam: 4.3 cm (2.7 - 3.8) MV EXCURSION: 19.089 mm (> 18.000) MV EF SLOPE: 137 mm/s (70 - 150) EPSS: 0.9 cm MV E Sachin: 1.00 m/s MV DecT: 154 ms MV A Sachin: 1.02 m/s MV E/A Ratio: 0.98 RAP: 5.00 mmHg RVSP: 35.07 mmHg FINDINGS -------- Sinus rhythm. This was a technically adequate study. The left ventricular size is normal. There is mild concentric left ventricular hypertrophy. Overa ll left ventricular systolic function is normal with, an EF between 55 - 60 %. The right ventricle is normal in size. The left atrial size is normal. Normal LA size by volume 22+/-6 ml/m2. The right atrial size is normal. There is mild aortic valve sclerosis. There is no evidence of aortic regurgitation. Mild mitral annular calcification present. Mild mitral regurgitation is present. Mild tricuspid regurgitation present. There is mild pulmonary hypertension. The right ventricular systolic pressure, as measured by Doppler, is 35.07mmHg. There is no pulmonic regurgitation present. The aortic root size is normal. There is no pericardial effusion. CONCLUSIONS -------- 1. The left ventricular size is normal. 2. There is mild concentric left ventricular hypertrophy. 3. Overall left ventricular systolic function is normal with, an EF between 55 - 60 %. 4. The right ventricle is normal in size. 5. The left atrial size is normal. 6. The right atrial size is normal. 7. There is mild aortic valve sclerosis. 8. Mild mitral annular calcification present. 9. Mild mitral regurgitation is present. 10. Mild tricuspid regurgitation present. 11. There is mild pulmonary hypertension. 12. The right ventricular systolic pressure, as measured by Doppler, is 35.07mmHg. 13. There is no pulmonic regurgitation present. 14. The aortic root size is normal. 15. There is no pericardial effusion. CONSTRUCTION COORDINATOR: Cassie Loving RDCS
[2018-08-01 12:30] LABS: Glucose,Whole Blood 143 mg/dL (75-99)
[2018-08-01] MEDS: IPRATROPIUM-ALBUTEROL 3 ML NEB INHALATION PRN ×2 (13:55→19:58)
--- NOTE | 2018-08-01 15:07 | P.CNPUL ---
History of Present Illness Consult date: 08/01/18 Reason for consult: dyspnea, cough, lung mass Chief complaint: Altered mental status History of present illness: 82-year-old female who was seen evaluated examined on 6 floor this patient has been admitted to hospital 1 day history of confusion and altered mental status patient has some issues is speech related issue which new in onset, patient does have a history of end-stage lung disease and severe COPD emphysema and has chronic hypoxic respiratory failure on supplemental oxygen, patient also has a left upper lobe mass which is being monitor observe patient has declined any biopsy and or or chemo or radiation therapy, recently patient was hospitalized with hemoptysis thought to be related to pneumonia however hemoptysis stopped after antibiotics and steroid therapy and was discharged in fairly stable condition, patient did call the office for problems associated diarrhea yesterday she was advised to come into the office today now she is seen in the hospital with a new onset confusion, laboratory data reviewed radiographic studies reviewed the x-rays is stable except slowly enlarging left upper lobe mass, computed tomography scan of the head revealed no new acute left posterior parietal lobe infarct suggestive of CVA size is about 3 x 4 cm wedge-shaped Review of Systems ROS unobtainable: due to mental status Past Medical History Past Medical History: Atrial Flutter, Asthma, Chest Pain / Angina, Heart Failure , COPD, Hyperlipidemia, Pneumonia, Respiratory Disorder Additional Past Medical History / Comment(s): Chronic respiratory failure with O2 at 2L/NC ATC, chronic persistent asthma, bronchitis, known 1.8.cm L upper lung nodule-pt states bx negative, DJD, past L hip fx with surgery, sinus problems, rheumatic fever as a child. History of Any Multi-Drug Resistant Organisms: Acinetobacter (MDRO) Date of last positivie culture/infection: 10/06/16 MDRO Source:: SPUTUM Past Surgical History: Hysterectomy, Joint Replacement, Orthopedic Surgery, Tubal Ligation Additional Past Surgical History / Comment(s): 03/21/17 bronchoscopy with BAL/BX- bening per pt, LEFT HIP hemiarthroplasty, LEFT FOOT surgery, colonoscopy, D&C. Past Anesthesia/Blood Transfusion Reactions: No Reported Reaction Past Psychological History: No Psychological Hx Reported Additional Psychological History / Comment(s): Pt resides with her son. She no longer drives, her daughter/family drives her to [employer]. Her son cooks and cleans the house. The home is one level without steps. She has home O2 and a nebulizer,w/c, hospital bed,bsc, cane. Smoking Status: Former smoker Past Alcohol Use History: None Reported Additional Past Alcohol Use History / Comment(s): Pt started smoking in 1964 and quit in 2007 smoked 1/2 ppd Past Drug Use History: None Reported - Past Family History Father History Unknown: Yes Brother(s) Family Medical History: No Reported History Mother Family Medical History: Rheumatoid Arthritis (RA) Medications and Allergies Home Medications Medication Instructions Recorded Confirmed Type Furosemide [Lasix] 40 mg PO BID 02/20/15 07/31/18 History Lisinopril [Zestril] 2.5 mg PO DAILY 02/20/15 07/31/18 History Omeprazole [PriLOSEC] 20 mg PO DAILY 02/20/15 07/31/18 History Ipratropium-Albuterol Nebulize 3 ml INHALATION RT-QID PRN 10/24/17 07/31/18 History [Duoneb 0.5 mg-3 mg/3 ml Soln] Diltiazem Cd [Cardizem CD] 120 mg PO DAILY 03/17/18 07/31/18 History Albuterol Inhaler [Ventolin Hfa 2 puff INHALATION RT-Q6H PRN 06/28/18 07/31/18 History Inhaler] Aspirin EC [Ecotrin Low Dose] 81 mg PO DAILY 07/31/18 07/31/18 History Atorvastatin [Lipitor] 80 mg PO HS 07/31/18 07/31/18 History Diphenox-Atrop 2.5-0.025 mg 1 - 2 tab PO QID PRN 07/31/18 07/31/18 History [Lomotil] Penicillin V Potassium [Pen Vee K] 250 mg PO QID 07/31/18 07/31/18 History Ranitidine HCl [Zantac] 150 mg PO BID 07/31/18 07/31/18 History Allergies Allergy/AdvReac Type Severity Reaction Status Date / Time No Known Allergies Allergy Verified 07/31/18 18:34 Physical Exam Vitals: Vital Signs Temp Pulse Pulse Resp BP BP Pulse Ox 08/01/18 14:05 85 18 08/01/18 13:55 85 18 08/01/18 08:00 97.4 F L 76 18 102/54 95 08/01/18 04:00 98.0 F 70 20 93/53 96 08/01/18 00:00 97.6 F 76 24 99/54 96 07/31/18 23:31 98.6 F 89 24 98/56 95 07/31/18 22:31 98.5 F 70 20 100/50 96 07/31/18 22:14 87 26 H 99/48 99 07/31/18 21:59 97.7 F 22 111/53 96 07/31/18 21:15 99.9 F H 82 28 H 112/65 93 L 07/31/18 20:45 102 H 28 H 90/56 99 07/31/18 20:15 108 H 30 H 99/56 92 L 07/31/18 19:47 100 07/31/18 19:46 101.0 F H 109 H 26 H 127/87 92 L 07/31/18 19:26 100 07/31/18 18:43 117 H 30 H 105/49 99 07/31/18 18:15 119 H 28 H 109/55 99 07/31/18 17:59 98.1 F 114 H 28 H 80/50 Intake and Output 07/31/18 08/01/18 08/01/18 22:59 06:59 14:59 Intake Total 1997 400 Balance 1997 400 Intake: Intake, IV Titration 1997 400 Amount Magnesium Sulfate-D5w Pmx 100 1 gm In Dextrose/Water 1 100ml.bag @ 100 mls/hr IVPB Q1H ULISES Rx#: [id number] Piperacillin-Tazobactam 3 50 .375 gm In Dextrose/Water 1 50ml.bag @ 12.5 mls/hr IVPB ONCE [facility] Rx#: [id number] Sodium Chloride 0.9% 1, 999 000 ml @ 999 mls/hr IV . Q1H1M ONE Rx#:[id number] Sodium Chloride 0.9% 500 999 ml @ 999 mls/hr IV .Q31M STA Rx#:[id number] Vancomycin 750 mg In 250 Sodium Chloride 0.9% 250 ml @ 125 mls/hr IVPB Q24H ULISES Rx#:[id number] Other: Voiding Method Bedpan Bedpan # Voids 1 Weight 53.07 kg 75.5 kg - Constitutional General appearance: average body habitus, mild distress - EENT Eyes: EOMI, PERRLA, normal appearance ENT: hard of hearing, normal oropharynx Ears: bilateral: normal - Neck Neck: normal ROM Carotids: bilateral: upstroke normal Thyroid: bilateral: normal size - Respiratory Respiratory: bilateral: diminished, prolonged expiration, negative: dullness, rales, rhonchi, wheezing, prolonged inspiration - Cardiovascular Heart sounds: normal: S1, S2 - Gastrointestinal General gastrointestinal: normal bowel sounds, soft - Musculoskeletal Musculoskeletal: generalized weakness, strength equal bilaterally - Psychiatric Psychiatric: appropriate affect Results - Laboratory Findings CBC and BMP: 07/31/18 18:15 07/31/18 18:15 PT/INR, D-dimer PT 9.5 sec (9.0-12.0) 07/31/18 18:15 INR 1.0 (<1.2) 07/31/18 18:15 Abnormal lab findings: Abnormal Labs 07/31/18 07/31/18 07/31/18 18:15 18:15 18:15 WBC 14.7 H RBC 3.33 L Hgb 7.8 L Hct 24.8 L MCV 74.3 L MCH 23.3 L RDW 17.3 H Plt Count 946 H Neutrophils # 11.9 H Lymphocytes # 0.9 L Monocytes # 1.2 H BUN 29 H Creatinine 1.37 H Glucose 105 H POC Glucose (mg/dL) Plasma Lactic Acid Sedrick Magnesium 1.3 L Total Creatine Kinase <20 L Total Protein 5.9 L Albumin 3.1 L 07/31/18 07/31/18 08/01/18 18:15 22:10 06:56 WBC RBC Hgb Hct MCV MCH RDW Plt Count Neutrophils # Lymphocytes # Monocytes # BUN Creatinine Glucose POC Glucose (mg/dL) 179 H Plasma Lactic Acid Sedrick 3.5 H* <0.5 L Magnesium Total Creatine Kinase Total Protein Albumin 08/01/18 11:51 WBC RBC Hgb Hct MCV MCH RDW Plt Count Neutrophils # Lymphocytes # Monocytes # BUN Creatinine Glucose POC Glucose (mg/dL) 143 H Plasma Lactic Acid Sedrick Magnesium Total Creatine Kinase Total Protein Albumin - Diagnostic Findings Chest x-ray: report reviewed, image reviewed (Computed tomography scan of the head report reviewed as well) Assessment and Plan Assessment: Altered mental status related to new left posterior acute parietal lobe infarct Left posterior acute parietal lobe infarct Left-sided pneumonia And stage lung disease second to severe COPD emphysema Chronic hypoxic respiratory failure Slowly enlarging left sided lung mass patient refused any intervention including biopsy chemoradiation therapy Generalized weakness and medical debility Plan: Gentle rehydration Neuro checks Fall and seizure precautions Aspiration precautions DVT and peptic ulcer disease prophylaxis Broad-spectrum antibiotics Bronchodilators IV steroids Overall long-term prognosis poor We'll follow clinical course closely further recommendations pending plan of care as per clinical response of the patient Time with Patient: Greater than 30
[2018-08-01 15:24] LABS: Hemoglobin A1C 5.7 % (4.0-6.0)
--- NOTE | 2018-08-01 16:48 | PN ---
PROGRESS NOTE I am covering for Dr. Green. DATE OF SERVICE: 08/01/2018 This 82-year-old woman who was admitted with change in mental status and multiple other medical issues had a CT scan of the brain also. The CT scan of the brain showed acute infarct in the left posterior parietal lobe compared to the last exam. The patient is being closely monitored. Neurology is also following the patient. Past medical history reviewed. REVIEW OF SYSTEMS: The patient is confused at this time. CURRENT MEDICATIONS: Reviewed. 1. Ventolin 2.5 q.6. 2. DuoNeb q.i.d. 3. Lipitor 80 mg at bedtime. 4. Cardizem CD. 5. Lomotil. 6. Lovenox. 7. Lasix. 8. NovoLog. 9. Zestril 2.5 mg daily. 10.Protonix 40 mg daily. 11.Zosyn 3.375 IV q.. 12.Vancomycin IV. PHYSICAL EXAMINATION: Patient is alert, oriented x3. Pulse is 85, blood pressure 102/54, respiration 18, temperature 97.4, pulse ox 94% on 2 L. HEENT: Conjunctivae normal. Oral mucosa moist. NECK: No jugular venous distention. No carotid bruit. No lymph node enlargement. CARDIOVASCULAR SYSTEM: S1, S2 muffled. RESPIRATORY SYSTEM: Breath sounds diminished at the bases. A few scattered rhonchi. No crackles. ABDOMEN: Soft, non-tender. LEGS: No edema. No swelling. NERVOUS SYSTEM: Diffusely weak. LABS: WBC 14.7, hemoglobin 7.8. ASSESSMENT: 1. Chronic obstructive pulmonary disease, acute exacerbation, with bilateral pneumonia, possibly gram-negative with failure of outpatient treatment with sepsis, present on admission. 2. Possible acute infarct in the left posterior parietal lobe. 3. Left upper lobe lung mass, possibly malignancy. 4. Confusion; possible acute metabolic encephalopathy, multifactorial. 5. Atrial flutter. 6. History of asthma. 7. History of congestive heart failure. 8. Chronic obstructive pulmonary disease. 9. Hypertension. 10.Hyperlipidemia. 11.History of chronic hypoxic respiratory failure, on 2 liters home oxygen. 12.History of citrobacter, MDRO. 13.FULL CODE. RECOMMENDATIONS AND DISCUSSION: I recommend to continue current medication, continue symptomatic treatment. Continue with the antibiotics. Follow closely with multiple consultants. Full neurovascular workup. PT/OT evaluation and possible ECF rehab. The prognosis is guarded because of multiple complex medical issues. Further recommendations to follow. MMODL / IJN: [id number] / MIGUE
[2018-08-01 20:56] LABS: Glucose,Whole Blood 211 mg/dL (75-99)
[2018-08-01] MEDS: ATORVASTATIN 80 MG TAB PO SCH (21:02)
--- NOTE | 2018-08-01 21:03 | P.CNNES ---
History of Present Illness Consult date: 08/01/18 History of Present Illness: The patient is an 82-year-old white female who was in her usual state of health until yesterday afternoon. The patient apparently lives with her son. Her son saw her at 3:00 and was talking with her and she was fine and he went out and came back within an hour and when he came back she was very confused. She had slurred speech. She experienced some tingling in the left hand and some shortness of breath. She was taken to [facility]. Her main complaint was shortness of breath weakness and altered mental status. Her son is at her bedside and he states that when he got to harm his mother's house he could immediately tell that something was wrong. His brother had phoned him and ALLERGIC him that she was having confusion and slurred speech. The patient has a history of end-stage lung disease and severe COPD and emphysema. She also has a known lung mass she is being monitored. Review of Systems ROS unobtainable: due to mental status Past Medical History Past Medical History: Atrial Flutter, Asthma, Chest Pain / Angina, Heart Failure , COPD, Hyperlipidemia, Pneumonia, Respiratory Disorder Additional Past Medical History / Comment(s): Chronic respiratory failure with O2 at 2L/[place] ATC, chronic persistent asthma, bronchitis, known 1.8.cm L upper lung nodule-pt states bx negative, DJD, past L hip fx with surgery, sinus problems, rheumatic fever as a child. History of Any Multi-Drug Resistant Organisms: Acinetobacter (MDRO) Date of last positivie culture/infection: 10/06/16 MDRO Source:: SPUTUM Past Surgical History: Hysterectomy, Joint Replacement, Orthopedic Surgery, Tubal Ligation Additional Past Surgical History / Comment(s): 03/21/17 bronchoscopy with BAL/BX- bening per pt, LEFT HIP hemiarthroplasty, LEFT FOOT surgery, colonoscopy, D&C. Past Anesthesia/Blood Transfusion Reactions: No Reported Reaction Past Psychological History: No Psychological Hx Reported Additional Psychological History / Comment(s): Pt resides with her son. She no longer drives, her daughter/family drives her to appts. Her son cooks and cleans the house. The home is one level without steps. She has home O2 and a nebulizer,w/c, hospital bed,bsc, cane. Smoking Status: Former smoker Past Alcohol Use History: None Reported Additional Past Alcohol Use History / Comment(s): Pt started smoking in 1964 and quit in 2007 smoked 1/2 ppd Past Drug Use History: None Reported - Past Family History Father History Unknown: Yes Brother(s) Family Medical History: No Reported History Mother Family Medical History: Rheumatoid Arthritis (RA) Medications and Allergies Home Medications Medication Instructions Recorded Confirmed Type Furosemide [Lasix] 40 mg PO BID 02/20/15 07/31/18 History Lisinopril [Zestril] 2.5 mg PO DAILY 02/20/15 07/31/18 History Omeprazole [PriLOSEC] 20 mg PO DAILY 02/20/15 07/31/18 History Ipratropium-Albuterol Nebulize 3 ml INHALATION RT-QID PRN 10/24/17 07/31/18 History [Duoneb 0.5 mg-3 mg/3 ml Soln] Diltiazem Cd [Cardizem CD] 120 mg PO DAILY 03/17/18 07/31/18 History Albuterol Inhaler [Ventolin Hfa 2 puff INHALATION RT-Q6H PRN 06/28/18 07/31/18 History Inhaler] Aspirin EC [Ecotrin Low Dose] 81 mg PO DAILY 07/31/18 07/31/18 History Atorvastatin [Lipitor] 80 mg PO HS 07/31/18 07/31/18 History Diphenox-Atrop 2.5-0.025 mg 1 - 2 tab PO QID PRN 07/31/18 07/31/18 History [Lomotil] Penicillin V Potassium [Pen Vee K] 250 mg PO QID 07/31/18 07/31/18 History Ranitidine HCl [Zantac] 150 mg PO BID 07/31/18 07/31/18 History Allergies Allergy/AdvReac Type Severity Reaction Status Date / Time No Known Allergies Allergy Verified 07/31/18 18:34 Physical Examination - Vital Signs Vital Signs: Vital Signs Temp Pulse Pulse Resp BP BP Pulse Ox 08/01/18 20:08 78 08/01/18 19:58 78 08/01/18 16:00 97.4 F L 74 18 119/58 96 08/01/18 14:05 85 18 08/01/18 13:55 85 18 08/01/18 12:00 97.4 F L 86 18 109/56 93 L 08/01/18 08:00 97.4 F L 76 18 102/54 95 08/01/18 04:00 98.0 F 70 20 93/53 96 08/01/18 00:00 97.6 F 76 24 99/54 96 07/31/18 23:31 98.6 F 89 24 98/56 95 07/31/18 22:31 98.5 F 70 20 100/50 96 07/31/18 22:14 87 26 H 99/48 99 07/31/18 21:59 97.7 F 22 111/53 96 07/31/18 21:15 99.9 F H 82 28 H 112/65 93 L 07/31/18 20:45 102 H 28 H 90/56 99 Intake and Output 08/01/18 08/01/18 08/01/18 06:59 14:59 22:59 Intake Total 400 240 120 Output Total 1000 300 Balance 400 -760 -180 Intake: Intake, IV Titration 400 Amount Magnesium Sulfate-D5w Pmx 100 1 gm In Dextrose/Water 1 100ml.bag @ 100 mls/hr IVPB Q1H ULISES Rx#: [id number] Piperacillin-Tazobactam 3 50 .375 gm In Dextrose/Water 1 50ml.bag @ 12.5 mls/hr IVPB ONCE [facility] Rx#: [id number] Vancomycin 750 mg In 250 Sodium Chloride 0.9% 250 ml @ 125 mls/hr IVPB Q24H ULISES Rx#:[id number] Oral 240 120 Output: Urine 1000 300 Other: Voiding Method Bedpan Bedpan Bedpan Weight 75.5 kg - Constitutional General appearance: average body habitus - EENT EENT: PERRL, hearing intact - Respiratory Respiratory: lungs clear - Cardiovascular Cardiovascular: regular rate - Neurologic Neurologic examination: Mental status: The patient was awake. She was alert. She was able to give her name. She knew she was in the hospital. She had difficulty naming. She had right left confusion. She had finger apraxia. She had difficulty with repetition. She was unable to repeat. She was able to follow most commands. She had some expressive aphasia. Cranial nerve nerves II through XII intact except Motor examination: She was able to move all 4 extremities equally there was no drift Coordination finger to nose was intact Deep tendon reflexes upper extremities were 1+ Gait was not tested Results - Laboratory Findings CBC and BMP: 07/31/18 18:15 07/31/18 18:15 Abnormal Lab Findings: Abnormal Labs 07/31/18 07/31/18 07/31/18 18:15 18:15 18:15 WBC 14.7 H RBC 3.33 L Hgb 7.8 L Hct 24.8 L MCV 74.3 L MCH 23.3 L RDW 17.3 H Plt Count 946 H Neutrophils # 11.9 H Lymphocytes # 0.9 L Monocytes # 1.2 H BUN 29 H Creatinine 1.37 H Glucose 105 H POC Glucose (mg/dL) Plasma Lactic Acid Sedrick Magnesium 1.3 L Total Creatine Kinase <20 L Total Protein 5.9 L Albumin 3.1 L 07/31/18 07/31/18 08/01/18 18:15 22:10 06:56 WBC RBC Hgb Hct MCV MCH RDW Plt Count Neutrophils # Lymphocytes # Monocytes # BUN Creatinine Glucose POC Glucose (mg/dL) 179 H Plasma Lactic Acid Sedrick 3.5 H* <0.5 L Magnesium Total Creatine Kinase Total Protein Albumin 08/01/18 11:51 WBC RBC Hgb Hct MCV MCH RDW Plt Count Neutrophils # Lymphocytes # Monocytes # BUN Creatinine Glucose POC Glucose (mg/dL) 143 H Plasma Lactic Acid Sedrick Magnesium Total Creatine Kinase Total Protein Albumin Assessment and Plan (1) Acute embolic stroke Current Visit: Yes Status: Acute SNOMED Code(s): 371430603 Plan: The patient is an 82-year-old woman who is admitted to the hospital with confusion and altered mental status and slurred speech. Neurologic examination she has any aphasia and is had a CAT scan of the brain which demonstrates an acute left parietal infarct. Risk factors for stroke include atrial fibrillation. The patient has been taking baby aspirin daily at home. She had an echocardiogram which showed an ejection fraction of 55-60%. Her stroke was likely cardioembolic. Recommend Cardiology evaluation regarding management of a -fib. Consult speech therapy.
[2018-08-02] MEDS: methylPREDNISolone SOD SUCCI 125 MG/2 ML VIAL IV SCH ×4 (00:04→17:53)
[2018-08-02] MEDS ORDERED: VANCOMYCIN 750 MG in SODIUM CHLORIDE 0.9% 250 ML IVPB SCH (02:00)
[2018-08-02] MEDS: SODIUM CHLORIDE 0.9% 1,000 ML IV SCH (02:52)
[2018-08-02] MEDS: PIPERACILLIN-TAZOBACTAM 3.375 GM in DEXTROSE/WATER 1 50ML.BAG IVPB SCH ×3 (05:38→21:18)
[2018-08-02 06:03] LABS: Glucose,Whole Blood 162 mg/dL (75-99)
[2018-08-02 06:15] LABS: Anisocytosis Slight; Basophils % (A) 0 %; Eosinophils % (A) 0 %; Hypochromasia Marked; Lymphocytes # (A) 0.3 k/uL (1.0-4.8); Lymphocytes % (A) 3 %; MCH 22.7 pg (25.0-35.0); MCHC 30.5 g/dL (31.0-37.0); MCV 74.3 fL (80.0-100.0); Mean Platelet Volume 6.5; Microcytosis Moderate; Monocytes # (A) 0.4 k/uL (0-1.0); Monocytes % (A) 4 %; Neutrophils # (A) 9.5 k/uL (1.3-7.7); Neutrophils % (A) 92 %; Platelet Count 726 k/uL (150-450); Poikilocytosis Slight; RBC 2.67 m/uL (3.80-5.40); RDW 17.3 % (11.5-15.5); WBC 10.4 k/uL (3.8-10.6)
[2018-08-02] MEDS: PANTOPRAZOLE 40 MG TABLET PO SCH (06:19)
[2018-08-02] MEDS: INSULIN ASPART 100 UNIT/ML 1 ML 10 ML VIAL SQ SCH ×4 (06:19→21:19)
[2018-08-02 06:28] LABS: Calcium 8.4 mg/dL (8.4-10.2); Potassium 3.4 mmol/L (3.5-5.1)
[2018-08-02 06:37] LABS: HGB 6.1 gm/dL (11.4-16.0)
[2018-08-02 06:38] LABS: HCT 19.9 % (34.0-46.0)
[2018-08-02] MEDS ORDERED: Potassium Replacement Protocol 1 EACH MISC MISCELLANE PRN (07:51)
[2018-08-02] MEDS: IPRATROPIUM-ALBUTEROL 3 ML NEB INHALATION PRN ×3 (08:41→16:01)
--- NOTE | 2018-08-02 08:55 | CONS ---
CONSULTATION DATE OF SERVICE: 08/01/2018. REASON FOR CONSULTATION: Sepsis. HISTORY OF PRESENT ILLNESS: The patient is an 82-year-old female who did have a history of end- stage COPD on home O2, who did have a left upper lobe mass for which the patient has refused biopsy or any treatment. She was recently admitted to this facility with hemoptysis that apparently responded to the IV antibiotic therapy and steroids. Subsequent the patient discharged home in a stable condition. The patient has now been brought back to the hospital at [facility] with mental status changes and weakness which apparently has been going on for a day before being brought to the hospital. The patient denies any headache or URI symptoms. However, the patient did have a cough, bringing up some sputum but no hemoptysis. No chest pain. No nausea, vomiting. No difficulty swallowing. No abdominal pain or any diarrhea. With these symptoms , the patient has been evaluated by the ER physician. On arrival to the ER, the patient did have a fever of 101 degrees Fahrenheit. She did have elevated white count 14.7. UA was negative. Influenza A and B has been negative. Blood and urine culture has been obtained. Chest x-ray did show increasing left upper lobe mass compared to last exam. The patient also had a CT of the brain which did show evidence of acute infarct left posterior parietal lobe compared to last exam. The patient has been admitted to the hospital for management of underlying CVA and possible postobstructive pneumonia. Patient has been started on Zosyn and vancomycin. Infectious Disease was consulted for further recommendation regarding antibiotic therapy. REVIEW OF SYSTEMS: CONSTITUTIONAL: Positive for weakness along with the fever. EYES: No complaint. ENT: No complaint. RESPIRATORY: As per HPI. CARDIOVASCULAR: No complaint. GENITOURINARY: No complaint. GASTROINTESTINAL: No complaint. MUSCULOSKELETAL: No complaint. INTEGUMENTARY: No complaint. PSYCHOLOGICAL: As per HPI. ENDOCRINE: No complaint. NEUROLOGICAL: As per HPI. PAST MEDICAL HISTORY: Significant for left upper lobe mass, recurrent pneumonia, atrial flutter, heart failure, COPD, hyperlipidemia, chronic respiratory failure. PAST SURGICAL HISTORY: Hysterectomy, joint replacement, tubal ligation, bronchoscopy with lavage. SOCIAL HISTORY: The patient has smoked from 1965 to 2007, about half a pack a day. No drinking or drug use. FAMILY HISTORY: Mother with history of rheumatoid arthritis. ALLERGIES: No known drug allergies. MEDICATION: Currently the patient is on vancomycin with Pharmacy to dose, Zosyn, Protonix, Solu- Medrol, Zestril, NovoLog, Lasix, Pepcid, Lomotil, diltiazem, Lipitor, aspirin, DuoNeb and Ventolin. PHYSICAL EXAMINATION: Blood pressure 99/51 with a pulse of 77, temperature 97.5. She is 97% on 2 L nasal cannula. General description is an elderly female up in the bed in no distress. No tachypnea or accessory muscle of respiration use. HEENT: Shows pallor. No scleral icterus. Oral mucosa is dry. No pharyngeal erythema or thrush. NECK: Trachea central. No thyromegaly. LUNGS: Unlabored breathing. Decreased breath sounds. No wheeze or crackle. HEART: S1, S2. Regular rate. No murmur. ABDOMEN: Soft, no tenderness. No guarding or rigidity. EXTREMITIES: No edema of the feet. SKIN EXAMINATION: No rash or mass palpable. NEUROLOGIC: The patient is awake, alert, oriented x2. Mood and affect normal. LABS: Hemoglobin 7.1, white count 14.7 with a BUN of 29, creatinine 1.7. Electrolytes have been normal. Liver enzymes have been normal. Urine was negative. Influenza serology was negative. Chest x-ray report as mentioned above. IMPRESSION AND PLAN: Patient admitted to the hospital with mental status changes and fever with elevated white count, likely multifactorial, likely a component of pneumonia possible postobstructive. This patient has been admitted recently to the hospital with concern for possible resistant gram positive as well as gram-negative pathogen. The patient also has mental status changes with new CVA being managed by the Primary and the Neurology team. PLAN: 1. We will try to obtain sputum for Gram stain culture and sensitivity so we can narrow down her antibiotics. 2. The patient will be treated with broad-spectrum antibiotic in form of Zosyn 3.375 g q.8h and vancomycin pharmacy to dose target trough of 15 watching the kidney function closely. 3. We will follow up on clinical condition and culture to further adjust medication if needed. Thank you for this consultation. I will follow this patient along with you. MMODL / IJN: [id number] / [email or web address]
[2018-08-02] MEDS ORDERED: Magnesium Replacement Protocol 1 EACH MISC MISCELLANE PRN (08:56)
--- NOTE | 2018-08-02 09:15 | P.PN ---
Subjective Progress Note Date: 08/02/18 Principal diagnosis: Acute left posterior parietal lobe infarct, altered mental status related acute infarct, anemia of chronic disease, left-sided pneumonia, large left-sided slowly enlarging mass likely neoplastic process, chronic respiratory failure oxygen dependent, generalized weakness and medical debility, severe COPD end- stage lung disease 08/02/2018, care plan discussed with the patient at length as well as primary service patient is slightly more focused more awake oriented 3 now moving all 4 extremity his strength is good and your exam is fairly normal with some impairment is speech and coordination however has been noted though which seems to be improving compared to yesterday, her labs are reviewed medications reviewed, hemoglobin drop down to 6.1 patient is scheduled to get 1 unit of packed RBC , Patient is being considered for rehab placement versus possible hospice however patient denies and wants to go home rather than a custodial 82-year-old female who was seen evaluated examined on 6 floor this patient has been admitted to hospital 1 day history of confusion and altered mental status patient has some issues is speech related issue which new in onset, patient does have a history of end-stage lung disease and severe COPD emphysema and has chronic hypoxic respiratory failure on supplemental oxygen, patient also has a left upper lobe mass which is being monitor observe patient has declined any biopsy and or or chemo or radiation therapy, recently patient was hospitalized with hemoptysis thought to be related to pneumonia however hemoptysis stopped after antibiotics and steroid therapy and was discharged in fairly stable condition, patient did call the office for problems associated diarrhea yesterday she was advised to come into the office today now she is seen in the hospital with a new onset confusion, laboratory data reviewed radiographic studies reviewed the x-rays is stable except slowly enlarging left upper lobe mass, computed tomography scan of the head revealed no new acute left posterior parietal lobe infarct suggestive of CVA size is about 3 x 4 cm wedge-shaped Objective - Vital Signs Vital signs: Vital Signs Temp 98.1 F 08/02/18 04:00 Pulse 73 08/02/18 08:52 Resp 16 08/02/18 04:00 BP 102/50 08/02/18 04:00 Pulse Ox 96 08/02/18 04:00 Intake & Output 08/01/18 08/02/18 08/02/18 18:59 06:59 18:59 Intake Total 360 240 Output Total 1300 Balance -940 240 Weight 74.9 kg Intake: Oral 360 240 Output: Urine 1300 Other: Voiding Method Bedpan Toilet # Voids 3 - Exam - Constitutional General appearance: average body habitus, mild distress - EENT Eyes: EOMI, PERRLA, normal appearance ENT: hard of hearing, normal oropharynx Ears: bilateral: normal - Neck Neck: normal ROM Carotids: bilateral: upstroke normal Thyroid: bilateral: normal size - Respiratory Respiratory: bilateral: diminished, prolonged expiration, negative: dullness, rales, rhonchi, wheezing, prolonged inspiration - Cardiovascular Heart sounds: normal: S1, S2 - Gastrointestinal General gastrointestinal: normal bowel sounds, soft - Musculoskeletal/neurological exam Musculoskeletal: generalized weakness, strength equal bilaterally no focal neurological deficit - Psychiatric Psychiatric: appropriate affect - Labs CBC & Chem 7: 08/02/18 05:48 08/02/18 05:48 Labs: Abnormal Lab Results - Last 24 Hours (Table) 08/01/18 08/01/18 08/02/18 Range/Units 11:51 20:53 05:48 RBC 2.67 L (3.80-5.40) m/uL Hgb 6.1 L* D (11.4-16.0) gm/dL Hct 19.9 L* (34.0-46.0) % MCV 74.3 L (80.0-100.0) fL MCH 22.7 L (25.0-35.0) pg MCHC 30.5 L (31.0-37.0) g/dL RDW 17.3 H (11.5-15.5) % Plt Count 726 H (150-450) k/uL Neutrophils # 9.5 H (1.3-7.7) k/uL Lymphocytes # 0.3 L (1.0-4.8) k/uL Potassium (3.5-5.1) mmol/L Chloride (98-107) mmol/L Carbon Dioxide (22-30) mmol/L BUN (7-17) mg/dL Creatinine (0.52-1.04) mg/dL Glucose (74-99) mg/dL POC Glucose (mg/dL) 143 H 211 H (75-99) mg/dL LDL Cholesterol, Calc (0-99) mg/dL 08/02/18 08/02/18 Range/Units 05:48 06:01 RBC (3.80-5.40) m/uL Hgb (11.4-16.0) gm/dL Hct (34.0-46.0) % MCV (80.0-100.0) fL MCH (25.0-35.0) pg MCHC (31.0-37.0) g/dL RDW (11.5-15.5) % Plt Count (150-450) k/uL Neutrophils # (1.3-7.7) k/uL Lymphocytes # (1.0-4.8) k/uL Potassium 3.4 L (3.5-5.1) mmol/L Chloride 114 H (98-107) mmol/L Carbon Dioxide 20 L (22-30) mmol/L BUN 22 H (7-17) mg/dL Creatinine 1.12 H (0.52-1.04) mg/dL Glucose 131 H (74-99) mg/dL POC Glucose (mg/dL) 162 H (75-99) mg/dL LDL Cholesterol, Calc 117 H (0-99) mg/dL Microbiology - Last 24 Hours (Table) 07/31/18 20:30 Urine Culture - Final Urine,Catheterized 07/31/18 18:15 Blood Culture - Preliminary Blood No Growth after 24 hours Assessment and Plan Assessment: Anemia of chronic disease Altered mental status related to new left posterior acute parietal lobe infarct Left posterior acute parietal lobe infarct Left-sided pneumonia And stage lung disease second to severe COPD emphysema Chronic hypoxic respiratory failure Slowly enlarging left sided lung mass patient refused any intervention including biopsy chemoradiation therapy Generalized weakness and medical debility Plan: Gentle rehydration Agree with blood transfusion Neuro checks Fall and seizure precautions Aspiration precautions DVT and peptic ulcer disease prophylaxis Broad-spectrum antibiotics Bronchodilators IV steroids Overall long-term prognosis poor We'll follow clinical course closely further recommendations pending plan of care as per clinical response of the patient Time with Patient: Greater than 30
--- NOTE | 2018-08-02 09:31 | P.PN ---
Subjective This is a pleasant 82 years old female with past medical history of atrial flutter, asthma, coronary artery disease, congestive heart failure, COPD, hyperlipidemia, pneumonia, left upper lung mass. Who presents because of dyspnea and fever of 101 on 07/31/2018 Time with altered mental status and some slurred speech with left hand tingling. Today her speech is looks non-slurred, patient denies specific weakness or tingling. She looks awake and alert and knows why she is in the hospital. No more fever. However patient is told tachypneic and dyspneic with prolonged expiratory phase and scattered wheezing. Patient has been evaluated for possible acute stroke of the left parietal region. And neurologist recommend cardiology evaluation for possible cardioembolic stroke. However patient hemoglobin dropped today from 7.8 to 6.1 and the on-call hospitalist ordered 1 unit of blood transfusion already. Patient would be high risk for thrombosis including stroke and the same time she is high-risk for bleeding. Patient was noticed to have enlarging left upper lung mass which the patient is aware of and states that she doesn't want any surgery, or any other treatment, like she doesn't want chemotherapy or radiotherapy. Patient shows reasonable understanding of her medical issue and she understands that if she has cancer she will sooner without treatment. However patient does not want any treatment for her lung mass. Discussed the case with the pulmonary consult and on the case. I was discussed and also the case with the patient and the plan of care and she is open to discuss hospice care, we will discuss with family Objective - Vital Signs Vital signs: Vital Signs Temp 98.1 F 08/02/18 04:00 Pulse 73 08/02/18 08:52 Resp 16 08/02/18 04:00 BP 102/50 08/02/18 04:00 Pulse Ox 96 08/02/18 04:00 Intake & Output 08/01/18 08/02/18 08/02/18 18:59 06:59 18:59 Intake Total 360 240 Output Total 1300 Balance -940 240 Weight 74.9 kg Intake: Oral 360 240 Output: Urine 1300 Other: Voiding Method Bedpan Toilet # Voids 3 - Exam GENERAL: The patient is alert and oriented x3, in mild to moderate acute respiratory distress. Well developed, well nourished. HEENT: Pupils are round and equally reacting to light. EOMI. No scleral icterus. No conjunctival pallor. Normocephalic, atraumatic. No pharyngeal erythema. No thyromegaly. CARDIOVASCULAR: S1 and S2 present. No murmurs, rubs, or gallops. PULMONARY: Chest is clear to auscultation, no crackles. Patient is tachypneic with prolonged expiratory phase and scattered wheezing both lungs. Multiple lung sounds in the left upper area ABDOMEN: Soft, nontender, nondistended, normoactive bowel sounds. No palpable organomegaly. MUSCULOSKELETAL: No joint swelling or deformity. EXTREMITIES: No cyanosis, clubbing, or pedal edema. NEUROLOGICAL: Gross neurological examination did not reveal any focal deficits. SKIN: No rashes. - Labs CBC & Chem 7: 08/02/18 05:48 08/02/18 05:48 Labs: Abnormal Lab Results - Last 24 Hours (Table) 08/01/18 08/01/18 08/02/18 Range/Units 11:51 20:53 05:48 RBC 2.67 L (3.80-5.40) m/uL Hgb 6.1 L* D (11.4-16.0) gm/dL Hct 19.9 L* (34.0-46.0) % MCV 74.3 L (80.0-100.0) fL MCH 22.7 L (25.0-35.0) pg MCHC 30.5 L (31.0-37.0) g/dL RDW 17.3 H (11.5-15.5) % Plt Count 726 H (150-450) k/uL Neutrophils # 9.5 H (1.3-7.7) k/uL Lymphocytes # 0.3 L (1.0-4.8) k/uL Potassium (3.5-5.1) mmol/L Chloride (98-107) mmol/L Carbon Dioxide (22-30) mmol/L BUN (7-17) mg/dL Creatinine (0.52-1.04) mg/dL Glucose (74-99) mg/dL POC Glucose (mg/dL) 143 H 211 H (75-99) mg/dL LDL Cholesterol, Calc (0-99) mg/dL 08/02/18 08/02/18 Range/Units 05:48 06:01 RBC (3.80-5.40) m/uL Hgb (11.4-16.0) gm/dL Hct (34.0-46.0) % MCV (80.0-100.0) fL MCH (25.0-35.0) pg MCHC (31.0-37.0) g/dL RDW (11.5-15.5) % Plt Count (150-450) k/uL Neutrophils # (1.3-7.7) k/uL Lymphocytes # (1.0-4.8) k/uL Potassium 3.4 L (3.5-5.1) mmol/L Chloride 114 H (98-107) mmol/L Carbon Dioxide 20 L (22-30) mmol/L BUN 22 H (7-17) mg/dL Creatinine 1.12 H (0.52-1.04) mg/dL Glucose 131 H (74-99) mg/dL POC Glucose (mg/dL) 162 H (75-99) mg/dL LDL Cholesterol, Calc 117 H (0-99) mg/dL Microbiology - Last 24 Hours (Table) 07/31/18 20:30 Urine Culture - Final Urine,Catheterized 07/31/18 18:15 Blood Culture - Preliminary Blood No Growth after 24 hours Assessment and Plan Assessment: Chronic obstructive pulmonary disease, an acute exacerbation. 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 Enlarging in size and patient refusing treatment Acute blood loss anemia, with blood transfusion ordered Acute left parietal stroke Atrial fibrillation with heart rate controlled. History of asthma History of congestive heart failure History of chronic respiratory failure on 2 L oxygen at home Hypertension Hyperlipidemia Plan: This is a pleasant 10 years old female presents with multiple comorbidities including acute stroke with A. fib, possible pneumonia pneumonia and sepsis on admission, as well as enlarging lung mass. Labs and medication reviews. Patient is on IV antibiotics. she is on breathing treatments and oxygen Continue with same treatment. Continue with symptomatic treatment. Resume home medication. Follow-up infectious disease, pulmonary and neurology teams recommendations will follow the patient. Call cardiology consult. GI and DVT prophylaxis. Further recommendations based on the clinical course of the patient and DVT prophylaxis: Discontinue Lovenox in view of anemia GI prophylaxis: Switch Pepcid to Protonix Prognosis is poor given her comorbidities, advanced age and patient presentation with complexity for her advanced disease. We'll evaluate the patient for need for hospice care with the patient and family
[2018-08-02] MEDS: ASPIRIN 81 MG PO SCH (09:55)
[2018-08-02] MEDS: DILTIAZEM CD 120 MG CAP.ER.24H PO SCH (09:56)
[2018-08-02] MEDS: FAMOTIDINE 20 MG TAB PO SCH (09:56)
[2018-08-02] MEDS: FUROSEMIDE 40 MG TAB PO SCH ×2 (09:56→21:20)
[2018-08-02] MEDS: LISINOPRIL 2.5 MG TAB PO SCH (09:56)
[2018-08-02] MEDS ORDERED: VANCOMYCIN 750 MG in SODIUM CHLORIDE 0.9% 250 ML IVPB ONE (10:00)
--- NOTE | 2018-08-02 10:43 | P.CRDCN ---
History of Present Illness Consult date: 08/02/18 Requesting physician: Francois E Sheet Reason for Consult (text): Afib with stroke Chief complaint: confusion, slurred speech, left sided weakness, shortness of breath History of present illness: This is an 82-year-old female with past history significant for end-stage lung disease, severe COPD, chronic hypoxic respiratory failure. Presented to the hospital with complaints of confusion, slurred speech, shortness of breath and left-sided tingling. She has a history of recent admission for hemoptysis. She does have a known left upper lobe mass that is being monitored, she has declined biopsy, chemo or radiation. Computed tomography scan on admission showed an acute infarct in the left posterior parietal lobe. EKG showed sinus rhythm. Labs show a hemoglobin of 6.1, BUN 22 and creatinine 1.14. Echocardiogram shows normal LV systolic function with an ejection fraction of 55 -60% with mild aortic sclerosis, mild MR and mild pulmonary hypertension. We are asked to see the patient in consultation for management of atrial fibrillation in the setting of a CVA. Upon review of the chart there has been no documented episodes of atrial fibrillation during this admission or in previous admissions. Upon examination, she continues to have some expressive aphasia and mild confusion but is adamant that she does not have any type of cardiac history, no history of irregular heartbeat, no history of atrial fibrillation, no history of atrial flutter. She was only on baby aspirin at home. She has not been previously seen by cardiology, follows with Dr. Green as an outpatient. Past Medical History Past Medical History: Atrial Flutter, Asthma, Chest Pain / Angina, Heart Failure , COPD, Hyperlipidemia, Pneumonia, Respiratory Disorder Additional Past Medical History / Comment(s): Chronic respiratory failure with O2 at 2L/NC ATC, chronic persistent asthma, bronchitis, known 1.8.cm L upper lung nodule-pt states bx negative, DJD, past L hip fx with surgery, sinus problems, rheumatic fever as a child. History of Any Multi-Drug Resistant Organisms: Acinetobacter (MDRO) Date of last positivie culture/infection: 10/06/16 MDRO Source:: SPUTUM Past Surgical History: Hysterectomy, Joint Replacement, Orthopedic Surgery, Tubal Ligation Additional Past Surgical History / Comment(s): 03/21/17 bronchoscopy with BAL/BX- bening per pt, LEFT HIP hemiarthroplasty, LEFT FOOT surgery, colonoscopy, D&C. Past Anesthesia/Blood Transfusion Reactions: No Reported Reaction Past Psychological History: No Psychological Hx Reported Additional Psychological History / Comment(s): Pt resides with her son. She no longer drives, her daughter/family drives her to [employer]. Her son cooks and cleans the house. The home is one level without steps. She has home O2 and a nebulizer,w/c, hospital bed,bsc, cane. Smoking Status: Former smoker Past Alcohol Use History: None Reported Additional Past Alcohol Use History / Comment(s): Pt started smoking in 1964 and quit in 2007 smoked 1/2 ppd Past Drug Use History: None Reported - Past Family History Father History Unknown: Yes Brother(s) Family Medical History: No Reported History Mother Family Medical History: Rheumatoid Arthritis (RA) Medications and Allergies Home Medications Medication Instructions Recorded Confirmed Type Furosemide [Lasix] 40 mg PO BID 02/20/15 07/31/18 History Lisinopril [Zestril] 2.5 mg PO DAILY 02/20/15 07/31/18 History Omeprazole [PriLOSEC] 20 mg PO DAILY 02/20/15 07/31/18 History Ipratropium-Albuterol Nebulize 3 ml INHALATION RT-QID PRN 10/24/17 07/31/18 History [Duoneb 0.5 mg-3 mg/3 ml Soln] Diltiazem Cd [Cardizem CD] 120 mg PO DAILY 03/17/18 07/31/18 History Albuterol Inhaler [Ventolin Hfa 2 puff INHALATION RT-Q6H PRN 06/28/18 07/31/18 History Inhaler] Aspirin EC [Ecotrin Low Dose] 81 mg PO DAILY 07/31/18 07/31/18 History Atorvastatin [Lipitor] 80 mg PO HS 07/31/18 07/31/18 History Diphenox-Atrop 2.5-0.025 mg 1 - 2 tab PO QID PRN 07/31/18 07/31/18 History [Lomotil] Penicillin V Potassium [Pen Vee K] 250 mg PO QID 07/31/18 07/31/18 History Ranitidine HCl [Zantac] 150 mg PO BID 07/31/18 07/31/18 History Allergies Allergy/AdvReac Type Severity Reaction Status Date / Time No Known Allergies Allergy Verified 07/31/18 18:34 Physical Exam Vitals: Vital Signs Temp Pulse Pulse Resp BP BP Pulse Ox 08/02/18 09:55 97.7 F 83 18 110/59 94 L 08/02/18 09:45 98.0 F 84 18 111/61 94 L 08/02/18 08:52 73 08/02/18 08:41 72 08/02/18 04:00 98.1 F 85 16 102/50 96 08/02/18 03:58 20 08/02/18 00:00 97.5 F L 75 20 102/60 96 08/01/18 20:08 78 08/01/18 20:00 97.5 F L 78 20 99/51 97 08/01/18 19:58 78 08/01/18 16:00 97.4 F L 74 18 119/58 96 08/01/18 14:05 85 18 08/01/18 13:55 85 18 08/01/18 12:00 97.4 F L 86 18 109/56 93 L Intake and Output 08/01/18 08/02/18 08/02/18 22:59 06:59 14:59 Intake Total 120 240 0 Output Total 300 Balance -180 240 0 Intake: Oral 120 240 Blood Product 0 Rc As-1 Unit 0 [id number] Output: Urine 300 Other: Voiding Method Toilet Toilet # Voids 3 Weight 74.9 kg PHYSICAL EXAMINATION: HEENT: Head is atraumatic, normocephalic. Pupils equal, round. Neck is supple. There is no elevated jugular venous pressure. HEART EXAMINATION: Heart sounds regular, S1 and S2 normal. No murmur or gallop heard. CHEST EXAMINATION: Lungs christina diminished air entry bilaterally. No chest wall tenderness is noted on palpation or with deep breathing. ABDOMEN: Soft, nontender. Bowel sounds are heard. No organomegaly noted. EXTREMITIES: 2+ peripheral pulses with no evidence of peripheral edema and no calf tenderness noted. NEUROLOGIC patient is awake, alert and oriented x2, expressive aphasia noted with mild confusion. . Results 08/02/18 05:48 08/02/18 05:48 Lipids 08/02/18 Range/Units 05:48 Triglycerides 98 (<150) mg/dL Cholesterol 180 (<200) mg/dL HDL Cholesterol 43 (40-60) mg/dL CBC 08/02/18 Range/Units 05:48 WBC 10.4 (3.8-10.6) k/uL RBC 2.67 L (3.80-5.40) m/uL Hgb 6.1 L* D (11.4-16.0) gm/dL Hct 19.9 L* (34.0-46.0) % Plt Count 726 H (150-450) k/uL Comprehensive Metabolic Panel 08/02/18 Range/Units 05:48 Sodium 141 (137-145) mmol/L Potassium 3.4 L (3.5-5.1) mmol/L Chloride 114 H (98-107) mmol/L Carbon Dioxide 20 L (22-30) mmol/L BUN 22 H (7-17) mg/dL Creatinine 1.12 H (0.52-1.04) mg/dL Glucose 131 H (74-99) mg/dL Calcium 8.4 (8.4-10.2) mg/dL Current Medications Generic Name Dose Route Start Last Admin Trade Name Freq PRN Reason Stop Dose Admin Albuterol Sulfate 2.5 mg 08/01/18 01:37 Ventolin Nebulized INHALATION RT-Q6H PRN Shortness Of Breath Albuterol/Ipratropium 3 ml 08/01/18 01:37 08/02/18 08:41 Duoneb 0.5 Mg-3 Mg/3 Ml Soln INHALATION 3 ml RT-QID PRN Administration Shortness Of Breath Aspirin 81 mg 08/01/18 09:00 08/02/18 09:55 Aspirin PO 81 mg DAILY ULISES Administration Atorvastatin Calcium 80 mg 08/01/18 21:00 08/01/18 21:02 Lipitor PO 80 mg HS ULISES Administration Diltiazem HCl 120 mg 08/01/18 09:00 08/02/18 09:56 Cardizem Cd PO 120 mg DAILY ULISES Administration Diphenoxylate HCl/Atropine 1 - 2 each 08/01/18 01:37 Lomotil PO QID PRN Diarrhea Famotidine 20 mg 08/01/18 09:00 08/02/18 09:56 Pepcid PO 20 mg DAILY ULISES Administration Furosemide 40 mg 08/01/18 09:00 08/02/18 09:56 Lasix PO 40 mg BID ULISES Administration Piperacillin/Tazobactam/ 50 mls @ 12.5 mls/hr 08/01/18 06:00 08/02/18 05:38 Dextrose 3.375 gm/ IV Solution IVPB 12.5 mls/hr Q8H ULISES Administration Sodium Chloride 1,000 mls @ 20 mls/hr 08/01/18 01:45 08/02/18 02:52 Saline 0.9% IV 20 mls/hr .Q24H ULISES Administration Potassium Chloride 20 meq/ IV 100 mls @ 50 mls/hr 08/02/18 08:00 Solution IVPB 08/02/18 11:59 Q2H ULISES Protocol Magnesium Sulfate/Dextrose 1 100 mls @ 100 mls/hr 08/02/18 09:00 gm/ IV Solution IVPB 08/02/18 10:59 Q1H ULISES Vancomycin HCl 1,250 mg/ 250 mls @ 125 mls/hr 08/03/18 06:00 Sodium Chloride IVPB Q24H ULISES Vancomycin HCl 750 mg/ Sodium 250 mls @ 125 mls/hr 08/02/18 10:00 Chloride IVPB 08/02/18 11:59 ONCE ONE Insulin Aspart 0 unit 08/01/18 07:30 08/02/18 06:19 Novolog SQ 1 unit ACHS ULISES Administration Protocol Lisinopril 2.5 mg 08/01/18 09:00 08/02/18 09:56 Zestril PO 2.5 mg DAILY ULISES Administration Methylprednisolone Sodium Succinate 60 mg 08/01/18 06:00 08/02/18 05:39 Solu-Medrol IV 60 mg Q6HR ULISES Administration Miscellaneous Information 1 each 08/02/18 07:51 Potassium Per Protocol MISCELLANE DAILY PRN Per Protocol Protocol Miscellaneous Information 1 each 08/02/18 08:56 Magnesium Per Protocol MISCELLANE DAILY PRN Per Protocol Protocol Pantoprazole Sodium 40 mg 08/01/18 07:30 08/02/18 06:19 Protonix PO 40 mg [id number] ULISES Administration Intake and Output 08/01/18 08/02/18 08/02/18 22:59 06:59 14:59 Intake Total 120 240 0 Output Total 300 Balance -180 240 0 Intake: Oral 120 240 Blood Product 0 Rc As-1 Unit 0 [id number] Output: Urine 300 Other: Voiding Method Toilet Toilet # Voids 3 Weight 74.9 kg 08/02/18 05:48 08/02/18 05:48 EKG Interpretations (text) Sinus tachycardia with right bundle branch block, left anterior fascicular block Assessment and Plan Assessment: #1 CVA #2 end-stage COPD #3 chronic hypoxic respiratory failure #4 left upper lung mass #5 recent hemoptysis #6 recent pneumonia #7 anemia, requiring infusion of packed red blood cells Plan: From cardiology perspective, there is no documented evidence of atrial fibrillation or atrial flutter during this admission or on previous admissions. Patient is not a candidate for oral anticoagulation at this time anyway due to recent hemoptysis and a hemoglobin of 6.1. We will follow the patient on an as-needed basis. Please do hesitate to contact us with questions. J[employer]SCREW WORKER note has been reviewed, I agree with a documented findings and plan of care. Patient was seen and examined.
[2018-08-02 11:51] LABS: Glucose,Whole Blood 155 mg/dL (75-99)
[2018-08-02] MEDS: MAGNESIUM SULFATE-D5W PMX 1 GM in DEXTROSE/WATER 1 100ML.BAG IVPB SCH ×2 (15:32→16:58)
[2018-08-02 17:10] LABS: Glucose,Whole Blood 203 mg/dL (75-99)
[2018-08-02] MEDS: POTASSIUM CHLORIDE 20 MEQ in WATER FOR INJECTION 1 100ML.BAG IVPB SCH ×2 (17:53→19:13)
[2018-08-02 20:35] LABS: Glucose,Whole Blood 223 mg/dL (75-99)
[2018-08-02] MEDS: ALBUTEROL NEBULIZED 2.5 MG/3 ML INHALATION PRN (20:40)
[2018-08-02] MEDS: ATORVASTATIN 80 MG TAB PO SCH (21:18)
--- NOTE | 2018-08-02 22:55 | PN ---
PROGRESS NOTE DATE OF SERVICE: 08/02/2018. REASON FOR FOLLOWUP: Pneumonia. INTERVAL HISTORY: The patient is currently afebrile. She is more awake and alert. She is breathing comfortably. She continues to have a cough, bringing up some sputum. Did provide a sputum sample and that was sent to the lab. No nausea, no vomiting. No abdominal pain, no diarrhea. EXAMINATION: Blood pressure 117/65 with a pulse of 98, temperature 97.6. She is 95% on 2 L nasal cannula. GENERAL DESCRIPTION: An elderly female, lying in bed in no distress. RESPIRATORY SYSTEM: Unlabored breathing with decreased breath sounds in the bases. No wheeze. HEART: S1, S2 regular rate and rhythm. ABDOMEN: Soft, no tenderness. LABS: Hemoglobin is 6, white count 10.4, BUN of 22, creatinine 1.12. Blood culture so far negative. Sputum just provided. DIAGNOSTIC IMPRESSION AND PLAN: Patient admitted to the hospital with fever, source likely pneumonia, in a patient who did have underlying malignancy, question of possible postobstructive pneumonia. The patient is currently covered with vancomycin and Zosyn because of recurrent admission to hospital and concern for resistant pathogen that will be continued, adjusting it further based on the culture report. Continue supportive care. MMODL / IJN: [id number] /
[2018-08-03] MEDS: methylPREDNISolone SOD SUCCI 125 MG/2 ML VIAL IV SCH ×4 (00:04→17:41)
[2018-08-03] MEDS: ENOXAPARIN 40 MG/0.4 ML SYRINGE SQ SCH (01:23)
[2018-08-03] MEDS: SODIUM CHLORIDE 0.9% 1,000 ML IV SCH (01:45)
[2018-08-03 03:09] LABS: Anisocytosis Slight; Basophils % (A) 0 %; Eosinophils % (A) 0 %; Hypochromasia Moderate; Lymphocytes # (A) 0.2 k/uL (1.0-4.8); Lymphocytes % (A) 2 %; MCH 24.2 pg (25.0-35.0); MCHC 31.9 g/dL (31.0-37.0); MCV 75.8 fL (80.0-100.0); Mean Platelet Volume 6.6; Microcytosis Slight; Monocytes # (A) 0.5 k/uL (0-1.0); Monocytes % (A) 4 %; Neutrophils % (A) 93 %; Platelet Count 877 k/uL (150-450); Poikilocytosis Moderate; RBC 3.29 m/uL (3.80-5.40); WBC 12.9 k/uL (3.8-10.6)
[2018-08-03 03:14] LABS: Calcium 8.8 mg/dL (8.4-10.2); Magnesium 2.1 mg/dL (1.6-2.3); Potassium 3.6 mmol/L (3.5-5.1)
[2018-08-03] MEDS ORDERED: Potassium Replacement Protocol 1 EACH MISC MISCELLANE PRN (03:28)
[2018-08-03] MEDS ORDERED: POTASSIUM CHLORIDE ER 20 MEQ TAB.ER PO SCH (04:00)
[2018-08-03 05:25] LABS: Glucose,Whole Blood 160 mg/dL (75-99)
[2018-08-03] MEDS: PIPERACILLIN-TAZOBACTAM 3.375 GM in DEXTROSE/WATER 1 50ML.BAG IVPB SCH ×3 (05:32→22:30)
[2018-08-03] MEDS: VANCOMYCIN 1,250 MG in SODIUM CHLORIDE 0.9% 250 ML IVPB SCH (05:33)
[2018-08-03] MEDS: PANTOPRAZOLE 40 MG TABLET PO SCH (06:18)
[2018-08-03] MEDS: INSULIN ASPART 100 UNIT/ML 1 ML 10 ML VIAL SQ SCH ×4 (06:19→22:13)
[2018-08-03] MEDS: IPRATROPIUM-ALBUTEROL 3 ML NEB INHALATION PRN ×3 (07:16→20:16)
[2018-08-03] MEDS: DILTIAZEM CD 120 MG CAP.ER.24H PO SCH (07:40)
[2018-08-03] MEDS: FUROSEMIDE 40 MG TAB PO SCH ×2 (07:40→22:17)
[2018-08-03] MEDS: LISINOPRIL 2.5 MG TAB PO SCH (07:40)
[2018-08-03] MEDS: ASPIRIN 81 MG PO SCH (07:40)
[2018-08-03] MEDS: FAMOTIDINE 20 MG TAB PO SCH (07:40)
--- NOTE | 2018-08-03 11:25 | P.PN ---
Subjective This is a pleasant 82 years old female with past medical history of atrial flutter, asthma, coronary artery disease, congestive heart failure, COPD, hyperlipidemia, pneumonia, left upper lung mass. Who presents because of dyspnea and fever of 101 on 07/31/2018 Time with altered mental status and some slurred speech with left hand tingling. Today her speech is looks non-slurred, patient denies specific weakness or tingling. She looks awake and alert and knows why she is in the hospital. No more fever. However patient is told tachypneic and dyspneic with prolonged expiratory phase and scattered wheezing. Patient has been evaluated for possible acute stroke of the left parietal region. And neurologist recommend cardiology evaluation for possible cardioembolic stroke. However patient hemoglobin dropped today from 7.8 to 6.1 and the on-call hospitalist ordered 1 unit of blood transfusion already. Patient would be high risk for thrombosis including stroke and the same time she is high-risk for bleeding. Patient was noticed to have enlarging left upper lung mass which the patient is aware of and states that she doesn't want any surgery, or any other treatment, like she doesn't want chemotherapy or radiotherapy. Patient shows reasonable understanding of her medical issue and she understands that if she has cancer she will sooner without treatment. However patient does not want any treatment for her lung mass. Discussed the case with the pulmonary consult and on the case. I was discussed and also the case with the patient and the plan of care and she is open to discuss hospice care, we will discuss with family 08/03/2018 Patient is seen and examined by me at bedside. Patient still tachypneic, however she denies chest pain. No change in mental status she knows she is in the hospitals and she knows the date better than yesterday however she still disoriented oriented to person. No abdominal pain. Patient still refusing any workup for her lung mass and she knows the consequences of not treating it and she verbalized understanding to me. I discussed her problems with the patient including the severe anemia. Patient does not want any pedorthist to see her or to do workup by colonoscopy. Patient also does not want hospice care at this point. Objective - Vital Signs Vital signs: Vital Signs Temp 97.0 F L 08/03/18 08:00 Pulse 85 08/03/18 08:00 Resp 18 08/03/18 08:00 BP 141/63 08/03/18 08:00 Pulse Ox 99 08/03/18 08:00 Intake & Output 08/02/18 08/03/18 08/03/18 18:59 06:59 18:59 Intake Total 800 570 Output Total 400 900 Balance 400 -330 Weight 75.8 kg Intake: Intake, IV Titration 60 Amount Sodium Chloride 0.9% 1, 60 000 ml @ 20 mls/hr IV . Q[facility] Rx#:[id number] Oral 430 570 Blood Product 310 Rc As-1 Unit 310 [id number] Output: Urine 400 900 Other: Voiding Method Toilet Toilet Toilet # Voids 1 - Exam GENERAL: The patient is alert and oriented x3, in mild to moderate acute respiratory distress. Well developed, well nourished. HEENT: Pupils are round and equally reacting to light. EOMI. No scleral icterus. No conjunctival pallor. Normocephalic, atraumatic. No pharyngeal erythema. No thyromegaly. CARDIOVASCULAR: S1 and S2 present. No murmurs, rubs, or gallops. PULMONARY: Chest is clear to auscultation, no crackles. Patient is tachypneic with prolonged expiratory phase and scattered wheezing both lungs. Multiple lung sounds in the left upper area ABDOMEN: Soft, nontender, nondistended, normoactive bowel sounds. No palpable organomegaly. MUSCULOSKELETAL: No joint swelling or deformity. EXTREMITIES: No cyanosis, clubbing, or pedal edema. NEUROLOGICAL: Gross neurological examination did not reveal any focal deficits. SKIN: No rashes. - Labs CBC & Chem 7: 08/03/18 02:55 08/03/18 02:55 Labs: Abnormal Lab Results - Last 24 Hours (Table) 08/02/18 08/02/18 08/02/18 Range/Units 08:17 11:25 17:02 WBC (3.8-10.6) k/uL RBC (3.80-5.40) m/uL Hgb (11.4-16.0) gm/dL Hct (34.0-46.0) % MCV (80.0-100.0) fL MCH (25.0-35.0) pg RDW (11.5-15.5) % Plt Count (150-450) k/uL Neutrophils # (1.3-7.7) k/uL Lymphocytes # (1.0-4.8) k/uL Chloride (98-107) mmol/L Carbon Dioxide (22-30) mmol/L BUN (7-17) mg/dL Creatinine (0.52-1.04) mg/dL Glucose (74-99) mg/dL POC Glucose (mg/dL) 155 H 203 H (75-99) mg/dL Crossmatch See Detail 08/02/18 08/03/18 08/03/18 Range/Units 20:33 02:55 02:55 WBC 12.9 H (3.8-10.6) k/uL RBC 3.29 L (3.80-5.40) m/uL Hgb 8.0 L D (11.4-16.0) gm/dL Hct 25.0 L (34.0-46.0) % MCV 75.8 L (80.0-100.0) fL MCH 24.2 L (25.0-35.0) pg RDW 18.0 H (11.5-15.5) % Plt Count 877 H (150-450) k/uL Neutrophils # 12.0 H (1.3-7.7) k/uL Lymphocytes # 0.2 L (1.0-4.8) k/uL Chloride 113 H (98-107) mmol/L Carbon Dioxide 19 L (22-30) mmol/L BUN 25 H (7-17) mg/dL Creatinine 1.15 H (0.52-1.04) mg/dL Glucose 141 H (74-99) mg/dL POC Glucose (mg/dL) 223 H (75-99) mg/dL Crossmatch 08/03/18 Range/Units 05:24 WBC (3.8-10.6) k/uL RBC (3.80-5.40) m/uL Hgb (11.4-16.0) gm/dL Hct (34.0-46.0) % MCV (80.0-100.0) fL MCH (25.0-35.0) pg RDW (11.5-15.5) % Plt Count (150-450) k/uL Neutrophils # (1.3-7.7) k/uL Lymphocytes # (1.0-4.8) k/uL Chloride (98-107) mmol/L Carbon Dioxide (22-30) mmol/L BUN (7-17) mg/dL Creatinine (0.52-1.04) mg/dL Glucose (74-99) mg/dL POC Glucose (mg/dL) 160 H (75-99) mg/dL Crossmatch Microbiology - Last 24 Hours (Table) 07/31/18 18:15 Blood Culture - Preliminary Blood No Growth after 48 hours Assessment and Plan Assessment: Chronic obstructive pulmonary disease, an acute exacerbation. 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 Enlarging in size and patient refusing treatment Acute blood loss anemia, with blood transfusion ordered Acute left parietal stroke Atrial fibrillation with heart rate controlled. History of asthma History of congestive heart failure History of chronic respiratory failure on 2 L oxygen at home Hypertension Hyperlipidemia Plan: This is a pleasant 82 years old female presents with multiple comorbidities including acute stroke with no documented history of A. fib, possible pneumonia and sepsis on admission, as well as enlarging lung mass. Labs and medication reviews. Patient is on IV antibiotics. she is on breathing treatments and oxygen Continue with same treatment. Continue with symptomatic treatment. Resume home medication. Follow-up infectious disease, pulmonary and neurology teams recommendations will follow the patient. cardiology consult is appreciated , there is no documentation of A. fib. GI and DVT prophylaxis. Further recommendations based on the clinical course of the patient DVT prophylaxis: Discontinue Lovenox in view of anemia GI prophylaxis: Switch Pepcid to Protonix Prognosis is poor given her comorbidities, advanced age and patient presentation with complexity for her advanced disease. We'll evaluate the patient for need for hospice care with the patient and family. I discussed the case with Mrs. Yip and she wanted to discuss with the family. However patient on 08/03/2018 patient is telling me she does not want hospice care
[2018-08-03] MEDS: ALBUTEROL NEBULIZED 2.5 MG/3 ML INHALATION PRN (12:08)
[2018-08-03 12:35] LABS: Glucose,Whole Blood 141 mg/dL (75-99)
[2018-08-03 17:24] LABS: Glucose,Whole Blood 160 mg/dL (75-99)
[2018-08-03 21:16] LABS: Glucose,Whole Blood 147 mg/dL (75-99)
[2018-08-03] MEDS: ATORVASTATIN 80 MG TAB PO SCH (22:13)
[2018-08-04] MEDS: methylPREDNISolone SOD SUCCI 125 MG/2 ML VIAL IV SCH ×5 (00:15→23:05)
--- NOTE | 2018-08-04 01:08 | PN ---
PROGRESS NOTE DATE OF SERVICE: 08/03/2018. REASON FOR FOLLOWUP VISIT: Pneumonia. INTERVAL HISTORY: The patient overall fever pattern has improved. She is breathing comfortably. Denies significant chest pain. She did have some cough and did provide a sputum sample yesterday. Unfortunately, nothing reported on the computer. No nausea, no vomiting, no diarrhea. EXAMINATION: Blood pressure 138/63 with a pulse of 78, temperature 98.2. She is 95% on 2 L nasal cannula. General description is an elderly female lying in bed in no distress. Respiratory system: Unlabored breathing. Decreased breath sounds in the bases. No wheeze. Heart S1, S2. Regular rate and rhythm. Abdomen soft. No tenderness. LABS: Hemoglobin 8 with white count 12.9, BUN of 25, creatinine 1.15. Blood culture has been negative. DIAGNOSTIC IMPRESSION AND PLAN: Patient admitted to the hospital with possible postobstructive pneumonia. The patient currently covered with Zosyn that will be continued. no sputum culture has not been sent. We will try to obtain the sputum at this point. Continue current antibiotics in the form of Vanco and Zosyn , watching clinical course closely. Current supportive care. MMODL / IJN: [id number] / MIGUE
[2018-08-04 06:03] LABS: Glucose,Whole Blood 136 mg/dL (75-99)
[2018-08-04] MEDS: PIPERACILLIN-TAZOBACTAM 3.375 GM in DEXTROSE/WATER 1 50ML.BAG IVPB SCH ×3 (06:29→23:04)
[2018-08-04 06:46] LABS: Anisocytosis Slight; Basophils % (A) 0 %; Eosinophils % (A) 0 %; HCT 23.7 % (34.0-46.0); HGB 7.6 gm/dL (11.4-16.0); Hypochromasia Moderate; Lymphocytes # (A) 0.5 k/uL (1.0-4.8); Lymphocytes % (A) 4 %; MCH 23.9 pg (25.0-35.0); MCV 74.6 fL (80.0-100.0); Mean Platelet Volume 6.8; Microcytosis Moderate; Monocytes # (A) 0.7 k/uL (0-1.0); Monocytes % (A) 6 %; Neutrophils # (A) 10.3 k/uL (1.3-7.7); Neutrophils % (A) 88 %; Platelet Count 767 k/uL (150-450); Poikilocytosis Moderate; RBC 3.18 m/uL (3.80-5.40); RDW 18.4 % (11.5-15.5); WBC 11.7 k/uL (3.8-10.6)
[2018-08-04 06:55] LABS: Calcium 8.7 mg/dL (8.4-10.2); Potassium 3.5 mmol/L (3.5-5.1)
[2018-08-04] MEDS: PANTOPRAZOLE 40 MG TABLET PO SCH (07:36)
[2018-08-04] MEDS: IPRATROPIUM-ALBUTEROL 3 ML NEB INHALATION PRN ×3 (08:53→20:09)
[2018-08-04] MEDS: INSULIN ASPART 100 UNIT/ML 1 ML 10 ML VIAL SQ SCH ×4 (09:49→23:03)
[2018-08-04] MEDS: SODIUM CHLORIDE 0.9% 1,000 ML IV SCH (09:49)
[2018-08-04] MEDS: LISINOPRIL 2.5 MG TAB PO SCH (10:08)
[2018-08-04] MEDS: FUROSEMIDE 40 MG TAB PO SCH ×2 (10:08→23:04)
[2018-08-04] MEDS: DILTIAZEM CD 120 MG CAP.ER.24H PO SCH (10:08)
[2018-08-04] MEDS: ASPIRIN 81 MG PO SCH (10:08)
[2018-08-04] MEDS: VANCOMYCIN 1,250 MG in SODIUM CHLORIDE 0.9% 250 ML IVPB SCH (10:12)
[2018-08-04] MEDS: FAMOTIDINE 20 MG TAB PO SCH (10:13)
[2018-08-04 12:23] LABS: Glucose,Whole Blood 132 mg/dL (75-99)
[2018-08-04] MEDS: ALBUTEROL NEBULIZED 2.5 MG/3 ML INHALATION PRN (12:37)
[2018-08-04 17:00] LABS: Glucose,Whole Blood 167 mg/dL (75-99)
--- NOTE | 2018-08-04 19:08 | P.PN ---
Subjective This is a pleasant 82 years old female with past medical history of atrial flutter, asthma, coronary artery disease, congestive heart failure, COPD, hyperlipidemia, pneumonia, left upper lung mass. Who presents because of dyspnea and fever of 101 on 07/31/2018 Time with altered mental status and some slurred speech with left hand tingling. Today her speech is looks non-slurred, patient denies specific weakness or tingling. She looks awake and alert and knows why she is in the hospital. No more fever. However patient is told tachypneic and dyspneic with prolonged expiratory phase and scattered wheezing. Patient has been evaluated for possible acute stroke of the left parietal region. And neurologist recommend cardiology evaluation for possible cardioembolic stroke. However patient hemoglobin dropped today from 7.8 to 6.1 and the on-call hospitalist ordered 1 unit of blood transfusion already. Patient would be high risk for thrombosis including stroke and the same time she is high-risk for bleeding. Patient was noticed to have enlarging left upper lung mass which the patient is aware of and states that she doesn't want any surgery, or any other treatment, like she doesn't want chemotherapy or radiotherapy. Patient shows reasonable understanding of her medical issue and she understands that if she has cancer she will sooner without treatment. However patient does not want any treatment for her lung mass. Discussed the case with the pulmonary consult and on the case. I was discussed and also the case with the patient and the plan of care and she is open to discuss hospice care, we will discuss with family 08/03/2018 Patient is seen and examined by me at bedside. Patient still tachypneic, however she denies chest pain. No change in mental status she knows she is in the hospitals and she knows the date better than yesterday however she still disoriented oriented to person. No abdominal pain. Patient still refusing any workup for her lung mass and she knows the consequences of not treating it and she verbalized understanding to me. I discussed her problems with the patient including the severe anemia. Patient does not want any manager of school to see her or to do workup by colonoscopy. Patient also does not want hospice care at this point. 08/04/2018 Patientpatient dyspnea significantly improved. Both Dr. herminia Mcdowell and her son were at bedside. Discussed extensively with patient and family her symptoms of enlarging lung mass suspicious for cancer and patient declined and therapy. Patient and family understand that she needs workup to make sure it is cancer or not however declined test and therapy.then understands also patient is high-risk for thrombosis, for example stroke or heart attack. And on the same time she is high-risk for bleeding for example hemoptysis from her lung mass. Patient is not a candidate for anticoagulation or antiplatelet in view of her risk of bleeding and again family are aware of this and they are in agreement with this plan of management Objective - Vital Signs Vital signs: Vital Signs Temp 97.1 F L 08/04/18 16:00 Pulse 100 08/04/18 16:34 Resp 18 08/04/18 16:00 BP 147/74 08/04/18 16:00 Pulse Ox 95 08/04/18 16:00 Intake & Output 08/04/18 08/04/18 08/05/18 06:59 18:59 06:59 Intake Total 120 360 Output Total 1100 402 Balance -980 -42 Weight 74 kg Intake: Oral 120 360 Output: Urine 1100 400 Stool 2 Other: Voiding Method Toilet Toilet # Voids 1 2 # Bowel Movements 2 - Exam GENERAL: The patient is alert and oriented x3, in mild to moderate acute respiratory distress. Well developed, well nourished. HEENT: Pupils are round and equally reacting to light. EOMI. No scleral icterus. No conjunctival pallor. Normocephalic, atraumatic. No pharyngeal erythema. No thyromegaly. CARDIOVASCULAR: S1 and S2 present. No murmurs, rubs, or gallops. PULMONARY: Chest is clear to auscultation, no crackles. Patient is tachypneic with prolonged expiratory phase and scattered wheezing both lungs. Multiple lung sounds in the left upper area ABDOMEN: Soft, nontender, nondistended, normoactive bowel sounds. No palpable organomegaly. MUSCULOSKELETAL: No joint swelling or deformity. EXTREMITIES: No cyanosis, clubbing, or pedal edema. NEUROLOGICAL: Gross neurological examination did not reveal any focal deficits. SKIN: No rashes. - Labs CBC & Chem 7: 08/04/18 06:28 08/04/18 06:28 Labs: Abnormal Lab Results - Last 24 Hours (Table) 08/03/18 08/04/18 08/04/18 Range/Units 20:53 06:01 06:28 WBC 11.7 H (3.8-10.6) k/uL RBC 3.18 L (3.80-5.40) m/uL Hgb 7.6 L (11.4-16.0) gm/dL Hct 23.7 L (34.0-46.0) % MCV 74.6 L (80.0-100.0) fL MCH 23.9 L (25.0-35.0) pg RDW 18.4 H (11.5-15.5) % Plt Count 767 H (150-450) k/uL Neutrophils # 10.3 H (1.3-7.7) k/uL Lymphocytes # 0.5 L (1.0-4.8) k/uL Chloride (98-107) mmol/L BUN (7-17) mg/dL Creatinine (0.52-1.04) mg/dL Glucose (74-99) mg/dL POC Glucose (mg/dL) 147 H 136 H (75-99) mg/dL 08/04/18 08/04/18 08/04/18 Range/Units 06:28 12:18 16:45 WBC (3.8-10.6) k/uL RBC (3.80-5.40) m/uL Hgb (11.4-16.0) gm/dL Hct (34.0-46.0) % MCV (80.0-100.0) fL MCH (25.0-35.0) pg RDW (11.5-15.5) % Plt Count (150-450) k/uL Neutrophils # (1.3-7.7) k/uL Lymphocytes # (1.0-4.8) k/uL Chloride 110 H (98-107) mmol/L BUN 27 H (7-17) mg/dL Creatinine 1.28 H (0.52-1.04) mg/dL Glucose 109 H (74-99) mg/dL POC Glucose (mg/dL) 132 H 167 H (75-99) mg/dL Microbiology - Last 24 Hours (Table) 07/31/18 18:15 Blood Culture - Preliminary Blood No Growth after 72 hours Assessment and Plan Assessment: Chronic obstructive pulmonary disease, an acute exacerbation. 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 Enlarging in size and patient refusing treatment Acute blood loss anemia, with blood transfusion ordered Acute left parietal stroke Atrial fibrillation with heart rate controlled. History of asthma History of congestive heart failure History of chronic respiratory failure on 2 L oxygen at home Hypertension Hyperlipidemia Plan: This is a pleasant 82 years old female presents with multiple comorbidities including acute stroke with no documented history of A. fib, possible pneumonia and sepsis on admission, as well as enlarging lung mass. Labs and medication reviews. Patient is on IV antibiotics. she is on breathing treatments and oxygen Continue with same treatment. Continue with symptomatic treatment. Resume home medication. Follow-up infectious disease, pulmonary and neurology teams recommendations will follow the patient. cardiology consult is appreciated , there is no documentation of A. fib. GI and DVT prophylaxis. Further recommendations based on the clinical course of the patient DVT prophylaxis: Discontinue Lovenox in view of anemia GI prophylaxis: Switch Pepcid to Protonix Prognosis is poor given her comorbidities, advanced age and patient presentation with complexity for her advanced disease. We'll evaluate the patient for need for hospice care with the patient and family. I discussed the case with Mrs. Yip and she wanted to discuss with the family. However patient on 08/03/2018 patient is telling me she does not want hospice care
[2018-08-04 21:00] LABS: Glucose,Whole Blood 206 mg/dL (75-99)
--- NOTE | 2018-08-04 22:06 | PN ---
PROGRESS NOTE DATE OF SERVICE: 08/04/2018 REASON FOR FOLLOWUP: Pneumonia, possibly postobstructive. INTERVAL HISTORY: The patient is afebrile. She seems to be breathing more comfortably and has been insistent on going home. Denies having any chest pain or cough. No nausea. No vomiting. No abdominal pain and no diarrhea. PHYSICAL EXAMINATION: Blood pressure 147/74 with a pulse of 80, temperature 97.1. She is 95% on 2 L nasal cannula. General description is an elderly female up in the room in no distress. RESPIRATORY SYSTEM: Unlabored breathing with decreased intensity of breath sounds. No wheeze. HEART: S1, S2. Regular rate and rhythm. ABDOMEN: Soft. No tenderness. EXTREMITIES: No edema of the feet. LABS: Hemoglobin 7.6, white count 11.7, BUN of 27, creatinine 1.28. Blood culture has been negative. Unfortunately sputum which the patient provided seems to have been lost. DIAGNOSTIC IMPRESSION AND PLAN: Patient with possible postobstructive pneumonia. The patient has been on broad spectrum antibiotic and seems to have show clinical improvement. Unfortunately, sputum cultures were not obtained. Currently on Zosyn and vancomycin. The patient is insisting on going home. If the patient continues to improve, will finish therapy with oral Avelox 400 daily for about a week with close outpatient followup. MMODL / IJN: [id number] / MTDD
[2018-08-04] MEDS: ATORVASTATIN 80 MG TAB PO SCH (23:04)
[2018-08-05] MEDS ORDERED: VANCOMYCIN TROUGH DUE 1 EACH MISC MISCELLANE ONE (05:00)
[2018-08-05 05:16] LABS: Anisocytosis Slight; Basophils % (A) 0 %; Eosinophils % (A) 0 %; HCT 23.2 % (34.0-46.0); HGB 7.2 gm/dL (11.4-16.0); Hypochromasia Moderate; Lymphocytes # (A) 0.5 k/uL (1.0-4.8); Lymphocytes % (A) 4 %; MCH 23.6 pg (25.0-35.0); Mean Platelet Volume 6.7; Microcytosis Moderate; Monocytes # (A) 0.7 k/uL (0-1.0); Monocytes % (A) 6 %; Neutrophils # (A) 10.6 k/uL (1.3-7.7); Neutrophils % (A) 89 %; Platelet Count 695 k/uL (150-450); Poikilocytosis Slight; RBC 3.05 m/uL (3.80-5.40); RDW 18.7 % (11.5-15.5)
[2018-08-05 05:26] LABS: Calcium 8.6 mg/dL (8.4-10.2); Potassium 3.2 mmol/L (3.5-5.1)
[2018-08-05 06:15] LABS: Glucose,Whole Blood 121 mg/dL (75-99)
[2018-08-05] MEDS: methylPREDNISolone SOD SUCCI 125 MG/2 ML VIAL IV SCH ×4 (06:43→22:55)
[2018-08-05] MEDS: VANCOMYCIN 1,250 MG in SODIUM CHLORIDE 0.9% 250 ML IVPB SCH (06:43)
[2018-08-05] MEDS: SODIUM CHLORIDE 0.9% 1,000 ML IV SCH ×2 (06:44→22:55)
[2018-08-05] MEDS: PANTOPRAZOLE 40 MG TABLET PO SCH (06:50)
[2018-08-05] MEDS: IPRATROPIUM-ALBUTEROL 3 ML NEB INHALATION PRN ×4 (07:15→19:59)
[2018-08-05] MEDS: INSULIN ASPART 100 UNIT/ML 1 ML 10 ML VIAL SQ SCH ×4 (09:01→20:31)
[2018-08-05] MEDS: PIPERACILLIN-TAZOBACTAM 3.375 GM in DEXTROSE/WATER 1 50ML.BAG IVPB SCH ×3 (09:02→20:31)
[2018-08-05] MEDS: LISINOPRIL 2.5 MG TAB PO SCH (09:09)
[2018-08-05] MEDS: FAMOTIDINE 20 MG TAB PO SCH (09:10)
[2018-08-05] MEDS: DILTIAZEM CD 120 MG CAP.ER.24H PO SCH (09:10)
[2018-08-05] MEDS: FUROSEMIDE 40 MG TAB PO SCH ×2 (09:10→20:31)
[2018-08-05] MEDS: ASPIRIN 81 MG PO SCH (09:10)
--- NOTE | 2018-08-05 10:56 | CDI ---
Last Revision, September 2017 Documentation Clarification Form Date: 08/05/18 From: Emma Chris RN Admit Date: 07/31/2018 9:17:00 PM Patient Name: Sandrine Abreu Visit Number: [id number] ATTENTION: The Clinical Documentation Specialists (CDI) and [facility] Coding Staff appreciate your assistance in clarifying documentation. Please respond to the clarification below the line at the bottom and electronically sign. The CDI & [facility] Coding staff will review the response and follow-up if needed. Please note: Queries are made part of the Legal Health Record. If you have any questions, please contact the author of this message via ITS. Dr. Og Grene MD, Can you please render your opinion on the following documentation? Pt admitted with fever weakness and altered mental status History of Heart failure is documented in the Cardiology consult and PN's. 08/02 In the Cardiology consult not it is stated "she does not have any type of cardiac history". History/Risk Factors: Pneumonia, possible lung mass, a fib, COPD, CHF, chronic hypoxic respiratory failure, asthma, hyperlipidemia, home o2 Clinical Indicators: VS on admission: T 98.1, P 114, R 28, 80/50, 99% 3L BNP: was not done Echocardiogram Results: EF 55-60% mild pulmonary HTN Chest x ray: left upper lobe mass, no heart failure No edema noted, normal lung sounds Treatment: Lasix 40 mg PO daily, psychiatric specialist Heart Healthy diet, daily weights, strict I&O In your professional opinion, can you please clarify? CHF ruled in CHF ruled out Systolic Heart Failure: Chronic Diastolic Heart Failure: Chronic Systolic & Diastolic Heart Failure: Chronic Unable to Determine Other, please specify MTDD
[2018-08-05 11:33] LABS: Glucose,Whole Blood 111 mg/dL (75-99)
--- NOTE | 2018-08-05 11:46 | P.PN ---
Subjective This is a pleasant 82 years old female with past medical history of atrial flutter, asthma, coronary artery disease, congestive heart failure, COPD, hyperlipidemia, pneumonia, left upper lung mass. Who presents because of dyspnea and fever of 101 on 07/31/2018 Time with altered mental status and some slurred speech with left hand tingling. Today her speech is looks non-slurred, patient denies specific weakness or tingling. She looks awake and alert and knows why she is in the hospital. No more fever. However patient is told tachypneic and dyspneic with prolonged expiratory phase and scattered wheezing. Patient has been evaluated for possible acute stroke of the left parietal region. And neurologist recommend cardiology evaluation for possible cardioembolic stroke. However patient hemoglobin dropped today from 7.8 to 6.1 and the on-call hospitalist ordered 1 unit of blood transfusion already. Patient would be high risk for thrombosis including stroke and the same time she is high-risk for bleeding. Patient was noticed to have enlarging left upper lung mass which the patient is aware of and states that she doesn't want any surgery, or any other treatment, like she doesn't want chemotherapy or radiotherapy. Patient shows reasonable understanding of her medical issue and she understands that if she has cancer she will sooner without treatment. However patient does not want any treatment for her lung mass. Discussed the case with the pulmonary consult and on the case. I was discussed and also the case with the patient and the plan of care and she is open to discuss hospice care, we will discuss with family 08/03/2018 Patient is seen and examined by me at bedside. Patient still tachypneic, however she denies chest pain. No change in mental status she knows she is in the hospitals and she knows the date better than yesterday however she still disoriented oriented to person. No abdominal pain. Patient still refusing any workup for her lung mass and she knows the consequences of not treating it and she verbalized understanding to me. I discussed her problems with the patient including the severe anemia. Patient does not want any bessemer regulator to see her or to do workup by colonoscopy. Patient also does not want hospice care at this point. 08/04/2018 Patientpatient dyspnea significantly improved. Both Dr. herminia Mcdowell and her son were at bedside. Discussed extensively with patient and family her symptoms of enlarging lung mass suspicious for cancer and patient declined and therapy. Patient and family understand that she needs workup to make sure it is cancer or not however declined test and therapy.then understands also patient is high-risk for thrombosis, for example stroke or heart attack. And on the same time she is high-risk for bleeding for example hemoptysis from her lung mass. Patient is not a candidate for anticoagulation or antiplatelet in view of her risk of bleeding and again family are aware of this and they are in agreement with this plan of management 08/05/2018 Patient still dyspneic but is improving significantly every day. No chest pain. No more hemoptysis. She is look more awake and alert. ID team evaluated patient and recommended to continue with the intravenous antibiotics of Zosyn and vancomycin currently and she is at to 7 days worth of Avelox as oral antibiotics upon discharge. Discussed the case today with Dr. Diaz from pulmonary team and he agreed to continue with same treatment. Vitals are stable. WBC 12 K Objective - Vital Signs Vital signs: Vital Signs Temp 97.3 F L 08/05/18 08:00 Pulse 84 08/05/18 11:03 Resp 18 08/05/18 08:00 BP 141/78 08/05/18 08:00 Pulse Ox 97 08/05/18 08:00 Intake & Output 08/04/18 08/05/18 08/05/18 18:59 06:59 18:59 Intake Total 360 118 Output Total 402 803 1 Balance -42 -803 117 Weight 74.8 kg Intake: Oral 360 118 Output: Urine 400 800 Stool 2 3 1 Other: Voiding Method Toilet Toilet Toilet # Voids 2 1 # Bowel Movements 2 - Exam GENERAL: The patient is alert and oriented x3, in mild to moderate acute respiratory distress. Well developed, well nourished. HEENT: Pupils are round and equally reacting to light. EOMI. No scleral icterus. No conjunctival pallor. Normocephalic, atraumatic. No pharyngeal erythema. No thyromegaly. CARDIOVASCULAR: S1 and S2 present. No murmurs, rubs, or gallops. PULMONARY: Chest is clear to auscultation, no crackles. Patient is tachypneic with prolonged expiratory phase and scattered wheezing both lungs. Multiple lung sounds in the left upper area ABDOMEN: Soft, nontender, nondistended, normoactive bowel sounds. No palpable organomegaly. MUSCULOSKELETAL: No joint swelling or deformity. EXTREMITIES: No cyanosis, clubbing, or pedal edema. NEUROLOGICAL: Gross neurological examination did not reveal any focal deficits. SKIN: No rashes. - Labs CBC & Chem 7: 08/05/18 04:54 08/05/18 04:54 Labs: Abnormal Lab Results - Last 24 Hours (Table) 08/04/18 08/04/18 08/04/18 Range/Units 12:18 16:45 20:56 WBC (3.8-10.6) k/uL RBC (3.80-5.40) m/uL Hgb (11.4-16.0) gm/dL Hct (34.0-46.0) % MCV (80.0-100.0) fL MCH (25.0-35.0) pg RDW (11.5-15.5) % Plt Count (150-450) k/uL Neutrophils # (1.3-7.7) k/uL Lymphocytes # (1.0-4.8) k/uL Potassium (3.5-5.1) mmol/L BUN (7-17) mg/dL Creatinine (0.52-1.04) mg/dL Glucose (74-99) mg/dL POC Glucose (mg/dL) 132 H 167 H 206 H (75-99) mg/dL 08/05/18 08/05/18 08/05/18 Range/Units 04:54 04:54 05:59 WBC 12.0 H (3.8-10.6) k/uL RBC 3.05 L (3.80-5.40) m/uL Hgb 7.2 L (11.4-16.0) gm/dL Hct 23.2 L (34.0-46.0) % MCV 76.0 L (80.0-100.0) fL MCH 23.6 L (25.0-35.0) pg RDW 18.7 H (11.5-15.5) % Plt Count 695 H (150-450) k/uL Neutrophils # 10.6 H (1.3-7.7) k/uL Lymphocytes # 0.5 L (1.0-4.8) k/uL Potassium 3.2 L (3.5-5.1) mmol/L BUN 29 H (7-17) mg/dL Creatinine 1.18 H (0.52-1.04) mg/dL Glucose 122 H (74-99) mg/dL POC Glucose (mg/dL) 121 H (75-99) mg/dL 08/05/18 Range/Units 11:31 WBC (3.8-10.6) k/uL RBC (3.80-5.40) m/uL Hgb (11.4-16.0) gm/dL Hct (34.0-46.0) % MCV (80.0-100.0) fL MCH (25.0-35.0) pg RDW (11.5-15.5) % Plt Count (150-450) k/uL Neutrophils # (1.3-7.7) k/uL Lymphocytes # (1.0-4.8) k/uL Potassium (3.5-5.1) mmol/L BUN (7-17) mg/dL Creatinine (0.52-1.04) mg/dL Glucose (74-99) mg/dL POC Glucose (mg/dL) 111 H (75-99) mg/dL Microbiology - Last 24 Hours (Table) 07/31/18 18:15 Blood Culture - Preliminary Blood No Growth after 96 hours Assessment and Plan Assessment: Chronic obstructive pulmonary disease, an acute exacerbation. 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 Enlarging in size and patient refusing treatment Acute blood loss anemia, with blood transfusion ordered Acute left parietal stroke Atrial fibrillation with heart rate controlled. History of asthma History of congestive heart failure History of chronic respiratory failure on 2 L oxygen at home Hypertension Hyperlipidemia Plan: This is a pleasant 82 years old female presents with multiple comorbidities including acute stroke with no documented history of A. fib, possible pneumonia and sepsis on admission, as well as enlarging lung mass. Labs and medication reviews. Patient is on IV antibiotics. she is on breathing treatments and oxygen Continue with same treatment. Continue with symptomatic treatment. Resume home medication. Follow-up infectious disease, pulmonary and neurology teams recommendations will follow the patient. cardiology consult is appreciated , there is no documentation of A. fib. GI and DVT prophylaxis. Further recommendations based on the clinical course of the patient DVT prophylaxis: Discontinue Lovenox in view of anemia GI prophylaxis: Switch Pepcid to Protonix Prognosis is poor given her comorbidities, advanced age and patient presentation with complexity for her advanced disease. We'll evaluate the patient for need for hospice care with the patient and family. I discussed the case with Mrs. Yip and she wanted to discuss with the family. However patient on 08/03/2018 patient is telling me she does not want hospice care
[2018-08-05] MEDS ORDERED: POTASSIUM CHLORIDE ER 20 MEQ TAB.ER PO ONE (16:00)
[2018-08-05] MEDS ORDERED: POTASSIUM CHLORIDE ER 20 MEQ TAB.ER PO SCH (16:00)
--- NOTE | 2018-08-05 16:25 | P.PN ---
Subjective Progress Note Date: 08/03/18 (Late entry note) Principal diagnosis: Acute left posterior parietal lobe infarct, altered mental status related acute infarct, anemia of chronic disease, left-sided pneumonia, large left-sided slowly enlarging mass likely neoplastic process, chronic respiratory failure oxygen dependent, generalized weakness and medical debility, severe COPD end- stage lung disease 08/03/2018, patient seen eval examined during rounds clinically patient has been doing better cuff congestion shortness of breath is there but stable and improved her confusion is improved as well she is breathing slightly more comfortably 08/02/2018, care plan discussed with the patient at length as well as primary service patient is slightly more focused more awake oriented 3 now moving all 4 extremity his strength is good and your exam is fairly normal with some impairment is speech and coordination however has been noted though which seems to be improving compared to yesterday, her labs are reviewed medications reviewed, hemoglobin drop down to 6.1 patient is scheduled to get 1 unit of packed RBC , Patient is being considered for rehab placement versus possible hospice however patient denies and wants to go home rather than a [facility] 82-year-old female who was seen evaluated examined on 6 floor this patient has been admitted to hospital 1 day history of confusion and altered mental status patient has some issues is speech related issue which new in onset, patient does have a history of end-stage lung disease and severe COPD emphysema and has chronic hypoxic respiratory failure on supplemental oxygen, patient also has a left upper lobe mass which is being monitor observe patient has declined any biopsy and or or chemo or radiation therapy, recently patient was hospitalized with hemoptysis thought to be related to pneumonia however hemoptysis stopped after antibiotics and steroid therapy and was discharged in fairly stable condition, patient did call the office for problems associated diarrhea yesterday she was advised to come into the office today now she is seen in the hospital with a new onset confusion, laboratory data reviewed radiographic studies reviewed the x-rays is stable except slowly enlarging left upper lobe mass, computed tomography scan of the head revealed no new acute left posterior parietal lobe infarct suggestive of CVA size is about 3 x 4 cm wedge-shaped Objective - Vital Signs Vital signs: Temperature 90.7, pulse is 85, respiratory 18, blood pressure 141/63, saturation 99% - Exam - Constitutional General appearance: average body habitus, mild distress - EENT Eyes: EOMI, PERRLA, normal appearance ENT: hard of hearing, normal oropharynx Ears: bilateral: normal - Neck Neck: normal ROM Carotids: bilateral: upstroke normal Thyroid: bilateral: normal size - Respiratory Respiratory: bilateral: diminished, prolonged expiration, negative: dullness, rales, rhonchi, wheezing, prolonged inspiration - Cardiovascular Heart sounds: normal: S1, S2 - Gastrointestinal General gastrointestinal: normal bowel sounds, soft - Musculoskeletal/neurological exam Musculoskeletal: generalized weakness, strength equal bilaterally no focal neurological deficit - Psychiatric Psychiatric: appropriate affect - Labs CBC & Chem 7: 08/05/18 04:54 08/05/18 04:54 Labs: Abnormal Lab Results - Last 24 Hours (Table) 08/04/18 08/04/18 08/05/18 Range/Units 16:45 20:56 04:54 WBC 12.0 H (3.8-10.6) k/uL RBC 3.05 L (3.80-5.40) m/uL Hgb 7.2 L (11.4-16.0) gm/dL Hct 23.2 L (34.0-46.0) % MCV 76.0 L (80.0-100.0) fL MCH 23.6 L (25.0-35.0) pg RDW 18.7 H (11.5-15.5) % Plt Count 695 H (150-450) k/uL Neutrophils # 10.6 H (1.3-7.7) k/uL Lymphocytes # 0.5 L (1.0-4.8) k/uL Potassium (3.5-5.1) mmol/L BUN (7-17) mg/dL Creatinine (0.52-1.04) mg/dL Glucose (74-99) mg/dL POC Glucose (mg/dL) 167 H 206 H (75-99) mg/dL 08/05/18 08/05/18 08/05/18 Range/Units 04:54 05:59 11:31 WBC (3.8-10.6) k/uL RBC (3.80-5.40) m/uL Hgb (11.4-16.0) gm/dL Hct (34.0-46.0) % MCV (80.0-100.0) fL MCH (25.0-35.0) pg RDW (11.5-15.5) % Plt Count (150-450) k/uL Neutrophils # (1.3-7.7) k/uL Lymphocytes # (1.0-4.8) k/uL Potassium 3.2 L (3.5-5.1) mmol/L BUN 29 H (7-17) mg/dL Creatinine 1.18 H (0.52-1.04) mg/dL Glucose 122 H (74-99) mg/dL POC Glucose (mg/dL) 121 H 111 H (75-99) mg/dL Microbiology - Last 24 Hours (Table) 07/31/18 18:15 Blood Culture - Preliminary Blood No Growth after 96 hours Assessment and Plan Assessment: Anemia of chronic disease Altered mental status related to new left posterior acute parietal lobe infarct Left posterior acute parietal lobe infarct Left-sided pneumonia And stage lung disease second to severe COPD emphysema Chronic hypoxic respiratory failure Slowly enlarging left sided lung mass patient refused any intervention including biopsy chemoradiation therapy Generalized weakness and medical debility Plan: Gentle rehydration Observe closely after blood transfusion Neuro checks Fall and seizure precautions Aspiration precautions DVT and peptic ulcer disease prophylaxis Broad-spectrum antibiotics Bronchodilators IV steroids Overall long-term prognosis poor We'll follow clinical course closely further recommendations pending plan of care as per clinical response of the patient Time with Patient: Greater than 30
--- NOTE | 2018-08-05 16:29 | P.PN ---
Subjective Progress Note Date: 08/05/18 Principal diagnosis: Acute left posterior parietal lobe infarct, altered mental status related acute infarct, anemia of chronic disease, left-sided pneumonia, large left-sided slowly enlarging mass likely neoplastic process, chronic respiratory failure oxygen dependent, generalized weakness and medical debility, severe COPD end- stage lung disease 08/05/2018, patient seen eval examined during the rounds clinically patient has been doing better cough congestion and breathing difficulty remains stable, IV steroids and antibiotics can be switched to oral like Augmentin along with oral prednisone 08/04/2018, patient has been doing slightly better awake and alert breathing comfortably cuff congestion shortness breath stable patient remains on broad- spectrum antibiotics patient has declined further evaluation or invasive procedure for left-sided lung mass also has Placement extended care facility labs reviewed medications reviewed 08/03/2018, patient seen eval examined during rounds clinically patient has been doing better cuff congestion shortness of breath is there but stable and improved her confusion is improved as well she is breathing slightly more comfortably 08/02/2018, care plan discussed with the patient at length as well as primary service patient is slightly more focused more awake oriented 3 now moving all 4 extremity his strength is good and your exam is fairly normal with some impairment is speech and coordination however has been noted though which seems to be improving compared to yesterday, her labs are reviewed medications reviewed, hemoglobin drop down to 6.1 patient is scheduled to get 1 unit of packed RBC , Patient is being considered for rehab placement versus possible hospice however patient denies and wants to go home rather than a jail 82-year-old female who was seen evaluated examined on 6 floor this patient has been admitted to hospital 1 day history of confusion and altered mental status patient has some issues is speech related issue which new in onset, patient does have a history of end-stage lung disease and severe COPD emphysema and has chronic hypoxic respiratory failure on supplemental oxygen, patient also has a left upper lobe mass which is being monitor observe patient has declined any biopsy and or or chemo or radiation therapy, recently patient was hospitalized with hemoptysis thought to be related to pneumonia however hemoptysis stopped after antibiotics and steroid therapy and was discharged in fairly stable condition, patient did call the office for problems associated diarrhea yesterday she was advised to come into the office today now she is seen in the hospital with a new onset confusion, laboratory data reviewed radiographic studies reviewed the x-rays is stable except slowly enlarging left upper lobe mass, computed tomography scan of the head revealed no new acute left posterior parietal lobe infarct suggestive of CVA size is about 3 x 4 cm wedge-shaped Objective - Vital Signs Vital signs: Vital Signs Temp 97.9 F 08/05/18 12:00 Pulse 90 08/05/18 16:22 Resp 18 08/05/18 12:00 BP 125/68 08/05/18 12:00 Pulse Ox 93 L 08/05/18 12:00 Intake & Output 08/04/18 08/05/18 08/05/18 18:59 06:59 18:59 Intake Total 360 338 Output Total 402 803 2 Balance -42 -803 336 Weight 74.8 kg Intake: Intake, IV Titration 120 Amount Sodium Chloride 0.9% 1, 120 000 ml @ 20 mls/hr IV . Q24H [facility] Rx#:[id number] Oral 360 218 Output: Urine 400 800 Stool 2 3 2 Other: Voiding Method Toilet Toilet Toilet # Voids 2 1 2 # Bowel Movements 2 1 - Exam - Constitutional General appearance: average body habitus, mild distress - EENT Eyes: EOMI, PERRLA, normal appearance ENT: hard of hearing, normal oropharynx Ears: bilateral: normal - Neck Neck: normal ROM Carotids: bilateral: upstroke normal Thyroid: bilateral: normal size - Respiratory Respiratory: bilateral: diminished, prolonged expiration, negative: dullness, rales, rhonchi, wheezing, prolonged inspiration - Cardiovascular Heart sounds: normal: S1, S2 - Gastrointestinal General gastrointestinal: normal bowel sounds, soft - Musculoskeletal/neurological exam Musculoskeletal: generalized weakness, strength equal bilaterally no focal neurological deficit - Psychiatric Psychiatric: appropriate affect - Labs CBC & Chem 7: 08/05/18 04:54 08/05/18 04:54 Labs: Abnormal Lab Results - Last 24 Hours (Table) 08/04/18 08/04/18 08/05/18 Range/Units 16:45 20:56 04:54 WBC 12.0 H (3.8-10.6) k/uL RBC 3.05 L (3.80-5.40) m/uL Hgb 7.2 L (11.4-16.0) gm/dL Hct 23.2 L (34.0-46.0) % MCV 76.0 L (80.0-100.0) fL MCH 23.6 L (25.0-35.0) pg RDW 18.7 H (11.5-15.5) % Plt Count 695 H (150-450) k/uL Neutrophils # 10.6 H (1.3-7.7) k/uL Lymphocytes # 0.5 L (1.0-4.8) k/uL Potassium (3.5-5.1) mmol/L BUN (7-17) mg/dL Creatinine (0.52-1.04) mg/dL Glucose (74-99) mg/dL POC Glucose (mg/dL) 167 H 206 H (75-99) mg/dL 08/05/18 08/05/18 08/05/18 Range/Units 04:54 05:59 11:31 WBC (3.8-10.6) k/uL RBC (3.80-5.40) m/uL Hgb (11.4-16.0) gm/dL Hct (34.0-46.0) % MCV (80.0-100.0) fL MCH (25.0-35.0) pg RDW (11.5-15.5) % Plt Count (150-450) k/uL Neutrophils # (1.3-7.7) k/uL Lymphocytes # (1.0-4.8) k/uL Potassium 3.2 L (3.5-5.1) mmol/L BUN 29 H (7-17) mg/dL Creatinine 1.18 H (0.52-1.04) mg/dL Glucose 122 H (74-99) mg/dL POC Glucose (mg/dL) 121 H 111 H (75-99) mg/dL Microbiology - Last 24 Hours (Table) 07/31/18 18:15 Blood Culture - Preliminary Blood No Growth after 96 hours Assessment and Plan Assessment: COPD exacerbation Possible left-sided pneumonia Anemia of chronic disease Altered mental status related to new left posterior acute parietal lobe infarct Left posterior acute parietal lobe infarct Left-sided pneumonia And stage lung disease second to severe COPD emphysema Chronic hypoxic respiratory failure Slowly enlarging left sided lung mass patient refused any intervention including biopsy chemoradiation therapy Generalized weakness and medical debility Plan: Gentle rehydration Neuro checks Fall and seizure precautions Aspiration precautions DVT and peptic ulcer disease prophylaxis Broad-spectrum antibiotics, can be switched to oral Bronchodilators IV steroids, can be switched to oral Overall long-term prognosis poor We'll follow clinical course closely further recommendations pending plan of care as per clinical response of the patient Time with Patient: Greater than 30
[2018-08-05 16:49] LABS: Glucose,Whole Blood 119 mg/dL (75-99)
--- NOTE | 2018-08-05 17:52 | PN ---
PROGRESS NOTE DATE OF SERVICE: 08/05/2018 REASON FOR FOLLOWUP: Pneumonia. INTERVAL HISTORY: The patient is currently afebrile. She seems to be breathing more comfortably. The patient denies having any chest pain. She did have some cough but decreased in intensity. No nausea or vomiting. No abdominal pain or any diarrhea. PHYSICAL EXAMINATION: Her blood pressure is 140/70 with a pulse of 80, temperature 98. General description is an elderly female up in the bed in no distress. RESPIRATORY SYSTEM: Unlabored breathing with decreased intensity of breath sounds. No wheeze. HEART: S1, S2. Regular rate and rhythm. ABDOMEN: Soft. No tenderness. LABS: Hemoglobin 7.2, white count of 12 with a BUN of 29, creatinine 1.18. DIAGNOSTIC IMPRESSION AND PLAN: Patient with postobstructive pneumonia. Blood cultures have been negative. No sputum was collected. Currently on Zosyn, to continue. Discontinue vancomycin, as no gram- positive has been grown, with the plan to finish therapy with oral Avelox 400 daily for another week. Continue with supportive care. MMODL / IJN: [id number] /
[2018-08-05 20:22] LABS: Glucose,Whole Blood 166 mg/dL (75-99)
[2018-08-05] MEDS: ATORVASTATIN 80 MG TAB PO SCH (20:31)
[2018-08-06] MEDS ORDERED: POTASSIUM CHLORIDE ER 20 MEQ TAB.ER PO STA (00:12)
[2018-08-06] MEDS: PIPERACILLIN-TAZOBACTAM 3.375 GM in DEXTROSE/WATER 1 50ML.BAG IVPB SCH ×2 (05:43→15:10)
[2018-08-06] MEDS: INSULIN ASPART 100 UNIT/ML 1 ML 10 ML VIAL SQ SCH ×3 (05:44→17:06)
[2018-08-06] MEDS: methylPREDNISolone SOD SUCCI 125 MG/2 ML VIAL IV SCH ×2 (05:44→12:29)
[2018-08-06 05:45] LABS: Glucose,Whole Blood 122 mg/dL (75-99)
[2018-08-06] MEDS ORDERED: VANCOMYCIN 1,250 MG in SODIUM CHLORIDE 0.9% 250 ML IVPB SCH (06:00)
[2018-08-06] MEDS: PANTOPRAZOLE 40 MG TABLET PO SCH (06:13)
[2018-08-06 06:56] LABS: Anisocytosis Slight; Basophils % (A) 0 %; Eosinophils % (A) 0 %; HCT 23.6 % (34.0-46.0); HGB 7.3 gm/dL (11.4-16.0); Hypochromasia Moderate; Lymphocytes # (A) 0.4 k/uL (1.0-4.8); Lymphocytes % (A) 3 %; MCH 23.7 pg (25.0-35.0); MCHC 30.9 g/dL (31.0-37.0); MCV 76.9 fL (80.0-100.0); Mean Platelet Volume 6.7; Microcytosis Slight; Monocytes # (A) 0.6 k/uL (0-1.0); Monocytes % (A) 5 %; Neutrophils # (A) 11.9 k/uL (1.3-7.7); Neutrophils % (A) 92 %; Platelet Count 717 k/uL (150-450); Poikilocytosis Slight; RBC 3.07 m/uL (3.80-5.40); RDW 19.1 % (11.5-15.5)
[2018-08-06 07:09] LABS: Calcium 8.2 mg/dL (8.4-10.2); Potassium 4.2 mmol/L (3.5-5.1)
[2018-08-06] MEDS: LISINOPRIL 2.5 MG TAB PO SCH (08:16)
[2018-08-06] MEDS: ASPIRIN 81 MG PO SCH (08:16)
[2018-08-06] MEDS: DILTIAZEM CD 120 MG CAP.ER.24H PO SCH (08:16)
[2018-08-06] MEDS: FUROSEMIDE 40 MG TAB PO SCH (08:16)
[2018-08-06] MEDS: IPRATROPIUM-ALBUTEROL 3 ML NEB INHALATION PRN ×2 (10:56→15:28)
[2018-08-06 11:09] VITALS: BMI 24.5
[2018-08-06 12:02] LABS: Glucose,Whole Blood 123 mg/dL (75-99)
[2018-08-06] MEDS ORDERED: FUROSEMIDE 10 MG/ML 2 ML VIAL IV PRN (12:19)
--- NOTE | 2018-08-06 14:17 | PN ---
PROGRESS NOTE DATE OF SERVICE: 08/06/2018 Reason for followup is postobstructive pneumonia. INTERVAL HISTORY: The patient is currently afebrile. She is breathing comfortably, denies significant chest pain. She did have some cough. No significant sputum production. No hemoptysis. No chest pain. No abdominal pain, no diarrhea. PHYSICAL EXAMINATION: Blood pressure 124/55 with a pulse of 90, temperature 97.6. She is 93% on 2 L nasal cannula. General description is an elderly female, up in the room in no distress. RESPIRATORY SYSTEM: Unlabored breathing with decreased breath sounds, no wheeze. HEART: S1, S2. Regular rate and rhythm. ABDOMEN: Soft, no tenderness. EXTREMITIES: No edema of the feet. LABS: Hemoglobin 7.8, white count of 13 with a BUN of 25, creatinine 1.14. DIAGNOSTIC IMPRESSION AND PLAN: Patient with postobstructive pneumonia. Patient did show overall improvement on Zosyn, will be transitioned to oral Levaquin for about 5-7 days to finish course of therapy with close outpatient followup. MMODL / IJN: [id number] /
[2018-08-06 15:44] VITALS: TEMP 98.1
[2018-08-06 16:58] LABS: Glucose,Whole Blood 120 mg/dL (75-99)
[2018-08-06 17:11] VITALS: BP 130/61; PULSE 80; RESP 16
[2018-08-06 17:48] LABS: Anisocytosis Slight; HCT 28.3 % (34.0-46.0); Hypochromasia Moderate; MCH 25.7 pg (25.0-35.0); MCHC 32.4 g/dL (31.0-37.0); MCV 79.4 fL (80.0-100.0); Mean Platelet Volume 6.8; Microcytosis Slight; Platelet Count 711 k/uL (150-450); Poikilocytosis Slight; RBC 3.57 m/uL (3.80-5.40); RDW 18.9 % (11.5-15.5); WBC 17.1 k/uL (3.8-10.6)
[2018-08-06 17:50] LABS: HGB 9.2 gm/dL (11.4-16.0)
--- NOTE | 2018-08-06 19:48 | P.PN ---
Subjective Progress Note Date: 08/06/18 Principal diagnosis: Acute left posterior parietal lobe infarct, altered mental status related acute infarct, anemia of chronic disease, left-sided pneumonia, large left-sided slowly enlarging mass likely neoplastic process, chronic respiratory failure oxygen dependent, generalized weakness and medical debility, severe COPD end- stage lung disease 08/06/2018, patient seen eval examined during the rounds clinically patient has been doing well breathing comfortably patient cough congestion is improved she would like to go home she is being treated for postobstructive pneumonia also a new stroke on the left parietal lobe area clinically overall stable patient has Placement extended care facility she would like to go home labs reviewed medications reviewed 08/05/2018, patient seen eval examined during the rounds clinically patient has been doing better cough congestion and breathing difficulty remains stable, IV steroids and antibiotics can be switched to oral like Augmentin along with oral prednisone 08/04/2018, patient has been doing slightly better awake and alert breathing comfortably cuff congestion shortness breath stable patient remains on broad- spectrum antibiotics patient has declined further evaluation or invasive procedure for left-sided lung mass also has Placement extended care facility labs reviewed medications reviewed 08/03/2018, patient seen eval examined during rounds clinically patient has been doing better cuff congestion shortness of breath is there but stable and improved her confusion is improved as well she is breathing slightly more comfortably 08/02/2018, care plan discussed with the patient at length as well as primary service patient is slightly more focused more awake oriented 3 now moving all 4 extremity his strength is good and your exam is fairly normal with some impairment is speech and coordination however has been noted though which seems to be improving compared to yesterday, her labs are reviewed medications reviewed, hemoglobin drop down to 6.1 patient is scheduled to get 1 unit of packed RBC , Patient is being considered for rehab placement versus possible hospice however patient denies and wants to go home rather than a detention 82-year-old female who was seen evaluated examined on 6 floor this patient has been admitted to hospital 1 day history of confusion and altered mental status patient has some issues is speech related issue which new in onset, patient does have a history of end-stage lung disease and severe COPD emphysema and has chronic hypoxic respiratory failure on supplemental oxygen, patient also has a left upper lobe mass which is being monitor observe patient has declined any biopsy and or or chemo or radiation therapy, recently patient was hospitalized with hemoptysis thought to be related to pneumonia however hemoptysis stopped after antibiotics and steroid therapy and was discharged in fairly stable condition, patient did call the office for problems associated diarrhea yesterday she was advised to come into the office today now she is seen in the hospital with a new onset confusion, laboratory data reviewed radiographic studies reviewed the x-rays is stable except slowly enlarging left upper lobe mass, computed tomography scan of the head revealed no new acute left posterior parietal lobe infarct suggestive of CVA size is about 3 x 4 cm wedge-shaped Objective - Vital Signs Vital signs: Vital Signs Temp 98.1 F 08/06/18 17:10 Pulse 80 08/06/18 17:10 Resp 16 08/06/18 17:10 BP 130/61 08/06/18 17:10 Pulse Ox 97 08/06/18 17:10 Intake & Output 08/06/18 08/06/18 08/07/18 06:59 18:59 06:59 Intake Total 60 1030 Output Total 3 Balance 60 1027 Weight 75.3 kg 75.3 kg Intake: IV 60 Vancomycin 1,250 mg In 60 Sodium Chloride 0.9% 250 ml @ 125 mls/hr IVPB Q24H [facility] Rx#:[id number] Oral 720 Blood Product 310 Rc Pheresis As-3 Unit 310 [id number] Output: Stool 3 Other: Voiding Method Toilet Toilet # Voids 1 2 # Bowel Movements 1 2 - Exam - Constitutional General appearance: average body habitus, mild distress - EENT Eyes: EOMI, PERRLA, normal appearance ENT: hard of hearing, normal oropharynx Ears: bilateral: normal - Neck Neck: normal ROM Carotids: bilateral: upstroke normal Thyroid: bilateral: normal size - Respiratory Respiratory: bilateral: diminished, prolonged expiration, negative: dullness, rales, rhonchi, wheezing, prolonged inspiration - Cardiovascular Heart sounds: normal: S1, S2 - Gastrointestinal General gastrointestinal: normal bowel sounds, soft - Musculoskeletal/neurological exam Musculoskeletal: generalized weakness, strength equal bilaterally no focal neurological deficit - Psychiatric Psychiatric: appropriate affect - Labs CBC & Chem 7: 08/06/18 17:34 08/06/18 06:01 Labs: Abnormal Lab Results - Last 24 Hours (Table) 08/05/18 08/06/18 08/06/18 Range/Units 20:15 05:43 06:01 WBC 13.0 H (3.8-10.6) k/uL RBC 3.07 L (3.80-5.40) m/uL Hgb 7.3 L (11.4-16.0) gm/dL Hct 23.6 L (34.0-46.0) % MCV 76.9 L (80.0-100.0) fL MCH 23.7 L (25.0-35.0) pg MCHC 30.9 L (31.0-37.0) g/dL RDW 19.1 H (11.5-15.5) % Plt Count 717 H (150-450) k/uL Neutrophils # 11.9 H (1.3-7.7) k/uL Lymphocytes # 0.4 L (1.0-4.8) k/uL BUN (7-17) mg/dL Creatinine (0.52-1.04) mg/dL Glucose (74-99) mg/dL POC Glucose (mg/dL) 166 H 122 H (75-99) mg/dL Calcium (8.4-10.2) mg/dL Crossmatch 08/06/18 08/06/18 08/06/18 Range/Units 06:01 12:01 12:28 WBC (3.8-10.6) k/uL RBC (3.80-5.40) m/uL Hgb (11.4-16.0) gm/dL Hct (34.0-46.0) % MCV (80.0-100.0) fL MCH (25.0-35.0) pg MCHC (31.0-37.0) g/dL RDW (11.5-15.5) % Plt Count (150-450) k/uL Neutrophils # (1.3-7.7) k/uL Lymphocytes # (1.0-4.8) k/uL BUN 25 H (7-17) mg/dL Creatinine 1.14 H (0.52-1.04) mg/dL Glucose 106 H (74-99) mg/dL POC Glucose (mg/dL) 123 H (75-99) mg/dL Calcium 8.2 L (8.4-10.2) mg/dL Crossmatch See Detail 08/06/18 08/06/18 Range/Units 16:57 17:34 WBC 17.1 H (3.8-10.6) k/uL RBC 3.57 L (3.80-5.40) m/uL Hgb 9.2 L D (11.4-16.0) gm/dL Hct 28.3 L (34.0-46.0) % MCV 79.4 L (80.0-100.0) fL MCH (25.0-35.0) pg MCHC (31.0-37.0) g/dL RDW 18.9 H (11.5-15.5) % Plt Count 711 H (150-450) k/uL Neutrophils # (1.3-7.7) k/uL Lymphocytes # (1.0-4.8) k/uL BUN (7-17) mg/dL Creatinine (0.52-1.04) mg/dL Glucose (74-99) mg/dL POC Glucose (mg/dL) 120 H (75-99) mg/dL Calcium (8.4-10.2) mg/dL Crossmatch Microbiology - Last 24 Hours (Table) 08/05/18 Unknown Gram Stain - Preliminary Sputum Sputum Culture - Preliminary 07/31/18 18:15 Blood Culture - Preliminary Blood No Growth after 120 hours Assessment and Plan Assessment: COPD exacerbation Postobstructive left-sided pneumonia Anemia of chronic disease Altered mental status related to new left posterior acute parietal lobe infarct Left posterior acute parietal lobe infarct Left-sided pneumonia And stage lung disease second to severe COPD emphysema Chronic hypoxic respiratory failure Slowly enlarging left sided lung mass patient refused any intervention including biopsy chemoradiation therapy Generalized weakness and medical debility Plan: Gentle rehydration Neuro checks Fall and seizure precautions Aspiration precautions DVT and peptic ulcer disease prophylaxis Broad-spectrum antibiotics, can be switched to oral Bronchodilators IV steroids, can be switched to oral Overall long-term prognosis poor We'll follow clinical course closely further recommendations pending plan of care as per clinical response of the patient, agree with discharge planning
--- NOTE | 2018-08-06 21:42 | P.DS ---
Providers Date of admission: 07/31/18 21:17 Attending physician: Og Green Consults: 08/01/18 00:00 Consult Physician Routine Consulting Provider: Jennifer Madrigal Consult Reason/Comments: Acute infarct Do you want consulting provider notified?: Yes 08/01/18 01:38 Consult Physician Routine Consulting Provider: Preston Diaz Consult Reason/Comments: copd Do you want consulting provider notified?: Yes Consult Physician Routine Consulting Provider: Ranjan Murray Consult Reason/Comments: sepsis Do you want consulting provider notified?: Yes 08/02/18 09:29 Consult Physician Routine Consulting Provider: Primo Rosario Consult Reason/Comments: A. fib with stroke Do you want consulting provider notified?: Yes Primary care physician: Og Green Hospital Course: On-call hospitalist covering for This is a pleasant 82 years old female with past medical history of atrial flutter, asthma, coronary artery disease, congestive heart failure, COPD, hyperlipidemia, pneumonia, left upper lung mass. Who presents because of dyspnea and fever of 101 on 07/31/2018 Time with altered mental status and some slurred speech with left hand tingling. Today her speech is looks non-slurred, patient denies specific weakness or tingling. She looks awake and alert and knows why she is in the hospital. No more fever. However patient is told tachypneic and dyspneic with prolonged expiratory phase and scattered wheezing. Patient has been evaluated for possible acute stroke of the left parietal region. And neurologist recommend cardiology evaluation for possible cardioembolic stroke. As per cardiology not there is no documentation of atrial fibrillation. However patient hemoglobin dropped today from 7.8 to 6.1 and the on-call hospitalist ordered 1 unit of blood transfusion already hemoglobin went up again to 8.0. Patient would be high risk for thrombosis including stroke and the same time she is high-risk for bleeding. Patient was noticed to have enlarging left upper lung mass suspicious for malignancy, for which the patient and family were informed and the patient is aware of it but states that she doesn't want any surgery, or any other treatment, like she doesn't want chemotherapy or radiotherapy. Patient shows reasonable understanding of her medical issue and she understands that if she has cancer she will sooner without treatment. However patient does not want any treatment for her lung mass. Discussed the case with the pulmonary consult and on the case. However patient hemoglobin on the day of discharge was 7.2-7.3, because of patient being high-risk for bleeding decision was made to give her another unit of blood transfusion although she is asymptomatic. As if it drops more that will be risky for the patient. i asked the bed side RN to check the level of Hb/Hct after blood transfuion and she called me and told me it went up to 9.2, so I gave verbal order to dc pt. Patient has been treated for post-obstructive pneumonia with Zosyn and vancomycin. Infectious disease was following the patient. Patient will be discharged for 5 more days of fluoroquinolones, avelox was recommended by ID team however it was not covered by insurance and hanged to [facility]. Patient has been evaluation for her physical status and recommended to go to rehab, however patient declined and wanted to go home with home health care. Family are aware of this patient wishes upon patient request. On the day of discharge patient was afebrile. Patient denies chest pain. No change in her mental status and patient back to her usual mental condition she knows why she is in the hospital and which hospital . she make logical conversation. Patient has no slurred speech. No tenderness or tingling in her extremities or anywhere else. No chest pain or dyspnea Oxana as her dyspnea significantly improved and currently she is breathing quietly. No change in urine or bowel habits area no nausea vomiting. Patient was to be discharged today, when I entered the room today she told me for 4-5 times that she wants to be sent be home today. aslo i has a long discussion with the pt in the presence of her marylin Mayfield/Jennifer, they are made aware pt might have lung cancer and she confirmed to me again she did not want this to be tested or treated , they understand she is high risk for bleeding , thrombosis , stroke and recurrent infection and , also daughter told me she will not agree to work up for bleeding eg she does not want gi evaluation. based upon my evaluation pt has capacity to make medical decision. Patient was cleared by pulmonary and infectious team for discharge Problems and management plan was discussed with the patient and family in details including her daughter at bed side. Most 1 stable and can be discharged home in guarded prognosis however she needs follow-up as an outpatient. actually the prognosis is very poor given her co- morbidities , advance age and the fact that pt is refusing any treatment or further evaluation. GENERAL: The patient is alert and oriented x3, in no acute respiratory distress. CARDIOVASCULAR: S1 and S2 present. No murmurs, rubs, or gallops. PULMONARY: Chest is clear to auscultation, no crackles. ABDOMEN: Soft, nontender, nondistended, normoactive bowel sounds. No palpable organomegaly. MUSCULOSKELETAL: No joint swelling or deformity. EXTREMITIES: No cyanosis, clubbing, or pedal edema. NEUROLOGICAL: Gross neurological examination did not reveal any focal deficits. SKIN: No rashes. Time spent more than 35 minutes Patient Condition at Discharge: Stable Plan - Discharge Summary New Discharge Prescriptions: New Levofloxacin [Levaquin] 500 mg PO DAILY 5 Days #5 tab Continue Omeprazole [PriLOSEC] 20 mg PO DAILY Lisinopril [Zestril] 2.5 mg PO DAILY Furosemide [Lasix] 40 mg PO BID Ipratropium-Albuterol Nebulize [Duoneb 0.5 mg-3 mg/3 ml Soln] 3 ml INHALATION RT-QID PRN PRN Reason: Shortness Of Breath Diltiazem Cd [Cardizem CD] 120 mg PO DAILY Albuterol Inhaler [Ventolin Hfa Inhaler] 2 puff INHALATION RT-Q6H PRN PRN Reason: Shortness Of Breath Atorvastatin [Lipitor] 80 mg PO HS Ranitidine HCl [Zantac] 150 mg PO BID Diphenox-Atrop 2.5-0.025 mg [Lomotil] 1 - 2 tab PO QID PRN PRN Reason: Diarrhea Discontinued Aspirin EC [Ecotrin Low Dose] 81 mg PO DAILY Penicillin V Potassium [Pen Vee K] 250 mg PO QID Discharge Medication List Furosemide [Lasix] 40 mg PO BID 02/20/15 [History] Lisinopril [Zestril] 2.5 mg PO DAILY 02/20/15 [History] Omeprazole [PriLOSEC] 20 mg PO DAILY 02/20/15 [History] Ipratropium-Albuterol Nebulize [Duoneb 0.5 mg-3 mg/3 ml Soln] 3 ml INHALATION RT -QID PRN 10/24/17 [History] Diltiazem Cd [Cardizem CD] 120 mg PO DAILY 03/17/18 [History] Albuterol Inhaler [Ventolin Hfa Inhaler] 2 puff INHALATION RT-Q6H PRN 06/28/18 [ History] Atorvastatin [Lipitor] 80 mg PO HS 07/31/18 [History] Diphenox-Atrop 2.5-0.025 mg [Lomotil] 1 - 2 tab PO QID PRN 07/31/18 [History] Ranitidine HCl [Zantac] 150 mg PO BID 07/31/18 [History] Levofloxacin [Levaquin] 500 mg PO DAILY 5 Days #5 tab 08/06/18 [Rx] Follow up Appointment(s)/Referral(s): Og Green MD [Primary Care Provider] - 08/12/18 2:10 pm (Saturday) [facility], [NON-STAFF] - Jennifer Madrigal MD [STAFF PHYSICIAN] - 2 Weeks (Office is closed. Please call to schedule appointment) Preston Diaz MD [STAFF PHYSICIAN] - 1 Week (Office is closed. Please call to schedule appointment) Ranjan Murray MD [STAFF PHYSICIAN] - 10 Days (Office is closed. Please call to schedule appointment) Patient Instructions/Handouts: Ischemic Stroke (DC), Anemia (DC) Discharge Disposition: HOME WITH HOME HEALTH SERVICES
--- NOTE | 2018-08-09 14:50 | DS ---
DISCHARGE SUMMARY DATE OF SERVICE: 08/06/2018. CHIEF COMPLAINT: Difficulty breathing, CA of the lung and COPD. HISTORY OF PRESENT ILLNESS AND PHYSICAL EXAM: Details of this lady's history and physical can be found in the initial workup. LABORATORY STUDIES: While she was in the hospital she had laboratory studies, details of which can be found in the laboratory section of her chart. COURSE IN HOSPITAL: After admission, she was placed on bedrest, started on intravenous fluids, updrafts and steroids. Breathing improved. She was stable enough it was felt that she could go home on . She refuses any further care for neoplasm. We will set her up with home care. FINAL DIAGNOSES: 1. Bronchopneumonia. 2. Exacerbation of chronic obstructive pulmonary disease. 3. Carcinoma of the lung. OPERATIONS: None. CONSULTATIONS: None. MMSHIV / DAVINA: [id number] /
--- NOTE | 2018-08-26 12:14 | MISC ---
MISCELLANOUS REPORT QUERY CHF ruled out. MMODL / IJN: [id number] /
== END 2018-08-06 19:04 | disposition home health service (06) | DRG 871 ==
LOC: EC 17:57 → 6SEL 21:17 → 3SCARD 08-03 09:39
PROVIDERS: ADMIT Family Medicine; ATTEND Family Medicine
PROC: 30230N1 Transfusion of Nonautologous Red Blood Cells into Peripheral Vein, Open Approach (ICD-10-PCS; principal; 2018-08-02)
DX: A41.9 Sepsis, unspecified organism (principal); I63.40 Cerebral infarction due to embolism of unspecified cerebral artery; J18.9 Pneumonia, unspecified organism; R47.01 Aphasia; J44.0 Chronic obstructive pulmonary disease with (acute) lower respiratory infection; J44.1 Chronic obstructive pulmonary disease with (acute) exacerbation; J96.11 Chronic respiratory failure with hypoxia; C34.12 Malignant neoplasm of upper lobe, left bronchus or lung; D62 Acute posthemorrhagic anemia; D63.8 Anemia in other chronic diseases classified elsewhere; I27.20 Pulmonary hypertension, unspecified; I10 Essential (primary) hypertension; E78.5 Hyperlipidemia, unspecified; F41.9 Anxiety disorder, unspecified; I25.10 Atherosclerotic heart disease of native coronary artery without angina pectoris; I70.0 Atherosclerosis of aorta; M19.90 Unspecified osteoarthritis, unspecified site; J45.30 Mild persistent asthma, uncomplicated; R19.7 Diarrhea, unspecified; H91.90 Unspecified hearing loss, unspecified ear; Z87.01 Personal history of pneumonia (recurrent); Z87.891 Personal history of nicotine dependence; Z90.710 Acquired absence of both cervix and uterus; Z99.81 Dependence on supplemental oxygen; Z79.82 Long term (current) use of aspirin; Z79.899 Other long term (current) drug therapy; Z96.642 Presence of left artificial hip joint; Z82.61 Family history of arthritis
CPT/HCPCS: 36415; 70450; 71046; 80048; 80053; 80061; 80202; 81003; 82550; 82553; 83036; 83605; 83735; 84100; 84132; 84484; 85025; 85027; 85610; 85730; 86850; 86900; 86901; 86920; 87040; 87070; 87077; 87086; 87186; 87205; 87502; 93005; 93306; 94640; 96360; 96361; 96365; 96375; 99291

== ENCOUNTER 2018-09-18 22:26 | Inpatient (IN) | payer MEDICARE, OTHER ==
[2018-09-18] MEDS ORDERED: SODIUM CHLORIDE 0.9% 1,000 ML IV STA (22:34)
--- NOTE | 2018-09-18 22:35 | ED ---
Weakness HPI - General Stated complaint: WEAKNESS Time Seen by Provider: 09/18/18 22:34 Source: RN notes reviewed, old records reviewed, Caregiver Mode of arrival: EMS Limitations: altered mental status - History of Present Illness Initial comments: This is an 83-year-old female she is a poor strain at this time, family's her bring her in for significant weakness, states patient's breathing is progressively to mildly worsened. She does have history of recent CVA patient is unable to provide accurate history at this time MD Complaint: generalized weakness, focal weakness -: hour(s) Location: RUE, RLE Severity: mild Severity scale (1-10): 3 Consistency: constant Improves with: none Worsens with: none Context: recent illness Associated Symptoms: fever/chills, shortness of breath - Related Data Home Medications Medication Instructions Recorded Confirmed Furosemide [Lasix] 40 mg PO BID 02/20/15 09/18/18 Lisinopril [Zestril] 2.5 mg PO DAILY 02/20/15 09/18/18 Omeprazole [PriLOSEC] 20 mg PO DAILY 02/20/15 09/18/18 Ipratropium-Albuterol Nebulize 3 ml INHALATION RT-QID PRN 10/24/17 09/18/18 [Duoneb 0.5 mg-3 mg/3 ml Soln] Diltiazem Cd [Cardizem CD] 120 mg PO DAILY 03/17/18 09/18/18 Albuterol Inhaler [Ventolin Hfa 2 puff INHALATION RT-Q6H PRN 06/28/18 09/18/18 Inhaler] Atorvastatin [Lipitor] 80 mg PO HS 07/31/18 09/18/18 Diphenox-Atrop 2.5-0.025 mg 1 - 2 tab PO QID PRN 07/31/18 09/18/18 [Lomotil] Ranitidine HCl [Zantac] 150 mg PO BID 07/31/18 09/18/18 Aspirin [[place] Aspirin EC] 81 mg PO DAILY 08/24/18 09/18/18 Doxycycline Hyclate [Vibramycin] 100 mg PO DAILY 09/18/18 09/18/18 predniSONE 10 mg PO DAILY 09/18/18 09/18/18 Previous Rx's Medication Instructions Recorded Budesonide-Formot 160-4.5 Mcg 2 puff INHALATION RT-BID #1 puff 08/28/18 [Symbicort 160-4.5 Mcg Inhaler] Allergies Allergy/AdvReac Type Severity Reaction Status Date / Time levofloxacin [From Levaquin] Allergy Severe Anaphylaxis Verified 09/18/18 23:03 Review of Systems ROS Statement: Those systems with pertinent positive or pertinent negative responses have been documented in the HPI. ROS Other: All systems not noted in ROS Statement are negative. Past Medical History Past Medical History: Atrial Flutter, Asthma, Chest Pain / Angina, Heart Failure , COPD, CVA/TIA, Hyperlipidemia, Pneumonia, Respiratory Disorder Additional Past Medical History / Comment(s): Chronic respiratory failure with O2 at 2L/NC ATC, chronic persistent asthma, bronchitis, known 1.8.cm L upper lung nodule-pt states bx negative, DJD, past L hip fx with surgery, sinus problems, rheumatic fever as a child. History of Any Multi-Drug Resistant Organisms: Acinetobacter (MDRO), MRSA Date of last positivie culture/infection: 08/05/18 MRSA; 10/06/16 MDRO Acinetobactor MDRO Source:: Sputm-MRSA & MDRO Past Surgical History: Hysterectomy, Joint Replacement, Orthopedic Surgery, Tubal Ligation Additional Past Surgical History / Comment(s): 03/21/17 bronchoscopy with BAL/BX- bening per pt, LEFT HIP hemiarthroplasty, LEFT FOOT surgery, colonoscopy, D&C. Past Anesthesia/Blood Transfusion Reactions: No Reported Reaction Past Psychological History: No Psychological Hx Reported Additional Psychological History / Comment(s): Pt resides with her son. She no longer drives, her daughter/family drives her to [employer]. Her son cooks and cleans the house. The home is one level without steps. She has home O2 and a nebulizer,w/c, hospital bed,bsc, cane. Smoking Status: Former smoker Past Alcohol Use History: None Reported Additional Past Alcohol Use History / Comment(s): Pt started smoking in 1964 and quit in 2007 smoked 1/2 ppd Past Drug Use History: None Reported - Past Family History Father History Unknown: Yes Brother(s) Family Medical History: No Reported History Mother Family Medical History: Rheumatoid Arthritis (RA) General Exam - General Exam Comments Initial Comments: Patient does have weakness but is difficult to follow direction General appearance: alert, in no apparent distress Head exam: Present: atraumatic, normocephalic, normal inspection Eye exam: Present: normal appearance, PERRL, EOMI. Absent: scleral icterus, conjunctival injection, periorbital swelling ENT exam: Present: normal exam, mucous membranes moist Neck exam: Present: normal inspection. Absent: tenderness, meningismus, lymphadenopathy Respiratory exam: Present: normal lung sounds bilaterally. Absent: respiratory distress, wheezes, rales, rhonchi, stridor Cardiovascular Exam: Present: regular rate, normal rhythm, normal heart sounds. Absent: systolic murmur, diastolic murmur, rubs, gallop, clicks GI/Abdominal exam: Present: soft, normal bowel sounds. Absent: distended, tenderness, guarding, rebound, rigid Extremities exam: Present: normal inspection, full ROM, normal capillary refill. Absent: tenderness, pedal edema, joint swelling, calf tenderness Back exam: Present: normal inspection Neurological exam: Present: alert, oriented X3, CN II-XII intact Psychiatric exam: Present: normal affect, normal mood Skin exam: Present: warm, dry, intact, normal color. Absent: rash Course Vital Signs 09/18/18 22:44 Temperature 97.9 F Pulse Rate 105 H Respiratory 15 Rate Blood Pressure 110/70 O2 Sat by Pulse 97 Oximetry - Reevaluation(s) Reevaluation #1: 09/19/18 01:11 Medical record is reviewed Reevaluation #2: 09/19/18 01:11 Patient is showing significant generalized weakness EKG Findings - EKG Comments: EKG Findings:: EKG shows sinus tachycardia rate 111, GA 134, QRS 120, QTc 462 Medical Decision Making - Medical Decision Making 83 female with unknown signs and symptoms of possible neurological deficit, increased and COPD exacerbation, patient be admitted for breathing treatments steroids further neurological evaluation. Patient is end-stage COPD and DO NOT RESUSCITATE - Lab Data Result diagrams: 09/18/18 23:11 09/18/18 23:11 Lab Results 09/18/18 09/18/18 09/18/18 Range/Units 23:11 23:11 23:11 WBC 13.0 H (3.8-10.6) k/uL RBC 3.69 L (3.80-5.40) m/uL Hgb 9.1 L (11.4-16.0) gm/dL Hct 28.5 L (34.0-46.0) % MCV 77.2 L (80.0-100.0) fL MCH 24.8 L (25.0-35.0) pg MCHC 32.1 (31.0-37.0) g/dL RDW 20.6 H (11.5-15.5) % Plt Count 792 H (150-450) k/uL Neutrophils % 84 % Lymphocytes % 4 % Monocytes % 7 % Eosinophils % 4 % Basophils % 0 % Neutrophils # 10.9 H (1.3-7.7) k/uL Lymphocytes # 0.5 L (1.0-4.8) k/uL Monocytes # 0.9 (0-1.0) k/uL Eosinophils # 0.5 (0-0.7) k/uL Basophils # 0.0 (0-0.2) k/uL Hypochromasia Slight Anisocytosis Moderate Microcytosis Moderate PT (9.0-12.0) sec INR (<1.2) APTT (22.0-30.0) sec Sodium 138 (137-145) mmol/L Potassium 4.3 (3.5-5.1) mmol/L Chloride 92 L (98-107) mmol/L Carbon Dioxide 39 H (22-30) mmol/L Anion Gap 7 mmol/L BUN 25 H (7-17) mg/dL Creatinine 0.83 (0.52-1.04) mg/dL Est GFR (CKD-EPI)AfAm 77 (>60 ml/min/1.73 sqM) Est GFR (CKD-EPI)NonAf 67 (>60 ml/min/1.73 sqM) Glucose 119 H (74-99) mg/dL Plasma Lactic Acid Sedrick (0.7-2.0) mmol/L Calcium 9.1 (8.4-10.2) mg/dL Phosphorus 3.6 (2.5-4.5) mg/dL Magnesium 1.7 (1.6-2.3) mg/dL Total Bilirubin 0.6 (0.2-1.3) mg/dL AST 25 (14-36) U/L ALT 34 (9-52) U/L Alkaline Phosphatase 97 (38-126) U/L Total Creatine Kinase <20 L (30-135) U/L CK-MB (CK-2) 0.3 (0.0-2.4) ng/mL CK-MB (CK-2) Rel Index Troponin I <0.012 (0.000-0.034) ng/mL Total Protein 5.9 L (6.3-8.2) g/dL Albumin 2.7 L (3.5-5.0) g/dL Urine Color Urine Appearance (Clear) Urine pH (5.0-8.0) Ur Specific Allen (1.001-1.035) Urine Protein (Negative) Urine Glucose (UA) (Negative) Urine Ketones (Negative) Urine Blood (Negative) Urine Nitrite (Negative) Urine Bilirubin (Negative) Urine Urobilinogen (<2.0) mg/dL Ur Leukocyte Esterase (Negative) 09/18/18 09/18/18 09/19/18 Range/Units 23:11 23:11 00:55 WBC (3.8-10.6) k/uL RBC (3.80-5.40) m/uL Hgb (11.4-16.0) gm/dL Hct (34.0-46.0) % MCV (80.0-100.0) fL MCH (25.0-35.0) pg MCHC (31.0-37.0) g/dL RDW (11.5-15.5) % Plt Count (150-450) k/uL Neutrophils % % Lymphocytes % % Monocytes % % Eosinophils % % Basophils % % Neutrophils # (1.3-7.7) k/uL Lymphocytes # (1.0-4.8) k/uL Monocytes # (0-1.0) k/uL Eosinophils # (0-0.7) k/uL Basophils # (0-0.2) k/uL Hypochromasia Anisocytosis Microcytosis PT 9.9 (9.0-12.0) sec INR 1.0 (<1.2) APTT 22.3 (22.0-30.0) sec Sodium (137-145) mmol/L Potassium (3.5-5.1) mmol/L Chloride (98-107) mmol/L Carbon Dioxide (22-30) mmol/L Anion Gap mmol/L BUN (7-17) mg/dL Creatinine (0.52-1.04) mg/dL Est GFR (CKD-EPI)AfAm (>60 ml/min/1.73 sqM) Est GFR (CKD-EPI)NonAf (>60 ml/min/1.73 sqM) Glucose (74-99) mg/dL Plasma Lactic Acid Sedrick 1.9 (0.7-2.0) mmol/L Calcium (8.4-10.2) mg/dL Phosphorus (2.5-4.5) mg/dL Magnesium (1.6-2.3) mg/dL Total Bilirubin (0.2-1.3) mg/dL AST (14-36) U/L ALT (9-52) U/L Alkaline Phosphatase (38-126) U/L Total Creatine Kinase (30-135) U/L CK-MB (CK-2) (0.0-2.4) ng/mL CK-MB (CK-2) Rel Index Troponin I (0.000-0.034) ng/mL Total Protein (6.3-8.2) g/dL Albumin (3.5-5.0) g/dL Urine Color Yellow Urine Appearance Clear (Clear) Urine pH 7.0 (5.0-8.0) Ur Specific Allen 1.008 (1.001-1.035) Urine Protein Negative (Negative) Urine Glucose (UA) Negative (Negative) Urine Ketones Negative (Negative) Urine Blood Negative (Negative) Urine Nitrite Negative (Negative) Urine Bilirubin Negative (Negative) Urine Urobilinogen <2.0 (<2.0) mg/dL Ur Leukocyte Esterase Negative (Negative) - Radiology Data Radiology results: report reviewed (CT brain shows old CVA, chest x-ray shows no acute changes), image reviewed Disposition Clinical Impression: Altered mental state, Acute exacerbation of chronic obstructive airways disease , CVA (cerebral vascular accident) Disposition: ADMITTED IP TO THIS HOSP Condition: Fair Is patient prescribed a controlled substance at d/c from ED?: No Referrals: Og Green MD [Primary Care Provider] - 1-2 days
[2018-09-18 23:32] LABS: Anisocytosis Moderate; Basophils % (A) 0 %; Eosinophils # (A) 0.5 k/uL (0-0.7); Eosinophils % (A) 4 %; HCT 28.5 % (34.0-46.0); HGB 9.1 gm/dL (11.4-16.0); Hypochromasia Slight; Lymphocytes # (A) 0.5 k/uL (1.0-4.8); Lymphocytes % (A) 4 %; MCH 24.8 pg (25.0-35.0); MCHC 32.1 g/dL (31.0-37.0); MCV 77.2 fL (80.0-100.0); Mean Platelet Volume 6.5; Microcytosis Moderate; Monocytes # (A) 0.9 k/uL (0-1.0); Monocytes % (A) 7 %; Neutrophils # (A) 10.9 k/uL (1.3-7.7); Neutrophils % (A) 84 %; Platelet Count 792 k/uL (150-450); RBC 3.69 m/uL (3.80-5.40); RDW 20.6 % (11.5-15.5)
--- NOTE | 2018-09-18 23:39 | XR ---
EXAMINATION TYPE: XR chest 2V DATE OF EXAM: 09/18/2018 COMPARISON: 08/24/2018 HISTORY: Heart failure. Asthma. TECHNIQUE: Frontal and lateral views of the chest are obtained. FINDINGS: There is a large mass occupying the upper 50% left hemithorax that measures 14 cm in lengt h. Margins are sharp. The right lung is fairly clear. There is no heart failure. There is pulmonary h yperinflation. Thoracic aorta is atheromatous. Heart size is normal. There is no pleural effusion. Th ere is significant arthritic disease in the left shoulder. IMPRESSION: Large left upper lobe mass is increased compared to last exam. No heart failure. COPD an d pulmonary fibrosis.
--- NOTE | 2018-09-18 23:43 | CT ---
EXAMINATION TYPE: CT brain wo con DATE OF EXAM: 09/18/2018 COMPARISON: 08/24/2018 HISTORY: AMS; Weakness and confusion CT DLP: 1160.4 mGycm Automated exposure control for dose reduction was used. FINDINGS: There is a 5 cm area of hypodensity involving the left posterior temporal lobe suggestive old infarct .. There is cerebral cortical atrophy. There is no mass effect nor midline shift. There is no sign of intracranial hemorrhage. The calvarium is intact. IMPRESSION: OLD LEFT POSTERIOR TEMPORAL LOBE INFARCT WITHOUT A SIGNIFICANT CHANGE COMPARED TO LAST EXAM. NO EVIDE NCE OF A NEW INFARCT. NO HEMORRHAGE. CEREBRAL ATROPHY.
[2018-09-18 23:48] LABS: Partial Thromboplastin Time 22.3 sec (22.0-30.0); Prothrombin Time 9.9 sec (9.0-12.0)
[2018-09-18 23:57] LABS: Albumin 2.7 g/dL (3.5-5.0); Calcium 9.1 mg/dL (8.4-10.2); Creatine Kinase <20 U/L (30-135); Magnesium 1.7 mg/dL (1.6-2.3); Phosphorus 3.6 mg/dL (2.5-4.5); Total Bilirubin 0.6 mg/dL (0.2-1.3); Total Protein 5.9 g/dL (6.3-8.2)
[2018-09-19 00:08] LABS: Creatine Kinase MB 0.3 ng/mL (0.0-2.4); Troponin I <0.012 ng/mL (0.000-0.034)
[2018-09-19 00:20] LABS: Potassium 4.3 mmol/L (3.5-5.1)
[2018-09-19 01:09] LABS: Appearance,Urine Clear (Clear); Bilirubin,Urine Negative (Negative); Blood,Urine Negative (Negative); Color,Urine Yellow; Glucose,Urine (UA) Negative (Negative); Ketones,Urine Negative (Negative); Leukocyte Esterase,Urine Negative (Negative); Nitrite,Urine Negative (Negative); Protein,Urine Negative (Negative); Specific Gravity,Urine 1.008 (1.001-1.035); Urobilinogen,Urine <2.0 mg/dL (<2.0)
[2018-09-19] MEDS ORDERED: methylPREDNISolone SOD SUCCI 125 MG/2 ML VIAL IV STA (01:21)
[2018-09-19] MEDS: SODIUM CHLORIDE 0.9% 1,000 ML IV SCH ×4 (06:11→21:10)
[2018-09-19] MEDS: methylPREDNISolone SOD SUCCI 125 MG/2 ML VIAL IV SCH ×4 (07:04→23:28)
[2018-09-19] MEDS: IPRATROPIUM-ALBUTEROL 3 ML NEB INHALATION SCH ×4 (07:16→19:25)
[2018-09-19] MEDS: ENOXAPARIN 40 MG/0.4 ML SYRINGE SQ SCH (11:35)
--- NOTE | 2018-09-19 15:44 | P.CNPUL ---
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 patient is O2 dependent at home, for the last 1 day patient has been more weak than baseline unable to use the right side and collapsed on the floor then she woke up she was brought into emergency department for further evaluation she moans on physical stimuli but has been sleeping with her eyes shut, patient is well- known to me with history of end-stage lung disease and severe COPD emphysema and chronic hypoxic respiratory failure her respiratory status has been progressively getting worse also she has a large left-sided lung mass for which she decided not to pursue any intervention, she has suffered a left parietal stroke about 6 weeks ago she has recovered from it for short period time however now appears to have an another episode of stroke and possibly seizure- like activity as per described by the promotions assistant sales marketing the chest x-ray continued to show a large left-sided upper lobe mass which continued increase in size, the computed tomography scan of the brain revealed left posterior temporal lobe infarct about 5 cm in size appears to be old unusual infarct at this point time not seen, no mass effect have been noted, family has expressed patient desired not to do any aggressive intervention patient is a no code they're seeking for comfort measure and possibly hospice preferably at home Review of Systems ROS unobtainable: due to mental status All systems: negative Past Medical History Past Medical History: Atrial Flutter, Asthma, Chest Pain / Angina, Heart Failure , COPD, CVA/TIA, Hyperlipidemia, Pneumonia, Respiratory Disorder Additional Past Medical History / Comment(s): Chronic respiratory failure with O2 at 2L/NC ATC, chronic persistent asthma, bronchitis, known 1.8.cm L upper lung nodule-pt states bx negative, DJD, past L hip fx with surgery, sinus problems, rheumatic fever as a child. History of Any Multi-Drug Resistant Organisms: Acinetobacter (MDRO), MRSA Date of last positivie culture/infection: 08/05/18 MRSA; 10/06/16 MDRO Acinetobactor MDRO Source:: Sputm-MRSA & MDRO Past Surgical History: Hysterectomy, Joint Replacement, Orthopedic Surgery, Tubal Ligation Additional Past Surgical History / Comment(s): 03/21/17 bronchoscopy with BAL/BX- bening per pt, LEFT HIP hemiarthroplasty, LEFT FOOT surgery, colonoscopy, D&C. Past Anesthesia/Blood Transfusion Reactions: No Reported Reaction Past Psychological History: No Psychological Hx Reported Additional Psychological History / Comment(s): Pt resides with her son. She no longer drives, her daughter/family drives her to [employer]. Her son cooks and cleans the house. The home is one level without steps. She has home O2 and a nebulizer,w/c, hospital bed,bsc, cane. Smoking Status: Former smoker Past Alcohol Use History: None Reported Additional Past Alcohol Use History / Comment(s): Pt started smoking in 1964 and quit in 2007 smoked 1/2 ppd Past Drug Use History: None Reported - Past Family History Father History Unknown: Yes Brother(s) Family Medical History: No Reported History Mother Family Medical History: Rheumatoid Arthritis (RA) Medications and Allergies Home Medications Medication Instructions Recorded Confirmed Type Furosemide [Lasix] 40 mg PO BID 02/20/15 09/18/18 History Lisinopril [Zestril] 2.5 mg PO DAILY 02/20/15 09/18/18 History Omeprazole [PriLOSEC] 20 mg PO DAILY 02/20/15 09/18/18 History Ipratropium-Albuterol Nebulize 3 ml INHALATION RT-QID PRN 10/24/17 09/18/18 History [Duoneb 0.5 mg-3 mg/3 ml Soln] Diltiazem Cd [Cardizem CD] 120 mg PO DAILY 03/17/18 09/18/18 History Albuterol Inhaler [Ventolin Hfa 2 puff INHALATION RT-Q6H PRN 06/28/18 09/18/18 History Inhaler] Atorvastatin [Lipitor] 80 mg PO HS 07/31/18 09/18/18 History Diphenox-Atrop 2.5-0.025 mg 1 - 2 tab PO QID PRN 07/31/18 09/18/18 History [Lomotil] Ranitidine HCl [Zantac] 150 mg PO BID 07/31/18 09/18/18 History Aspirin [[place] Aspirin EC] 81 mg PO DAILY 08/24/18 09/18/18 History Budesonide-Formot 160-4.5 Mcg 2 puff INHALATION RT-BID #1 puff 08/28/18 Rx [Symbicort 160-4.5 Mcg Inhaler] Doxycycline Hyclate [Vibramycin] 100 mg PO DAILY 09/18/18 09/18/18 History predniSONE 10 mg PO DAILY 09/18/18 09/18/18 History Allergies Allergy/AdvReac Type Severity Reaction Status Date / Time levofloxacin [From Levaquin] Allergy Severe Anaphylaxis Verified 09/18/18 23:03 Physical Exam Vitals: Vital Signs Temp Pulse Pulse Resp BP BP Pulse Ox 09/19/18 11:01 84 09/19/18 10:53 80 09/19/18 07:27 86 09/19/18 07:16 94 09/19/18 05:18 18 09/19/18 04:28 97.1 F L 89 107/63 96 09/19/18 02:00 84 18 111/92 96 09/19/18 01:54 93 18 111/92 96 09/19/18 00:10 95 16 120/72 96 09/18/18 23:10 102 H 28 H 112/58 97 09/18/18 22:50 103 H 19 110/70 97 09/18/18 22:44 97.9 F 105 H 15 110/70 97 09/18/18 22:43 95 Intake and Output 09/19/18 09/19/18 09/19/18 06:59 14:59 22:59 Other: Voiding Method Incontinent # Voids 1 Weight 81.647 kg - Constitutional General appearance: average body habitus, disheveled, no acute distress - EENT Good gag reflex Eyes: PERRLA, normal appearance ENT: normal oropharynx Ears: bilateral: normal - Neck Carotids: bilateral: upstroke normal, bruit absent Thyroid: bilateral: normal size - Respiratory Respiratory: bilateral: diminished, negative: dullness, rales, rhonchi, wheezing , prolonged expiration - Cardiovascular Rhythm: regular Heart sounds: normal: S1, S2 - Gastrointestinal General gastrointestinal: soft - Musculoskeletal Unable to do a detailed neurological examination but appears to have a right hemiparesis Musculoskeletal: generalized weakness, right sided weakness Results - Laboratory Findings CBC and BMP: 09/18/18 23:11 09/18/18 23:11 PT/INR, D-dimer PT 9.9 sec (9.0-12.0) 09/18/18 23:11 INR 1.0 (<1.2) 09/18/18 23:11 Abnormal lab findings: Abnormal Labs 09/18/18 09/18/18 09/18/18 23:11 23:11 23:11 WBC 13.0 H RBC 3.69 L Hgb 9.1 L Hct 28.5 L MCV 77.2 L MCH 24.8 L RDW 20.6 H Plt Count 792 H Neutrophils # 10.9 H Lymphocytes # 0.5 L Chloride 92 L Carbon Dioxide 39 H BUN 25 H Glucose 119 H Total Creatine Kinase <20 L Total Protein 5.9 L Albumin 2.7 L - Diagnostic Findings Chest x-ray: report reviewed, image reviewed Assessment and Plan Assessment: Altered mental status likely related to a new stroke versus extension of the old stroke New right-sided hemiparesis Recent subacute left parietal temporal lobe infarct Slowly enlarging left-sided lung mass likely neoplastic process Chronic hypoxic respiratory failure with end-stage lung disease oxygen dependent Generalized weakness and medical debility Plan: Continue supportive care Patient is no code as per patient's wishes and family wishes Family is leaning towards hospice care and agree and may proceed We will be available as needed or ice Time with Patient: Greater than 30
--- NOTE | 2018-09-19 17:56 | HP ---
HISTORY AND PHYSICAL CHIEF COMPLAINT: Syncope, loss of consciousness and right-sided weakness. HISTORY OF PRESENT ILLNESS: This is another admission for this 83-year-old white female who has terminal cancer of the lung. She was found by her family to be unresponsive and weak on the right side. She was transported to the emergency room, where she became progressively more somnolent. CT did not demonstrate CVA at this time. Review of systems is unobtainable. Past medical history, family history, and personal and social histories are only significant in that she CANNOT TAKE QUINOLONES. She has been on other medications of late, but these will be stopped because she is not alert enough to swallow. The remainder of her history is unremarkable. PHYSICAL EXAMINATION: Blood pressure 116/70 with a pulse of 88, respirations of 15, and she is afebrile. In general she appeared to be pale and slightly responsive to stimuli. Head, ears, eyes, nose, mouth and throat seemed to be normal. Carotids were normal. CHEST: Clear, but breath sounds were diminished. Cardiac exam was normal. ABDOMEN: Soft. There were no masses. Extremities were normal. Neurologically she had upgoing toes on both sides and was not moving the right side. She was not arousable. She also had some twitching in the right upper extremity. IMPRESSION: 1. Probable left-sided cerebrovascular accident. 2. Metastatic carcinoma of the lung. 3. Chronic obstructive pulmonary disease. 4. History of hyperlipidemia. 5. Possible seizure activity. PLAN: 1. Bed rest. 2. IV fluids. 3. Family has decided that she should be made DO NOT RESUSCITATE. MMODL / IJN: [id number] /
[2018-09-20] MEDS: methylPREDNISolone SOD SUCCI 125 MG/2 ML VIAL IV SCH ×4 (05:39→23:26)
[2018-09-20] MEDS: SODIUM CHLORIDE 0.9% 1,000 ML IV SCH ×2 (06:22→17:45)
[2018-09-20] MEDS: IPRATROPIUM-ALBUTEROL 3 ML NEB INHALATION SCH ×4 (08:56→19:25)
[2018-09-20 09:04] LABS: Cholesterol 160 mg/dL (<200); HDL Cholesterol 55 mg/dL (40-60); LDL Cholesterol,Calculated 87 mg/dL (0-99); Triglycerides 90 mg/dL (<150)
[2018-09-20] MEDS: ENOXAPARIN 40 MG/0.4 ML SYRINGE SQ SCH (09:48)
--- NOTE | 2018-09-20 13:54 | PN ---
PROGRESS NOTE CHIEF COMPLAINT: CVA and CA of the lung. HISTORY OF PRESENT ILLNESS: This lady is doing much better. She is now awake and alert and starting to respond. She is not having any tremors. She is moving the right leg, but not the right arm. PHYSICAL EXAM: She remains pale and mild paretic in the right upper extremity. Her chest is clear and cardiac exam is normal. IMPRESSION: 1. Left-sided cerebrovascular accident with right-sided weakness. 2. Carcinoma of the lung. 3. Chronic obstructive pulmonary disease. PLAN: She is being followed with OT, ST and PT and will work on a discharge plan as well. She is a DNR. MMODL / IJN: [id number] /
[2018-09-20] MEDS: ACETAMINOPHEN TAB 325 MG TAB PO PRN (17:40)
[2018-09-21] MEDS: SODIUM CHLORIDE 0.9% 1,000 ML IV SCH ×2 (05:47→16:42)
[2018-09-21] MEDS: methylPREDNISolone SOD SUCCI 125 MG/2 ML VIAL IV SCH ×3 (06:50→17:24)
[2018-09-21] MEDS: IPRATROPIUM-ALBUTEROL 3 ML NEB INHALATION SCH ×4 (08:31→21:06)
[2018-09-21] MEDS: ACETAMINOPHEN TAB 325 MG TAB PO PRN (08:54)
[2018-09-21] MEDS: ENOXAPARIN 40 MG/0.4 ML SYRINGE SQ SCH (08:55)
[2018-09-22] MEDS: methylPREDNISolone SOD SUCCI 125 MG/2 ML VIAL IV SCH ×4 (01:25→17:01)
[2018-09-22] MEDS: SODIUM CHLORIDE 0.9% 1,000 ML IV SCH ×3 (01:32→20:53)
[2018-09-22] MEDS: ENOXAPARIN 40 MG/0.4 ML SYRINGE SQ SCH (07:50)
[2018-09-22] MEDS: IPRATROPIUM-ALBUTEROL 3 ML NEB INHALATION SCH ×4 (08:51→19:11)
--- NOTE | 2018-09-22 19:53 | PN ---
PROGRESS NOTE DATE OF SERVICE: 09/21/2018. CHIEF COMPLAINT: Left-sided CVA. HISTORY OF PRESENT ILLNESS: This lady is doing reasonably well. She is awake and alert. She has a little bit of difficulty speaking and she still has right hemiparesis. PHYSICAL EXAM: She is pale. Chest is clear and breath sounds are poor. Cardiac exam is normal. The abdomen is soft, nontender and she has a dense right upper extremity weakness. IMPRESSION: 1. Left cerebrovascular accident. 2. Metastatic carcinoma of the lung. 3. Chronic obstructive pulmonary disease. PLAN: They have decided to go ahead and consult with hospice and this will be set up for Saturday. MMODL / IJN: [id number] /
--- NOTE | 2018-09-22 19:58 | PN ---
PROGRESS NOTE DATE OF SERVICE: 09/22/2018 CHIEF COMPLAINT: Left-sided CVA. HISTORY OF PRESENT ILLNESS: This lady is stable and they are meeting with Hospice today. PHYSICAL EXAM: Breath sounds are diminished bilaterally and cardiac exam is normal. Abdomen is soft. EXTREMITIES: Normal. She remains hemiparetic on the right upper extremity and she is pale. IMPRESSION: 1. Left-sided cerebrovascular accident. 2. Chronic obstructive pulmonary disease. 3. Carcinoma of lung. PLAN: The family is meeting with hospice today and will could go ahead after that and arrange for discharge plan. MMODL / IJN: [id number] /
[2018-09-23] MEDS: methylPREDNISolone SOD SUCCI 125 MG/2 ML VIAL IV SCH ×2 (01:51→06:27)
[2018-09-23 04:54] VITALS: BP 134/77; RESP 18; TEMP 98.1
[2018-09-23] MEDS: SODIUM CHLORIDE 0.9% 1,000 ML IV SCH (06:26)
[2018-09-23] MEDS: IPRATROPIUM-ALBUTEROL 3 ML NEB INHALATION SCH ×2 (07:43→11:14)
[2018-09-23] MEDS: ENOXAPARIN 40 MG/0.4 ML SYRINGE SQ SCH (10:08)
[2018-09-23 11:27] VITALS: PULSE 76
--- NOTE | 2018-09-24 05:57 | DS ---
DISCHARGE SUMMARY CHIEF COMPLAINT: Right-sided weakness and mental status changes. HISTORY OF PRESENT ILLNESS AND PHYSICAL EXAM: The details of this lady's history and physical can be found in the initial workup. LABORATORY STUDIES: After admission she was placed on bedrest and initially she was comatose. She slowly regained consciousness and improved significantly. She could not move her right side well at all. Speech returned quite well. Arrangements were made for her to go to hospice and she was discharged on the . FINAL DIAGNOSES: 1. Left-sided cerebrovascular accident. 2. Carcinoma of the lung. 3. Chronic obstructive pulmonary disease. OPERATIONS: None. CONSULTATIONS: None. She is improved. MMODL / IJN: [id number] /
--- NOTE | 2018-09-26 08:03 | CDI ---
Documentation Clarification Form Date: 09/26/18 From: Loretta Heriberto Rona Mahoney, Home Care Manager Hours-8:30 am & 5 pm M-F Admit Date: 09/19/2018 Patient Name: Sandrine Abreu Visit Number: [id number] Discharge Date: 09/23/2018 ATTENTION: The Clinical Documentation Specialists (CDI) and [facility] Coding Staff appreciate your assistance in clarifying documentation. Please respond to the clarification below the line at the bottom and electronically sign. The CDI & [facility] Coding staff will review the response and follow-up if needed. Please note: Queries are made part of the Legal Health Record. If you have any questions, please contact the author of this message via ITS. Dr. Preston Diaz Chronic persistent asthma is documented in the ED note and your consult. History/risk factors: chr hypoxic respiratory failure, severe COPD/emphysema, O2 dependent, stroke w right hemiplegia, left upper lobe lung cancer Clinical Indicators: Radiology: large left upper lobe mass is increased complared to last exam, no heart failure. COPD and pulmonary fibrosis. Vital Signs: T-97.9, P-105, R-28, BP-112/58, O2 sat-97 Medication: Pulmicort, Symbicort, nebulizer, IV Solu-Medrol, Prednisone 100mg In your professional opinion, can you please further specify the following, if known? With Acute Exacerbation Status asthmaticus Other, please specify ___ Unable to determine Severity Mild persistent Moderate persistent Severe persistent Other, please specify ____ Unable to determine Please continue to document in your progress notes and discharge summary in order to capture severity of illness and risk of mortality. Include clinical findings that support your diagnosis. MTDD
== END 2018-09-23 13:20 | disposition hospice, home (50) | DRG 64 ==
LOC: EC 22:26 → 3SCARD 09-19 01:22 → 3NMEDONC 09-21 12:26
PROVIDERS: ADMIT Family Medicine; ATTEND Family Medicine
DX: I63.9 Cerebral infarction, unspecified (principal); R40.2222 Coma scale, best verbal response, incomprehensible words, at arrival to emergency department; J96.11 Chronic respiratory failure with hypoxia; G81.91 Hemiplegia, unspecified affecting right dominant side; C34.12 Malignant neoplasm of upper lobe, left bronchus or lung; C79.9 Secondary malignant neoplasm of unspecified site; I50.9 Heart failure, unspecified; Z66 Do not resuscitate; Z51.5 Encounter for palliative care; R40.2352 Coma scale, best motor response, localizes pain, at arrival to emergency department; R40.2132 Coma scale, eyes open, to sound, at arrival to emergency department; R29.708 NIHSS score 8; J43.9 Emphysema, unspecified; E78.5 Hyperlipidemia, unspecified; M19.90 Unspecified osteoarthritis, unspecified site; Z99.81 Dependence on supplemental oxygen; Z79.82 Long term (current) use of aspirin; Z79.51 Long term (current) use of inhaled steroids; Z79.899 Other long term (current) drug therapy; Z87.891 Personal history of nicotine dependence; Z86.14 Personal history of Methicillin resistant Staphylococcus aureus infection; Z90.710 Acquired absence of both cervix and uterus; Z96.642 Presence of left artificial hip joint; Z87.81 Personal history of (healed) traumatic fracture; Z87.01 Personal history of pneumonia (recurrent); Z86.73 Personal history of transient ischemic attack (TIA), and cerebral infarction without residual deficits; Z86.79 Personal history of other diseases of the circulatory system; Z86.19 Personal history of other infectious and parasitic diseases; Z88.1 Allergy status to other antibiotic agents; Z82.61 Family history of arthritis; J45.998 Other asthma
CPT/HCPCS: 36415; 70450; 71046; 80053; 80061; 81003; 82550; 82553; 83605; 83735; 84100; 84484; 85025; 85610; 85730; 87077; 87086; 87186; 93005; 94640; 96361; 96372; 96374; 96376; 99285